=== PATIENT | male | born 1960 | race African-American/Black ===

== ENCOUNTER 2018-05-01 13:39 | Inpatient (IN) | payer MEDICARE, MEDICAID ==
[~2018-05-01] VITALS: Ht 170.2 cm; Wt 104.3 kg
[~2018-05-01 13:39] MED LIST: APRESOLINE50 MG PO; ASPIR-LOW81 MG PO; ASPIRIN BUFFER325 M1 PO; CARDIZEM CD300 MG PO; CLONIDINE HCL0.3 MG PO; CRESTOR10 MG PO; DIOVAN160 MG PO; DSS250 MG PO; FISH OIL 1,0001 EAC2 PO; FUROSEMIDE40 MG/5 ML PO; HYDROCODON-ACE1 EAC7 PO; ISOSORBIDE1 GM PO; LANTUS5 UNITS *; LANTUS5 UNITS SUBQ; LASIX20 MG PO; LASIX80 MG PO; LEXIVA700 MG PO; METOPROLOL TAR100 MG PO; NAPROXEN500 M2 PO; NITROSTAT0.4 MG SL; NORVASC5 MG PO; NORVIR100 MG PO; NOVOLOG100 UNIT/1 SQ; NOVOLOG100 UNITS1 SUBQ; PLAVIX75 MG PO; PREZISTA600 MG PO; RANITIDINE HCL150 MG PO; REGLAN5 MG PO; ROCALTROL0.5 MC1 PO; VIREAD300 MG PO; ZIDOVUDINE300 MG PO
[2018-05-01 13:46] VITALS: BP 156/100
[2018-05-01] MEDS ORDERED: Morphine Sulfate 4mg/ml Inj (IV USE ONLY) IVP ONE (14:00)
[2018-05-01] MEDS ORDERED: LACTULOSE20 GM/301 ORAL (14:00)
[2018-05-01] MEDS ORDERED: LIPITOR40 MG ORAL (14:00)
[2018-05-01] MEDS ORDERED: PLAVIX75 MG ORAL (14:02)
[2018-05-01] MEDS ORDERED: HEPARIN SO5000 UNIT2 SUBQ (14:02)
[2018-05-01] MEDS ORDERED: LAMIVUDINE10 MG/1 ML PO (14:02)
[2018-05-01] MEDS ORDERED: DUONEB 0.5-3(2.53 ML HHN ×2 (14:02→14:21)
[2018-05-01 14:15] LABS: BASOPHILS % (AUTO) 0.9 % (0.0-2.0); EOSINOPHILS % (AUTO) 6.7 % (0.0-3.0); HEMATOCRIT 38.3 % (42.0-52.0); LYMPHOCYTES % (AUTO) 22.7 % (20.0-45.0); MEAN CORPUSCULAR VOLUME 96 FL (80-99); MONOCYTES % (AUTO) 11.9 % (1.0-10.0); NEUTROPHILS % (AUTO) 57.7 % (45.0-75.0); PLATELET COUNT 138 K/UL (150-450); RED BLOOD COUNT 3.97 M/UL (4.70-6.10); WHITE BLOOD COUNT 7.3 K/UL (4.8-10.8)
[2018-05-01] MEDS ORDERED: ASPIRIN81 MG ORAL (14:24)
[2018-05-01] MEDS ORDERED: AMITRIPTYLINE100 MG ORAL (14:27)
--- NOTE | 2018-05-01 14:31 | Emergency Room Report ---
History of Present Illness General Chief Complaint: Chest Pain Source: Patient Present Illness HPI 57-year-old male presents ED complaining of chest pain. Patient from long term facility. States chest pain started approximately 90 minutes ago. At rest. Pain is left-sided, sharp, 10 out of 10, nonradiating. Patient was given nitroglycerin by EMS without resolution. states he has several stents in his heart. History of end-stage renal disease. Last dialysis yesterday. Denies smoking or drug use. No other aggravating relieving factors. Denies any other associated symptoms Allergies: Coded Allergies: No Known Allergies (Verified , 02/11/12) Patient History Past Medical History: HTN, CAD, asthma, renal disease, dialysis Reviewed Nursing Documentation: PMH: Agreed; PSxH: Agreed Nursing Documentation-PMH Hx Cardiac Problems: Yes Hx Hypertension: Yes Hx Pacemaker: No Hx Asthma: Yes Hx COPD: No Hx Diabetes: Yes - esrd on dialysis Hx Cancer: No Hx Gastrointestinal Problems: Yes Hx Dialysis: Yes Hx Neurological Problems: No Hx Cerebrovascular Accident: No Hx Seizures: No Review of Systems All Other Systems: negative except mentioned in HPI Physical Exam Vital Signs Date Time Temp Pulse Resp B/P (MAP) Pulse Ox O2 Delivery O2 Flow Rate FiO2 05/01/18 13:32 99.1 95 18 132/86 99 Room Air 99.1 Sp02 EP Interpretation: reviewed, normal General Appearance: no apparent distress, alert, GCS 15, non-toxic Head: normocephalic, atraumatic Eyes: bilateral eye normal inspection, bilateral eye PERRL ENT: hearing grossly normal, normal pharynx, no angioedema, normal voice Neck: full range of motion, supple/symm/no masses Respiratory: chest non-tender, lungs clear, normal breath sounds, speaking full sentences, other - dialysis catheter on left chest Cardiovascular #1: regular rate, rhythm, no edema Cardiovascular #2: 2+ carotid (R), 2+ carotid (L), 2+ radial (R), 2+ radial (L) , 2+ dorsalis pedis (R), 2+ dorsalis pedis (L) Gastrointestinal: normal bowel sounds, non tender, soft, non-distended, no guarding, no rebound Rectal: deferred Genitourinary: normal inspection, no CVA tenderness Musculoskeletal: back normal, gait/station normal, normal range of motion, non- tender Neurologic: alert, oriented x3, responsive, motor strength/tone normal, sensory intact, speech normal Psychiatric: judgement/insight normal, memory normal, mood/affect normal, no suicidal/homicidal ideation Reflexes: 3+ bicep (R), 3+ bicep (L), 3+ tricep (R), 3+ tricep (L), 3+ knee (R) , 3+ knee (L) Skin: normal color, no rash, warm/dry, well hydrated Lymphatic: no adenopathy Medical Decision Making Diagnostic Impression: Primary Impression: ACS (acute coronary syndrome) Additional Impression: ESRD (end stage renal disease) on dialysis ER Course Hospital Course 57-year-old male presents ED complaining of chest pain Differential diagnoses include: SC/unstable angina, contusion, muscle strain, PTX, rib fracture Clinical course Patient placed on stretcher. on monitor car operator. After initial history and physical I ordered labs, EKG, chest x-ray, morphine Patient had difficult IV access. I was able to place a peripheral EJ line labs reviewed- no leukocytosis, hb/hct stable, Cr elevated, trop negative, BNP elevated EKG - NSR, no acute ischemic changes interpreted by me Chest x-ray- cardiomegaly, dialysis catheter in chest Case discussed with Dr. Bland and he agreed to accept the patient to his service for further care and support I. I feel this is a highly complex case requiring extensive working including EKG/Rhythm strip, Xray/CT/US, Blood/urine lab work, repeat exams while in ED, and administration of strong opiates/narcotics for pain control, admission to hospital or close patient follow up. Diagnosis - ACS, ESRD admitted to telemetry in serious condition Labs Test 05/01/18 13:55 White Blood Count 7.3 K/UL (4.8-10.8) Red Blood Count 3.97 M/UL (4.70-6.10) Hemoglobin 12.0 G/DL (14.2-18.0) Hematocrit 38.3 % (42.0-52.0) Mean Corpuscular Volume 96 FL (80-99) Mean Corpuscular Hemoglobin 30.2 PG (27.0-31.0) Mean Corpuscular Hemoglobin Concent 31.3 G/DL (32.0-36.0) Red Cell Distribution Width 16.0 % (11.6-14.8) Platelet Count 138 K/UL (150-450) Mean Platelet Volume 7.3 FL (6.5-10.1) Neutrophils (%) (Auto) 57.7 % (45.0-75.0) Lymphocytes (%) (Auto) 22.7 % (20.0-45.0) Monocytes (%) (Auto) 11.9 % (1.0-10.0) Eosinophils (%) (Auto) 6.7 % (0.0-3.0) Basophils (%) (Auto) 0.9 % (0.0-2.0) Prothrombin Time 11.3 SEC (9.30-11.50) Prothromb Time International Ratio 1.1 (0.9-1.1) Activated Partial Thromboplast Time 32 SEC (23-33) Sodium Level 134 MMOL/L (136-145) Potassium Level 3.9 MMOL/L (3.5-5.1) Chloride Level 97 MMOL/L (98-107) Carbon Dioxide Level 28 MMOL/L (21-32) Anion Gap 9 mmol/L (5-15) Blood Urea Nitrogen 13 mg/dL (7-18) Creatinine 6.4 MG/DL (0.55-1.30) Estimat Glomerular Filtration Rate 11.0 mL/min (>60) Glucose Level 88 MG/DL (74-106) Calcium Level 9.2 MG/DL (8.5-10.1) Total Bilirubin 0.6 MG/DL (0.2-1.0) Aspartate Amino Transf (AST/SGOT) 45 U/L (15-37) Alanine Aminotransferase (ALT/SGPT) 38 U/L (12-78) Alkaline Phosphatase 113 U/L (46-116) Total Creatine Kinase 183 U/L (26-308) Creatine Kinase MB 1.0 NG/ML (0.0-3.6) Creatine Kinase MB Relative Index 0.5 Troponin I 0.017 ng/mL (0.000-0.056) Pro-B-Type Natriuretic Peptide 3127 pg/mL (0-125) Total Protein 9.9 G/DL (6.4-8.2) Albumin 3.4 G/DL (3.4-5.0) Globulin 6.5 g/dL Albumin/Globulin Ratio 0.5 (1.0-2.7) EKG Diagnostic Results Rate: normal Rhythm: NSR, other - 1st degree av block ST Segments: no acute changes ASA given to the pt in ED: No - given by ems Rhythm Strip Diag. Results EP Interpretation: yes Rhythm: NSR, no PVC's, no ectopy Chest X-Ray Diagnostic Results Chest X-Ray Diagnostic Results : Chest X-Ray Ordered: Yes # of Views/Limited/Complete: 1 View Indication: Chest Pain EP Interpretation: Yes Interpretation: no consolidation, no effusion, no pneumothorax, other - cardiomegaly. dialylsis catheter in left chest Impression: Other - cardiomegaly Electronically Signed by: Electronically signed by Sergio Vega MD Last Vital Signs Date Time Temp Pulse Resp B/P (MAP) Pulse Ox O2 Delivery O2 Flow Rate FiO2 05/01/18 14:20 95 18 Room Air 05/01/18 14:14 99.1 05/01/18 13:46 156/100 100 Status: improved Disposition: ADMITTED INPATIENT Condition: Serious Sergio Vega MD May 01, 2018 14:31
[2018-05-01] MEDS ORDERED: LISINOPRIL20 MG ORAL (14:32)
[2018-05-01 14:33] LABS: ANION GAP 9 mmol/L (5-15); BLOOD UREA NITROGEN 13 mg/dL (7-18); CALCIUM 9.2 MG/DL (8.5-10.1); CARBON DIOXIDE 28 MMOL/L (21-32); CHLORIDE 97 MMOL/L (98-107); CREATININE 6.4 MG/DL (0.55-1.30); POTASSIUM 3.9 MMOL/L (3.5-5.1); SODIUM 134 MMOL/L (136-145)
[2018-05-01] MEDS ORDERED: PREZISTA600 MG ORAL (14:41)
[2018-05-01] MEDS ORDERED: DIPHENHYDRAMINE25 M1 ORAL (14:41)
[2018-05-01] MEDS ORDERED: LIDOCAINE 4% TOPIC (14:41)
[2018-05-01 14:44] LABS: INR 1.1 (0.9-1.1)
[2018-05-01] MEDS ORDERED: DiphenhydrAMINE 50mg/ml Inj IVP ONE (14:45)
[2018-05-01 14:47] LABS: ALANINE AMINOTRANSFERASE 38 U/L (12-78); ALBUMIN 3.4 G/DL (3.4-5.0); ALBUMIN/GLOBULIN RATIO 0.5 (1.0-2.7); ALKALINE PHOSPHATASE 113 U/L (46-116); ASPARTATE AMINO TRANSFERASE 45 U/L (15-37); BILIRUBIN,TOTAL 0.6 MG/DL (0.2-1.0); CREATINE KINASE 183 U/L (26-308)
[2018-05-01] MEDS ORDERED: IMDUR ORAL (15:06)
[2018-05-01] MEDS ORDERED: MELATONIN 3 MG1 EAC1 PO (15:06)
[2018-05-01] MEDS ORDERED: CATAPRES0.1 MG ORAL (15:11)
[2018-05-01] MEDS ORDERED: ZOFRAN ODT8 MG ORAL (15:11)
[2018-05-01] MEDS ORDERED: NORCO 5-325 TA1 EACH ORAL (15:11)
[2018-05-01] MEDS ORDERED: GERI-TUSSI100 MG/5 M PO (15:12)
--- NOTE | 2018-05-01 15:13 | Diagnostic Imaging Report ---
Indication: Chest pain Technique: One view of the chest Comparison: 12/09/2012 Findings: Interim placement of a right jugular tunneled dialysis catheter, tip of which is deep within the right atrium and possibly protruding into the tricuspid valve. The heart is mildly enlarged. The lungs and pleural spaces are clear Impression: No acute process Mild cardiomegaly Deep position of tunneled dialysis catheter. Dr. Vega notified of this finding at the time of interpretation
[2018-05-01 16:00] VITALS: BP 129/81
--- NOTE | 2018-05-01 17:58 | Consultation ---
Consult Note Consult Note Asked to eval for dialysis management 57-year-old male presents ED complaining of chest pain. Patient from long-term facility. States chest pain started approximately 90 minutes ago. At rest. Pain is left-sided, sharp, 10 out of 10, nonradiating. Patient was given nitroglycerin by EMS without resolution. states he has several stents in his heart. History of end-stage renal disease. Last dialysis yesterday. Denies smoking or drug use. No other aggravating relieving factors. Denies any other associated symptoms No Known Allergies (Verified , 02/11/12) Past Medical History: HTN, CAD, asthma, renal disease, dialysis Hx Cardiac Problems: Yes Hx Hypertension: Yes Hx Asthma: Yes Hx Diabetes: Yes - esrd on dialysis Hx Gastrointestinal Problems: Yes Hx Dialysis: Yes patient interviewed- examined data reviewed Assessment/Plan Admitted with ACS On Dialysis for 12 years Has right chest permacath HTN DM HIV+ BP meds with parameters HD 05/02 keep BS in control 2D Echo per cardiology Toño Posada MD May 01, 2018 17:58
[2018-05-01] MEDS ORDERED: Albuterol/Ipratropium 3ml neb HHN PRN (18:00)
[2018-05-01] MEDS ORDERED: DiphenhydrAMINE 50mg/ml Inj IVP PRN (18:00)
[2018-05-01] MEDS ORDERED: Albuterol/Ipratropium 3ml neb HHN SCH (18:00)
--- NOTE | 2018-05-01 19:13 | Cardiology Progress Note ---
Assessment/Plan Assessment/Plan The patient is seen and examined, full consult note will be dictated shortly. Objective Last 24 Hour Vital Signs Date Time Temp Pulse Resp B/P (MAP) Pulse Ox O2 Delivery O2 Flow Rate FiO2 05/01/18 18:29 Room Air 05/01/18 16:52 99.1 80 18 129/81 96 Room Air 99.1 05/01/18 16:00 99.1 80 18 129/81 96 Room Air 99.1 05/01/18 15:08 99.1 05/01/18 14:20 95 18 Room Air 05/01/18 14:14 99.1 05/01/18 13:46 89.9 89 16 156/100 100 Room Air 89.9 05/01/18 13:32 99.1 95 18 132/86 99 Room Air 99.1 Laboratory Tests Test 05/01/18 13:35 05/01/18 13:55 C-Reactive Protein, Quantitative 3.2 mg/dL (0.00-0.90) H White Blood Count 7.3 K/UL (4.8-10.8) Red Blood Count 3.97 M/UL (4.70-6.10) L Hemoglobin 12.0 G/DL (14.2-18.0) L Hematocrit 38.3 % (42.0-52.0) L Mean Corpuscular Volume 96 FL (80-99) Mean Corpuscular Hemoglobin 30.2 PG (27.0-31.0) Mean Corpuscular Hemoglobin Concent 31.3 G/DL (32.0-36.0) L Red Cell Distribution Width 16.0 % (11.6-14.8) H Platelet Count 138 K/UL (150-450) L Mean Platelet Volume 7.3 FL (6.5-10.1) Neutrophils (%) (Auto) 57.7 % (45.0-75.0) Lymphocytes (%) (Auto) 22.7 % (20.0-45.0) Monocytes (%) (Auto) 11.9 % (1.0-10.0) H Eosinophils (%) (Auto) 6.7 % (0.0-3.0) H Basophils (%) (Auto) 0.9 % (0.0-2.0) Prothrombin Time 11.3 SEC (9.30-11.50) Prothromb Time International Ratio 1.1 (0.9-1.1) Activated Partial Thromboplast Time 32 SEC (23-33) Sodium Level 134 MMOL/L (136-145) L Potassium Level 3.9 MMOL/L (3.5-5.1) Chloride Level 97 MMOL/L (98-107) L Carbon Dioxide Level 28 MMOL/L (21-32) Anion Gap 9 mmol/L (5-15) Blood Urea Nitrogen 13 mg/dL (7-18) Creatinine 6.4 MG/DL (0.55-1.30) H Estimat Glomerular Filtration Rate 11.0 mL/min (>60) Glucose Level 88 MG/DL (74-106) Calcium Level 9.2 MG/DL (8.5-10.1) Total Bilirubin 0.6 MG/DL (0.2-1.0) Aspartate Amino Transf (AST/SGOT) 45 U/L (15-37) H Alanine Aminotransferase (ALT/SGPT) 38 U/L (12-78) Alkaline Phosphatase 113 U/L (46-116) Total Creatine Kinase 183 U/L (26-308) Creatine Kinase MB 1.0 NG/ML (0.0-3.6) Creatine Kinase MB Relative Index 0.5 Troponin I 0.017 ng/mL (0.000-0.056) Pro-B-Type Natriuretic Peptide 3127 pg/mL (0-125) H Total Protein 9.9 G/DL (6.4-8.2) H Albumin 3.4 G/DL (3.4-5.0) Globulin 6.5 g/dL Albumin/Globulin Ratio 0.5 (1.0-2.7) L Pavan Hanson MD May 01, 2018 19:13
[2018-05-01 20:00] VITALS: BP 99/56
[2018-05-01] MEDS: Atorvastatin 20mg tab ORAL SCH (20:09)
[2018-05-01] MEDS: Metoprolol Tartrate 12.5mg TAB ORAL SCH (20:09)
[2018-05-01] MEDS: HydrALAZINE 50mg tab ORAL SCH (21:14)
[2018-05-02] VITALS: BP 107/74
--- NOTE | 2018-05-02 01:00 | Consultation ---
DATE OF CONSULTATION: 05/01/2018 CARDIOLOGY CONSULTATION CONSULTING PHYSICIAN: Pavan Hanson M.D. REFERRING PHYSICIAN: Daisy Bland M.D. REASON FOR CONSULTATION: Management of chest pain. HISTORY OF PRESENT ILLNESS: The patient is a very unfortunate 57-year-old gentleman, who presents to the hospital complaining of chest pain, described as pressure, sharp, localized in the left precordial area, not relieved by nitroglycerin given by EMS en route to this facility. He is a resident of care home facility. His risk factors for coronary artery disease including history of hypertension, end-stage renal disease, diabetes mellitus. In fact, he has history of coronary artery disease with multiple percutaneous coronary interventions in the past. He is compliant with his dialysis. At the time of arrival to the hospital, blood pressure was 132/86 mmHg and pulse of 95. A 12-lead electrocardiogram was significant for sinus rhythm with prolonged QT interval, but no acute ST and T-wave abnormalities. The patient was admitted to the telemetry for further evaluation and management. Cardiology consultation was made at request of Dr. Bland. PAST MEDICAL HISTORY: 1. Hypertension. 2. Coronary artery disease, status post PCI. 3. History of asthma. 4. History of diabetes mellitus. 5. History of end-stage renal disease on hemodialysis. 6. History of gastrointestinal problems. 7. History of right PermCath placement in 2017. 8. History of human immunodeficiency virus disease. PAST SURGICAL HISTORY: Right subclavian vein PermCath placement. ALLERGIES: No known drug allergies. FAMILY HISTORY: No premature coronary artery disease in first-degree relatives. MEDICATIONS: List of medications, amitriptyline 75 mg p.o. at bedtime, aspirin 81 mg daily, atorvastatin 40 mg p.o. at bedtime, clonidine 0.3 mg twice a day, Plavix 75 mg daily, Prezista 400 mg twice a day, Cardizem 300 mg p.o. daily, diphenhydramine 25 mg q.4 hours p.r.n. pruritus, furosemide 40 mg p.o. twice daily, guaifenesin 10 mL p.o. q.4 hours p.r.n. cough, heparin 5000 units subcutaneous q.12 hours, hydralazine 50 mg times a day, [place] 5/325 mg one tablet q.4 h. p.r.n. pain, NovoLog insulin 10 units subcutaneous three times a day, Lantus insulin 20 units subcutaneously at bedtime, DuoNeb 3 mL HHN as needed, isosorbide mononitrate 20 mg p.o. daily, lactulose 30 mL p.o. daily, lamivudine 10 mg p.o. daily, lisinopril 10 mg p.o. daily, melatonin one tablet at bedtime, metoprolol 25 mg p.o. daily, naproxen 500 mg twice a day, Nitrostat 0.4 mg sublingual p.r.n. chest pain, omega-3 fatty acids 1000 mg soft gel three times a day, Zofran 4 mg q.6 hours p.r.n. nausea and vomiting, Zantac 150 mg p.o. at bedtime, Norvir 100 mg p.o. twice daily, rosuvastatin 5 mg p.o. at bedtime, valsartan 160 mg twice daily, and zidovudine 300 mg p.o. daily. REVIEW OF SYSTEMS: HEENT: Denies any headache, diplopia, or blurred vision. CONSTITUTIONAL: Denies any fever, chills, night sweats, or weight loss. CARDIOVASCULAR: Chest pain as mentioned above, localized, sharp/pressure-like, left precordial pain, not responding to nitroglycerin. Denies any dyspnea on exertion, PND, orthopnea, or leg swelling. PULMONARY: Denies any cough, hemoptysis, or wheezing. GASTROINTESTINAL: Denies any nausea, vomiting, diarrhea, constipation, abdominal pain, or GI bleed. GENITOURINARY: Denies any hematuria, dysuria, or incontinence. NEUROLOGIC: Denies any motor dysfunction, sensory deficit, or altered speech. PHYSICAL EXAMINATION: VITAL SIGNS: Blood pressure at the time of arrival to the hospital is 132/86, pulse of 95, respirations 18, and O2 saturation 99% on room air. GENERAL: The patient is a very pleasant 57-year-old gentleman, in no apparent respiratory distress. Alert and oriented x4. HEENT: Atraumatic and normocephalic. Anicteric. Pupils are equal, round, and reactive to light and accommodation. Extraocular muscles intact. NECK: JVP is less than 5 cm. No carotid bruits. Carotid upstrokes 2+ bilaterally. CVS: Normal S1, S2. Regular rhythm. No murmurs, gallops, or rubs. PMI is at fourth intercostal space in the midclavicular line. LUNGS: Clear to auscultation bilaterally. ABDOMEN: Soft, nontender, and nondistended. No hepatosplenomegaly. Positive bowel sounds. EXTREMITIES: No evidence of edema, clubbing, or cyanosis. LABORATORY AND DIAGNOSTIC DATA: Laboratory findings, WBC is 7.3 hemoglobin 12.0, hematocrit 38.3, and platelet count is . Sodium 134, potassium 3.9, chloride 97, bicarbonate 28, BUN 13, creatinine 6.4, glucose 88, and calcium is 9.2. Troponin I is 0.017. ProBNP was 3127. INR is 1.1. A 12-lead electrocardiogram, sinus rhythm at a rate of 94 with a first-degree AV block, prolongation of QT interval of 480 milliseconds, right axis deviation, and no ST and T-wave abnormalities. Chest x-ray showed mild cardiomegaly, no acute cardiopulmonary disease. ASSESSMENT AND PLAN: The patient is a very unfortunate 57-year-old gentleman, seen in Cardiology consultation at the request of Dr. Bland. 1. Noncardiac chest pain based on history and characteristic of pain, however, given the patient's history of CAD and status post PCI. We would like to rule out acute myocardial infarction. First troponin I level is within normal limits. I will continue with serial troponin I level. The patient will also be scheduled for nuclear stress test to rule out obstructive CAD in the a.m. A 2D echocardiogram will be done to assess left ventricular systolic and diastolic function. Of note, the 12-lead electrocardiogram does not show any ischemic changes. 2. Prolonged QT interval, this is most likely due to electrolyte abnormalities associated with hemodialysis/end-stage renal disease. We will check magnesium level in the a.m. Calcium level is within normal limits. 3. History of hypertension. 4. History of diabetes mellitus. This patient would benefit from combination of aspirin and statins. Lipid panel will be measured in the morning. I would like to thank, Dr. Bland, for allowing me to participate in the care of this patient. Pavan Hanson M.D. DR: LISET JOB#: [id number] CC:
[2018-05-02 04:00] VITALS: BP 115/69
[2018-05-02 05:31] LABS: BASOPHILS % (AUTO) 0.9 % (0.0-2.0); EOSINOPHILS % (AUTO) 8.1 % (0.0-3.0); HEMATOCRIT 38.8 % (42.0-52.0); LYMPHOCYTES % (AUTO) 31.5 % (20.0-45.0); MEAN CORPUSCULAR VOLUME 97 FL (80-99); MONOCYTES % (AUTO) 10.2 % (1.0-10.0); NEUTROPHILS % (AUTO) 49.2 % (45.0-75.0); PLATELET COUNT 128 K/UL (150-450); RED BLOOD COUNT 3.99 M/UL (4.70-6.10); RED CELL DISTRIBUTION WIDTH 16.1 % (11.6-14.8); WHITE BLOOD COUNT 6.2 K/UL (4.8-10.8)
[2018-05-02] MEDS: HydrALAZINE 50mg tab ORAL SCH ×3 (06:00→21:52)
[2018-05-02 07:36] LABS: ALANINE AMINOTRANSFERASE 38 U/L (12-78); ALBUMIN 3.6 G/DL (3.4-5.0); ALBUMIN/GLOBULIN RATIO 0.6 (1.0-2.7); ALKALINE PHOSPHATASE 128 U/L (46-116); ANION GAP 9 mmol/L (5-15); ASPARTATE AMINO TRANSFERASE 65 U/L (15-37); BILIRUBIN,TOTAL 0.6 MG/DL (0.2-1.0); BLOOD UREA NITROGEN 20 mg/dL (7-18); CARBON DIOXIDE 28 MMOL/L (21-32); CHLORIDE 97 MMOL/L (98-107); CHOLESTEROL 111 MG/DL (< 200); CREATINE KINASE 207 U/L (26-308); CREATININE 7.9 MG/DL (0.55-1.30); GAMMA GLUTAMYL TRANSPEPTIDASE 158 U/L (5-85); HDL CHOLESTEROL 34 MG/DL (40-60); PHOSPHORUS 4.8 MG/DL (2.5-4.9); POTASSIUM 4.6 MMOL/L (3.5-5.1); SODIUM 134 MMOL/L (136-145); TRIGLYCERIDES 122 MG/DL (30-150)
--- NOTE | 2018-05-02 07:51 | Nephrology Progress Note ---
Assessment/Plan Problem List: (1) ESRD (end stage renal disease) on dialysis (2) ACS (acute coronary syndrome) Assessment Admitted with ACS On Dialysis for 12 years Has right chest permacath HTN DM HIV+ Plan adjust bp meds HD in am Subjective ROS Limited/Unobtainable: No Constitutional: Reports: malaise Objective Objective Last 24 Hour Vital Signs Date Time Temp Pulse Resp B/P (MAP) Pulse Ox O2 Delivery O2 Flow Rate FiO2 05/02/18 06:00 115/69 05/02/18 04:00 79 05/02/18 04:00 97.6 77 18 115/69 (84) 98 97.6 05/02/18 00:00 97.4 80 18 107/74 (85) 99 97.4 05/02/18 00:00 79 05/01/18 21:14 99/56 05/01/18 21:00 Nasal Cannula 2.0 05/01/18 20:09 82 99/56 05/01/18 20:00 83 05/01/18 20:00 97.6 84 18 99/56 (70) 98 97.6 05/01/18 18:29 Room Air 05/01/18 16:52 99.1 80 18 129/81 96 Room Air 99.1 05/01/18 16:00 99.1 80 18 129/81 96 Room Air 99.1 05/01/18 15:08 99.1 05/01/18 14:20 95 18 Room Air 05/01/18 14:14 99.1 05/01/18 13:46 89.9 89 16 156/100 100 Room Air 89.9 05/01/18 13:32 99.1 95 18 132/86 99 Room Air 99.1 Intake and Output 05/01/18 05/02/18 19:00 07:00 Intake Total 0 ml 200 ml Balance 0 ml 200 ml Intake Oral 0 ml 200 ml # Bowel Movements 1 Laboratory Tests 05/01/18 13:35: C-Reactive Protein, Quantitative 3.2H 05/01/18 13:55: White Blood Count 7.3, Red Blood Count 3.97L, Hemoglobin 12.0L, Hematocrit 38.3L , Mean Corpuscular Volume 96, Mean Corpuscular Hemoglobin 30.2, Mean Corpuscular Hemoglobin Concent 31.3L, Red Cell Distribution Width 16.0H, Platelet Count 138L, Mean Platelet Volume 7.3, Neutrophils (%) (Auto) 57.7, Lymphocytes (%) (Auto) 22.7, Monocytes (%) (Auto) 11.9H, Eosinophils (%) (Auto) 6.7H, Basophils (%) (Auto) 0.9, Prothrombin Time 11.3, Prothromb Time International Ratio 1.1, Activated Partial Thromboplast Time 32, Sodium Level 134L, Potassium Level 3.9, Chloride Level 97L, Carbon Dioxide Level 28, Anion Gap 9, Blood Urea Nitrogen 13, Creatinine 6.4H, Estimat Glomerular Filtration Rate 11.0, Glucose Level 88, Calcium Level 9.2, Total Bilirubin 0.6, Aspartate Amino Transf (AST/SGOT) 45H, Alanine Aminotransferase (ALT/SGPT) 38, Alkaline Phosphatase 113, Total Creatine Kinase 183, Creatine Kinase MB 1.0, Creatine Kinase MB Relative Index 0.5, Troponin I 0.017, Pro-B-Type Natriuretic Peptide 3127H, Total Protein 9.9H, Albumin 3.4, Globulin 6.5, Albumin/Globulin Ratio 0.5L 05/02/18 04:06: White Blood Count 6.2, Red Blood Count 3.99L, Hemoglobin 12.0L, Hematocrit 38.8L , Mean Corpuscular Volume 97, Mean Corpuscular Hemoglobin 30.0, Mean Corpuscular Hemoglobin Concent 30.9L, Red Cell Distribution Width 16.1H, Platelet Count 128L, Mean Platelet Volume 7.2, Neutrophils (%) (Auto) 49.2, Lymphocytes (%) (Auto) 31.5, Monocytes (%) (Auto) 10.2H, Eosinophils (%) (Auto) 8.1H, Basophils (%) (Auto) 0.9, Sodium Level 134L, Potassium Level 4.6, Chloride Level 97L, Carbon Dioxide Level 28, Anion Gap 9, Blood Urea Nitrogen 20H, Creatinine 7.9H, Estimat Glomerular Filtration Rate 8.6, Glucose Level 61L , Calcium Level 9.0, Total Bilirubin 0.6, Aspartate Amino Transf (AST/SGOT) 65H , Alanine Aminotransferase (ALT/SGPT) 38, Alkaline Phosphatase 128H, Total Creatine Kinase 207, Troponin I 0.012, Pro-B-Type Natriuretic Peptide 3425H, Total Protein 9.9H, Albumin 3.6, Globulin 6.3, Albumin/Globulin Ratio 0.6L, Hemoglobin A1c 5.3, Uric Acid 4.2, Phosphorus Level 4.8, Magnesium Level 1.9, Gamma Glutamyl Transpeptidase 158H, Triglycerides Level 122, Cholesterol Level 111, LDL Cholesterol 59, HDL Cholesterol 34L, Cholesterol/HDL Ratio 3.3, Vitamin B12 Level 952, Thyroid Stimulating Hormone (TSH) 3.726 Height (Feet): 5 Height (Inches): 7.00 Weight (Pounds): 229 General Appearance: no apparent distress Objective PE not changed Toño Posada MD May 02, 2018 07:51
[2018-05-02 08:00] VITALS: BP 133/60
[2018-05-02] MEDS ORDERED: dilTIAZem HCl CD 180mg cap ORAL SCH (09:00)
[2018-05-02] MEDS: Metoprolol Tartrate 12.5mg TAB ORAL SCH ×2 (09:00→21:50)
[2018-05-02] MEDS ORDERED: Lisinopril 10mg tab ORAL SCH (09:00)
[2018-05-02] MEDS: Aspirin Baby 81mg ORAL SCH (09:17)
[2018-05-02] MEDS ORDERED: Lexiscan 0.4mg/5ml syringe IV SCH (09:45)
[2018-05-02 12:00] VITALS: BP 120/72
[2018-05-02] MEDS ORDERED: Norco 5mg/325mg tab ORAL PRN (12:30)
--- NOTE | 2018-05-02 12:33 | Consultation ---
History of Present Illness General Chief Complaint: Chest Pain Present Illness HPI 57-year-old male, who presents to the hospital complaining of chest pain, described as pressure, sharp, localized in the left precordial area, not relieved by nitroglycerin given by EMS en route to this facility. The pt has anxiety. Allergies: Coded Allergies: No Known Allergies (Verified , 02/11/12) Medication History Scheduled Amitriptyline HCl (Amitriptyline HCl), 75 MG ORAL BEDTIME, (Reported) Aspirin* (Aspirin*), 81 MG ORAL DAILY, (Reported) Aspirin/Calcium Carbonate/Mag (Aspirin Buffered 325 Mg Tab), 325 MG PO DAILY, ( Reported) Atorvastatin Calcium* (Lipitor*), 40 MG ORAL BEDTIME, (Reported) Clonidine Hcl (Clonidine Hcl), 0.3 MG PO TWICE A DAY, (Reported) Clopidogrel Bisulfate* (Plavix*), 75 MG ORAL DAILY, (Reported) Darunavir Ethanolate* (Prezista*), 400 MG PO TWICE A DAY, (Reported) Darunavir Ethanolate* (Prezista*), 800 MG ORAL DAILY, (Reported) Diltiazem HCl (Diltiazem HCl), 300 MG PO DAILY, (Reported) Furosemide (Furosemide), 40 MG PO TWICE A DAY, (Reported) Heparin Sod (Porcine) (Heparin Sodium*), 5,000 UNITS SUBQ EVERY 12 HOURS, ( Reported) Hydralazine HCl (Hydralazine HCl), 50 MG PO TID, (Reported) Insulin Aspart (Novolog Flexpen), 10 UNITS SUBQ TID, (Reported) Insulin Glargine (Lantus), 20 SUBQ QHS, (Reported) Ipratropium/Albuterol Sulfate (DuoNeb 0.5-3(2.5)mg/3ml), 3 ML HHN NEEDED, ( Reported) Isosorbide (Isosorbide), 120 MG PO DAILY, (Reported) Lactulose (Lactulose*), 30 ML ORAL DAILY, (Reported) Lamivudine (Lamivudine), 10 MG PO DAILY, (Reported) Lisinopril (Lisinopril*), 10 MG ORAL DAILY, (Reported) Melatonin/Pyridoxine HCl (B6) (Melatonin 3 mg Tablet), 1 EACH PO BEDTIME, ( Reported) Metoprolol Tartrate* (Metoprolol Tartrate*), 25 MG PO DAILY, (Reported) Naproxen* (Naproxen*), 500 MG PO TWICE A DAY, (Reported) [place]-3 Fatty Acids/Fish Oil (Fish Oil 1,000 Mg Softgel), 1 EACH PO TID, ( Reported) Ranitidine Hcl* (Zantac*), 150 MG PO QHS, (Reported) Ritonavir* (Norvir*), 100 MG PO BID, (Reported) Rosuvastatin Calcium* (Crestor*), 5 MG PO QHS, (Reported) Valsartan (Diovan), 160 MG PO BID, (Reported) Zidovudine (Zidovudine), 300 MG PO DAILY, (Reported) [Imdur], 0.6 MG ORAL DAILY, (Reported) [Lidocaine 4% cream], Unknown Dose TOPIC NEEDED, (Reported) Scheduled PRN Clonidine Hcl* (Catapres*), 0.1 MG ORAL EVERY 6 HOURS PRN for For High Blood Pressure, (Reported) Diphenhydramine Hcl* (Diphenhydramine Hcl*), 25 MG ORAL Q4HR PRN for Itching, ( Reported) Guaifenesin (Ivis-Tussin), 10 MG PO EVERY 4 HOURS PRN for For Cough, (Reported) Hydrocodone Bit/Acetaminophen 5-325* ([place] 5-325*), 1 TAB ORAL Q4H PRN for For Pain, (Reported) Ipratropium/Albuterol Sulfate (DuoNeb 0.5-3(2.5)mg/3ml), 3 ML HHN EVERY 4 HOURS PRN for Shortness of Breath, (Reported) Nitroglycerin (Nitrostat), 0.4 MG SL, (Reported) Ondansetron Odt* (Zofran Odt*), 4 MG ORAL Q6H PRN for Nausea & Vomiting, ( Reported) Patient History Healthcare decision maker N Resuscitation status Full Code Advanced Directive on File Review of Systems Psychiatric: Reports: prior hx, anxiety, depressed feelings Physical Exam General Appearance: no apparent distress, alert Neurologic: oriented x 3, responsive, depressed affect Last 24 Hour Vital Signs Date Time Temp Pulse Resp B/P (MAP) Pulse Ox O2 Delivery O2 Flow Rate FiO2 05/02/18 12:00 98.0 80 18 120/72 (88) 95 98.0 05/02/18 10:08 97 Nasal Cannula 2.0 28 05/02/18 10:08 Nasal Cannula 2.0 28 05/02/18 10:08 89 20 Nasal Cannula 05/02/18 09:00 Room Air 05/02/18 09:00 80 133/60 05/02/18 08:00 78 05/02/18 08:00 97.2 80 18 133/60 (84) 100 97.2 05/02/18 06:00 115/69 05/02/18 04:00 79 05/02/18 04:00 97.6 77 18 115/69 (84) 98 97.6 05/02/18 00:00 97.4 80 18 107/74 (85) 99 97.4 05/02/18 00:00 79 05/01/18 21:14 99/56 05/01/18 21:00 Nasal Cannula 2.0 05/01/18 20:09 82 99/56 05/01/18 20:00 83 05/01/18 20:00 97.6 84 18 99/56 (70) 98 97.6 05/01/18 18:29 Room Air 05/01/18 16:52 99.1 80 18 129/81 96 Room Air 99.1 05/01/18 16:00 99.1 80 18 129/81 96 Room Air 99.1 05/01/18 15:08 99.1 05/01/18 14:20 95 18 Room Air 05/01/18 14:14 99.1 05/01/18 13:46 89.9 89 16 156/100 100 Room Air 89.9 05/01/18 13:32 99.1 95 18 132/86 99 Room Air 99.1 Intake and Output 05/01/18 05/02/18 19:00 07:00 Intake Total 0 ml 200 ml Balance 0 ml 200 ml Intake Oral 0 ml 200 ml # Bowel Movements 1 Laboratory Tests Test 05/01/18 13:35 05/01/18 13:55 05/02/18 04:06 05/02/18 10:30 C-Reactive Protein, Quantitative 3.2 mg/dL (0.00-0.90) H White Blood Count 7.3 K/UL (4.8-10.8) 6.2 K/UL (4.8-10.8) Red Blood Count 3.97 M/UL (4.70-6.10) L 3.99 M/UL (4.70-6.10) L Hemoglobin 12.0 G/DL (14.2-18.0) L 12.0 G/DL (14.2-18.0) L Hematocrit 38.3 % (42.0-52.0) L 38.8 % (42.0-52.0) L Mean Corpuscular Volume 96 FL (80-99) 97 FL (80-99) Mean Corpuscular Hemoglobin 30.2 PG (27.0-31.0) 30.0 PG (27.0-31.0) Mean Corpuscular Hemoglobin Concent 31.3 G/DL (32.0-36.0) L 30.9 G/DL (32.0-36.0) L Red Cell Distribution Width 16.0 % (11.6-14.8) H 16.1 % (11.6-14.8) H Platelet Count 138 K/UL (150-450) L 128 K/UL (150-450) L Mean Platelet Volume 7.3 FL (6.5-10.1) 7.2 FL (6.5-10.1) Neutrophils (%) (Auto) 57.7 % (45.0-75.0) 49.2 % (45.0-75.0) Lymphocytes (%) (Auto) 22.7 % (20.0-45.0) 31.5 % (20.0-45.0) Monocytes (%) (Auto) 11.9 % (1.0-10.0) H 10.2 % (1.0-10.0) H Eosinophils (%) (Auto) 6.7 % (0.0-3.0) H 8.1 % (0.0-3.0) H Basophils (%) (Auto) 0.9 % (0.0-2.0) 0.9 % (0.0-2.0) Prothrombin Time 11.3 SEC (9.30-11.50) Prothromb Time International Ratio 1.1 (0.9-1.1) Activated Partial Thromboplast Time 32 SEC (23-33) Sodium Level 134 MMOL/L (136-145) L 134 MMOL/L (136-145) L Potassium Level 3.9 MMOL/L (3.5-5.1) 4.6 MMOL/L (3.5-5.1) Chloride Level 97 MMOL/L (98-107) L 97 MMOL/L (98-107) L Carbon Dioxide Level 28 MMOL/L (21-32) 28 MMOL/L (21-32) Anion Gap 9 mmol/L (5-15) 9 mmol/L (5-15) Blood Urea Nitrogen 13 mg/dL (7-18) 20 mg/dL (7-18) H Creatinine 6.4 MG/DL (0.55-1.30) H 7.9 MG/DL (0.55-1.30) H Estimat Glomerular Filtration Rate 11.0 mL/min (>60) 8.6 mL/min (>60) Glucose Level 88 MG/DL (74-106) 61 MG/DL (74-106) L Calcium Level 9.2 MG/DL (8.5-10.1) 9.0 MG/DL (8.5-10.1) Total Bilirubin 0.6 MG/DL (0.2-1.0) 0.6 MG/DL (0.2-1.0) Aspartate Amino Transf (AST/SGOT) 45 U/L (15-37) H 65 U/L (15-37) H Alanine Aminotransferase (ALT/SGPT) 38 U/L (12-78) 38 U/L (12-78) Alkaline Phosphatase 113 U/L (46-116) 128 U/L (46-116) H Total Creatine Kinase 183 U/L (26-308) 207 U/L (26-308) Creatine Kinase MB 1.0 NG/ML (0.0-3.6) Creatine Kinase MB Relative Index 0.5 Troponin I 0.017 ng/mL (0.000-0.056) 0.012 ng/mL (0.000-0.056) Pro-B-Type Natriuretic Peptide 3127 pg/mL (0-125) H 3425 pg/mL (0-125) H Total Protein 9.9 G/DL (6.4-8.2) H 9.9 G/DL (6.4-8.2) H Albumin 3.4 G/DL (3.4-5.0) 3.6 G/DL (3.4-5.0) Globulin 6.5 g/dL 6.3 g/dL Albumin/Globulin Ratio 0.5 (1.0-2.7) L 0.6 (1.0-2.7) L Hemoglobin A1c 5.3 % (4.3-6.0) Uric Acid 4.2 MG/DL (2.6-7.2) Phosphorus Level 4.8 MG/DL (2.5-4.9) Magnesium Level 1.9 MG/DL (1.8-2.4) Gamma Glutamyl Transpeptidase 158 U/L (5-85) H Triglycerides Level 122 MG/DL (30-150) Cholesterol Level 111 MG/DL (< 200) LDL Cholesterol 59 mg/dL (<100) HDL Cholesterol 34 MG/DL (40-60) L Cholesterol/HDL Ratio 3.3 (3.3-4.4) Vitamin B12 Level 952 PG/ML (193-986) Thyroid Stimulating Hormone (TSH) 3.726 uiU/mL (0.358-3.740) Folate 6.0 NG/ML (8.6-58.9) L Height (Feet): 5 Height (Inches): 7.00 Weight (Pounds): 229 Medications Current Medications Medications (Trade) Dose Ordered Sig/Twyla Route PRN Reason Start Time Stop Time Status Last Admin Dose Admin Acetaminophen (Tylenol) 650 mg Q4H PRN ORAL Mild Pain/Temp > 100.5 05/02/18 07:45 06/01/18 07:44 Acetaminophen/ Hydrocodone Bitart ([place] 5/325) 1 tab Q4H PRN ORAL Moderate Pain (Pain Scale 4-6) 05/02/18 12:30 05/09/18 12:29 UNV Albuterol/ Ipratropium (Albuterol/ Ipratropium) 3 ml Q4H PRN HHN Shortness of Breath 05/01/18 18:00 05/06/18 17:59 Aspirin (ASA) 81 mg DAILY ORAL 05/02/18 09:00 06/01/18 08:59 05/02/18 09:17 Atorvastatin Calcium (Lipitor) 40 mg BEDTIME ORAL 05/01/18 21:00 05/31/18 20:59 05/01/18 20:09 Clonidine HCl (Catapres Tab) 0.1 mg Q4H PRN ORAL For High BP over 165 syst 05/01/18 18:00 05/31/18 17:59 Clopidogrel Bisulfate (Plavix) 75 mg DAILY ORAL 05/02/18 09:00 06/01/18 08:59 05/02/18 09:16 Diphenhydramine HCl (Benadryl) 25 mg Q24HRS PRN IVP Itching- during dialysis only 05/01/18 18:00 05/31/18 17:59 05/01/18 20:08 Hydralazine HCl (Apresoline) 25 mg Q8HR ORAL 05/02/18 14:00 05/31/18 21:59 Lisinopril (Zestril) 2.5 mg BID ORAL 05/02/18 18:00 06/01/18 08:59 Metoprolol Tartrate (Lopressor) 12.5 mg Q12HR ORAL 05/01/18 21:00 05/31/18 20:59 Ondansetron HCl (Zofran ODT) 4 mg Q6H PRN ORAL Nausea & Vomiting 05/01/18 18:00 05/31/18 17:59 Assessment/Plan Status: stable Assessment/Plan MDD Anxiety d/o Amitriptyline 75 mg qhs provided gera/Juan Linn MD May 02, 2018 12:33
[2018-05-02] MEDS ORDERED: Haloperidol 5mg/ml Inj IM PRN (12:45)
[2018-05-02] MEDS ORDERED: LORazepam Inj 2mg/ml 1ml IM PRN (12:45)
--- NOTE | 2018-05-02 13:36 | Cardiology Report ---
APPROVED REPORT EKG Measurement Heart [id number] Sinus rhythm with 1st degree AV block Possible Left atrial enlargement Rightward axis Prolonged QT Abnormal ECG
--- NOTE | 2018-05-02 15:39 | Cardiology Report ---
APPROVED REPORT EXAM: Two-dimensional and M-mode echocardiogram with Doppler and color Doppler. INDICATION Congestive Heart Failure M-Mode DIMENSIONS IVSd2.1 (0.7-1.1cm)Left Atrium (MM)4.7 (1.6-4.0cm) LVDd4.3 (3.5-5.6cm)Aortic Root3.7 (2.0-3.7cm) PWd2.0 (0.7-1.1cm)Aortic Cusp Exc.2.2 (1.5-2.0cm) LVDs3.1 (2.5-4.0cm) PWs2.3 cm Normal left ventricular chamber size, systolic function and wall motion. Left ventricular ejection fraction estimated to be 55-60 %. Moderate left ventricular hypertrophy. Anterior Echo-free space, may be due to pericardial fat or effusion. Mild bi-atrial enlargement. Right ventricular chamber size is within normal limits. Focal aortic valve sclerosis with adequate cusp excursion. Thickened mitral valve leaflets with normal excursion. Mitral annulus and aortic root calcification. Pulmonic valve not well visualized. Normal tricuspid valve structure. IVC at normal size with physiologic collapse. A color flow and spectral Doppler study was performed and revealed: Mild aortic regurgitation. Trace mitral regurgitation. Mitral diastolic velocities suggest reduced left ventricular relaxation c/w mild LV diastolic dysfunction (Grade I ). Trace tricuspid regurgitation. Tricuspid systolic velocities suggests peak right ventricular systolic pressure of 15 mmHg. Moderate pulmonic regurgitation present. There seems to have some color aliasing in InterAtrial Septum by Color Dopler. Can not R/O for Atrial Septal Defect. Bubble study is recommended if clinically indicated.
--- NOTE | 2018-05-02 15:51 | Diagnostic Imaging Report ---
Indications: Chest pain Technique: Resting images obtained using IV administration 9 millicuries 99M technetium Myoview. No post stress images obtained, as the stress portion of the study was canceled by the membership director. Comparison: none Findings: Resting images demonstrate no evidence of resting perfusion defects. No calculation of ejection fraction was performed Impression: Negative for evidence of fixed perfusion defects to suggest infarct. Unable to assess for ischemia in the absence of post stress images
[2018-05-02 16:00] VITALS: BP 122/76
[2018-05-02] MEDS: EPIVIR 10 MG/ML ORAL SCH (17:00)
[2018-05-02] MEDS: Lisinopril 10mg tab ORAL SCH (17:08)
--- NOTE | 2018-05-02 18:23 | Cardiology Progress Note ---
Assessment/Plan Assessment/Plan 1. Noncardiac chest pain based on history and characteristic of pain, no wall motion abnormalities on the echo with LVEF at 55%. 12-lead electrocardiogram with no ischemic changes. 2. Prolonged QT interval, normal Mg and K levels. 3. History of hypertension. 4. History of diabetes mellitus, continue aspirin and statins. 5. Dyslipidemia Subjective Subjective Sinus rhythm at 85. Objective Last 24 Hour Vital Signs Date Time Temp Pulse Resp B/P (MAP) Pulse Ox O2 Delivery O2 Flow Rate FiO2 05/02/18 17:08 122/76 05/02/18 16:00 97.7 85 20 122/76 (91) 97 97.7 05/02/18 16:00 83 05/02/18 14:00 120/72 05/02/18 12:00 98.0 80 18 120/72 (88) 95 98.0 05/02/18 12:00 89 05/02/18 10:08 97 Nasal Cannula 2.0 28 05/02/18 10:08 Nasal Cannula 2.0 28 05/02/18 10:08 89 20 Nasal Cannula 05/02/18 09:00 Room Air 05/02/18 09:00 80 133/60 05/02/18 08:00 78 05/02/18 08:00 97.2 80 18 133/60 (84) 100 97.2 05/02/18 06:00 115/69 05/02/18 04:00 79 05/02/18 04:00 97.6 77 18 115/69 (84) 98 97.6 05/02/18 00:00 97.4 80 18 107/74 (85) 99 97.4 05/02/18 00:00 79 05/01/18 21:14 99/56 05/01/18 21:00 Nasal Cannula 2.0 05/01/18 20:09 82 99/56 05/01/18 20:00 83 05/01/18 20:00 97.6 84 18 99/56 (70) 98 97.6 05/01/18 18:29 Room Air Intake and Output 05/01/18 05/02/18 19:00 07:00 Intake Total 0 ml 200 ml Balance 0 ml 200 ml Intake Oral 0 ml 200 ml # Bowel Movements 1 2D Echo: LVEF 55%, Mod LVH, DEYSI, RVSP 15 mmHg, Mod NE, Grade I LVDD Laboratory Tests Test 05/02/18 04:06 05/02/18 10:30 White Blood Count 6.2 K/UL (4.8-10.8) Red Blood Count 3.99 M/UL (4.70-6.10) L Hemoglobin 12.0 G/DL (14.2-18.0) L Hematocrit 38.8 % (42.0-52.0) L Mean Corpuscular Volume 97 FL (80-99) Mean Corpuscular Hemoglobin 30.0 PG (27.0-31.0) Mean Corpuscular Hemoglobin Concent 30.9 G/DL (32.0-36.0) L Red Cell Distribution Width 16.1 % (11.6-14.8) H Platelet Count 128 K/UL (150-450) L Mean Platelet Volume 7.2 FL (6.5-10.1) Neutrophils (%) (Auto) 49.2 % (45.0-75.0) Lymphocytes (%) (Auto) 31.5 % (20.0-45.0) Monocytes (%) (Auto) 10.2 % (1.0-10.0) H Eosinophils (%) (Auto) 8.1 % (0.0-3.0) H Basophils (%) (Auto) 0.9 % (0.0-2.0) Sodium Level 134 MMOL/L (136-145) L Potassium Level 4.6 MMOL/L (3.5-5.1) Chloride Level 97 MMOL/L (98-107) L Carbon Dioxide Level 28 MMOL/L (21-32) Anion Gap 9 mmol/L (5-15) Blood Urea Nitrogen 20 mg/dL (7-18) H Creatinine 7.9 MG/DL (0.55-1.30) H Estimat Glomerular Filtration Rate 8.6 mL/min (>60) Glucose Level 61 MG/DL (74-106) L Hemoglobin A1c 5.3 % (4.3-6.0) Uric Acid 4.2 MG/DL (2.6-7.2) Calcium Level 9.0 MG/DL (8.5-10.1) Phosphorus Level 4.8 MG/DL (2.5-4.9) Magnesium Level 1.9 MG/DL (1.8-2.4) Total Bilirubin 0.6 MG/DL (0.2-1.0) Gamma Glutamyl Transpeptidase 158 U/L (5-85) H Aspartate Amino Transf (AST/SGOT) 65 U/L (15-37) H Alanine Aminotransferase (ALT/SGPT) 38 U/L (12-78) Alkaline Phosphatase 128 U/L (46-116) H Total Creatine Kinase 207 U/L (26-308) Troponin I 0.012 ng/mL (0.000-0.056) Pro-B-Type Natriuretic Peptide 3425 pg/mL (0-125) H Total Protein 9.9 G/DL (6.4-8.2) H Albumin 3.6 G/DL (3.4-5.0) Globulin 6.3 g/dL Albumin/Globulin Ratio 0.6 (1.0-2.7) L Triglycerides Level 122 MG/DL (30-150) Cholesterol Level 111 MG/DL (< 200) LDL Cholesterol 59 mg/dL (<100) HDL Cholesterol 34 MG/DL (40-60) L Cholesterol/HDL Ratio 3.3 (3.3-4.4) Vitamin B12 Level 952 PG/ML (193-986) Thyroid Stimulating Hormone (TSH) 3.726 uiU/mL (0.358-3.740) Folate 6.0 NG/ML (8.6-58.9) L Objective HEENT: Atraumatic and normocephalic. Anicteric. Pupils are equal, round, and reactive to light and accommodation. Extraocular muscles intact. NECK: JVP is less than 5 cm. No carotid bruits. Carotid upstrokes 2+ bilaterally. CVS: Normal S1, S2. Regular rhythm. No murmurs, gallops, or rubs. PMI is at fourth intercostal space in the midclavicular line. LUNGS: Clear to auscultation bilaterally. ABDOMEN: Soft, nontender, and nondistended. No hepatosplenomegaly. Positive bowel sounds. EXTREMITIES: No evidence of edema, clubbing, or cyanosis. Pavan Hanson MD May 02, 2018 18:23
[2018-05-02 20:00] VITALS: BP 141/79
[2018-05-02] MEDS: Atorvastatin 20mg tab ORAL SCH (21:51)
[2018-05-03] VITALS: BP 137/80
[2018-05-03] MEDS: HydrALAZINE 50mg tab ORAL SCH ×3 (06:00→21:40)
[2018-05-03 08:00] VITALS: BP_SYST 101; BP_SYST 140; BP_DIAS 61; BP_DIAS 77
[2018-05-03] MEDS: Lisinopril 10mg tab ORAL SCH ×2 (08:03→17:16)
[2018-05-03] MEDS: Metoprolol Tartrate 12.5mg TAB ORAL SCH (08:03)
[2018-05-03] MEDS: Aspirin Baby 81mg ORAL SCH (08:03)
[2018-05-03] MEDS ORDERED: Zidovudine 100mg cap ORAL SCH (09:00)
--- NOTE | 2018-05-03 09:20 | Nephrology Progress Note ---
Assessment/Plan Problem List: (1) ESRD (end stage renal disease) on dialysis (2) ACS (acute coronary syndrome) Assessment Admitted with ACS On Dialysis for 12 years Has right chest permacath HTN DM HIV+ Plan adjust bp meds HD about to get started Per consultants Subjective ROS Limited/Unobtainable: No Constitutional: Reports: malaise Objective Objective Last 24 Hour Vital Signs Date Time Temp Pulse Resp B/P (MAP) Pulse Ox O2 Delivery O2 Flow Rate FiO2 05/03/18 08:40 Room Air 05/03/18 08:00 98.1 89 20 140/77 (98) 99 98.1 05/03/18 06:00 137/80 05/03/18 04:00 85 05/03/18 00:00 98.0 80 18 137/80 (99) 97 98.0 05/03/18 00:00 85 05/02/18 21:52 141/79 05/02/18 21:50 89 141/79 05/02/18 21:00 Room Air 05/02/18 20:00 97.8 89 20 141/79 (99) 97 97.8 05/02/18 20:00 87 05/02/18 19:02 69 18 Nasal Cannula 05/02/18 19:02 Nasal Cannula 2.0 28 05/02/18 19:02 98 Nasal Cannula 2.0 28 05/02/18 17:08 122/76 05/02/18 16:00 97.7 85 20 122/76 (91) 97 97.7 05/02/18 16:00 83 05/02/18 14:00 120/72 05/02/18 12:00 98.0 80 18 120/72 (88) 95 98.0 05/02/18 12:00 89 05/02/18 10:08 97 Nasal Cannula 2.0 28 05/02/18 10:08 Nasal Cannula 2.0 28 05/02/18 10:08 89 20 Nasal Cannula Intake and Output 05/02/18 05/03/18 19:00 07:00 Intake Total 480 ml 300 ml Output Total 800 ml 225 ml Balance -320 ml 75 ml Intake Oral 480 ml 300 ml Output Urine Total 800 ml 225 ml # Voids 7 1 # Bowel Movements 1 Laboratory Tests 05/02/18 10:30: Folate 6.0L Height (Feet): 5 Height (Inches): 7.00 Weight (Pounds): 229 General Appearance: no apparent distress Cardiovascular: normal rate Respiratory/Chest: decreased breath sounds Abdomen: soft Objective PE not changed Toño Posada MD May 03, 2018 09:20
[2018-05-03] MEDS: DiphenhydrAMINE 50mg/ml Inj IVP PRN (09:52)
--- NOTE | 2018-05-03 11:06 | Infectious Diseases Prog Note ---
Assessment/Plan Assessment/Plan antibiotics : ARV A 1. HIV 2. renal failure on dialysis 3. diabetes mellitus 4. hypertension P 1. continue ARV Subjective Constitutional: Denies: fever, chills Respiratory: Reports: shortness of breath - decreasing, productive cough - decreasing Gastrointestinal/Abdominal: Reports: nausea; Denies: vomiting, diarrhea Musculoskeletal: Reports: pain Allergies: Coded Allergies: No Known Allergies (Verified , 02/11/12) Objective Vital Signs Last 24 Hour Vital Signs Date Time Temp Pulse Resp B/P (MAP) Pulse Ox O2 Delivery O2 Flow Rate FiO2 05/03/18 09:35 97 18 Nasal Cannula 05/03/18 09:35 Room Air 21 05/03/18 09:35 98 Nasal Cannula 21 05/03/18 08:40 Room Air 05/03/18 08:00 88 05/03/18 08:00 Room Air 05/03/18 08:00 98.1 89 20 140/77 (98) 99 98.1 05/03/18 06:00 137/80 05/03/18 04:00 85 05/03/18 00:00 98.0 80 18 137/80 (99) 97 98.0 05/03/18 00:00 85 05/02/18 21:52 141/79 05/02/18 21:50 89 141/79 05/02/18 21:00 Room Air 05/02/18 20:00 97.8 89 20 141/79 (99) 97 97.8 05/02/18 20:00 87 05/02/18 19:02 69 18 Nasal Cannula 05/02/18 19:02 Nasal Cannula 2.0 28 05/02/18 19:02 98 Nasal Cannula 2.0 28 05/02/18 17:08 122/76 05/02/18 16:00 97.7 85 20 122/76 (91) 97 97.7 05/02/18 16:00 83 05/02/18 14:00 120/72 05/02/18 12:00 98.0 80 18 120/72 (88) 95 98.0 05/02/18 12:00 89 Height (Feet): 5 Height (Inches): 7.00 Weight (Pounds): 229 Respiratory/Chest: lungs clear Cardiovascular: normal rate, regular rhythm, no gallop/murmur Abdomen: soft, non tender Extremities: no edema, other - right subclavian catheter Current Medications Medications (Trade) Dose Ordered Sig/Twyla Route PRN Reason Start Time Stop Time Status Last Admin Dose Admin Acetaminophen (Tylenol) 650 mg Q4H PRN ORAL Mild Pain/Temp > 100.5 05/02/18 07:45 06/01/18 07:44 Acetaminophen/ Hydrocodone Bitart ([place] 5/325) 1 tab Q4H PRN ORAL Moderate Pain (Pain Scale 4-6) 05/02/18 12:30 05/09/18 12:29 Albuterol/ Ipratropium (Albuterol/ Ipratropium) 3 ml Q4H PRN HHN Shortness of Breath 05/01/18 18:00 05/06/18 17:59 Aspirin (ASA) 81 mg DAILY ORAL 05/02/18 09:00 06/01/18 08:59 05/03/18 08:03 Atorvastatin Calcium (Lipitor) 40 mg BEDTIME ORAL 05/01/18 21:00 05/31/18 20:59 05/02/18 21:51 Clonidine HCl (Catapres Tab) 0.1 mg Q4H PRN ORAL For High BP over 165 syst 05/01/18 18:00 05/31/18 17:59 Clopidogrel Bisulfate (Plavix) 75 mg DAILY ORAL 05/02/18 09:00 06/01/18 08:59 05/03/18 08:03 Darunavir (Prezista) 800 mg DAILY ORAL 05/02/18 12:45 06/01/18 12:44 UNV Diphenhydramine HCl (Benadryl) 25 mg Q24HRS PRN IVP Itching 05/03/18 09:30 06/02/18 09:29 05/03/18 09:52 Diphenhydramine HCl (Benadryl) 25 mg Q4HR PRN ORAL Itching 05/02/18 12:45 06/01/18 12:44 05/03/18 08:03 Hydralazine HCl (Apresoline) 25 mg Q8HR ORAL 05/02/18 14:00 05/31/18 21:59 05/03/18 06:00 Lamivudine (Epivir) 100 mg DAILY ORAL 05/02/18 12:45 06/01/18 12:44 UNV Lisinopril (Zestril) 2.5 mg BID ORAL 05/02/18 18:00 06/01/18 08:59 05/02/18 17:08 Lorazepam (Ativan 2mg/ml 1ml) 2 mg EVERY 6 HOURS PRN IM anxiety 05/02/18 12:45 05/09/18 12:44 Metoprolol Tartrate (Lopressor) 12.5 mg Q12HR ORAL 05/01/18 21:00 05/31/18 20:59 05/02/18 21:50 Ondansetron HCl (Zofran ODT) 4 mg Q6H PRN ORAL Nausea & Vomiting 05/01/18 18:00 05/31/18 17:59 05/03/18 06:48 Zidovudine (Retrovir) 300 mg DAILY ORAL 05/02/18 12:45 06/01/18 12:44 UNRAFAT KERR May 03, 2018 11:06
[2018-05-03 12:00] VITALS: BP 101/56
--- NOTE | 2018-05-03 13:58 | General Progress Note ---
Assessment/Plan Problem List: (1) ACS (acute coronary syndrome) ICD Codes: I24.9 - Acute ischemic heart disease, unspecified SNOMED: 860762561 (2) ESRD (end stage renal disease) on dialysis ICD Codes: N18.6 - End stage renal disease; Z99.2 - Dependence on renal dialysis SNOMED: 240361974 Status: progressing Assessment/Plan chest pain r/o acs esrd on hd chronic pain cardiac w/u per dr ramos id on the case as well Subjective Allergies: Coded Allergies: No Known Allergies (Verified , 02/11/12) Subjective chronic pain Objective Last 24 Hour Vital Signs Date Time Temp Pulse Resp B/P (MAP) Pulse Ox O2 Delivery O2 Flow Rate FiO2 05/03/18 13:39 125/96 05/03/18 12:00 97.9 108 20 101/56 (71) 97 97.9 05/03/18 09:35 97 18 Nasal Cannula 05/03/18 09:35 Room Air 21 05/03/18 09:35 98 Nasal Cannula 21 05/03/18 08:40 Room Air 05/03/18 08:00 88 05/03/18 08:00 Room Air 05/03/18 08:00 98.1 89 20 140/77 (98) 99 98.1 05/03/18 06:00 137/80 05/03/18 04:00 85 05/03/18 00:00 98.0 80 18 137/80 (99) 97 98.0 05/03/18 00:00 85 05/02/18 21:52 141/79 05/02/18 21:50 89 141/79 05/02/18 21:00 Room Air 05/02/18 20:00 97.8 89 20 141/79 (99) 97 97.8 05/02/18 20:00 87 05/02/18 19:02 69 18 Nasal Cannula 05/02/18 19:02 Nasal Cannula 2.0 28 05/02/18 19:02 98 Nasal Cannula 2.0 28 05/02/18 17:08 122/76 05/02/18 16:00 97.7 85 20 122/76 (91) 97 97.7 05/02/18 16:00 83 05/02/18 14:00 120/72 Intake and Output 05/02/18 05/03/18 19:00 07:00 Intake Total 480 ml 300 ml Output Total 800 ml 225 ml Balance -320 ml 75 ml Intake Oral 480 ml 300 ml Output Urine Total 800 ml 225 ml # Voids 7 1 # Bowel Movements 1 Height (Feet): 5 Height (Inches): 7.00 Weight (Pounds): 227 Cardiovascular: normal rate Respiratory/Chest: lungs clear Abdomen: soft Daisy Bland MD May 03, 2018 13:58
[2018-05-03 16:00] VITALS: BP 125/69
[2018-05-03] MEDS ORDERED: Nitroglycerin Subl 0.4mg tab SL PRN (16:45)
--- NOTE | 2018-05-03 16:47 | Cardiology Progress Note ---
Assessment/Plan Assessment/Plan 1. Noncardiac chest pain based on history and characteristic of pain, no wall motion abnormalities on the echo with LVEF at 55%. 12-lead electrocardiogram with no ischemic changes. Stress component of the nuclear stress test is pending for Saturday as Lexiscan was not administered via EJ sheet on Saturday. The resting component showed no perfusion abnormalities which rules out infarct or scar formation. Will increase metoprolol to 50mg bid for better double product control. 2. Prolonged QT interval, normal Mg and K levels. 3. History of hypertension, continue lisinopril, metoprolol ans hydralazine. 4. History of diabetes mellitus, continue aspirin and statins. 5. Dyslipidemia Subjective Subjective Had another episode of chest pain today described as heaviness with radiation to the left arm. Sinus tachycardia at 110. Objective Last 24 Hour Vital Signs Date Time Temp Pulse Resp B/P (MAP) Pulse Ox O2 Delivery O2 Flow Rate FiO2 05/03/18 16:04 Room Air 05/03/18 13:39 125/96 05/03/18 12:00 97.9 108 20 101/56 (71) 97 97.9 05/03/18 12:00 107 05/03/18 09:35 97 18 Nasal Cannula 05/03/18 09:35 Room Air 21 05/03/18 09:35 98 Nasal Cannula 21 05/03/18 08:40 Room Air 05/03/18 08:00 88 05/03/18 08:00 Room Air 05/03/18 08:00 98.1 89 20 140/77 (98) 99 98.1 05/03/18 06:00 137/80 05/03/18 04:00 85 05/03/18 00:00 98.0 80 18 137/80 (99) 97 98.0 05/03/18 00:00 85 05/02/18 21:52 141/79 05/02/18 21:50 89 141/79 05/02/18 21:00 Room Air 05/02/18 20:00 97.8 89 20 141/79 (99) 97 97.8 05/02/18 20:00 87 05/02/18 19:02 69 18 Nasal Cannula 05/02/18 19:02 Nasal Cannula 2.0 28 05/02/18 19:02 98 Nasal Cannula 2.0 28 8/10/18 17:08 122/76 Intake and Output 05/02/18 05/03/18 19:00 07:00 Intake Total 480 ml 300 ml Output Total 800 ml 225 ml Balance -320 ml 75 ml Intake Oral 480 ml 300 ml Output Urine Total 800 ml 225 ml # Voids 7 1 # Bowel Movements 1 2D Echo: LVEF 55%, Mod LVH, DEYSI, RVSP 15 mmHg, Mod MN, Grade I LVDD Objective HEENT: Atraumatic and normocephalic. Anicteric. Pupils are equal, round, and reactive to light and accommodation. Extraocular muscles intact. NECK: JVP is less than 5 cm. No carotid bruits. Carotid upstrokes 2+ bilaterally. CVS: Normal S1, S2. Regular rhythm. No murmurs, gallops, or rubs. PMI is at fourth intercostal space in the midclavicular line. LUNGS: Clear to auscultation bilaterally. ABDOMEN: Soft, nontender, and nondistended. No hepatosplenomegaly. Positive bowel sounds. EXTREMITIES: No evidence of edema, clubbing, or cyanosis. Pavan Hanson MD May 03, 2018 16:47
[2018-05-03 20:00] VITALS: BP 104/65
[2018-05-03] MEDS: Metoprolol Tartrate 50mg tab ORAL SCH (21:40)
[2018-05-03] MEDS: Atorvastatin 20mg tab ORAL SCH (21:40)
[2018-05-04] VITALS: BP 102/69
[2018-05-04 04:00] VITALS: BP 110/61
[2018-05-04] MEDS: HydrALAZINE 50mg tab ORAL SCH ×2 (06:28→13:26)
[2018-05-04 08:00] VITALS: BP 101/63
[2018-05-04] MEDS: Aspirin Baby 81mg ORAL SCH (08:31)
[2018-05-04] MEDS: Metoprolol Tartrate 50mg tab ORAL SCH ×2 (08:31→20:33)
[2018-05-04] MEDS: Lisinopril 10mg tab ORAL SCH (09:00)
[2018-05-04] MEDS: DiphenhydrAMINE 50mg/ml Inj IVP PRN (09:13)
[2018-05-04 12:00] VITALS: BP 100/62
--- NOTE | 2018-05-04 12:20 | Infectious Diseases Prog Note ---
Assessment/Plan Assessment/Plan A: 1. HIV 2. renal failure on dialysis 3. diabetes mellitus 4. hypertension P 1. ARV on hold because there are not available in hospital 2. case was D/W pharmacy Subjective ROS Limited/Unobtainable: No Constitutional: Reports: anorexia HEENT: Reports: no symptoms Respiratory: Reports: no symptoms Cardiovascular: Reports: chest pain Gastrointestinal/Abdominal: Reports: nausea, vomiting Genitourinary: Reports: no symptoms Neurologic: Reports: no symptoms Allergies: Coded Allergies: No Known Allergies (Verified , 02/11/12) Objective Vital Signs Last 24 Hour Vital Signs Date Time Temp Pulse Resp B/P (MAP) Pulse Ox O2 Delivery O2 Flow Rate FiO2 05/04/18 12:00 97.0 83 20 100/62 (75) 99 97.0 05/04/18 09:00 Room Air 05/04/18 09:00 101/63 05/04/18 08:31 94 101/63 05/04/18 08:00 98.1 94 20 101/63 (76) 99 98.1 05/04/18 06:28 110/61 05/04/18 04:00 89 05/04/18 04:00 97.6 90 19 110/61 (77) 100 97.6 05/04/18 00:00 88 05/04/18 00:00 98.4 91 20 102/69 (80) 100 98.4 05/03/18 21:40 108 104/65 05/03/18 21:40 104/65 05/03/18 21:00 Room Air 05/03/18 20:20 98 18 Nasal Cannula 05/03/18 20:20 Nasal Cannula 2.0 28 05/03/18 20:20 97 Nasal Cannula 2.0 28 05/03/18 20:00 102 05/03/18 20:00 99.5 108 18 104/65 (78) 99 99.5 05/03/18 17:16 125/69 05/03/18 16:04 Room Air 05/03/18 16:00 115 05/03/18 16:00 98.6 117 20 125/69 (87) 97 98.6 05/03/18 13:39 125/96 Height (Feet): 5 Height (Inches): 7.00 Weight (Pounds): 225 General Appearance: no acute distress HEENT: mucous membranes moist Respiratory/Chest: lungs clear Cardiovascular: normal rate, other - Permacath Abdomen: soft, non tender Extremities: no edema Neurologic/Psychiatric: alert, oriented x 3, responsive Microbiology Date/Time Source Procedure Growth Status 05/01/18 13:55 Nasal Nares MRSA Culture - Final NO METHICILLIN RESISTANT STAPH AUREUS... Complete 05/01/18 13:55 Rectum - Final NO CARBAPENEM-RESISTANT ENTEROBACTERI... Complete Current Medications Medications (Trade) Dose Ordered Sig/Twyla Route PRN Reason Start Time Stop Time Status Last Admin Dose Admin Acetaminophen (Tylenol) 650 mg Q4H PRN ORAL Mild Pain/Temp > 100.5 05/02/18 07:45 06/01/18 07:44 Acetaminophen/ Hydrocodone Bitart ([place]ishop 5/325) 1 tab Q4H PRN ORAL Moderate Pain (Pain Scale 4-6) 05/02/18 12:30 05/09/18 12:29 05/03/18 15:36 Albuterol/ Ipratropium (Albuterol/ Ipratropium) 3 ml Q4H PRN HHN Shortness of Breath 05/01/18 18:00 05/06/18 17:59 Aspirin (ASA) 81 mg DAILY ORAL 05/02/18 09:00 06/01/18 08:59 05/04/18 08:31 Atorvastatin Calcium (Lipitor) 40 mg BEDTIME ORAL 05/01/18 21:00 05/31/18 20:59 05/03/18 21:40 Chlorhexidine Gluconate (Anne-Hex 2%) 1 applic DAILY@1999 TOPIC 05/04/18 20:00 06/03/18 19:59 UNV Clonidine HCl (Catapres Tab) 0.1 mg Q4H PRN ORAL For High BP over 165 syst 05/01/18 18:00 05/31/18 17:59 Clopidogrel Bisulfate (Plavix) 75 mg DAILY ORAL 05/02/18 09:00 06/01/18 08:59 05/04/18 08:31 Darunavir (Prezista) 800 mg DAILY ORAL 05/02/18 12:45 06/01/18 12:44 UNV Diphenhydramine HCl (Benadryl) 25 mg Q24HRS PRN IVP Itching 05/03/18 09:30 06/02/18 09:29 05/04/18 09:13 Diphenhydramine HCl (Benadryl) 25 mg Q4HR PRN ORAL Itching 05/02/18 12:45 06/01/18 12:44 05/03/18 21:45 Hydralazine HCl (Apresoline) 25 mg Q8HR ORAL 05/02/18 14:00 05/31/18 21:59 05/04/18 06:28 Lamivudine (Epivir) 100 mg DAILY ORAL 05/02/18 12:45 06/01/18 12:44 UNV Lisinopril (Zestril) 2.5 mg BID ORAL 05/02/18 18:00 06/01/18 08:59 05/03/18 17:16 Lorazepam (Ativan 2mg/ml 1ml) 2 mg EVERY 6 HOURS PRN IM anxiety 05/02/18 12:45 05/09/18 12:44 Metoprolol Tartrate (Lopressor) 50 mg Q12HR ORAL 05/03/18 21:00 06/02/18 20:59 05/04/18 08:31 Nitroglycerin (Ntg) 0.4 mg Q5M PRN SL Prn Chest Pain 05/03/18 16:45 06/02/18 16:44 Ondansetron HCl (Zofran ODT) 4 mg Q6H PRN ORAL Nausea & Vomiting 05/01/18 18:00 05/31/18 17:59 05/04/18 08:31 Zidovudine (Retrovir) 300 mg DAILY ORAL 05/02/18 12:45 06/01/18 12:44 Francisco Cross MD May 04, 2018 12:20
--- NOTE | 2018-05-04 14:01 | Nephrology Progress Note ---
Assessment/Plan Problem List: (1) ESRD (end stage renal disease) on dialysis (2) ACS (acute coronary syndrome) Assessment cc nausea Admitted with ACS On Dialysis for 12 years Has right chest permacath HTN DM HIV+ Plan adjust bp meds- start Reglan HD 05/03 next 05/04 Per consultants Subjective ROS Limited/Unobtainable: No Constitutional: Reports: malaise, other Subjective has nausea Objective Objective Last 24 Hour Vital Signs Date Time Temp Pulse Resp B/P (MAP) Pulse Ox O2 Delivery O2 Flow Rate FiO2 05/04/18 13:26 115/61 05/04/18 12:00 94 05/04/18 12:00 97.0 83 20 100/62 (75) 99 97.0 05/04/18 09:00 Room Air 05/04/18 09:00 101/63 05/04/18 08:31 94 101/63 05/04/18 08:00 98.1 94 20 101/63 (76) 99 98.1 05/04/18 08:00 90 05/04/18 06:28 110/61 05/04/18 04:00 89 05/04/18 04:00 97.6 90 19 110/61 (77) 100 97.6 05/04/18 00:00 88 05/04/18 00:00 98.4 91 20 102/69 (80) 100 98.4 05/03/18 21:40 108 104/65 05/03/18 21:40 104/65 05/03/18 21:00 Room Air 05/03/18 20:20 98 18 Nasal Cannula 05/03/18 20:20 Nasal Cannula 2.0 28 05/03/18 20:20 97 Nasal Cannula 2.0 28 05/03/18 20:00 102 05/03/18 20:00 99.5 108 18 104/65 (78) 99 99.5 05/03/18 17:16 125/69 05/03/18 16:04 Room Air 05/03/18 16:00 115 05/03/18 16:00 98.6 117 20 125/69 (87) 97 98.6 Intake and Output 05/03/18 05/04/18 19:00 07:00 Intake Total 360 ml 240 ml Output Total 2300 ml 2525 ml Balance -1940 ml -2285 ml Intake Oral 360 ml 240 ml Output Urine Total 225 ml Hemodialysis UF 2300 ml 2300 ml # Voids 3 # Bowel Movements 1 Height (Feet): 5 Height (Inches): 7.00 Weight (Pounds): 225 General Appearance: no apparent distress Cardiovascular: normal rate Respiratory/Chest: lungs clear Abdomen: soft, distended Objective PE not changed Toño Posada MD May 04, 2018 14:01
[2018-05-04 16:00] VITALS: BP 121/74
[2018-05-04] MEDS: Docusate 100mg cap ORAL SCH (17:34)
[2018-05-04 20:00] VITALS: BP 110/58
[2018-05-04] MEDS: Atorvastatin 20mg tab ORAL SCH (20:33)
[2018-05-04] MEDS: Dyna-Hex 2% Top Sol 2oz TOPIC SCH (20:33)
--- NOTE | 2018-05-04 20:47 | General Progress Note ---
Assessment/Plan Problem List: (1) ACS (acute coronary syndrome) ICD Codes: I24.9 - Acute ischemic heart disease, unspecified SNOMED: 784363453 (2) ESRD (end stage renal disease) on dialysis ICD Codes: N18.6 - End stage renal disease; Z99.2 - Dependence on renal dialysis SNOMED: 883226267 Status: progressing Assessment/Plan no chest pain vomitted mutiple times consulted gi and ordered imaging r/o acs esrd on hd Subjective Allergies: Coded Allergies: No Known Allergies (Verified , 02/11/12) Subjective vomit mutiple chronic pain Objective Last 24 Hour Vital Signs Date Time Temp Pulse Resp B/P (MAP) Pulse Ox O2 Delivery O2 Flow Rate FiO2 05/04/18 20:33 100 110/58 05/04/18 16:00 97 05/04/18 16:00 98.1 98 20 121/74 (90) 96 98.1 05/04/18 13:26 115/61 05/04/18 12:00 94 05/04/18 12:00 97.0 83 20 100/62 (75) 99 97.0 05/04/18 09:00 Room Air 05/04/18 09:00 101/63 05/04/18 08:31 94 101/63 05/04/18 08:00 98.1 94 20 101/63 (76) 99 98.1 05/04/18 08:00 90 05/04/18 06:28 110/61 05/04/18 04:00 89 05/04/18 04:00 97.6 90 19 110/61 (77) 100 97.6 05/04/18 00:00 88 05/04/18 00:00 98.4 91 20 102/69 (80) 100 98.4 05/03/18 21:40 108 104/65 05/03/18 21:40 104/65 05/03/18 21:00 Room Air Intake and Output 05/03/18 05/04/18 19:00 07:00 Intake Total 360 ml 240 ml Output Total 2300 ml 2525 ml Balance -1940 ml -2285 ml Intake Oral 360 ml 240 ml Output Urine Total 225 ml Hemodialysis UF 2300 ml 2300 ml # Voids 3 # Bowel Movements 1 Height (Feet): 5 Height (Inches): 7.00 Weight (Pounds): 225 Respiratory/Chest: lungs clear Abdomen: soft Daisy Bland MD May 04, 2018 20:47
--- NOTE | 2018-05-04 22:59 | Cardiology Progress Note ---
Assessment/Plan Assessment/Plan 1. Noncardiac chest pain based on history and characteristic of pain, no wall motion abnormalities on the echo with LVEF at 55%. 12-lead electrocardiogram with no ischemic changes. Awaiting stress phase of the nuclear MPI in am. 2. Prolonged QT interval, normal Mg and K levels. 3. History of hypertension, continue lisinopril, metoprolol ans hydralazine. 4. History of diabetes mellitus, continue aspirin and statins. 5. Dyslipidemia Subjective Subjective Sinus tachycardia at 100. Objective Last 24 Hour Vital Signs Date Time Temp Pulse Resp B/P (MAP) Pulse Ox O2 Delivery O2 Flow Rate FiO2 05/04/18 21:00 Room Air 05/04/18 20:33 100 110/58 05/04/18 20:00 97.7 100 18 110/58 (75) 95 97.7 05/04/18 20:00 100 18 Nasal Cannula 2.0 28 05/04/18 20:00 Nasal Cannula 2.0 28 05/04/18 20:00 95 Nasal Cannula 2.0 28 05/04/18 20:00 100 05/04/18 16:00 97 05/04/18 16:00 98.1 98 20 121/74 (90) 96 98.1 05/04/18 13:26 115/61 05/04/18 12:00 94 05/04/18 12:00 97.0 83 20 100/62 (75) 99 97.0 05/04/18 09:00 Room Air 05/04/18 09:00 101/63 05/04/18 08:31 94 101/63 05/04/18 08:00 98.1 94 20 101/63 (76) 99 98.1 05/04/18 08:00 90 05/04/18 06:28 110/61 05/04/18 04:00 89 05/04/18 04:00 97.6 90 19 110/61 (77) 100 97.6 05/04/18 00:00 88 05/04/18 00:00 98.4 91 20 102/69 (80) 100 98.4 Intake and Output 05/03/18 05/04/18 19:00 07:00 Intake Total 360 ml 240 ml Output Total 2300 ml 2525 ml Balance -1940 ml -2285 ml Intake Oral 360 ml 240 ml Output Urine Total 225 ml Hemodialysis UF 2300 ml 2300 ml # Voids 3 # Bowel Movements 1 2D Echo: LVEF 55%, Mod LVH, DEYSI, RVSP 15 mmHg, Mod NE, Grade I LVDD Objective HEENT: Atraumatic and normocephalic. Anicteric. Pupils are equal, round, and reactive to light and accommodation. Extraocular muscles intact. NECK: JVP is less than 5 cm. No carotid bruits. Carotid upstrokes 2+ bilaterally. CVS: Normal S1, S2. Regular rhythm. Tachycardic. No murmurs, gallops, or rubs. PMI is at fourth intercostal space in the midclavicular line. LUNGS: Clear to auscultation bilaterally. ABDOMEN: Soft, nontender, and nondistended. No hepatosplenomegaly. Positive bowel sounds. EXTREMITIES: No evidence of edema, clubbing, or cyanosis. Pavan Hanson MD May 04, 2018 22:59
[2018-05-05] VITALS (8 sets, daily range): BP systolic 91–111; BP diastolic 46–60
[2018-05-05] MEDS: Docusate 100mg cap ORAL SCH ×3 (08:31→17:48)
[2018-05-05] MEDS: Aspirin Baby 81mg ORAL SCH (08:31)
[2018-05-05] MEDS: Metoprolol Tartrate 50mg tab ORAL SCH ×2 (08:36→20:04)
--- NOTE | 2018-05-05 08:50 | Physician Query ---
--------- THIS DOCUMENT IS A PERMANENT PART OF THE MEDICAL RECORD --------- PLEASE COMPLETE THE DOCUMENT BEFORE SIGNING Dear Dr. Hanson Date 05/05/2018 [employer] Grinder Operator/CDS' Name Dalia Turner Con[employer] Gr[employer] Operator/CDS Phone#: [phone] Exercise your independent professional judgment when responding to query. Questions asked do not imply particular answer is desired or expected. We greatly appreciate your clarification on this issue. Clinical Documentation States: Consultation and progress notes Assessment include "Non cardiac chest pain". Patient has ESRD and HIV. Clinical Findings Show: Echo: Mild LV diastolic dysfunction. Myocardial perfusion NM: Negative for infarct. Serial troponin: negative. Can you please document the suspected etiology of non cardiac Chest Pain: c.Etiology - non-cardiac [] Anxiety []Pleurisy [] Cancer []Pneumonia, type [] Costochondritis []Pneumothorax [] GERD/Esophagitis []Pulmonary embolism [] Unable to determine []Other: Condition Present on Admission: [] Yes [] No []Clinically Undeterminable Please also document in your Progress Notes and/or Discharge Summary and indicate if the condition was present on admission. TODDD
[2018-05-05] MEDS ORDERED: Lisinopril 10mg tab ORAL SCH (09:00)
--- NOTE | 2018-05-05 10:15 | Diagnostic Imaging Report ---
Indication: Abdominal pain, vomiting Technique: Supine view of the abdomen Comparison: Urban [employer] Professor image from abdomen pelvis CT dated 07/24/2012 Findings: Nonspecific slightly prominent but not frankly dilated small bowel loops are seen in the right lower quadrant. Bowel gas pattern is otherwise unremarkable. No gaseous distention of large or small bowel. There are cholecystectomy clips. No unusual masses or calcifications. There are degenerative changes of both hips Impression: No definite acute process
--- NOTE | 2018-05-05 10:29 | GI Initial Consult Note ---
History of Present Illness General Date patient seen: May 05, 2018 Time patient seen: 11:15 Reason for Hospitalization: Chest Pain Referring physician: WANDA DYE Reason for Consultation: VOMITING Present Illness HPI 57-year-old male presents ED complaining of chest pain. Patient from [facility]. States chest pain started approximately 90 minutes ago. At rest. Pain is left-sided, sharp, 10 out of 10, nonradiating. Patient was given nitroglycerin by EMS without resolution. states he has several stents in his heart. History of end-stage renal disease. Last dialysis yesterday. Denies smoking or drug use. No other aggravating relieving factors. Denies any other associated symptoms. GI consulted for vomiting. Pt seen, awake A&Ox4 NAD with no active s/sx of N/V/ D. Per patient, had episode of emesis last night without any heme nor coffee grounds. Hgb @ 12 today. Patient unsure of his last endoscopy / colonoscopy, which was [facility] 5 years ago. Currently taking reglan for his vomiting. Home Meds Reported Medications Guaifenesin (PONCHO-TUSSIN) 100 Mg/5 Ml Liquid, 10 MG PO EVERY 4 HOURS PRN for For Cough, ML 05/01/18 Clonidine Hcl* (CATAPRES*) 0.1 Mg Tablet, 0.1 MG ORAL EVERY 6 HOURS PRN for For High Blood Pressure, TAB 05/01/18 Ondansetron Odt* (ZOFRAN ODT*) 8 Mg Tab.rapdis, 4 MG ORAL Q6H PRN for Nausea & Vomiting, #30 TAB 05/01/18 Hydrocodone Bit/Acetaminophen 5-325* (NORCO 5-325*) 1 Each Tablet, 1 TAB ORAL Q4H PRN for For Pain, TAB 0 Refills 05/01/18 [Imdur] No Conflict Check, 0.6 MG ORAL DAILY 05/01/18 Melatonin/Pyridoxine HCl (B6) (Melatonin 3 mg Tablet) 1 Each Tablet, 1 EACH PO BEDTIME, TAB 05/01/18 [Lidocaine 4% cream] No Conflict Check, TOPIC NEEDED 05/01/18 Diphenhydramine Hcl* (DIPHENHYDRAMINE HCL*) 25 Mg Capsule, 25 MG ORAL Q4HR PRN for Itching, #30 CAP 0 Refills 05/01/18 Darunavir Ethanolate* (PREZISTA*) 600 Mg Tablet, 800 MG ORAL DAILY, TAB 05/01/18 Lisinopril (LISINOPRIL*) 20 Mg Tablet, 10 MG ORAL DAILY, TAB 05/01/18 Amitriptyline HCl (Amitriptyline HCl) 100 Mg Tablet, 75 MG ORAL BEDTIME, TAB 05/01/18 Aspirin* (ASPIRIN*) 81 Mg Tab.chew, 81 MG ORAL DAILY, TAB 05/01/18 Ipratropium/Albuterol Sulfate (DuoNeb 0.5-3(2.5)mg/3ml) 3 Ml Ampul.neb, 3 ML HHN EVERY 4 HOURS PRN for Shortness of Breath, EA 05/01/18 Ipratropium/Albuterol Sulfate (DuoNeb 0.5-3(2.5)mg/3ml) 3 Ml Ampul.neb, 3 ML HHN NEEDED, EA 05/01/18 Lamivudine (Lamivudine) 10 Mg/1 Ml Solution, 10 MG PO DAILY 05/01/18 Clopidogrel Bisulfate* (PLAVIX*) 75 Mg Tablet, 75 MG ORAL DAILY, TAB 05/01/18 Heparin Sod (Porcine) (HEPARIN SODIUM*) 5 000/1 Ml Vial, 5000 UNITS SUBQ EVERY 12 HOURS, VIAL 05/01/18 Lactulose (LACTULOSE*) 20 Gm/30 Ml Solution, 30 ML ORAL DAILY, ML 0 Refills 05/01/18 Atorvastatin Calcium* (LIPITOR*) 40 Mg Tablet, 40 MG ORAL BEDTIME, #30 TAB 0 Refills 05/01/18 Insulin Aspart (Novolog Flexpen) 100 Units/Ml Pen, 10 UNITS SUBQ TID 12/10/12 Insulin Glargine (Lantus) 5 Units Vial, 20 SUBQ QHS 12/10/12 Darunavir Ethanolate* (PREZISTA*) 600 Mg Tablet, 400 MG PO TWICE A DAY, #10 TAB Take 1 tablet by mouth every 12 hours. 12/10/12 Aspirin/Calcium Carbonate/Mag (ASPIRIN BUFFERED 325 MG TAB) 325 Mg Tablet, 325 MG PO DAILY 12/10/12 Naproxen* (NAPROXEN*) 500 Mg Tablet, 500 MG PO TWICE A DAY 12/10/12 Clonidine Hcl (CLONIDINE HCL) 0.3 Mg Tablet, 0.3 MG PO TWICE A DAY 12/10/12 Furosemide (FUROSEMIDE) 40 Mg/5 Ml Solution, 40 MG PO TWICE A DAY 12/10/12 Zidovudine (ZIDOVUDINE) 300 Mg Tablet, 300 MG PO DAILY 12/09/12 Diltiazem HCl (Diltiazem HCl) 300 Mg Capcr, 300 MG PO DAILY Do not open, chew or crush capsule; swallow whole 12/09/12 Ranitidine Hcl* (ZANTAC*) 150 Mg Tablet, 150 MG PO QHS 07/24/12 Isosorbide (ISOSORBIDE) 1 Gm Powder, 120 MG PO DAILY 07/24/12 Ritonavir* (NORVIR*) 100 Mg Capsule, 100 MG PO BID, #10 CAP Take 1 capsule by mouth 2 times a day. 07/24/12 Metoprolol Tartrate* (METOPROLOL TARTRATE*) 100 Mg Tablet, 25 MG PO DAILY 07/24/12 Hydralazine HCl (Hydralazine HCl) 50 Mg Tab, 50 MG PO TID, #20 TAB Take 1 tablet by mouth every six hours. 07/24/12 Rosuvastatin Calcium* (CRESTOR*) 10 Mg Tablet, 5 MG PO QHS 07/24/12 [place]-3 Fatty Acids/Fish Oil (FISH OIL 1,000 MG SOFTGEL) 1 Each Capsule, 1 EACH PO TID 07/24/12 Valsartan (Diovan) 160 Mg Tab, 160 MG PO BID, TAB Take one tablet by mouth daily 07/24/12 Nitroglycerin (NITROSTAT) 0.4 Mg Tab.subl, 0.4 MG SL PRN 07/24/12 Med list reviewed/reconciled: Yes Allergies: Coded Allergies: No Known Allergies (Verified , 02/11/12) Patient History History Provided By: Patient, Medical Record PMH Narrative Past Medical History: HTN, CAD, asthma, renal disease, dialysis Reviewed Nursing Documentation: PMH: Agreed; PSxH: Agreed Nursing Documentation-PMH Hx Cardiac Problems: Yes Hx Hypertension: Yes Hx Pacemaker: No Hx Asthma: Yes Hx COPD: No Hx Diabetes: Yes - esrd on dialysis Hx Cancer: No Hx Gastrointestinal Problems: Yes Hx Dialysis: Yes Hx Neurological Problems: No Hx Cerebrovascular Accident: No Hx Seizures: No Social History: Denies: smoking, alcohol use, drug use, other Review of Systems All Other Systems: negative except mentioned in HPI Physical Exam Vital Signs Date Time Temp Pulse Resp B/P (MAP) Pulse Ox O2 Delivery O2 Flow Rate FiO2 05/01/18 13:32 99.1 95 18 132/86 99 Room Air 99.1 05/01/18 21:00 2.0 05/02/18 10:08 28 Sp02 EP Interpretation: reviewed, normal General Appearance: well appearing, no apparent distress, alert Head: normocephalic EENT: PERRL/EOMI, normal ENT inspection Neck: supple Respiratory: normal breath sounds, no respiratory distress Cardiovascular: normal rate Gastrointestinal: normal inspection, non tender, soft, normal bowel sounds, non -distended Rectal: deferred Genitourinary: deferred Musculoskeletal: normal inspection, back normal Neurologic: normal inspection, alert, oriented x3, responsive Psychiatric: normal inspection, judgement/insight normal, memory normal Skin: normal inspection, normal color, no rash, warm/dry, palpation normal, well hydrated Lymphatic: normal inspection, no adenopathy Current Medications Current Medications Medications (Trade) Dose Ordered Sig/Twyla Route PRN Reason Start Time Stop Time Status Last Admin Dose Admin Acetaminophen (Tylenol) 650 mg Q4H PRN ORAL Mild Pain/Temp > 100.5 05/02/18 07:45 06/01/18 07:44 Albuterol/ Ipratropium (Albuterol/ Ipratropium) 3 ml Q4H PRN HHN Shortness of Breath 05/01/18 18:00 05/06/18 17:59 Aspirin (ASA) 81 mg DAILY ORAL 05/02/18 09:00 06/01/18 08:59 05/05/18 08:31 Atorvastatin Calcium (Lipitor) 40 mg BEDTIME ORAL 05/01/18 21:00 05/31/18 20:59 05/04/18 20:33 Chlorhexidine Gluconate (Anne-Hex 2%) 1 applic DAILY@1999 TOPIC 05/04/18 20:00 06/03/18 19:59 05/04/18 20:33 Clonidine HCl (Catapres Tab) 0.1 mg Q4H PRN ORAL For High BP over 165 syst 05/01/18 18:00 05/31/18 17:59 Clopidogrel Bisulfate (Plavix) 75 mg DAILY ORAL 05/02/18 09:00 06/01/18 08:59 05/05/18 08:31 Darunavir (Prezista) 800 mg DAILY ORAL 05/02/18 12:45 06/01/18 12:44 UNV Diphenhydramine HCl (Benadryl) 25 mg Q24HRS PRN IVP Itching 05/03/18 09:30 06/02/18 09:29 05/04/18 09:13 Diphenhydramine HCl (Benadryl) 25 mg Q4HR PRN ORAL Itching 05/02/18 12:45 06/01/18 12:44 05/05/18 06:03 Docusate Sodium (Colace) 100 mg THREE TIMES A DAY ORAL 05/04/18 18:00 06/03/18 17:59 05/05/18 08:31 Lamivudine (Epivir) 100 mg DAILY ORAL 05/02/18 12:45 06/01/18 12:44 UNV Lisinopril (Zestril) 2.5 mg DAILY ORAL 05/05/18 09:00 06/01/18 08:59 Lorazepam (Ativan 2mg/ml 1ml) 2 mg EVERY 6 HOURS PRN IM anxiety 05/02/18 12:45 05/09/18 12:44 05/04/18 17:45 Metoclopramide HCl (Reglan) 5 mg THREE TIMES A DAY ORAL 05/04/18 18:00 06/03/18 17:59 05/05/18 08:31 Metoprolol Tartrate (Lopressor) 50 mg Q12HR ORAL 05/03/18 21:00 06/02/18 20:59 05/04/18 20:33 Nitroglycerin (Ntg) 0.4 mg Q5M PRN SL Prn Chest Pain 05/03/18 16:45 06/02/18 16:44 Ondansetron HCl (Zofran) 4 mg Q6H PRN IVP Nausea & Vomiting 05/04/18 16:00 06/03/18 15:59 05/04/18 16:03 Zidovudine (Retrovir) 300 mg DAILY ORAL 05/02/18 12:45 06/01/18 12:44 UNV GI: Plan Problems: (1) Vomiting (2) Anemia Plan KUB negative no active vomiting at this time last endoscopy / colonoscopy 5+ years anemia work up reviewed >> folate deficiency cont reglan prn for vomiting zofran for nausea will consider endoscopy if patient has persistent vomiting, otherwise outpatient folate prn transfusions ppi fu labs Discussed with Dr. Pool. Thank you for this patient referral, we will follow. The patient was seen and examined at bedside and all new and available data was reviewed in the patients chart. I agree with the above findings, impression and plan. (Patient seen earlier today. Signature stamp does not reflect patient encounter time.). - MD Yadira [facility]inesB[facility] [employer] WORK[facility] May 05, 2018 10:29
--- NOTE | 2018-05-05 11:23 | Infectious Diseases Prog Note ---
Assessment/Plan Assessment/Plan A: 1. HIV 2. renal failure on dialysis 3. diabetes mellitus 4. hypertension P 1. ARV on hold because there are not available in hospital 2. agree with discharge Subjective ROS Limited/Unobtainable: Yes Allergies: Coded Allergies: No Known Allergies (Verified , 02/11/12) Objective Vital Signs Last 24 Hour Vital Signs Date Time Temp Pulse Resp B/P (MAP) Pulse Ox O2 Delivery O2 Flow Rate FiO2 05/05/18 09:00 Nasal Cannula 2.0 05/05/18 08:35 Nasal Cannula 2.0 28 05/05/18 08:35 84 18 Nasal Cannula 2.0 28 05/05/18 08:35 98 Nasal Cannula 2.0 28 05/05/18 08:00 97.6 85 20 92/57 (69) 100 97.6 05/05/18 08:00 83 05/05/18 04:00 78 05/05/18 04:00 97.3 68 20 111/60 (77) 97 97.3 05/05/18 00:00 77 05/05/18 00:00 98.0 71 20 99/59 (72) 98 98.0 05/04/18 21:00 Room Air 05/04/18 20:33 100 110/58 05/04/18 20:00 97.7 100 18 110/58 (75) 95 97.7 05/04/18 20:00 100 18 Nasal Cannula 2.0 28 05/04/18 20:00 Nasal Cannula 2.0 28 05/04/18 20:00 95 Nasal Cannula 2.0 28 05/04/18 20:00 100 05/04/18 16:00 97 05/04/18 16:00 98.1 98 20 121/74 (90) 96 98.1 05/04/18 13:26 115/61 05/04/18 12:00 94 05/04/18 12:00 97.0 83 20 100/62 (75) 99 97.0 Height (Feet): 5 Height (Inches): 7.00 Weight (Pounds): 224 General Appearance: no acute distress HEENT: mucous membranes moist Respiratory/Chest: lungs clear Cardiovascular: normal rate Abdomen: soft, non tender Extremities: no edema Neurologic/Psychiatric: other - sleeping Current Medications Medications (Trade) Dose Ordered Sig/Twyla Route PRN Reason Start Time Stop Time Status Last Admin Dose Admin Acetaminophen (Tylenol) 650 mg Q4H PRN ORAL Mild Pain/Temp > 100.5 05/02/18 07:45 06/01/18 07:44 Albuterol/ Ipratropium (Albuterol/ Ipratropium) 3 ml Q4H PRN HHN Shortness of Breath 05/01/18 18:00 05/06/18 17:59 Aspirin (ASA) 81 mg DAILY ORAL 05/02/18 09:00 06/01/18 08:59 05/05/18 08:31 Atorvastatin Calcium (Lipitor) 40 mg BEDTIME ORAL 05/01/18 21:00 05/31/18 20:59 05/04/18 20:33 Chlorhexidine Gluconate (Anne-Hex 2%) 1 applic DAILY@1999 TOPIC 05/04/18 20:00 06/03/18 19:59 05/04/18 20:33 Clonidine HCl (Catapres Tab) 0.1 mg Q4H PRN ORAL For High BP over 165 syst 05/01/18 18:00 05/31/18 17:59 Clopidogrel Bisulfate (Plavix) 75 mg DAILY ORAL 05/02/18 09:00 06/01/18 08:59 05/05/18 08:31 Darunavir (Prezista) 800 mg DAILY ORAL 05/02/18 12:45 06/01/18 12:44 UNV Diphenhydramine HCl (Benadryl) 25 mg Q24HRS PRN IVP Itching 05/03/18 09:30 06/02/18 09:29 05/04/18 09:13 Diphenhydramine HCl (Benadryl) 25 mg Q4HR PRN ORAL Itching 05/02/18 12:45 06/01/18 12:44 05/05/18 10:35 Docusate Sodium (Colace) 100 mg THREE TIMES A DAY ORAL 05/04/18 18:00 06/03/18 17:59 05/05/18 08:31 Lamivudine (Epivir) 100 mg DAILY ORAL 05/02/18 12:45 06/01/18 12:44 UNV Lisinopril (Zestril) 2.5 mg DAILY ORAL 05/05/18 09:00 06/01/18 08:59 Lorazepam (Ativan 2mg/ml 1ml) 2 mg EVERY 6 HOURS PRN IM anxiety 05/02/18 12:45 05/09/18 12:44 05/04/18 17:45 Metoclopramide HCl (Reglan) 5 mg THREE TIMES A DAY ORAL 05/04/18 18:00 06/03/18 17:59 05/05/18 08:31 Metoprolol Tartrate (Lopressor) 50 mg Q12HR ORAL 05/03/18 21:00 06/02/18 20:59 05/04/18 20:33 Nitroglycerin (Ntg) 0.4 mg Q5M PRN SL Prn Chest Pain 05/03/18 16:45 06/02/18 16:44 Ondansetron HCl (Zofran) 4 mg Q6H PRN IVP Nausea & Vomiting 05/04/18 16:00 06/03/18 15:59 05/05/18 10:35 Ondansetron HCl (Zofran) 4 mg Q6H PRN IVP Nausea & Vomiting 05/05/18 11:30 06/04/18 11:29 UNV Zidovudine (Retrovir) 300 mg DAILY ORAL 05/02/18 12:45 06/01/18 12:44 UNV Francisco Salazar MD May 05, 2018 11:23
--- NOTE | 2018-05-05 12:08 | General Progress Note ---
Assessment/Plan Status: stable Assessment/Plan MDD Anxiety d/o Remeron 15 mg qhs provided ro/st Subjective Date patient seen: May 05, 2018 Neurologic/Psychiatric: Reports: anxiety, depressed, emotional problems Allergies: Coded Allergies: No Known Allergies (Verified , 02/11/12) Objective Last 24 Hour Vital Signs Date Time Temp Pulse Resp B/P (MAP) Pulse Ox O2 Delivery O2 Flow Rate FiO2 05/05/18 09:00 Nasal Cannula 2.0 05/05/18 08:35 Nasal Cannula 2.0 28 05/05/18 08:35 84 18 Nasal Cannula 2.0 28 05/05/18 08:35 98 Nasal Cannula 2.0 28 05/05/18 08:00 97.6 85 20 92/57 (69) 100 97.6 05/05/18 08:00 83 05/05/18 04:00 78 05/05/18 04:00 97.3 68 20 111/60 (77) 97 97.3 05/05/18 00:00 77 05/05/18 00:00 98.0 71 20 99/59 (72) 98 98.0 05/04/18 21:00 Room Air 05/04/18 20:33 100 110/58 05/04/18 20:00 97.7 100 18 110/58 (75) 95 97.7 05/04/18 20:00 100 18 Nasal Cannula 2.0 28 05/04/18 20:00 Nasal Cannula 2.0 28 05/04/18 20:00 95 Nasal Cannula 2.0 28 05/04/18 20:00 100 05/04/18 16:00 97 05/04/18 16:00 98.1 98 20 121/74 (90) 96 98.1 05/04/18 13:26 115/61 Intake and Output 05/04/18 05/05/18 19:00 07:00 Intake Total 75 ml Output Total 900 ml 200 ml Balance -825 ml -200 ml Intake Oral 75 ml Output Urine Total 900 ml 200 ml # Voids 3 2 # Bowel Movements 1 Height (Feet): 5 Height (Inches): 7.00 Weight (Pounds): 224 General Appearance: WD/WN, no apparent distress, alert Neurologic: oriented x 3, responsive, depressed affect Juan Varghese MD May 05, 2018 12:08
--- NOTE | 2018-05-05 13:01 | Nephrology Progress Note ---
Assessment/Plan Problem List: (1) ESRD (end stage renal disease) on dialysis (2) ACS (acute coronary syndrome) Assessment nausea resolved Admitted with ACS On Dialysis for 12 years Has right chest permacath HTN DM HIV+ Plan adjust bp meds- start Reglan HD 05/03 next 05/05 Per consultants Subjective ROS Limited/Unobtainable: No Constitutional: Reports: malaise Subjective has nausea Objective Objective Last 24 Hour Vital Signs Date Time Temp Pulse Resp B/P (MAP) Pulse Ox O2 Delivery O2 Flow Rate FiO2 05/05/18 09:00 Nasal Cannula 2.0 05/05/18 08:35 Nasal Cannula 2.0 28 05/05/18 08:35 84 18 Nasal Cannula 2.0 28 05/05/18 08:35 98 Nasal Cannula 2.0 28 05/05/18 08:00 97.6 85 20 92/57 (69) 100 97.6 05/05/18 08:00 83 05/05/18 04:00 78 05/05/18 04:00 97.3 68 20 111/60 (77) 97 97.3 05/05/18 00:00 77 05/05/18 00:00 98.0 71 20 99/59 (72) 98 98.0 05/04/18 21:00 Room Air 05/04/18 20:33 100 110/58 05/04/18 20:00 97.7 100 18 110/58 (75) 95 97.7 05/04/18 20:00 100 18 Nasal Cannula 2.0 28 05/04/18 20:00 Nasal Cannula 2.0 28 05/04/18 20:00 95 Nasal Cannula 2.0 28 05/04/18 20:00 100 05/04/18 16:00 97 05/04/18 16:00 98.1 98 20 121/74 (90) 96 98.1 05/04/18 13:26 115/61 Intake and Output 05/04/18 05/05/18 19:00 07:00 Intake Total 75 ml Output Total 900 ml 200 ml Balance -825 ml -200 ml Intake Oral 75 ml Output Urine Total 900 ml 200 ml # Voids 3 2 # Bowel Movements 1 Height (Feet): 5 Height (Inches): 7.00 Weight (Pounds): 224 General Appearance: no apparent distress Cardiovascular: normal rate Respiratory/Chest: decreased breath sounds Abdomen: soft Objective PE not changed Toño Posada MD May 05, 2018 13:01
[2018-05-05] MEDS: DiphenhydrAMINE 50mg/ml Inj IVP PRN (16:07)
[2018-05-05 16:32] LABS: BASOPHILS % (AUTO) 1.2 % (0.0-2.0); EOSINOPHILS % (AUTO) 8.3 % (0.0-3.0); HEMATOCRIT 38.5 % (42.0-52.0); HEMOGLOBIN 12.6 G/DL (14.2-18.0); LYMPHOCYTES % (AUTO) 27.8 % (20.0-45.0); MEAN CORPUSCULAR VOLUME 98 FL (80-99); MONOCYTES % (AUTO) 12.1 % (1.0-10.0); NEUTROPHILS % (AUTO) 50.6 % (45.0-75.0); PLATELET COUNT 131 K/UL (150-450); RED BLOOD COUNT 3.93 M/UL (4.70-6.10); RED CELL DISTRIBUTION WIDTH 16.2 % (11.6-14.8); WHITE BLOOD COUNT 9.8 K/UL (4.8-10.8)
[2018-05-05 16:59] LABS: ALANINE AMINOTRANSFERASE 41 U/L (12-78); ALBUMIN 3.7 G/DL (3.4-5.0); ALBUMIN/GLOBULIN RATIO 0.6 (1.0-2.7); ALKALINE PHOSPHATASE 149 U/L (46-116); ANION GAP 10 mmol/L (5-15); ASPARTATE AMINO TRANSFERASE 39 U/L (15-37); BILIRUBIN,TOTAL 0.6 MG/DL (0.2-1.0); BLOOD UREA NITROGEN 48 mg/dL (7-18); CALCIUM 9.1 MG/DL (8.5-10.1); CARBON DIOXIDE 31 MMOL/L (21-32); CHLORIDE 92 MMOL/L (98-107); CREATININE 12.3 MG/DL (0.55-1.30); PHOSPHORUS 5.3 MG/DL (2.5-4.9); POTASSIUM 3.2 MMOL/L (3.5-5.1); SODIUM 132 MMOL/L (136-145)
[2018-05-05] MEDS: Zidovudine 100mg cap ORAL SCH (17:48)
[2018-05-05] MEDS: EPIVIR 10 MG/ML ORAL SCH (17:50)
[2018-05-05] MEDS: Dyna-Hex 2% Top Sol 2oz TOPIC SCH (20:02)
[2018-05-05] MEDS: Atorvastatin 20mg tab ORAL SCH (20:03)
--- NOTE | 2018-05-05 20:27 | General Progress Note ---
Assessment/Plan Problem List: (1) ACS (acute coronary syndrome) ICD Codes: I24.9 - Acute ischemic heart disease, unspecified SNOMED: 082504592 (2) ESRD (end stage renal disease) on dialysis ICD Codes: N18.6 - End stage renal disease; Z99.2 - Dependence on renal dialysis SNOMED: 413409138 Status: progressing Assessment/Plan vomit and abd pain gastritis stress test per cardiology r/o acs esrd on hd Subjective Gastrointestinal/Abdominal: Reports: abdominal pain, vomiting Allergies: Coded Allergies: No Known Allergies (Verified , 02/11/12) Subjective vomit mutiple chronic pain Objective Last 24 Hour Vital Signs Date Time Temp Pulse Resp B/P (MAP) Pulse Ox O2 Delivery O2 Flow Rate FiO2 05/05/18 20:04 100 91/56 05/05/18 19:42 Room Air 05/05/18 19:39 97.9 100 20 91/56 (68) 97.9 05/05/18 16:00 92 05/05/18 16:00 97.7 83 20 94/46 (62) 95 97.7 05/05/18 15:00 207.9 94 20 103/55 (71) 95 207.9 05/05/18 15:00 97.7 94 20 103/55 (71) 97.7 05/05/18 15:00 Room Air 05/05/18 12:00 97.7 91 21 98/52 (67) 95 97.7 05/05/18 12:00 89 05/05/18 09:00 Nasal Cannula 2.0 05/05/18 08:35 Nasal Cannula 2.0 28 05/05/18 08:35 84 18 Nasal Cannula 2.0 28 05/05/18 08:35 98 Nasal Cannula 2.0 28 05/05/18 08:00 97.6 85 20 92/57 (69) 100 97.6 05/05/18 08:00 83 05/05/18 04:00 78 05/05/18 04:00 97.3 68 20 111/60 (77) 97 97.3 05/05/18 00:00 77 05/05/18 00:00 98.0 71 20 99/59 (72) 98 98.0 05/04/18 21:00 Room Air 05/04/18 20:33 100 110/58 Intake and Output 05/04/18 05/05/18 19:00 07:00 Intake Total 75 ml Output Total 900 ml 200 ml Balance -825 ml -200 ml Intake Oral 75 ml Output Urine Total 900 ml 200 ml # Voids 3 2 # Bowel Movements 1 Laboratory Tests 05/05/18 15:15: White Blood Count 9.8, Red Blood Count 3.93L, Hemoglobin 12.6L, Hematocrit 38.5L , Mean Corpuscular Volume 98, Mean Corpuscular Hemoglobin 32.1H, Mean Corpuscular Hemoglobin Concent 32.8, Red Cell Distribution Width 16.2H, Platelet Count 131L, Mean Platelet Volume 8.5, Neutrophils (%) (Auto) 50.6, Lymphocytes (%) (Auto) 27.8, Monocytes (%) (Auto) 12.1H, Eosinophils (%) (Auto) 8.3H, Basophils (%) (Auto) 1.2, Sodium Level 132L, Potassium Level 3.2L, Chloride Level 92L, Carbon Dioxide Level 31, Anion Gap 10, Blood Urea Nitrogen 48H, Creatinine 12.3H, Estimat Glomerular Filtration Rate 5.2, Glucose Level 172H, Uric Acid 6.9, Calcium Level 9.1, Phosphorus Level 5.3H, Magnesium Level 1.8, Total Bilirubin 0.6, Aspartate Amino Transf (AST/SGOT) 39H, Alanine Aminotransferase (ALT/SGPT) 41, Alkaline Phosphatase 149H, C-Reactive Protein, Quantitative 4.5H, Pro-B-Type Natriuretic Peptide 2792H, Total Protein 9.9H, Albumin 3.7, Globulin 6.2, Albumin/Globulin Ratio 0.6L Height (Feet): 5 Height (Inches): 7.00 Weight (Pounds): 224 Cardiovascular: normal rate Respiratory/Chest: lungs clear Abdomen: tender Daisy Bland MD May 05, 2018 20:27
--- NOTE | 2018-05-05 23:44 | Cardiology Progress Note ---
Assessment/Plan Assessment/Plan 1. Noncardiac chest pain based on history and characteristic of pain, no wall motion abnormalities on the echo with LVEF at 55%. 12-lead electrocardiogram with no ischemic changes. Awaiting stress phase of the nuclear MPI in am. 2. Prolonged QT interval, normal Mg and K levels. 3. History of hypertension, continue lisinopril, metoprolol ans hydralazine. 4. History of diabetes mellitus, continue aspirin and statins. 5. Dyslipidemia Subjective Subjective Sinus tachycardia at 100. Objective Last 24 Hour Vital Signs Date Time Temp Pulse Resp B/P (MAP) Pulse Ox O2 Delivery O2 Flow Rate FiO2 05/05/18 21:00 Nasal Cannula 2.0 05/05/18 20:04 100 91/56 05/05/18 20:00 104 05/05/18 20:00 97.9 100 19 91/56 (68) 95 97.9 05/05/18 19:42 Room Air 05/05/18 19:39 97.9 100 20 91/56 (68) 97.9 05/05/18 19:00 100 Nasal Cannula 2.0 28 05/05/18 19:00 Nasal Cannula 2.0 28 05/05/18 19:00 80 20 Nasal Cannula 2.0 28 05/05/18 16:00 92 05/05/18 16:00 97.7 83 20 94/46 (62) 95 97.7 05/05/18 15:00 207.9 94 20 103/55 (71) 95 207.9 05/05/18 15:00 97.7 94 20 103/55 (71) 97.7 05/05/18 15:00 Room Air 05/05/18 12:00 97.7 91 21 98/52 (67) 95 97.7 05/05/18 12:00 89 05/05/18 09:00 Nasal Cannula 2.0 05/05/18 08:35 Nasal Cannula 2.0 28 05/05/18 08:35 84 18 Nasal Cannula 2.0 28 05/05/18 08:35 98 Nasal Cannula 2.0 28 05/05/18 08:00 97.6 85 20 92/57 (69) 100 97.6 05/05/18 08:00 83 05/05/18 04:00 78 05/05/18 04:00 97.3 68 20 111/60 (77) 97 97.3 8/13/18 00:00 77 05/05/18 00:00 98.0 71 20 99/59 (72) 98 98.0 Intake and Output 05/04/18 05/05/18 19:00 07:00 Intake Total 75 ml Output Total 900 ml 200 ml Balance -825 ml -200 ml Intake Oral 75 ml Output Urine Total 900 ml 200 ml # Voids 3 2 # Bowel Movements 1 2D Echo: LVEF 55%, Mod LVH, DEYSI, RVSP 15 mmHg, Mod WI, Grade I LVDD Laboratory Tests Test 05/05/18 15:15 White Blood Count 9.8 K/UL (4.8-10.8) Red Blood Count 3.93 M/UL (4.70-6.10) L Hemoglobin 12.6 G/DL (14.2-18.0) L Hematocrit 38.5 % (42.0-52.0) L Mean Corpuscular Volume 98 FL (80-99) Mean Corpuscular Hemoglobin 32.1 PG (27.0-31.0) H Mean Corpuscular Hemoglobin Concent 32.8 G/DL (32.0-36.0) Red Cell Distribution Width 16.2 % (11.6-14.8) H Platelet Count 131 K/UL (150-450) L Mean Platelet Volume 8.5 FL (6.5-10.1) Neutrophils (%) (Auto) 50.6 % (45.0-75.0) Lymphocytes (%) (Auto) 27.8 % (20.0-45.0) Monocytes (%) (Auto) 12.1 % (1.0-10.0) H Eosinophils (%) (Auto) 8.3 % (0.0-3.0) H Basophils (%) (Auto) 1.2 % (0.0-2.0) Sodium Level 132 MMOL/L (136-145) L Potassium Level 3.2 MMOL/L (3.5-5.1) L Chloride Level 92 MMOL/L (98-107) L Carbon Dioxide Level 31 MMOL/L (21-32) Anion Gap 10 mmol/L (5-15) Blood Urea Nitrogen 48 mg/dL (7-18) H Creatinine 12.3 MG/DL (0.55-1.30) H Estimat Glomerular Filtration Rate 5.2 mL/min (>60) Glucose Level 172 MG/DL (74-106) H Uric Acid 6.9 MG/DL (2.6-7.2) Calcium Level 9.1 MG/DL (8.5-10.1) Phosphorus Level 5.3 MG/DL (2.5-4.9) H Magnesium Level 1.8 MG/DL (1.8-2.4) Total Bilirubin 0.6 MG/DL (0.2-1.0) Aspartate Amino Transf (AST/SGOT) 39 U/L (15-37) H Alanine Aminotransferase (ALT/SGPT) 41 U/L (12-78) Alkaline Phosphatase 149 U/L (46-116) H C-Reactive Protein, Quantitative 4.5 mg/dL (0.00-0.90) H Pro-B-Type Natriuretic Peptide 2792 pg/mL (0-125) H Total Protein 9.9 G/DL (6.4-8.2) H Albumin 3.7 G/DL (3.4-5.0) Globulin 6.2 g/dL Albumin/Globulin Ratio 0.6 (1.0-2.7) L Objective HEENT: Atraumatic and normocephalic. Anicteric. Pupils are equal, round, and reactive to light and accommodation. Extraocular muscles intact. NECK: JVP is less than 5 cm. No carotid bruits. Carotid upstrokes 2+ bilaterally. CVS: Normal S1, S2. Regular rhythm. Tachycardic. No murmurs, gallops, or rubs. PMI is at fourth intercostal space in the midclavicular line. LUNGS: Clear to auscultation bilaterally. ABDOMEN: Soft, nontender, and nondistended. No hepatosplenomegaly. Positive bowel sounds. EXTREMITIES: No evidence of edema, clubbing, or cyanosis. Pavan Hanson MD May 05, 2018 23:44
[2018-05-06] VITALS: BP 100/61
[2018-05-06 04:00] VITALS: BP 101/59
[2018-05-06 08:00] VITALS: BP 82/50
--- NOTE | 2018-05-06 08:26 | Diagnostic Imaging Report ---
Indications: Chest pain Technique: Resting only images were performed 3 days prior, reported separately. For this exam, patient underwent lexiscan stress testing. See cardiology report for details. During adenosine infusion, IV administration 30 mCi 99 M technetium Myoview. SPECT and planar images obtained. SPECT images gated to 8 phases of the cardiac cycle were also obtained, and reformatted into cine images for evaluation of ejection fraction. Comparison: Resting images performed on 05/02/2018 Findings: Presence or absence of symptoms during infusion is not recorded on the cardiology report. Per cardiology report, resting EKG demonstrates normal sinus rhythm, but presence or absence of ST changes is not recorded. Imaging demonstrates no fixed nor reversible post stress perfusion defects. Normal cardiac chamber size. Calculated post stress ejection fraction 56% no focal wall motion abnormalities Impression: Nonischemic clinical response to pharmacologic stress, per cardiology report Nonischemic electrocardiographic response to pharmacologic stress, per cardiology report No imaging findings to suggest ischemia, at level of stress achieved. Calculated post stress ejection fraction 56%
[2018-05-06] MEDS: Docusate 100mg cap ORAL SCH ×3 (08:46→16:46)
[2018-05-06] MEDS: Aspirin Baby 81mg ORAL SCH (08:46)
[2018-05-06] MEDS: EPIVIR 10 MG/ML ORAL SCH ×2 (08:47→09:00)
[2018-05-06] MEDS: Zidovudine 100mg cap ORAL SCH (08:47)
[2018-05-06] MEDS: Metoprolol Tartrate 50mg tab ORAL SCH (09:00)
[2018-05-06] MEDS ORDERED: Sodium Chloride 500ML 500 ML IV ONE ×2 (10:00→11:00)
--- NOTE | 2018-05-06 10:50 | Nephrology Progress Note ---
Assessment/Plan Problem List: (1) ESRD (end stage renal disease) on dialysis (2) ACS (acute coronary syndrome) (3) Costochondritis (4) Hypotension Assessment BP LOW- nausea resolved Admitted with ACS On Dialysis for 12 years Has right chest permacath HTN DM HIV+ Plan DC bp meds- Bol[place] NS and Albumin start Reglan HD 05/03 next 05/05 check labs in am Per consultants Subjective ROS Limited/Unobtainable: No Constitutional: Reports: malaise Subjective has nausea Objective Objective Last 24 Hour Vital Signs Date Time Temp Pulse Resp B/P (MAP) Pulse Ox O2 Delivery O2 Flow Rate FiO2 05/06/18 09:00 Nasal Cannula 2.0 05/06/18 09:00 88 82/50 05/06/18 08:00 98.2 88 16 82/50 (61) 98 98.2 05/06/18 04:00 98.2 94 20 101/59 (73) 96 98.2 05/06/18 04:00 88 05/06/18 00:00 97.5 92 22 100/61 (74) 96 97.5 05/06/18 00:00 88 05/05/18 21:00 Nasal Cannula 2.0 05/05/18 20:04 100 91/56 05/05/18 20:00 104 05/05/18 20:00 97.9 100 19 91/56 (68) 95 97.9 05/05/18 19:42 Room Air 05/05/18 19:39 97.9 100 20 91/56 (68) 97.9 05/05/18 19:00 100 Nasal Cannula 2.0 28 05/05/18 19:00 Nasal Cannula 2.0 28 05/05/18 19:00 80 20 Nasal Cannula 2.0 28 05/05/18 16:00 92 05/05/18 16:00 97.7 83 20 94/46 (62) 95 97.7 05/05/18 15:00 207.9 94 20 103/55 (71) 95 207.9 05/05/18 15:00 97.7 94 20 103/55 (71) 97.7 05/05/18 15:00 Room Air 05/05/18 12:00 97.7 91 21 98/52 (67) 95 97.7 05/05/18 12:00 89 Intake and Output 05/05/18 05/06/18 19:00 07:00 Intake Total 300 ml Output Total 1076 ml Balance 300 ml -1076 ml Intake Oral 300 ml Hemodialysis UF 1076 ml # Voids 1 # Bowel Movements 1 Laboratory Tests 05/05/18 15:15: White Blood Count 9.8, Red Blood Count 3.93L, Hemoglobin 12.6L, Hematocrit 38.5L , Mean Corpuscular Volume 98, Mean Corpuscular Hemoglobin 32.1H, Mean Corpuscular Hemoglobin Concent 32.8, Red Cell Distribution Width 16.2H, Platelet Count 131L, Mean Platelet Volume 8.5, Neutrophils (%) (Auto) 50.6, Lymphocytes (%) (Auto) 27.8, Monocytes (%) (Auto) 12.1H, Eosinophils (%) (Auto) 8.3H, Basophils (%) (Auto) 1.2, Sodium Level 132L, Potassium Level 3.2L, Chloride Level 92L, Carbon Dioxide Level 31, Anion Gap 10, Blood Urea Nitrogen 48H, Creatinine 12.3H, Estimat Glomerular Filtration Rate 5.2, Glucose Level 172H, Uric Acid 6.9, Calcium Level 9.1, Phosphorus Level 5.3H, Magnesium Level 1.8, Total Bilirubin 0.6, Aspartate Amino Transf (AST/SGOT) 39H, Alanine Aminotransferase (ALT/SGPT) 41, Alkaline Phosphatase 149H, C-Reactive Protein, Quantitative 4.5H, Pro-B-Type Natriuretic Peptide 2792H, Total Protein 9.9H, Albumin 3.7, Globulin 6.2, Albumin/Globulin Ratio 0.6L Height (Feet): 5 Height (Inches): 7.00 Weight (Pounds): 226 General Appearance: no apparent distress, lethargic Cardiovascular: normal rate Respiratory/Chest: decreased breath sounds Abdomen: soft Objective PE not changed Toño Posada MD May 06, 2018 10:50
--- NOTE | 2018-05-06 11:25 | General Progress Note ---
Assessment/Plan Status: stable, progressing Assessment/Plan MDD Anxiety d/o Remeron 15 mg qhs provided ro/st Subjective Date patient seen: May 06, 2018 Neurologic/Psychiatric: Reports: anxiety, depressed, emotional problems Allergies: Coded Allergies: No Known Allergies (Verified , 02/11/12) Objective Last 24 Hour Vital Signs Date Time Temp Pulse Resp B/P (MAP) Pulse Ox O2 Delivery O2 Flow Rate FiO2 05/06/18 09:00 Nasal Cannula 2.0 05/06/18 09:00 88 82/50 05/06/18 08:00 98.2 88 16 82/50 (61) 98 98.2 05/06/18 07:40 Nasal Cannula 2.0 28 05/06/18 07:40 82 17 Nasal Cannula 2.0 28 05/06/18 07:40 98 Nasal Cannula 2.0 28 05/06/18 04:00 98.2 94 20 101/59 (73) 96 98.2 05/06/18 04:00 88 05/06/18 00:00 97.5 92 22 100/61 (74) 96 97.5 05/06/18 00:00 88 05/05/18 21:00 Nasal Cannula 2.0 05/05/18 20:04 100 91/56 05/05/18 20:00 104 05/05/18 20:00 97.9 100 19 91/56 (68) 95 97.9 05/05/18 19:42 Room Air 05/05/18 19:39 97.9 100 20 91/56 (68) 97.9 05/05/18 19:00 100 Nasal Cannula 2.0 28 05/05/18 19:00 Nasal Cannula 2.0 28 05/05/18 19:00 80 20 Nasal Cannula 2.0 28 05/05/18 16:00 92 05/05/18 16:00 97.7 83 20 94/46 (62) 95 97.7 05/05/18 15:00 207.9 94 20 103/55 (71) 95 207.9 05/05/18 15:00 97.7 94 20 103/55 (71) 97.7 05/05/18 15:00 Room Air 05/05/18 12:00 97.7 91 21 98/52 (67) 95 97.7 05/05/18 12:00 89 Intake and Output 05/05/18 05/06/18 19:00 07:00 Intake Total 300 ml Output Total 1076 ml Balance 300 ml -1076 ml Intake Oral 300 ml Hemodialysis UF 1076 ml # Voids 1 # Bowel Movements 1 Laboratory Tests 05/05/18 15:15: White Blood Count 9.8, Red Blood Count 3.93L, Hemoglobin 12.6L, Hematocrit 38.5L , Mean Corpuscular Volume 98, Mean Corpuscular Hemoglobin 32.1H, Mean Corpuscular Hemoglobin Concent 32.8, Red Cell Distribution Width 16.2H, Platelet Count 131L, Mean Platelet Volume 8.5, Neutrophils (%) (Auto) 50.6, Lymphocytes (%) (Auto) 27.8, Monocytes (%) (Auto) 12.1H, Eosinophils (%) (Auto) 8.3H, Basophils (%) (Auto) 1.2, Sodium Level 132L, Potassium Level 3.2L, Chloride Level 92L, Carbon Dioxide Level 31, Anion Gap 10, Blood Urea Nitrogen 48H, Creatinine 12.3H, Estimat Glomerular Filtration Rate 5.2, Glucose Level 172H, Uric Acid 6.9, Calcium Level 9.1, Phosphorus Level 5.3H, Magnesium Level 1.8, Total Bilirubin 0.6, Aspartate Amino Transf (AST/SGOT) 39H, Alanine Aminotransferase (ALT/SGPT) 41, Alkaline Phosphatase 149H, C-Reactive Protein, Quantitative 4.5H, Pro-B-Type Natriuretic Peptide 2792H, Total Protein 9.9H, Albumin 3.7, Globulin 6.2, Albumin/Globulin Ratio 0.6L Height (Feet): 5 Height (Inches): 7.00 Weight (Pounds): 226 General Appearance: no apparent distress, alert Neurologic: oriented x 3, responsive, depressed affect Juan Varghese MD May 06, 2018 11:25
[2018-05-06 12:00] VITALS: BP 78/50
--- NOTE | 2018-05-06 12:50 | Infectious Diseases Prog Note ---
Assessment/Plan Assessment/Plan A: 1. HIV 2. renal failure on dialysis 3. diabetes mellitus 4. hypertension 5. Chest pain P 1.Continue ARV with Lamivudine, Zidovudine & Prezista 2. agree with discharge Subjective ROS Limited/Unobtainable: Yes Allergies: Coded Allergies: No Known Allergies (Verified , 02/11/12) Objective Vital Signs Last 24 Hour Vital Signs Date Time Temp Pulse Resp B/P (MAP) Pulse Ox O2 Delivery O2 Flow Rate FiO2 05/06/18 09:00 Nasal Cannula 2.0 05/06/18 09:00 88 82/50 05/06/18 08:00 98.2 88 16 82/50 (61) 98 98.2 05/06/18 07:40 Nasal Cannula 2.0 28 05/06/18 07:40 82 17 Nasal Cannula 2.0 28 05/06/18 07:40 98 Nasal Cannula 2.0 28 05/06/18 04:00 98.2 94 20 101/59 (73) 96 98.2 05/06/18 04:00 88 05/06/18 00:00 97.5 92 22 100/61 (74) 96 97.5 05/06/18 00:00 88 05/05/18 21:00 Nasal Cannula 2.0 05/05/18 20:04 100 91/56 05/05/18 20:00 104 05/05/18 20:00 97.9 100 19 91/56 (68) 95 97.9 05/05/18 19:42 Room Air 05/05/18 19:39 97.9 100 20 91/56 (68) 97.9 05/05/18 19:00 100 Nasal Cannula 2.0 28 05/05/18 19:00 Nasal Cannula 2.0 28 05/05/18 19:00 80 20 Nasal Cannula 2.0 28 05/05/18 16:00 92 05/05/18 16:00 97.7 83 20 94/46 (62) 95 97.7 05/05/18 15:00 207.9 94 20 103/55 (71) 95 207.9 05/05/18 15:00 97.7 94 20 103/55 (71) 97.7 05/05/18 15:00 Room Air Height (Feet): 5 Height (Inches): 7.00 Weight (Pounds): 226 General Appearance: no acute distress HEENT: mucous membranes moist Respiratory/Chest: lungs clear Cardiovascular: normal rate, other - Permacath Abdomen: soft, non tender Extremities: no edema Neurologic/Psychiatric: other - sleeping Laboratory Tests Test 05/05/18 15:15 White Blood Count 9.8 K/UL (4.8-10.8) Red Blood Count 3.93 M/UL (4.70-6.10) L Hemoglobin 12.6 G/DL (14.2-18.0) L Hematocrit 38.5 % (42.0-52.0) L Mean Corpuscular Volume 98 FL (80-99) Mean Corpuscular Hemoglobin 32.1 PG (27.0-31.0) H Mean Corpuscular Hemoglobin Concent 32.8 G/DL (32.0-36.0) Red Cell Distribution Width 16.2 % (11.6-14.8) H Platelet Count 131 K/UL (150-450) L Mean Platelet Volume 8.5 FL (6.5-10.1) Neutrophils (%) (Auto) 50.6 % (45.0-75.0) Lymphocytes (%) (Auto) 27.8 % (20.0-45.0) Monocytes (%) (Auto) 12.1 % (1.0-10.0) H Eosinophils (%) (Auto) 8.3 % (0.0-3.0) H Basophils (%) (Auto) 1.2 % (0.0-2.0) Sodium Level 132 MMOL/L (136-145) L Potassium Level 3.2 MMOL/L (3.5-5.1) L Chloride Level 92 MMOL/L (98-107) L Carbon Dioxide Level 31 MMOL/L (21-32) Anion Gap 10 mmol/L (5-15) Blood Urea Nitrogen 48 mg/dL (7-18) H Creatinine 12.3 MG/DL (0.55-1.30) H Estimat Glomerular Filtration Rate 5.2 mL/min (>60) Glucose Level 172 MG/DL (74-106) H Uric Acid 6.9 MG/DL (2.6-7.2) Calcium Level 9.1 MG/DL (8.5-10.1) Phosphorus Level 5.3 MG/DL (2.5-4.9) H Magnesium Level 1.8 MG/DL (1.8-2.4) Total Bilirubin 0.6 MG/DL (0.2-1.0) Aspartate Amino Transf (AST/SGOT) 39 U/L (15-37) H Alanine Aminotransferase (ALT/SGPT) 41 U/L (12-78) Alkaline Phosphatase 149 U/L (46-116) H C-Reactive Protein, Quantitative 4.5 mg/dL (0.00-0.90) H Pro-B-Type Natriuretic Peptide 2792 pg/mL (0-125) H Total Protein 9.9 G/DL (6.4-8.2) H Albumin 3.7 G/DL (3.4-5.0) Globulin 6.2 g/dL Albumin/Globulin Ratio 0.6 (1.0-2.7) L Current Medications Medications (Trade) Dose Ordered Sig/Twyla Route PRN Reason Start Time Stop Time Status Last Admin Dose Admin Acetaminophen (Tylenol) 650 mg Q4H PRN ORAL Mild Pain/Temp > 100.5 05/02/18 07:45 06/01/18 07:44 Albuterol/ Ipratropium (Albuterol/ Ipratropium) 3 ml Q4H PRN HHN Shortness of Breath 05/01/18 18:00 05/06/18 17:59 Aspirin (ASA) 81 mg DAILY ORAL 05/02/18 09:00 06/01/18 08:59 05/06/18 08:46 Atorvastatin Calcium (Lipitor) 40 mg BEDTIME ORAL 05/01/18 21:00 05/31/18 20:59 05/05/18 20:03 Chlorhexidine Gluconate (Anne-Hex 2%) 1 applic DAILY@1999 TOPIC 05/04/18 20:00 06/03/18 19:59 05/05/18 20:02 Clonidine HCl (Catapres Tab) 0.1 mg Q4H PRN ORAL For High BP over 165 syst 05/01/18 18:00 05/31/18 17:59 Clopidogrel Bisulfate (Plavix) 75 mg DAILY ORAL 05/02/18 09:00 06/01/18 08:59 05/06/18 08:45 Darunavir (Prezista) 800 mg DAILY ORAL 05/02/18 17:00 06/01/18 16:59 05/06/18 08:48 Diphenhydramine HCl (Benadryl) 25 mg Q24HRS PRN IVP Itching 05/03/18 09:30 06/02/18 09:29 05/05/18 16:07 Diphenhydramine HCl (Benadryl) 25 mg Q4HR PRN ORAL Itching 05/02/18 12:45 06/01/18 12:44 05/05/18 10:35 Docusate Sodium (Colace) 100 mg THREE TIMES A DAY ORAL 05/04/18 18:00 06/03/18 17:59 05/06/18 12:09 Lamivudine (Epivir) 100 mg DAILY ORAL 05/02/18 17:00 06/01/18 16:59 Lorazepam (Ativan 2mg/ml 1ml) 2 mg EVERY 6 HOURS PRN IM anxiety 05/02/18 12:45 05/09/18 12:44 05/04/18 17:45 Metoclopramide HCl (Reglan) 5 mg THREE TIMES A DAY ORAL 05/04/18 18:00 06/03/18 17:59 05/06/18 12:09 Mirtazapine (Remeron) 15 mg BEDTIME ORAL 05/05/18 21:00 06/04/18 20:59 05/05/18 20:03 Nitroglycerin (Ntg) 0.4 mg Q5M PRN SL Prn Chest Pain 05/03/18 16:45 06/02/18 16:44 Ondansetron HCl (Zofran) 4 mg Q6H PRN IVP Nausea & Vomiting 05/04/18 16:00 06/03/18 15:59 05/05/18 18:34 Zidovudine (Retrovir) 300 mg DAILY ORAL 05/02/18 17:00 06/01/18 16:59 05/06/18 08:47 Francisco Salazar MD May 06, 2018 12:50
--- NOTE | 2018-05-06 13:14 | GI Progress Note ---
Assessment/Plan Problems: (1) Anemia ICD Codes: D64.9 - Anemia, unspecified SNOMED: 207042650 (2) Vomiting ICD Codes: R11.10 - Vomiting, unspecified SNOMED: 299129020 (3) ESRD (end stage renal disease) on dialysis ICD Codes: N18.6 - End stage renal disease; Z99.2 - Dependence on renal dialysis SNOMED: 902942241 (4) Hypotension ICD Codes: I95.9 - Hypotension, unspecified SNOMED: 86424737 (5) Electrolyte imbalance ICD Codes: E87.8 - Other disorders of electrolyte and fluid balance, not elsewhere classified SNOMED: 035842733 Status: unchanged Status Narrative Discussed with Dr. Pool. Assessment/Plan KUB negative vomiting 2/2 to hypotension vs electrolyte imbalance last endoscopy / colonoscopy 5+ years anemia work up reviewed >> folate deficiency cont reglan prn for vomiting zofran for nausea BP management electrolyte correction will consider endoscopy if patient has persistent vomiting, otherwise outpatient folate prn transfusions ppi fu labs The patient was seen and examined at bedside and all new and available data was reviewed in the patients chart. I agree with the above findings, impression and plan. (Patient seen earlier today. Signature stamp does not reflect patient encounter time.). - Clinton Pool MD Subjective Subjective had episode of emesis this morning Objective Last 24 Hour Vital Signs Date Time Temp Pulse Resp B/P (MAP) Pulse Ox O2 Delivery O2 Flow Rate FiO2 05/06/18 09:00 Nasal Cannula 2.0 05/06/18 09:00 88 82/50 05/06/18 08:00 98.2 88 16 82/50 (61) 98 98.2 05/06/18 07:40 Nasal Cannula 2.0 28 05/06/18 07:40 82 17 Nasal Cannula 2.0 28 05/06/18 07:40 98 Nasal Cannula 2.0 28 05/06/18 04:00 98.2 94 20 101/59 (73) 96 98.2 05/06/18 04:00 88 05/06/18 00:00 97.5 92 22 100/61 (74) 96 97.5 05/06/18 00:00 88 05/05/18 21:00 Nasal Cannula 2.0 05/05/18 20:04 100 91/56 05/05/18 20:00 104 8/13/18 20:00 97.9 100 19 91/56 (68) 95 97.9 05/05/18 19:42 Room Air 05/05/18 19:39 97.9 100 20 91/56 (68) 97.9 05/05/18 19:00 100 Nasal Cannula 2.0 28 05/05/18 19:00 Nasal Cannula 2.0 28 05/05/18 19:00 80 20 Nasal Cannula 2.0 28 05/05/18 16:00 92 05/05/18 16:00 97.7 83 20 94/46 (62) 95 97.7 05/05/18 15:00 207.9 94 20 103/55 (71) 95 207.9 05/05/18 15:00 97.7 94 20 103/55 (71) 97.7 05/05/18 15:00 Room Air Intake and Output 05/05/18 05/06/18 19:00 07:00 Intake Total 300 ml Output Total 1076 ml Balance 300 ml -1076 ml Intake Oral 300 ml Hemodialysis UF 1076 ml # Voids 1 # Bowel Movements 1 Laboratory Tests Test 05/05/18 15:15 White Blood Count 9.8 K/UL (4.8-10.8) Red Blood Count 3.93 M/UL (4.70-6.10) L Hemoglobin 12.6 G/DL (14.2-18.0) L Hematocrit 38.5 % (42.0-52.0) L Mean Corpuscular Volume 98 FL (80-99) Mean Corpuscular Hemoglobin 32.1 PG (27.0-31.0) H Mean Corpuscular Hemoglobin Concent 32.8 G/DL (32.0-36.0) Red Cell Distribution Width 16.2 % (11.6-14.8) H Platelet Count 131 K/UL (150-450) L Mean Platelet Volume 8.5 FL (6.5-10.1) Neutrophils (%) (Auto) 50.6 % (45.0-75.0) Lymphocytes (%) (Auto) 27.8 % (20.0-45.0) Monocytes (%) (Auto) 12.1 % (1.0-10.0) H Eosinophils (%) (Auto) 8.3 % (0.0-3.0) H Basophils (%) (Auto) 1.2 % (0.0-2.0) Sodium Level 132 MMOL/L (136-145) L Potassium Level 3.2 MMOL/L (3.5-5.1) L Chloride Level 92 MMOL/L (98-107) L Carbon Dioxide Level 31 MMOL/L (21-32) Anion Gap 10 mmol/L (5-15) Blood Urea Nitrogen 48 mg/dL (7-18) H Creatinine 12.3 MG/DL (0.55-1.30) H Estimat Glomerular Filtration Rate 5.2 mL/min (>60) Glucose Level 172 MG/DL (74-106) H Uric Acid 6.9 MG/DL (2.6-7.2) Calcium Level 9.1 MG/DL (8.5-10.1) Phosphorus Level 5.3 MG/DL (2.5-4.9) H Magnesium Level 1.8 MG/DL (1.8-2.4) Total Bilirubin 0.6 MG/DL (0.2-1.0) Aspartate Amino Transf (AST/SGOT) 39 U/L (15-37) H Alanine Aminotransferase (ALT/SGPT) 41 U/L (12-78) Alkaline Phosphatase 149 U/L (46-116) H C-Reactive Protein, Quantitative 4.5 mg/dL (0.00-0.90) H Pro-B-Type Natriuretic Peptide 2792 pg/mL (0-125) H Total Protein 9.9 G/DL (6.4-8.2) H Albumin 3.7 G/DL (3.4-5.0) Globulin 6.2 g/dL Albumin/Globulin Ratio 0.6 (1.0-2.7) L Height (Feet): 5 Height (Inches): 7.00 Weight (Pounds): 226 General Appearance: WD/WN, no apparent distress, alert Cardiovascular: normal rate Respiratory/Chest: normal breath sounds, no respiratory distress Abdominal Exam: normal bowel sounds, non tender, soft Extremities: normal range of motion, non-tender Kandis May NP May 06, 2018 13:14
[2018-05-06 16:12] VITALS: BP 84/50
[2018-05-06 20:01] VITALS: BP 92/39
[2018-05-06] MEDS: Sodium Chloride 500ML 550 ML IV SCH ×2 (20:04→21:29)
[2018-05-06] MEDS: Atorvastatin 20mg tab ORAL SCH (21:29)
[2018-05-06] MEDS: Dyna-Hex 2% Top Sol 2oz TOPIC SCH (21:29)
--- NOTE | 2018-05-06 21:36 | General Progress Note ---
Assessment/Plan Problem List: (1) ACS (acute coronary syndrome) ICD Codes: I24.9 - Acute ischemic heart disease, unspecified SNOMED: 455687293 (2) ESRD (end stage renal disease) on dialysis ICD Codes: N18.6 - End stage renal disease; Z99.2 - Dependence on renal dialysis SNOMED: 807039594 Status: progressing Assessment/Plan cleared by gi for dc dc to snf see dc summary needed cardiology clearance gastritis stress test per cardiology r/o acs esrd on hd Subjective Gastrointestinal/Abdominal: Reports: abdominal pain, vomiting Allergies: Coded Allergies: No Known Allergies (Verified , 02/11/12) Subjective vomit mutiple chronic pain Objective Last 24 Hour Vital Signs Date Time Temp Pulse Resp B/P (MAP) Pulse Ox O2 Delivery O2 Flow Rate FiO2 05/06/18 20:01 98.1 83 20 92/39 (56) 97 98.1 83 05/06/18 16:12 97.0 87 16 84/50 (61) 94 97.0 05/06/18 16:00 85 05/06/18 12:00 87 05/06/18 12:00 98.3 89 16 78/50 (59) 98 98.3 05/06/18 09:00 Nasal Cannula 2.0 05/06/18 09:00 88 82/50 05/06/18 08:00 88 05/06/18 08:00 98.2 88 16 82/50 (61) 98 98.2 05/06/18 07:40 Nasal Cannula 2.0 28 05/06/18 07:40 82 17 Nasal Cannula 2.0 28 05/06/18 07:40 98 Nasal Cannula 2.0 28 05/06/18 04:00 98.2 94 20 101/59 (73) 96 98.2 05/06/18 04:00 88 05/06/18 00:00 97.5 92 22 100/61 (74) 96 97.5 05/06/18 00:00 88 Intake and Output 05/05/18 05/06/18 19:00 07:00 Intake Total 300 ml Output Total 1076 ml Balance 300 ml -1076 ml Intake Oral 300 ml Hemodialysis UF 1076 ml # Voids 1 # Bowel Movements 1 Height (Feet): 5 Height (Inches): 7.00 Weight (Pounds): 226 Daisy Bland MD May 06, 2018 21:36
--- NOTE | 2018-05-06 23:56 | Cardiology Progress Note ---
Assessment/Plan Assessment/Plan 1. Hypotension, likely fluid removal during HD (2300 cc filtration), will give another 500cc of IV NS bolus. 2. Noncardiac chest pain , non-ischemic stress test. 2. Prolonged QT interval, normal Mg and K levels. 3. History of hypertension, hold all BP meds. 4. History of diabetes mellitus, continue aspirin and statins. 5. Dyslipidemia Subjective Subjective Sinus rhythm at 87. Became hypotensive, received 1 liter of IV bolus, still hypotensive and symptomatic. Objective Last 24 Hour Vital Signs Date Time Temp Pulse Resp B/P (MAP) Pulse Ox O2 Delivery O2 Flow Rate FiO2 05/06/18 21:00 Nasal Cannula 2.0 05/06/18 20:01 98.1 83 20 92/39 (56) 97 98.1 83 05/06/18 20:00 85 05/06/18 19:30 Nasal Cannula 2.0 28 05/06/18 19:30 84 18 Nasal Cannula 2.0 28 05/06/18 19:30 98 Nasal Cannula 2.0 28 05/06/18 16:12 97.0 87 16 84/50 (61) 94 97.0 05/06/18 16:00 85 05/06/18 12:00 87 05/06/18 12:00 98.3 89 16 78/50 (59) 98 98.3 05/06/18 09:00 Nasal Cannula 2.0 05/06/18 09:00 88 82/50 05/06/18 08:00 88 05/06/18 08:00 98.2 88 16 82/50 (61) 98 98.2 05/06/18 07:40 Nasal Cannula 2.0 28 05/06/18 07:40 82 17 Nasal Cannula 2.0 28 05/06/18 07:40 98 Nasal Cannula 2.0 28 05/06/18 04:00 98.2 94 20 101/59 (73) 96 98.2 05/06/18 04:00 88 05/06/18 00:00 97.5 92 22 100/61 (74) 96 97.5 05/06/18 00:00 88 Intake and Output 05/05/18 05/06/18 19:00 07:00 Intake Total 300 ml Output Total 1076 ml Balance 300 ml -1076 ml Intake Oral 300 ml Hemodialysis UF 1076 ml # Voids 1 # Bowel Movements 1 2D Echo: LVEF 55%, Mod LVH, DEYSI, RVSP 15 mmHg, Mod HI, Grade I LVDD Objective HEENT: Atraumatic and normocephalic. Anicteric. Pupils are equal, round, and reactive to light and accommodation. Extraocular muscles intact. On Trendelenburg position. NECK: JVP is less than 5 cm. No carotid bruits. Carotid upstrokes 2+ bilaterally. CVS: Normal S1, S2. Regular rhythm. No murmurs, gallops, or rubs. PMI is at fourth intercostal space in the midclavicular line. LUNGS: Clear to auscultation bilaterally. ABDOMEN: Soft, nontender, and nondistended. No hepatosplenomegaly. Positive bowel sounds. EXTREMITIES: No evidence of edema, clubbing, or cyanosis. Pavan Hanson MD May 06, 2018 23:56
[2018-05-07] VITALS: BP 110/48
[2018-05-07 00:23] VITALS: BP 110/48
[2018-05-07 04:00] VITALS: BP 100/64
[2018-05-07 04:39] LABS: BASOPHILS % (AUTO) 0.7 % (0.0-2.0); EOSINOPHILS % (AUTO) 10.8 % (0.0-3.0); HEMATOCRIT 35.4 % (42.0-52.0); HEMOGLOBIN 11.1 G/DL (14.2-18.0); LYMPHOCYTES % (AUTO) 29.5 % (20.0-45.0); MEAN CORPUSCULAR VOLUME 98 FL (80-99); MONOCYTES % (AUTO) 9.8 % (1.0-10.0); NEUTROPHILS % (AUTO) 49.2 % (45.0-75.0); PLATELET COUNT 108 K/UL (150-450); RED BLOOD COUNT 3.63 M/UL (4.70-6.10); RED CELL DISTRIBUTION WIDTH 16.2 % (11.6-14.8); WHITE BLOOD COUNT 8.2 K/UL (4.8-10.8)
[2018-05-07 05:06] LABS: ALANINE AMINOTRANSFERASE 27 U/L (12-78); ALBUMIN 3.6 G/DL (3.4-5.0); ALBUMIN/GLOBULIN RATIO 0.6 (1.0-2.7); ALKALINE PHOSPHATASE 123 U/L (46-116); ANION GAP 13 mmol/L (5-15); BILIRUBIN,TOTAL 0.9 MG/DL (0.2-1.0); BLOOD UREA NITROGEN 59 mg/dL (7-18); CALCIUM 8.8 MG/DL (8.5-10.1); CARBON DIOXIDE 28 MMOL/L (21-32); CHLORIDE 95 MMOL/L (98-107); CREATININE 13.4 MG/DL (0.55-1.30); GAMMA GLUTAMYL TRANSPEPTIDASE 118 U/L (5-85); PHOSPHORUS 6.6 MG/DL (2.5-4.9); POTASSIUM 3.9 MMOL/L (3.5-5.1); SODIUM 135 MMOL/L (136-145)
[2018-05-07 06:06] LABS: ASPARTATE AMINO TRANSFERASE 26 U/L (15-37)
[2018-05-07 07:45] VITALS: BP 104/63
[2018-05-07] MEDS: Docusate 100mg cap ORAL SCH ×2 (08:25→13:00)
[2018-05-07] MEDS: Aspirin Baby 81mg ORAL SCH (08:26)
[2018-05-07] MEDS: Zidovudine 100mg cap ORAL SCH (08:26)
[2018-05-07] MEDS: EPIVIR 10 MG/ML ORAL SCH (08:27)
--- NOTE | 2018-05-07 10:23 | Nephrology Progress Note ---
Assessment/Plan Problem List: (1) ESRD (end stage renal disease) on dialysis (2) ACS (acute coronary syndrome) (3) Costochondritis (4) Hypotension Assessment BP stable nausea resolved Admitted with ACS On Dialysis for 12 years Has right chest permacath HTN DM HIV+ Plan DC on current meds- HD candace DARRON as OP- CM informed Bolouses NS and Albumin given yesterday start Reglan HD 05/03 next 05/05 Per consultants Subjective ROS Limited/Unobtainable: No Constitutional: Reports: malaise Subjective has nausea Objective Objective Last 24 Hour Vital Signs Date Time Temp Pulse Resp B/P (MAP) Pulse Ox O2 Delivery O2 Flow Rate FiO2 05/07/18 09:00 Nasal Cannula 2.0 05/07/18 07:45 97.7 77 18 104/63 (77) 100 97.7 05/07/18 04:00 96.8 83 17 100/64 (76) 92 96.8 05/07/18 04:00 78 05/07/18 00:23 97.7 82 20 110/48 (68) 94 97.7 05/07/18 00:00 97.7 82 20 110/48 (68) 94 97.7 82 05/07/18 00:00 80 05/06/18 21:00 Nasal Cannula 2.0 05/06/18 20:01 98.1 83 20 92/39 (56) 97 98.1 83 05/06/18 20:00 85 05/06/18 19:30 Nasal Cannula 2.0 28 05/06/18 19:30 84 18 Nasal Cannula 2.0 28 05/06/18 19:30 98 Nasal Cannula 2.0 28 05/06/18 16:12 97.0 87 16 84/50 (61) 94 97.0 05/06/18 16:00 85 05/06/18 12:00 87 05/06/18 12:00 98.3 89 16 78/50 (59) 98 98.3 Intake and Output 05/06/18 05/07/18 19:00 07:00 Intake Total 120 ml Balance 120 ml Intake Oral 120 ml # Voids 1 2 # Bowel Movements 1 Current Medications Medications (Trade) Dose Ordered Sig/Twyla Route PRN Reason Start Time Stop Time Status Last Admin Dose Admin Acetaminophen (Tylenol) 650 mg Q4H PRN ORAL Mild Pain/Temp > 100.5 05/02/18 07:45 06/01/18 07:44 Aspirin (ASA) 81 mg DAILY ORAL 05/02/18 09:00 06/01/18 08:59 05/07/18 08:26 Atorvastatin Calcium (Lipitor) 40 mg BEDTIME ORAL 05/01/18 21:00 05/31/18 20:59 05/06/18 21:29 Chlorhexidine Gluconate (Anne-Hex 2%) 1 applic DAILY@2000 TOPIC 05/04/18 20:00 06/03/18 19:59 05/06/18 21:29 Clonidine HCl (Catapres Tab) 0.1 mg Q4H PRN ORAL For High BP over 165 syst 05/01/18 18:00 05/31/18 17:59 Clopidogrel Bisulfate (Plavix) 75 mg DAILY ORAL 05/02/18 09:00 06/01/18 08:59 05/07/18 08:26 Darunavir (Prezista) 800 mg DAILY ORAL 05/02/18 17:00 06/01/18 16:59 05/07/18 08:26 Diphenhydramine HCl (Benadryl) 25 mg Q24HRS PRN IVP Itching 05/03/18 09:30 06/02/18 09:29 05/05/18 16:07 Diphenhydramine HCl (Benadryl) 25 mg Q4HR PRN ORAL Itching 05/02/18 12:45 06/01/18 12:44 05/05/18 10:35 Docusate Sodium (Colace) 100 mg THREE TIMES A DAY ORAL 05/04/18 18:00 06/03/18 17:59 05/07/18 08:25 Lamivudine (Epivir) 100 mg DAILY ORAL 05/02/18 17:00 06/01/18 16:59 Lorazepam (Ativan 2mg/ml 1ml) 2 mg EVERY 6 HOURS PRN IM anxiety 05/02/18 12:45 05/09/18 12:44 05/04/18 17:45 Metoclopramide HCl (Reglan) 5 mg THREE TIMES A DAY ORAL 05/04/18 18:00 06/03/18 17:59 05/07/18 08:27 Mirtazapine (Remeron) 15 mg BEDTIME ORAL 05/05/18 21:00 06/04/18 20:59 05/06/18 21:29 Nitroglycerin (Ntg) 0.4 mg Q5M PRN SL Prn Chest Pain 05/03/18 16:45 06/02/18 16:44 Ondansetron HCl (Zofran) 4 mg Q6H PRN IVP Nausea & Vomiting 05/04/18 16:00 06/03/18 15:59 05/05/18 18:34 Zidovudine (Retrovir) 300 mg DAILY ORAL 05/02/18 17:00 06/01/18 16:59 05/07/18 08:26 Laboratory Tests 05/07/18 04:28: White Blood Count 8.2, Red Blood Count 3.63L, Hemoglobin 11.1L, Hematocrit 35.4L , Mean Corpuscular Volume 98, Mean Corpuscular Hemoglobin 30.7, Mean Corpuscular Hemoglobin Concent 31.4L, Red Cell Distribution Width 16.2H, Platelet Count 108L, Mean Platelet Volume 8.8, Neutrophils (%) (Auto) 49.2, Lymphocytes (%) (Auto) 29.5, Monocytes (%) (Auto) 9.8, Eosinophils (%) (Auto) 10.8H, Basophils (%) (Auto) 0.7, Sodium Level 135L, Potassium Level 3.9, Chloride Level 95L, Carbon Dioxide Level 28, Anion Gap 13, Blood Urea Nitrogen 59H, Creatinine 13.4H, Estimat Glomerular Filtration Rate 4.7, Glucose Level 85 , Calcium Level 8.8, Phosphorus Level 6.6H, Magnesium Level 1.9, Total Bilirubin 0.9, Gamma Glutamyl Transpeptidase 118H, Aspartate Amino Transf (AST/ SGOT) 26, Alanine Aminotransferase (ALT/SGPT) 27, Alkaline Phosphatase 123H, C- Reactive Protein, Quantitative 6.0H, Pro-B-Type Natriuretic Peptide 2075H, Total Protein 9.5H, Albumin 3.6, Globulin 5.9, Albumin/Globulin Ratio 0.6L, Cortisol AM Sample [Pending] Height (Feet): 5 Height (Inches): 7.00 Weight (Pounds): 230 General Appearance: no apparent distress Cardiovascular: normal rate Respiratory/Chest: lungs clear, decreased breath sounds Abdomen: soft Objective PE not changed Toño Posada MD May 07, 2018 10:23
--- NOTE | 2018-05-07 11:14 | GI Progress Note ---
Assessment/Plan Problems: (1) Anemia ICD Codes: D64.9 - Anemia, unspecified SNOMED: 782003721 (2) Vomiting ICD Codes: R11.10 - Vomiting, unspecified SNOMED: 362867827 (3) ESRD (end stage renal disease) on dialysis ICD Codes: N18.6 - End stage renal disease; Z99.2 - Dependence on renal dialysis SNOMED: 499413494 (4) Hypotension ICD Codes: I95.9 - Hypotension, unspecified SNOMED: 88709199 (5) Electrolyte imbalance ICD Codes: E87.8 - Other disorders of electrolyte and fluid balance, not elsewhere classified SNOMED: 178057029 Status: stable Status Narrative Discussed with Dr. Pool. Assessment/Plan KUB negative vomiting 2/2 to hypotension vs electrolyte imbalance >> now resolved last endoscopy / colonoscopy 5+ years anemia work up reviewed >> folate deficiency okay for DC per GI standpoint reglan prn for vomiting zofran for nausea BP management electrolyte correction will consider endoscopy if patient has persistent vomiting, otherwise outpatient folate prn transfusions ppi fu labs The patient was seen and examined at bedside and all new and available data was reviewed in the patients chart. I agree with the above findings, impression and plan. (Patient seen earlier today. Signature stamp does not reflect patient encounter time.). - Clinton Pool MD Subjective Gastrointestinal/Abdominal: Reports: no symptoms Objective Last 24 Hour Vital Signs Date Time Temp Pulse Resp B/P (MAP) Pulse Ox O2 Delivery O2 Flow Rate FiO2 05/07/18 09:00 Nasal Cannula 2.0 05/07/18 07:45 97.7 77 18 104/63 (77) 100 97.7 05/07/18 04:00 96.8 83 17 100/64 (76) 92 96.8 05/07/18 04:00 78 05/07/18 00:23 97.7 82 20 110/48 (68) 94 97.7 05/07/18 00:00 97.7 82 20 110/48 (68) 94 97.7 82 05/07/18 00:00 80 05/06/18 21:00 Nasal Cannula 2.0 05/06/18 20:01 98.1 83 20 92/39 (56) 97 98.1 83 05/06/18 20:00 85 05/06/18 19:30 Nasal Cannula 2.0 28 05/06/18 19:30 84 18 Nasal Cannula 2.0 28 05/06/18 19:30 98 Nasal Cannula 2.0 28 05/06/18 16:12 97.0 87 16 84/50 (61) 94 97.0 05/06/18 16:00 85 05/06/18 12:00 87 05/06/18 12:00 98.3 89 16 78/50 (59) 98 98.3 Intake and Output 05/06/18 05/07/18 19:00 07:00 Intake Total 120 ml Balance 120 ml Intake Oral 120 ml # Voids 1 2 # Bowel Movements 1 Laboratory Tests Test 05/07/18 04:28 White Blood Count 8.2 K/UL (4.8-10.8) Red Blood Count 3.63 M/UL (4.70-6.10) L Hemoglobin 11.1 G/DL (14.2-18.0) L Hematocrit 35.4 % (42.0-52.0) L Mean Corpuscular Volume 98 FL (80-99) Mean Corpuscular Hemoglobin 30.7 PG (27.0-31.0) Mean Corpuscular Hemoglobin Concent 31.4 G/DL (32.0-36.0) L Red Cell Distribution Width 16.2 % (11.6-14.8) H Platelet Count 108 K/UL (150-450) L Mean Platelet Volume 8.8 FL (6.5-10.1) Neutrophils (%) (Auto) 49.2 % (45.0-75.0) Lymphocytes (%) (Auto) 29.5 % (20.0-45.0) Monocytes (%) (Auto) 9.8 % (1.0-10.0) Eosinophils (%) (Auto) 10.8 % (0.0-3.0) H Basophils (%) (Auto) 0.7 % (0.0-2.0) Sodium Level 135 MMOL/L (136-145) L Potassium Level 3.9 MMOL/L (3.5-5.1) Chloride Level 95 MMOL/L (98-107) L Carbon Dioxide Level 28 MMOL/L (21-32) Anion Gap 13 mmol/L (5-15) Blood Urea Nitrogen 59 mg/dL (7-18) H Creatinine 13.4 MG/DL (0.55-1.30) H Estimat Glomerular Filtration Rate 4.7 mL/min (>60) Glucose Level 85 MG/DL (74-106) Calcium Level 8.8 MG/DL (8.5-10.1) Phosphorus Level 6.6 MG/DL (2.5-4.9) H Magnesium Level 1.9 MG/DL (1.8-2.4) Total Bilirubin 0.9 MG/DL (0.2-1.0) Gamma Glutamyl Transpeptidase 118 U/L (5-85) H Aspartate Amino Transf (AST/SGOT) 26 U/L (15-37) Alanine Aminotransferase (ALT/SGPT) 27 U/L (12-78) Alkaline Phosphatase 123 U/L (46-116) H C-Reactive Protein, Quantitative 6.0 mg/dL (0.00-0.90) H Pro-B-Type Natriuretic Peptide 2075 pg/mL (0-125) H Total Protein 9.5 G/DL (6.4-8.2) H Albumin 3.6 G/DL (3.4-5.0) Globulin 5.9 g/dL Albumin/Globulin Ratio 0.6 (1.0-2.7) L Cortisol AM Sample Pending Height (Feet): 5 Height (Inches): 7.00 Weight (Pounds): 230 General Appearance: WD/WN, no apparent distress, alert Cardiovascular: normal rate Respiratory/Chest: normal breath sounds, no respiratory distress Abdominal Exam: normal bowel sounds, non tender, soft Extremities: normal range of motion, non-tender Kandis May NP May 07, 2018 11:14
[2018-05-07 12:00] VITALS: BP 115/69
[2018-05-07] MEDS ORDERED: NS 500ML ONE (13:57)
--- NOTE | 2018-05-08 09:01 | Consultation ---
DATE OF CONSULTATION: 05/02/2018 INFECTIOUS DISEASE CONSULTATION CONSULTING PHYSICIAN: Francisco Salazar M.D. PRIMARY ATTENDING PHYSICIAN: Daisy Bland M.D. REASON FOR CONSULT: HIV management. HISTORY OF PRESENT ILLNESS: This is a 57-year-old male, who is a [facility] resident admitted yesterday because of chest pain. Chest pain was in the left side of the chest, started 90 minutes before admission, sharp, left-sided, 10/10. The patient also have HIV. PAST MEDICAL HISTORY: Significant for end-stage renal disease, on hemodialysis for 12 years, hypertension, coronary artery disease, has multiple stenting, asthma and COPD. PAST SURGICAL HISTORY: Cholecystectomy, hemorrhoid surgery, AV shunt placement in the left arm and PermCath placement. ALLERGIES: No known drug allergies. MEDICATIONS: Getting lisinopril, hydralazine, aspirin, Plavix, Tylenol, atorvastatin, metoprolol, albuterol, ipratropium inhaler and diphenhydramine. SOCIAL HISTORY: residential resident. . Smokes 2 cigarettes a day and had history of alcohol abuse in the past. REVIEW OF SYSTEMS: No fever. No chills. No sore throat. No runny nose, has occasional cough. Chest pain is better at present time. No nausea. No vomiting. No diarrhea. He says that he make urine. Skin, complaining of itching, especially in legs. PHYSICAL EXAMINATION: GENERAL APPEARANCE: Seems to be obese. VITAL SIGNS: Temperature 98 degrees, pulse 80, and blood pressure 120/72. HEAD AND NECK: Spray conjunctivae. No oral lesion. HEART: S1 and S2 regular. The patient has a PermCath in the right side of the chest. ABDOMEN: Soft and nontender. EXTREMITIES: No edema. He has left arm AV shunt that is nonfunctional. SKIN: Dry skin, especially in the legs with scratches because of itching. LABORATORY AND DIAGNOSTIC DATA: Sodium 134, potassium 4.6, chloride 97, bicarbonate 28, BUN 20, creatinine 7.9, glucose is 61. hemoglobin 12, hematocrit 38.8, and platelets 128. Chest x-ray was negative. IMPRESSION: 1. HIV, unknown stage. 2. Chest pain. According to kiln cleaner is atypical, but because of the history of coronary artery disease, the patient will have echocardiogram and a nuclear stress. 3. Hypertension. 4. Diabetes mellitus. 5. Active smoker. RECOMMENDATION: will start HIV treatment with lamivudine, zidovudine and Prezista. At the end of my exam, I thank Dr. Bland for involving me in the care of this patient. Francisco Salazar M.D. DR: JUAN DIEGO JOB#: [id number] CC: CINDI
--- NOTE | 2018-05-08 09:02 | History and Physical Report ---
DATE OF ADMISSION: 05/01/2018 NOTE: POOR AUDIO HISTORY OF PRESENT ILLNESS: chest pain, rule out acute coronary syndrome. The patient has end-stage renal disease, on hemodialysis. The patient basically comes from a facility. The patient had chest pain approximately one day ago. The patient had a left-sided chest pain, nonradiating. He was given nitroglycerin. The patient also had several stents in his heart. He has a history of end-stage renal disease, on hemodialysis. Denies palpitation. Denies shortness of breath. Denies cough. The patient also has chronic pain syndrome, also has HIV apparently. PAST MEDICAL HISTORY: End-stage renal disease, on hemodialysis; hypertension; CAD; history of asthma; , NIDDM, HIV, GERD, and hyperlipidemia. PAST SURGICAL HISTORY: dialysis and coronary stent. MEDICATIONS: The patient takes Lipitor, clonidine, Plavix, isosorbide, Lantus, hydralazine, zidovudine, valsartan, Crestor, Norvir, and Zantac. ALLERGIES: No known allergies. SOCIAL HISTORY: The patient does have a history of smoking. FAMILY HISTORY: Does have a history of heart disease. REVIEW OF SYSTEMS: HEENT: Denies headaches. RESPIRATORY: Denies shortness of breath. Denies cough. CARDIOVASCULAR: Does have chest pain for one day, nonradiating, not associated with shortness of breath and not associated with orthopnea. EXTREMITIES: Does have chronic pain syndrome. CENTRAL NERVOUS SYSTEM: Denies changes in vision or speech pattern. PHYSICAL EXAMINATION: VITAL SIGNS: Temperature 98, pulse 80, and blood pressure 120/70. HEENT: PERRLA. NECK: Supple. No lymphadenopathy. CHEST: Clear to auscultation. GASTROINTESTINAL: Soft and nontender. Positive bowel sounds. No organomegaly. Dialysis access in place. EXTREMITIES: No edema. Reflexes on both sides. LABORATORY DATA: WBC of 7.2, hemoglobin 12, and platelets 138. Sodium 134, potassium 3.9, BUN of , creatinine 6.4. Troponin is 0.017. EKG, no significant changes. ASSESSMENT AND PLAN: 1. Chest pain. The patient is a moderate to high risk. Has a coronary stent. Rule out acute coronary syndrome. I have consulted Dr. Hanson for . Basically, Dr. Hanson is going to see the patient. Whether he needs a chest x-ray or not will be up to Dr. Hanson. The patient has coronary stents, so he is at high risk for heart attacks. We will monitor the patient very closely. 2. . Dr. Posada has been consulted, and Dr. Francisco Salazar has been consulted for management of HIV medications as needed per request of Dr. Hanson. 3. Chronic pain syndrome. Continue . Daisy Bland M.D. DR: Giulai JOB#: [id number] CC:
--- NOTE | 2018-05-08 11:36 | Discharge Summary ---
Discharge Summary Discharge Summary _ DATE OF ADMISSION: 05/01/2018 DATE OF DISCHARGE: 05/07/2018 CONSULTANTS: Dr. Pavan Varghese [facility] COURSE: Patient is a 57-year-old male, who presented to ED from [facility] facility for complaints of chest pain that started 90 minutes prior to arrival. Chest pain occurred at rest. Pain was located on the left side and was sharp , 10 out of 10 and nonradiating. He was given nitroglycerin by EMS without resolution of symptoms. He has history of coronary artery disease with prior stent, history of renal disease on hemodialysis, hypertension and asthma. On evaluation at ED, vital signs were stable. Patient had a difficult IV access and a peripheral EJ line was inserted. Blood work showed no leukocytosis. Hemoglobin and hematocrit was stable. Initial troponin was negative, BNP was 3127. EKG was in normal sinus rhythm with first-degree AV block and no acute changes. Chest x-ray showed cardiomegaly and presence of dialysis catheter on the left chest. Due to his risk factors, patient was admitted for further evaluation. He underwent cardiac evaluation. Cardiac enzymes were monitored. EKG showed first-degree AV block with prolongation of QT interval which may be most likely due to electrolyte abnormalities. There was no acute ischemic changes on EKG. He was given combination of aspirin and Plavix. He was given Lipitor. He was placed on nitroglycerin prn. Echocardiogram showed EF 55-60%. Troponins were negative. He underwent myocardial perfusion test. Stress test was negative. There was no findings to suggest ischemia. He has history of HIV and was continued on retrovirals. He was continued on hemodialysis. He had episodes of vomiting. He was given Zofran. KUB was negative. Anemia workup showed folate deficiency. Patient has episodes of anxiety. He was given amitriptyline 75 mg daily at bedtime. Medication was eventually changed to Remeron 15 mg daily at bedtime. He had episodes of hypotension. Discharge was held. Blood pressure eventually stabilized. Patient was discharged to SNF with stable vital signs. FINAL DIAGNOSES: Noncardiac chest pain possible costochondritis Coronary artery disease End-stage renal disease on hemodialysis HIV Hypertension Diabetes mellitus Active smoker Anemia with folate deficiency Hypotension Dyslipidemia Prolonged QT interval Anxiety disorder Major depressive disorder DISPOSITION: Patient was discharged to [facility]. DISCHARGE MEDICATIONS: Refer to Discharge Medication List. I have been assigned to dictate discharge summary on this account, and I was not involved in the patient's management. Preeti Arevalo NP May 08, 2018 11:36
--- NOTE | 2018-05-08 23:59 | Cardiology Progress Note ---
Pavan Hanson MD May 08, 2018 23:59
== END 2018-05-07 13:58 | DRG 205 ==
LOC: EDBD 13:39 → EMR 14:20 → 2E 14:42 → ENRESERV 15:25 → EDBEDREQ 15:39 → 2E 05-02 16:12
DX: M94.0 Chondrocostal junction syndrome [Tietze] (principal); N18.6 End stage renal disease; B20 Human immunodeficiency virus [HIV] disease; I12.0 Hypertensive chronic kidney disease with stage 5 chronic kidney disease or end stage renal disease; Z99.2 Dependence on renal dialysis; Z79.02 Long term (current) use of antithrombotics/antiplatelets; Z79.4 Long term (current) use of insulin; I25.10 Atherosclerotic heart disease of native coronary artery without angina pectoris; E11.22 Type 2 diabetes mellitus with diabetic chronic kidney disease; N18.9 Chronic kidney disease, unspecified; F17.200 Nicotine dependence, unspecified, uncomplicated; D52.9 Folate deficiency anemia, unspecified; I95.9 Hypotension, unspecified; E78.5 Hyperlipidemia, unspecified; I45.81 Long QT syndrome; F41.9 Anxiety disorder, unspecified; F32.9 Major depressive disorder, single episode, unspecified; I44.0 Atrioventricular block, first degree; E87.8 Other disorders of electrolyte and fluid balance, not elsewhere classified
CPT/HCPCS: 36415; 71045; 74018; 78451; 78452; 80053; 80061; 82533; 82550; 82553; 82607; 82746; 82977; 83036; 83735; 83880; 84100; 84443; 84484; 84550; 85025; 85610; 85730; 86140; 87081; 93005; 93017; 93306; 94664; 94760; J2405; J2785

== ENCOUNTER 2019-06-19 01:47 | Inpatient (IN) | payer MEDICARE, MEDICAID ==
[2019-06-19] VITALS (8 sets, daily range): BP systolic 94–160; BP diastolic 39–83
[~2019-06-19] VITALS: Ht 170.2 cm; Wt 103.4 kg
[~2019-06-19 01:47] MED LIST changes: +AMITRIPTYLINE100 MG ORAL; +ASPIRIN81 MG ORAL; +CATAPRES0.1 MG ORAL; +DIPHENHYDRAMINE25 M1 ORAL; +DUONEB 0.5-3(2.53 ML HHN; +GERI-TUSSI100 MG/5 M PO; +HEPARIN SO5000 UNIT2 SUBQ; +IMDUR ORAL; +LACTULOSE20 GM/301 ORAL; +LAMIVUDINE10 MG/1 ML PO; +LIDOCAINE 4% TOPIC; +LIPITOR40 MG ORAL; +LISINOPRIL20 MG ORAL; +MELATONIN 3 MG1 EAC1 PO; +NORCO 5-325 TA1 EACH ORAL; +PLAVIX75 MG ORAL; +PREZISTA600 MG ORAL; +ZOFRAN ODT8 MG ORAL
--- NOTE | 2019-06-19 01:56 | Emergency Room Report ---
History of Present Illness General Source: Patient Present Illness HPI Patient presents from nursing facility with complaints of midsternal chest pain radiation to the neck and upper back area Patient did not have much relief with nitro and aspirin in route Denies any vomiting or diarrhea denies any focal weakness pain is heaviness 5 out of 10 Denies any change with position or exertion Started several hours ago Allergies: Coded Allergies: No Known Allergies (Verified , 02/11/12) Patient History Past Medical History: see triage record Reviewed Nursing Documentation: PMH: Agreed; PSxH: Agreed Nursing Documentation-PMH Hx Cardiac Problems: Yes - CAD, HIV, hypercholestremia Hx Hypertension: Yes Hx Pacemaker: No Hx Asthma: Yes Hx COPD: No Hx Diabetes: Yes - esrd on dialysis Hx Cancer: No Hx Gastrointestinal Problems: Yes Hx Dialysis: Yes Hx Neurological Problems: No Hx Cerebrovascular Accident: No Hx Seizures: No Review of Systems All Other Systems: negative except mentioned in HPI Physical Exam 98% on room air which is normal interpretation Sp02 EP Interpretation: reviewed, normal General Appearance: well appearing, no apparent distress Head: normocephalic, atraumatic Eyes: bilateral eye PERRL, bilateral eye EOMI ENT: hearing grossly normal, normal pharynx, TMs + canals normal, uvula midline Neck: full range of motion, supple, no meningismus, no bony tend Respiratory: lungs clear, normal breath sounds, no rhonchi, no respiratory distress, no retraction, no accessory muscle use Cardiovascular #1: normal peripheral pulses, regular rate, rhythm, no edema, no gallop, no JVD, no murmur Gastrointestinal: normal bowel sounds, non tender, soft, no mass, no organomegaly, non-distended, no guarding, no hernia, no pulsatile mass, no rebound Genitourinary: no CVA tenderness Musculoskeletal: normal inspection Neurologic: oriented x3, responsive, plastic jig and fixture builder III-XII nml as tested, motor strength/ tone normal, sensory intact Psychiatric: mood/affect normal Skin: no rash Lymphatic: normal inspection, no adenopathy Medical Decision Making Diagnostic Impression: Primary Impression: ACS (acute coronary syndrome) Additional Impression: Renal failure ER Course Patient is a fairly complex patient with multiple differential to consideration including but not limited to cardiac cardiopulmonary and vascular emergencies Patient's EKG is abnormal however no obvious ST elevations are noted patient's blood work is also consistent with renal failure with mildly elevated troponin Potassium was also mildly elevated and this is treated in the ER Patient requiring further inpatient care Labs Test 06/19/19 02:33 White Blood Count 6.2 K/UL (4.8-10.8) Red Blood Count 3.15 M/UL (4.70-6.10) Hemoglobin 10.4 G/DL (14.2-18.0) Hematocrit 33.3 % (42.0-52.0) Mean Corpuscular Volume 106 FL (80-99) Mean Corpuscular Hemoglobin 33.1 PG (27.0-31.0) Mean Corpuscular Hemoglobin Concent 31.3 G/DL (32.0-36.0) Red Cell Distribution Width 17.3 % (11.6-14.8) Platelet Count 115 K/UL (150-450) Mean Platelet Volume 6.4 FL (6.5-10.1) Neutrophils (%) (Auto) 39.3 % (45.0-75.0) Lymphocytes (%) (Auto) 44.0 % (20.0-45.0) Monocytes (%) (Auto) 8.6 % (1.0-10.0) Eosinophils (%) (Auto) 7.3 % (0.0-3.0) Basophils (%) (Auto) 0.7 % (0.0-2.0) Sodium Level 138 MMOL/L (136-145) Potassium Level 5.2 MMOL/L (3.5-5.1) Chloride Level 102 MMOL/L (98-107) Carbon Dioxide Level 28 MMOL/L (21-32) Anion Gap 8 mmol/L (5-15) Blood Urea Nitrogen 25 mg/dL (7-18) Creatinine 7.8 MG/DL (0.55-1.30) Estimat Glomerular Filtration Rate 8.7 mL/min (>60) Glucose Level 87 MG/DL (74-106) Calcium Level 10.1 MG/DL (8.5-10.1) Total Bilirubin 0.3 MG/DL (0.2-1.0) Aspartate Amino Transf (AST/SGOT) 22 U/L (15-37) Alanine Aminotransferase (ALT/SGPT) 18 U/L (12-78) Alkaline Phosphatase 83 U/L (46-116) Total Creatine Kinase 129 U/L (26-308) Creatine Kinase MB 1.1 NG/ML (0.0-3.6) Creatine Kinase MB Relative Index 0.8 Troponin I 0.057 ng/mL (0.000-0.056) Total Protein 8.9 G/DL (6.4-8.2) Albumin 3.6 G/DL (3.4-5.0) Globulin 5.3 g/dL Albumin/Globulin Ratio 0.7 (1.0-2.7) EKG Diagnostic Results Rate: normal Rhythm: NSR ST Segments: other - Nonspecific ST changes, incomplete interventricular block Rhythm Strip Diag. Results EP Interpretation: yes Rate: 80 Rhythm: NSR, no PVC's, no ectopy Chest X-Ray Diagnostic Results Chest X-Ray Diagnostic Results : Chest X-Ray Ordered: Yes # of Views/Limited/Complete: 1 View Indication: Chest Pain EP Interpretation: Yes Interpretation: no consolidation, no effusion, other - Some congestion, cardiomegaly, poor inspiration, left hemidiaphragm difficult to evaluate Impression: No acute disease Electronically Signed by: Daisy Del Valle DO Status: improved Disposition: ADMITTED INPATIENT Condition: Serious Daisy Del Valle DO Jun 19, 2019 01:56
[2019-06-19] MEDS ORDERED: GABAPENTIN100 MG ORAL (01:58)
[2019-06-19] MEDS ORDERED: Morphine Sulfate 4mg/ml Inj (IV USE ONLY) IVP ONE (02:00)
--- NOTE | 2019-06-19 02:10 | NUR ---
ED Nurse Note: Patient was BIBA from [facility] due to CP. Stated that had MA in 2015 and had same filings. patient presented calm with non-labored breathing, AAO x4, VSS at this time, skin is warm to touch. atient has [facility], his dialysis every M, W, F. Pt has shunt on his left upper arm.
[2019-06-19 02:42] LABS: BASOPHILS % (AUTO) 0.7 % (0.0-2.0); EOSINOPHILS % (AUTO) 7.3 % (0.0-3.0); HEMATOCRIT 33.3 % (42.0-52.0); HEMOGLOBIN 10.4 G/DL (14.2-18.0); MEAN CORPUSCULAR VOLUME 106 FL (80-99); MONOCYTES % (AUTO) 8.6 % (1.0-10.0); NEUTROPHILS % (AUTO) 39.3 % (45.0-75.0); PLATELET COUNT 115 K/UL (150-450); RED BLOOD COUNT 3.15 M/UL (4.70-6.10); RED CELL DISTRIBUTION WIDTH 17.3 % (11.6-14.8); WHITE BLOOD COUNT 6.2 K/UL (4.8-10.8)
[2019-06-19 02:54] LABS: ANION GAP 8 mmol/L (5-15); BLOOD UREA NITROGEN 25 mg/dL (7-18); CALCIUM 10.1 MG/DL (8.5-10.1); CARBON DIOXIDE 28 MMOL/L (21-32); CHLORIDE 102 MMOL/L (98-107); CREATININE 7.8 MG/DL (0.55-1.30); POTASSIUM 5.2 MMOL/L (3.5-5.1); SODIUM 138 MMOL/L (136-145)
[2019-06-19 03:07] LABS: ALANINE AMINOTRANSFERASE 18 U/L (12-78); ALBUMIN 3.6 G/DL (3.4-5.0); ALBUMIN/GLOBULIN RATIO 0.7 (1.0-2.7); ALKALINE PHOSPHATASE 83 U/L (46-116); ASPARTATE AMINO TRANSFERASE 22 U/L (15-37); BILIRUBIN,TOTAL 0.3 MG/DL (0.2-1.0); CKMB 1.1 NG/ML (0.0-3.6); CREATINE KINASE 129 U/L (26-308)
[2019-06-19] MEDS ORDERED: Sodium Polystyrene Sulfonate 15gm Powder ORAL ONE (03:15)
--- NOTE | 2019-06-19 03:50 | NUR ---
ED Nurse Note: Patient was admited to tele due to chest pain. Patient was transfered to the unit via gurney by ACLS protocol, with all belongings. Patient AAO x4, VSS at this time, skin is dry warm to touch.
--- NOTE | 2019-06-19 04:20 | NUR ---
NURSE NOTES: Received report from ERNIE Calderon from ED. Pt. arrived via gurney from ED. Pt. in bed awake showing no signs of acute distress. AOx4. Respiration even and non labored on room air. No sob noted. IV noted on right AC 18g patent and intact. cleaning matron on showing NSR. VS stable. Oriented to room and location. Bed in lowest position, wheels locked and alarm on. Call button within reach. Called and left a message to Dr. Bland for admission orders. Awaiting call back.
--- NOTE | 2019-06-19 07:10 | NUR ---
NURSE NOTES: Nurse report given by ERNIE Blackwood. Patient's awake in bed, AO x 4, denies pain, no s/s of distress or SOB. IV is patent and asymptomatic. Bed low and locked, call light within reach. Still awaiting for admission orders from Dr. Bland. According to ERNIE Blackwood, he already left message to Dr Bland regarding about patient's admission. Will continue to monitor.
[2019-06-19] MEDS ORDERED: Albuterol/Ipratropium 3ml neb HHN SCH (07:30)
[2019-06-19] MEDS ORDERED: guaiFENesin 100mg/5ml Liq ud ORAL PRN (07:30)
[2019-06-19] MEDS ORDERED: Albuterol/Ipratropium 3ml neb HHN PRN (07:30)
[2019-06-19] MEDS ORDERED: HYDROcodone/Acetamin 5/325 tab ORAL PRN (07:30)
[2019-06-19] MEDS ORDERED: Nitroglycerin Subl 0.4mg tab SL PRN (07:30)
--- NOTE | 2019-06-19 07:30 | NUR ---
HAND-OFF: Report given to ERNIE Pérez.
--- NOTE | 2019-06-19 07:30 | NUR ---
NURSE NOTES: Dr. Bland called and spoke to nurse. Doctor gave new admission orders. Orders acknowledged and carried out.
[2019-06-19 08:32] LABS: HEMATOCRIT 32.2 % (42.0-52.0); HEMOGLOBIN 10.2 G/DL (14.2-18.0); MEAN CORPUSCULAR VOLUME 104 FL (80-99); PLATELET COUNT 98 K/UL (150-450); RED BLOOD COUNT 3.08 M/UL (4.70-6.10); RED CELL DISTRIBUTION WIDTH 15.8 % (11.6-14.8); WHITE BLOOD COUNT 4.8 K/UL (4.8-10.8)
[2019-06-19] MEDS: Aspirin Baby 81mg ORAL SCH (08:42)
[2019-06-19] MEDS: Lactulose 20gm/30ml UDC ORAL SCH (08:42)
[2019-06-19 08:50] LABS: ALANINE AMINOTRANSFERASE 23 U/L (12-78); ALBUMIN 3.2 G/DL (3.4-5.0); ALBUMIN/GLOBULIN RATIO 0.7 (1.0-2.7); ALKALINE PHOSPHATASE 70 U/L (46-116); ANION GAP 8 mmol/L (5-15); ASPARTATE AMINO TRANSFERASE 21 U/L (15-37); BILIRUBIN,TOTAL 0.3 MG/DL (0.2-1.0); BLOOD UREA NITROGEN 26 mg/dL (7-18); CALCIUM 9.5 MG/DL (8.5-10.1); CARBON DIOXIDE 25 MMOL/L (21-32); CHLORIDE 104 MMOL/L (98-107); CREATININE 7.8 MG/DL (0.55-1.30); SODIUM 137 MMOL/L (136-145)
[2019-06-19] MEDS ORDERED: Ritonavir 100mg tab ORAL SCH (09:00)
[2019-06-19] MEDS ORDERED: Heparin 5000 units/ml inj SUBQ SCH (09:00)
[2019-06-19] MEDS: NovoLOG Insulin Flexpen SUBQ SCH ×3 (09:00→18:00)
[2019-06-19] MEDS ORDERED: Naproxen 500mg tab ORAL SCH (09:00)
[2019-06-19] MEDS ORDERED: Metoprolol 25mg tab ORAL SCH (09:00)
[2019-06-19] MEDS ORDERED: HydrALAZINE 50mg tab ORAL SCH (09:00)
[2019-06-19] MEDS ORDERED: Darunavir 600mg tab ORAL SCH ×2 (09:00)
[2019-06-19] MEDS ORDERED: Lisinopril 10mg tab ORAL SCH (09:00)
[2019-06-19] MEDS ORDERED: EPIVIR 10 MG/ML ORAL SCH (09:00)
[2019-06-19] MEDS ORDERED: dilTIAZem HCl 25mg/5ml Inj IVP SCH (09:00)
--- NOTE | 2019-06-19 09:30 | NUR ---
NURSE NOTES:Contacted Dr. Bland regarding patient's medication reconcile: Cardizem 300mg IVP that pharmacist needed doctor to clarify and change the medication to PO route. Dr. Bland deferred to Dr. Posada. Spoke to Dr. Posada in person and he said he will look at the orders himself and he will change it himself.
--- NOTE | 2019-06-19 10:53 | NUR ---
NURSE NOTES: Spoke to the patient regarding his HIV medication and if he can send his family to pick them up. He said his brother is out of town until Saturday. Patient agreed to let his friend pick the medications but the friend said she will try, she's not sure if she's able to pick them up. Called Alberto Womack to verify the HIV medications and ERNIE Aguialr spoke on the phone with listed HIV medications. Made patient aware that his family member must bring his medications from the alf to [facility] as soon as possible.
--- NOTE | 2019-06-19 11:23 | Diagnostic Imaging Report ---
Indication: Dyspnea Comparison: 05/01/2018 A single view chest radiograph was obtained. Findings: The heart is enlarged. Projection is lordotic. Lungs are clear. There is no pneumothorax. IMPRESSION: No acute disease
--- NOTE | 2019-06-19 11:46 | Consultation ---
Consult Note Consult Note asked by Dr whitehead to karolyn rosales dialysis management patient admitted via ER for CP , ACS On HD Sat ER: Patient presents from nursing facility with complaints of midsternal chest pain radiation to the neck and upper back area Patient did not have much relief with nitro and aspirin in route Denies any vomiting or diarrhea denies any focal weakness pain is heaviness 5 out of 10 Denies any change with position or exertion Started several hours ago No Known Allergies (Verified , 02/11/12) Hx Cardiac Problems: Yes - CAD, HIV, hypercholestremia Hx Hypertension: Yes Hx Asthma: Yes Hx Diabetes: Yes - esrd on dialysis Hx Gastrointestinal Problems: Yes Hx Dialysis: Yes interviewed examined data reviewed has righ chest cath Assessment/Plan Admitted with ACS On Dialysis for 13 years Has right chest permacath HTN DM HIV+ BP meds with parameters HD today keep BS in control 2D Echo per cardiology Toño Posada MD Jun 19, 2019 11:46
--- NOTE | 2019-06-19 11:50 | NUR ---
CASE MANAGEMENT: REVIEW 58 YR OLD MALE BIBA FROM [facility] CC: CHEST PAIN SI: ACUTE CORONARY SYNDROME, RENAL FAILURE 98.3 76 16 160/83 98% RA K+ 5.2; RBC 3.08; PLT 98; Hgb 10.4; BUN+ 26/ CR 7.8; IS: IV MORPHINE X1 IV ONDANSETRON IV ZOFRAN X1 IVF NS BOLUS KAYEXALATE PO X1 : TO TELE UNIT DCP: RETURN TO [facility]
[2019-06-19] MEDS: HydrALAZINE 50mg tab ORAL SCH ×2 (13:27→22:00)
[2019-06-19] MEDS: DiphenhydrAMINE 50mg/ml Inj IVP PRN (13:33)
--- NOTE | 2019-06-19 15:50 | NUR ---
NURSE NOTES: Dialysis nurse removed 2.5L. Patient tolerated well, in stable condition, VS is stable, no s/s of distress or SOB. Will continue to monitor.
--- NOTE | 2019-06-19 17:00 | NUR ---
NURSE NOTES: Left message to Dr. Posada's office regarding patient's medication reconcilation again. Awaiting for response.
--- NOTE | 2019-06-19 17:15 | History and Physical Report ---
DATE OF ADMISSION: 06/19/2019 HISTORY OF PRESENT ILLNESS: The patient comes from a halfway. He is admitted for acute coronary syndrome. The patient is complaining of chest pain. The patient has end-stage renal disease, on hemodialysis. The patient also has history of HIV. The patient stated that the chest pain is going on for one day and radiated to the left arm and associated with paresthesia and shortness of breath. The patient has end-stage renal disease on hemodialysis. Denies orthopnea. Denies nausea, vomiting, or diarrhea. Denies any cough symptoms. Denies headache. Denies change in vision or speech pattern. PAST MEDICAL HISTORY: Significant for hyperlipidemia, hypertension, coronary artery disease, neuropathy, NIDDM, constipation, degenerative joint disease, GERD, HIV, CAD, end-stage renal disease, on hemodialysis. PAST SURGICAL HISTORY: Cholecystectomy, dialysis shunt, multiple stents in the heart, dialysis access. SOCIAL HISTORY: History of smoking. History of alcohol abuse. No history of drug abuse. Comes from a halfway. FAMILY HISTORY: Does have history of diabetes, hypertension, and history of heart disease. MEDICATIONS: Prezista, clonidine, aspirin, insulin, lisinopril, metoprolol, ranitidine, Diovan, Norvir, and Imdur. REVIEW OF SYSTEMS: HEENT: Denies headaches. RESPIRATORY: Does have shortness of breath. Denies cough. CARDIOVASCULAR: Reports chest pain x1 day that radiates to the left arm associated with paresthesia. No orthopnea. No palpitation. GASTROINTESTINAL: Denies nausea, vomiting, or diarrhea. Denies constipation. EXTREMITIES: Denies any pain in the lower extremities. CENTRAL NERVOUS SYSTEM: Denies change in vision or speech pattern. PHYSICAL EXAMINATION: VITAL SIGNS: Temperature 96.9, pulse 78, blood pressure 143/75. HEENT: PERRLA. NECK: Supple. No lymphadenopathy. CHEST: Clear to auscultation. CARDIOVASCULAR: Regular rate and rhythm. ABDOMEN: Soft, nontender. No organomegaly. EXTREMITIES: 1+ edema in the lower extremities. The patient has a dialysis access on the left arm. NEUROLOGIC: Has generalized weakness. Reflexes equal on both sides. LABORATORY DATA: WBC of 6.3, hemoglobin of 10.4, platelets of 115. Sodium 138, potassium 4.2, BUN of 25, creatinine of 7.8, glucose of 87. Troponin of 0.057. EKG, no ST elevation. ASSESSMENT AND PLAN: Chest pain, rule out acute coronary syndrome. The patient has a high risk of acute coronary syndrome with his history of heart disease and dialysis and hypertension as well as NIDDM. Troponin borderline elevated. End-stage renal disease, on hemodialysis. The patient also has HIV and chest pain. I have asked Dr. Hanson, Dr. Posada, and Dr. Francisco Salazar to see the patient for the chest pain as well as for end-stage renal disease and hemodialysis orders as well as for HIV management. Daisy Bland M.D. DR: JOHNATHON JOB#: [id number] CC:
--- NOTE | 2019-06-19 19:27 | NUR ---
HAND-OFF: Report given to ERNIE Bonner. Plan of care endorsed. Patient's stable. .
--- NOTE | 2019-06-19 19:30 | NUR ---
NURSE NOTES: Received patient from Elisa KLEIN. Patient in bed asleep but arousable. On room air, no signs of respiratory distress. AV shunt on NATI, bruit and thrill present. Right AC 18 gauge saline locked. No signs of infiltration. Bed in low position, locked, bed alarm on, call light within reach.
[2019-06-19] MEDS: Metoprolol Tartrate 12.5mg TAB ORAL SCH (20:49)
--- NOTE | 2019-06-19 21:15 | Consultation ---
DATE OF CONSULTATION: 06/19/2019 INFECTIOUS DISEASES CONSULTATION CONSULTING PHYSICIAN: Francisco Salazar M.D. PRIMARY ATTENDING PHYSICIAN: Daisy Bland M.D. REASON FOR CONSULTATION: HIV management. HISTORY OF PRESENT ILLNESS: This is a 58-year-old male who is [facility] admitted today complaining of chest pain with radiation to the back and neck. The patient has history of diabetes mellitus, also HIV, getting anti-retroviral treatment in a nursing facility, currently is sleeping and is on hemodialysis. According to the ER doctor, he has no nausea, vomiting, any weakness. Pain was 5/10. PAST MEDICAL HISTORY: End-stage renal disease, on hemodialysis for 13 years, diabetes mellitus, asthma, anemia, HIV. ALLERGIES: No known drug allergies. PAST SURGICAL HISTORY: PermCath. MEDICATIONS: Darunavir, lamivudine, zidovudine, lisinopril, amitriptyline, metoprolol, Protonix, ritonavir, hydralazine, diphenhydramine, clonidine, aspirin, Plavix, diltiazem, gabapentin, insulin, lactulose, Zofran, [place], albuterol ipratropium. SOCIAL HISTORY: assisted resident, . No other history obtainable. REVIEW OF SYSTEMS: Not obtainable. PHYSICAL EXAMINATION: VITAL SIGNS: Temperature 98.1, pulse 75, blood pressure 125/73. GENERAL APPEARANCE: The patient is well developed, no acute distress. HEAD AND NECK: [place] conjunctivae. HEART: Normal rate. LUNGS: Clear ABDOMEN: Soft, obese, nontender EXTREMITIES: No edema. LABORATORY AND DIAGNOSTIC DATA: WBC 4.8, hemoglobin 10.2, hematocrit 32.2, platelet 98. The patient has lymphocytosis of 50%. Sodium 137, potassium 5, chloride 104, bicarb 25, BUN is 26, creatinine 7.8, glucose 71. Chest x-ray was negative. IMPRESSION: 1. HIV unkown stahe we try to obtain more information regarding the last CD4 count. 2. Chest pain, admitted for rule out of acute coronary syndrome, had a troponin of 0.057. 3. Diabetes mellitus. 4. Anemia. 5. Lymphocytosis. RECOMMENDATIONS: We will continue with anti-retroviral treatment with current medications of lamivudine, zidovudine, Prezista, and ritonavir. We will obtain more information when the patient is more alert and awake. At the end of my exam, I thank Dr. Bland, for involving me in the care of this patient. Francisco Salazar M.D. DR: Chago JOB#: [id number] CC: CINDI
--- NOTE | 2019-06-19 21:31 | Cardiology Progress Note ---
Assessment/Plan Assessment/Plan The patient is seen and examined, full consult note will be dictated. Objective Last 24 Hour Vital Signs Date Time Temp Pulse Resp B/P (MAP) Pulse Ox O2 Delivery O2 Flow Rate FiO2 06/19/19 20:49 68 109/51 06/19/19 20:00 97.6 67 20 110/39 (62) 96 06/19/19 16:00 98.6 64 20 94/53 (67) 98 06/19/19 16:00 66 06/19/19 13:27 125/72 06/19/19 12:00 98.1 75 21 125/72 (89) 99 06/19/19 12:00 67 06/19/19 09:00 Room Air 06/19/19 08:43 71 118/69 06/19/19 08:43 118/69 06/19/19 08:42 118/69 06/19/19 08:00 97.6 71 20 118/69 (85) 99 06/19/19 08:00 72 06/19/19 04:30 Room Air 06/19/19 04:00 77 06/19/19 04:00 96.9 78 20 143/75 (97) 97 06/19/19 03:50 98.6 78 24 156/78 96 Room Air 06/19/19 03:50 98.2 22 156/78 96 Room Air 06/19/19 03:11 98.2 06/19/19 02:10 76 16 Room Air 06/19/19 02:10 98.2 16 160/83 98 Room Air 06/19/19 01:48 98.2 76 16 160/83 (108) 98 Room Air Intake and Output 06/18/19 06/19/19 19:00 07:00 # Voids 2 Laboratory Tests Test 06/19/19 02:33 06/19/19 08:10 White Blood Count 6.2 K/UL (4.8-10.8) 4.8 K/UL (4.8-10.8) Red Blood Count 3.15 M/UL (4.70-6.10) L 3.08 M/UL (4.70-6.10) L Hemoglobin 10.4 G/DL (14.2-18.0) L 10.2 G/DL (14.2-18.0) L Hematocrit 33.3 % (42.0-52.0) L 32.2 % (42.0-52.0) L Mean Corpuscular Volume 106 FL (80-99) H 104 FL (80-99) H Mean Corpuscular Hemoglobin 33.1 PG (27.0-31.0) H 33.1 PG (27.0-31.0) H Mean Corpuscular Hemoglobin Concent 31.3 G/DL (32.0-36.0) L 31.7 G/DL (32.0-36.0) L Red Cell Distribution Width 17.3 % (11.6-14.8) H 15.8 % (11.6-14.8) H Platelet Count 115 K/UL (150-450) L 98 K/UL (150-450) L Mean Platelet Volume 6.4 FL (6.5-10.1) L 7.9 FL (6.5-10.1) Neutrophils (%) (Auto) 39.3 % (45.0-75.0) L % (45.0-75.0) Lymphocytes (%) (Auto) 44.0 % (20.0-45.0) % (20.0-45.0) Monocytes (%) (Auto) 8.6 % (1.0-10.0) % (1.0-10.0) Eosinophils (%) (Auto) 7.3 % (0.0-3.0) H % (0.0-3.0) Basophils (%) (Auto) 0.7 % (0.0-2.0) % (0.0-2.0) Sodium Level 138 MMOL/L (136-145) 137 MMOL/L (136-145) Potassium Level 5.2 MMOL/L (3.5-5.1) H 5.0 MMOL/L (3.5-5.1) Chloride Level 102 MMOL/L (98-107) 104 MMOL/L (98-107) Carbon Dioxide Level 28 MMOL/L (21-32) 25 MMOL/L (21-32) Anion Gap 8 mmol/L (5-15) 8 mmol/L (5-15) Blood Urea Nitrogen 25 mg/dL (7-18) H 26 mg/dL (7-18) H Creatinine 7.8 MG/DL (0.55-1.30) H 7.8 MG/DL (0.55-1.30) H Estimat Glomerular Filtration Rate 8.7 mL/min (>60) 8.7 mL/min (>60) Glucose Level 87 MG/DL (74-106) 71 MG/DL (74-106) L Calcium Level 10.1 MG/DL (8.5-10.1) 9.5 MG/DL (8.5-10.1) Total Bilirubin 0.3 MG/DL (0.2-1.0) 0.3 MG/DL (0.2-1.0) Aspartate Amino Transf (AST/SGOT) 22 U/L (15-37) 21 U/L (15-37) Alanine Aminotransferase (ALT/SGPT) 18 U/L (12-78) 23 U/L (12-78) Alkaline Phosphatase 83 U/L (46-116) 70 U/L (46-116) Total Creatine Kinase 129 U/L (26-308) Creatine Kinase MB 1.1 NG/ML (0.0-3.6) Creatine Kinase MB Relative Index 0.8 Troponin I 0.057 ng/mL (0.000-0.056) 0.050 ng/mL (0.000-0.056) Total Protein 8.9 G/DL (6.4-8.2) H 7.9 G/DL (6.4-8.2) Albumin 3.6 G/DL (3.4-5.0) 3.2 G/DL (3.4-5.0) L Globulin 5.3 g/dL 4.7 g/dL Albumin/Globulin Ratio 0.7 (1.0-2.7) L 0.7 (1.0-2.7) L Differential Total Cells Counted 100 Neutrophils % (Manual) 34 % (45-75) L Lymphocytes % (Manual) 50 % (20-45) H Monocytes % (Manual) 12 % (1-10) H Eosinophils % (Manual) 4 % (0-3) H Basophils % (Manual) 0 % (0-2) Band Neutrophils 0 % (0-8) Platelet Estimate Decreased L Platelet Morphology Normal Polychromasia 1+ Hypochromasia 1+ Anisocytosis 1+ Macrocytosis 1+ Hepatitis B Surface Antigen Pending Microbiology Date/Time Source Procedure Growth Status 06/19/19 02:54 Rectum Received Pavan Hanson MD Jun 19, 2019 21:31
--- NOTE | 2019-06-19 22:00 | NUR ---
NURSE NOTES: Held 2200 dose of hydralazine for SBP < 120.
--- NOTE | 2019-06-19 23:00 | Consultation ---
DATE OF CONSULTATION: 06/19/2019 CARDIOLOGY CONSULTATION CONSULTING PHYSICIAN: Pvaan Hanson M.D. REFERRING PHYSICIAN: Daisy Bland M.D. REASON FOR CONSULTATION: Management of chest pain. HISTORY OF PRESENT ILLNESS: The patient is a very unfortunate 58-year-old gentleman, resident of a [facility] facility, who presents to the hospital with midsternal chest pain with radiation to the neck and upper back area. The pain did not get relieved with nitroglycerin and aspirin given in route. At the time of arrival to the hospital, a 12 lead ECG was done, which showed sinus rhythm with no acute ischemic features and borderline QT prolongation likely due to electrolyte abnormalities. The patient's cardiovascular history is significant for hypertension, diabetes mellitus, end-stage renal disease, on hemodialysis, and hypercholesterolemia. According to the records, there is also a prior history of coronary artery disease, and HIV disease. PAST MEDICAL HISTORY: HIV disease, coronary artery disease, hypercholesterolemia, hypertension, asthma, diabetes mellitus, end-stage renal disease, on hemodialysis, and gastrointestinal disease. LIST OF MEDICATIONS: Amitriptyline 75 mg p.o. at bedtime, aspirin 81 mg p.o. daily, aspirin buffered 325 mg tab 1 tablet daily, Lipitor 40 mg at bedtime, clonidine 0.3 mg twice daily, Plavix 75 mg p.o. daily, Prezista 400 mg twice daily, diltiazem 300 mg p.o. daily, Benadryl 50 mg q.4 hours p.r.n. itching, furosemide 40 mg p.o. twice daily, gabapentin 100 mg p.o. 3 times daily, guaifenesin 100 mg 3 times a day, heparin 5000 units subcutaneous q.12 hours, hydralazine 50 mg t.i.d., Mil[place] 5/325 one tablet q.4 h. p.r.n. pain, insulin aspart 10 units subcutaneous t.i.d., DuoNeb 3 mL HHN as needed, isosorbide 120 mg p.o. daily, lactulose 30 mL daily, lamivudine 10 mg p.o. daily, lisinopril 10 mg p.o. daily, melatonin 3 mL 1 capsule daily, Naprosyn 500 mg twice daily, nitroglycerin stat 0.4 mg sublingual p.r.n. chest pain, fish oil 1 g p.o. 3 times a day, Zofran 4 mg q.6 hours p.r.n. nausea and vomiting, Zantac 150 mg p.o. at bedtime, ritonavir 100 mg p.o. twice daily, Crestor 5 mg p.o. at bedtime, valsartan 160 mg p.o. twice daily, zidovudine 300 mg daily. ALLERGIES: No known drug allergies. FAMILY HISTORY: No premature coronary artery disease in the first-degree relatives. SOCIAL HISTORY: Denies any tobacco, alcohol, or illicit drug use. REVIEW OF SYSTEMS: HEENT: Denies any headache, diplopia, or blurred vision. CONSTITUTIONAL: Denies any fever, chills, night sweats, or weight loss. CARDIOVASCULAR: Chest pain as mentioned above. Denies any shortness of breath, PND, orthopnea, or leg swelling. PULMONARY: Denies any cough, hemoptysis, or wheezing. GASTROINTESTINAL: Denies any nausea, vomiting, diarrhea, constipation, abdominal pain, or GI bleed. GENITOURINARY: Denies any hematuria, dysuria, and incontinence. NEUROLOGY: Denies any motor dysfunction, sensory deficit, or altered speech. PHYSICAL EXAMINATION: VITAL SIGNS: Blood pressure 160/83, pulse of 76, respiration of 16, temperature 98.2 degrees Fahrenheit, and O2 saturation 98% on room air. GENERAL APPEARANCE: The patient is well developed, no acute distress. HEENT: PERRLA, EOMI, NECK: No JVD, no carotid bruit, carotid upstroke 2+ B/L HEART: Normal S1S2, no murmurs, gallops or rubs. LUNGS: Clear to auscultation B/L. ABDOMEN: Soft, non-tender, obese, nondistended. EXTREMITIES: No edema, clubbing or cyanosis. LABORATORY AND DIAGNOSTIC DATA: WBC 4.8, hemoglobin 10.2, hematocrit 32.2, platelet 98. The patient has lymphocytosis of 50%. Sodium 137, potassium 5, chloride 104, bicarb 25, BUN is 26, creatinine 7.8, glucose 71. Chest x-ray was negative. ASSESSMENT AND PLAN: The patient is a very unfortunate 58-year-old gentleman seen in Cardiology consultation. 1. Chest pain, atypical, in view of CAD risk factors would like to rule out obstructive CAD, will schedule for myocardial perfusion study. Of note, first trop I is slightly elevated, will obtain serial trop I measurements. 12-lead electrocardiogram does not show any acute ischemic features.2D echocardiogram was reviewed and essentially shows normal LV systolic function with LVEF approximately 60%. 2. History of hypertension. 3. History of asthma. 5. History of CKD. 6. End-stage renal disease. On hemodialysis. I would like to thank, Dr. Bland, for allowing me to participate in the care of this patient. Pavan Hanson M.D. DR: AMERICO JOB#: [id number] CC: CINDI
[2019-06-20] VITALS (8 sets, daily range): BP systolic 115–136; BP diastolic 61–72
[2019-06-20] MEDS: HydrALAZINE 50mg tab ORAL SCH ×4 (05:37→21:56)
--- NOTE | 2019-06-20 07:10 | NUR ---
NURSE NOTES: Nurse report given by ERNIE Bonner. Patient's sleeping in bed but easily awaken. Denies pain, no s/s of distress or SOB. Bed low and locked, call light within reach, side rails x2, safety precaution is on. IV site is patent and asymptomatic, present with L UA AV shunt for hemodialysis only. Will continue to monitor.
[2019-06-20] MEDS: NovoLOG Insulin Flexpen SUBQ SCH ×3 (09:00→18:00)
[2019-06-20] MEDS ORDERED: dilTIAZem HCl CD 120mg cap ORAL SCH (09:00)
[2019-06-20] MEDS: Lisinopril 10mg tab ORAL SCH (09:48)
[2019-06-20] MEDS: Metoprolol Tartrate 12.5mg TAB ORAL SCH ×2 (09:48→20:23)
[2019-06-20] MEDS: dilTIAZem HCl CD 120mg cap ORAL SCH (09:48)
[2019-06-20] MEDS: Aspirin Baby 81mg ORAL SCH (09:48)
[2019-06-20] MEDS: Lactulose 20gm/30ml UDC ORAL SCH (09:49)
[2019-06-20] MEDS: dilTIAZem HCl CD 180mg cap ORAL SCH (09:49)
--- NOTE | 2019-06-20 10:03 | Nephrology Progress Note ---
Assessment/Plan Problem List: (1) ESRD (end stage renal disease) (2) Hypertensive kidney disease (3) ACS (acute coronary syndrome) (4) Diabetes mellitus Assessment Admitted with ACS On Dialysis for 13 years Has right chest permacath HTN DM HIV+ Plan today's labs pending BP meds with parameters HD 06/19 keep BS in control 2D Echo per cardiology Objective Objective Last 24 Hour Vital Signs Date Time Temp Pulse Resp B/P (MAP) Pulse Ox O2 Delivery O2 Flow Rate FiO2 06/20/19 09:49 70 126/70 06/20/19 09:48 70 126/70 06/20/19 09:48 70 126/70 06/20/19 09:48 126/70 06/20/19 08:00 97.1 70 20 126/70 (88) 95 06/20/19 05:39 127/61 06/20/19 05:34 73 127/61 (83) 06/20/19 04:00 97.8 67 19 120/66 (84) 96 06/20/19 04:00 73 06/20/19 00:00 67 06/20/19 00:00 97.9 66 17 115/62 (79) 97 06/19/19 22:04 64 119/67 (84) 06/19/19 22:00 119/67 06/19/19 21:00 Room Air 06/19/19 20:49 68 109/51 06/19/19 20:00 69 06/19/19 20:00 97.6 67 20 110/39 (62) 96 06/19/19 16:00 98.6 64 20 94/53 (67) 98 06/19/19 16:00 66 06/19/19 13:27 125/72 06/19/19 12:00 98.1 75 21 125/72 (89) 99 06/19/19 12:00 67 Intake and Output 06/19/19 06/20/19 18:59 06:59 Intake Total 300 ml Output Total 2650 ml 200 ml Balance -2350 ml -200 ml Intake Oral 300 ml Output Urine Total 150 ml 200 ml Hemodialysis UF 2500 ml # Voids 1 1 Height (Feet): 5 Height (Inches): 7.00 Weight (Pounds): 228 Toño Posada MD Jun 20, 2019 10:02
--- NOTE | 2019-06-20 11:15 | NUR ---
NURSE NOTES: Patient's brother called and said he's still out of town and he would steel pickler the HIV medication from the half-way and bring it to the hospital for the patient tomorrow.
[2019-06-20 12:29] LABS: HEMATOCRIT 36.4 % (42.0-52.0); HEMOGLOBIN 11.6 G/DL (14.2-18.0); MEAN CORPUSCULAR VOLUME 105 FL (80-99); PLATELET COUNT 94 K/UL (150-450); RED BLOOD COUNT 3.47 M/UL (4.70-6.10); RED CELL DISTRIBUTION WIDTH 17.3 % (11.6-14.8); WHITE BLOOD COUNT 3.8 K/UL (4.8-10.8)
[2019-06-20 12:50] LABS: ALANINE AMINOTRANSFERASE 20 U/L (12-78); ALBUMIN 3.5 G/DL (3.4-5.0); ALBUMIN/GLOBULIN RATIO 0.7 (1.0-2.7); ALKALINE PHOSPHATASE 84 U/L (46-116); ANION GAP 10 mmol/L (5-15); ASPARTATE AMINO TRANSFERASE 27 U/L (15-37); BILIRUBIN,TOTAL 0.4 MG/DL (0.2-1.0); BLOOD UREA NITROGEN 27 mg/dL (7-18); CALCIUM 9.5 MG/DL (8.5-10.1); CARBON DIOXIDE 27 MMOL/L (21-32); CHLORIDE 104 MMOL/L (98-107); CHOLESTEROL 113 MG/DL (< 200); CREATINE KINASE 118 U/L (26-308); CREATININE 7.6 MG/DL (0.55-1.30); FERRITIN 386 NG/ML (8-388); GAMMA GLUTAMYL TRANSPEPTIDASE 76 U/L (5-85); HDL CHOLESTEROL 46 MG/DL (40-60); PHOSPHORUS 4.8 MG/DL (2.5-4.9); POTASSIUM 4.6 MMOL/L (3.5-5.1); SODIUM 141 MMOL/L (136-145); TRIGLYCERIDES 42 MG/DL (30-150)
--- NOTE | 2019-06-20 12:53 | Infectious Diseases Prog Note ---
Assessment/Plan Assessment/Plan IMPRESSION: 1. HIV goes to [facility] for treatment 2. Chest pain, resolved 3. Diabetes mellitus. 4. Anemia. 5. Lymphocytosis. RECOMMENDATIONS: We will continue with anti-retroviral treatment with current medications of lamivudine, zidovudine, Prezista, and ritonavir. Subjective ROS Limited/Unobtainable: No Constitutional: Reports: no symptoms Respiratory: Reports: no symptoms Cardiovascular: Reports: no symptoms Gastrointestinal/Abdominal: Reports: no symptoms Genitourinary: Reports: no symptoms Allergies: Coded Allergies: No Known Allergies (Verified , 02/11/12) Objective Vital Signs Last 24 Hour Vital Signs Date Time Temp Pulse Resp B/P (MAP) Pulse Ox O2 Delivery O2 Flow Rate FiO2 06/20/19 12:00 69 06/20/19 11:59 97.6 71 20 134/72 (92) 98 06/20/19 09:49 70 126/70 06/20/19 09:48 70 126/70 06/20/19 09:48 70 126/70 06/20/19 09:48 126/70 06/20/19 09:00 Room Air 06/20/19 08:00 67 06/20/19 08:00 97.1 70 20 126/70 (88) 95 06/20/19 05:39 127/61 06/20/19 05:34 73 127/61 (83) 06/20/19 04:00 97.8 67 19 120/66 (84) 96 06/20/19 04:00 73 06/20/19 00:00 67 06/20/19 00:00 97.9 66 17 115/62 (79) 97 06/19/19 22:04 64 119/67 (84) 06/19/19 22:00 119/67 06/19/19 21:00 Room Air 06/19/19 20:49 68 109/51 06/19/19 20:00 69 06/19/19 20:00 97.6 67 20 110/39 (62) 96 06/19/19 16:00 98.6 64 20 94/53 (67) 98 06/19/19 16:00 66 06/19/19 13:27 125/72 Height (Feet): 5 Height (Inches): 7.00 Weight (Pounds): 228 General Appearance: no acute distress HEENT: mucous membranes moist Respiratory/Chest: lungs clear Cardiovascular: normal rate Abdomen: soft, non tender Extremities: no edema Neurologic/Psychiatric: alert, oriented x 3, responsive Microbiology Date/Time Source Procedure Growth Status 06/19/19 02:54 Rectum Received Laboratory Tests Test 06/20/19 11:55 White Blood Count 3.8 K/UL (4.8-10.8) L Red Blood Count 3.47 M/UL (4.70-6.10) L Hemoglobin 11.6 G/DL (14.2-18.0) L Hematocrit 36.4 % (42.0-52.0) L Mean Corpuscular Volume 105 FL (80-99) H Mean Corpuscular Hemoglobin 33.3 PG (27.0-31.0) H Mean Corpuscular Hemoglobin Concent 31.8 G/DL (32.0-36.0) L Red Cell Distribution Width 17.3 % (11.6-14.8) H Platelet Count 94 K/UL (150-450) L Mean Platelet Volume 6.9 FL (6.5-10.1) Neutrophils (%) (Auto) % (45.0-75.0) Lymphocytes (%) (Auto) % (20.0-45.0) Monocytes (%) (Auto) % (1.0-10.0) Eosinophils (%) (Auto) % (0.0-3.0) Basophils (%) (Auto) % (0.0-2.0) Neutrophils % (Manual) Pending Lymphocytes % (Manual) Pending Platelet Estimate Pending Platelet Morphology Pending Sodium Level Pending Potassium Level Pending Chloride Level Pending Carbon Dioxide Level Pending Blood Urea Nitrogen Pending Creatinine Pending Estimat Glomerular Filtration Rate Pending Glucose Level Pending Hemoglobin A1c 4.4 % (4.3-6.0) Uric Acid Pending Calcium Level Pending Phosphorus Level Pending Magnesium Level Pending Iron Level Pending Unsaturated Iron Binding Pending Ferritin Pending Total Bilirubin Pending Gamma Glutamyl Transpeptidase Pending Aspartate Amino Transf (AST/SGOT) Pending Alanine Aminotransferase (ALT/SGPT) Pending Alkaline Phosphatase Pending Total Creatine Kinase Pending Troponin I Pending C-Reactive Protein, Quantitative Pending Pro-B-Type Natriuretic Peptide Pending Total Protein Pending Albumin Pending Globulin Pending Triglycerides Level Pending Cholesterol Level Pending LDL Cholesterol Pending HDL Cholesterol Pending Cholesterol/HDL Ratio Pending Vitamin B12 Level Pending Folate Pending Thyroid Stimulating Hormone (TSH) Pending Current Medications Medications (Trade) Dose Ordered Sig/Twyla Route PRN Reason Start Time Stop Time Status Last Admin Dose Admin Acetaminophen/ Hydrocodone Bitart (Davis 5/325) 1 tab Q4H PRN ORAL For Pain 06/19/19 07:30 06/26/19 07:29 Albuterol/ Ipratropium (Albuterol/ Ipratropium) 3 ml Q4H PRN HHN Shortness of Breath 06/19/19 07:30 06/24/19 07:29 Amitriptyline HCl (Elavil) 75 mg BEDTIME ORAL 06/19/19 21:00 07/19/19 20:59 06/19/19 20:48 Aspirin (ASA) 81 mg DAILY ORAL 06/19/19 09:00 07/19/19 08:59 06/20/19 09:48 Clonidine HCl (Catapres Tab) 0.1 mg Q6H PRN ORAL For High Blood Pressure 06/19/19 10:15 07/19/19 10:14 Clopidogrel Bisulfate (Plavix) 75 mg DAILY ORAL 06/19/19 09:00 07/19/19 08:59 06/20/19 09:48 Darunavir (Prezista) 800 mg DAILY ORAL 06/20/19 09:00 07/20/19 08:59 UNV Diltiazem HCl (Cardizem CD) 120 mg DAILY ORAL 06/20/19 09:00 07/20/19 08:59 06/20/19 09:48 Diltiazem HCl (Cardizem CD) 180 mg DAILY ORAL 06/20/19 09:00 07/20/19 08:59 06/20/19 09:49 Diphenhydramine HCl (Benadryl) 25 mg Q4H PRN ORAL Itching 06/19/19 07:30 07/19/19 07:29 06/19/19 08:42 Diphenhydramine HCl (Benadryl) 50 mg PRN PRN IVP Itching with dialysis 06/19/19 13:30 07/19/19 13:29 06/19/19 13:33 Gabapentin (Neurontin) 100 mg THREE TIMES A DAY ORAL 06/19/19 09:00 07/19/19 08:59 06/20/19 09:49 Guaifenesin (Robitussin) 10 mg Q4H PRN ORAL For Cough 06/19/19 07:30 07/19/19 07:29 Hydralazine HCl (Apresoline) 50 mg Q8HR ORAL 06/19/19 14:00 07/19/19 08:59 Insulin Aspart (NovoLOG) 10 units TID SUBQ 06/19/19 09:00 07/19/19 08:59 Lactulose (Cephulac) 20 gm DAILY ORAL 06/19/19 09:00 07/19/19 08:59 06/20/19 09:49 Lamivudine (Epivir) 100 mg DAILY ORAL 06/20/19 09:00 07/20/19 08:59 UNV Lisinopril (Zestril) 10 mg DAILY ORAL 06/20/19 09:00 07/19/19 08:59 06/20/19 09:48 Metoprolol Tartrate (Lopressor) 12.5 mg Q12HR ORAL 06/19/19 21:00 07/19/19 08:59 06/20/19 09:48 Nitroglycerin (Ntg) 0.4 mg PRN PRN SL Prn Chest Pain 06/19/19 07:30 07/19/19 07:29 Ondansetron HCl (Zofran ODT) 4 mg Q6H PRN ORAL Nausea & Vomiting 06/19/19 08:00 07/19/19 07:59 Pantoprazole (Protonix) 40 mg EVERY 12 HOURS ORAL 06/19/19 21:00 07/19/19 20:59 06/20/19 09:48 Ritonavir (Norvir) 100 mg TWICE A DAY ORAL 06/19/19 18:00 07/19/19 17:59 UNV Zidovudine (Retrovir) 300 mg DAILY ORAL 06/20/19 09:00 07/20/19 08:59 Francisco Cross MD Jun 20, 2019 12:53
[2019-06-20 13:20] LABS: % IRON SATURATION 44 % (15-50); IRON 83 ug/dL (50-175); TOTAL IRON BINDING CAPACITY 187 ug/dL (250-450)
--- NOTE | 2019-06-20 17:36 | General Progress Note ---
Assessment/Plan Problem List: (1) Electrolyte imbalance ICD Codes: E87.8 - Other disorders of electrolyte and fluid balance, not elsewhere classified SNOMED: 848105994 (2) Chest pain ICD Codes: R07.9 - Chest pain, unspecified SNOMED: 76241239 (3) Renal failure ICD Codes: N19 - Unspecified kidney failure SNOMED: 52648037 (4) ACS (acute coronary syndrome) ICD Codes: I24.9 - Acute ischemic heart disease, unspecified SNOMED: 806678251 (5) Diabetes mellitus ICD Codes: E11.9 - Type 2 diabetes mellitus without complications SNOMED: 09611014 (6) Hypertensive kidney disease ICD Codes: I12.9 - Hypertensive chronic kidney disease with stage 1 through stage 4 chronic kidney disease, or unspecified chronic kidney disease SNOMED: 62573798 (7) ESRD (end stage renal disease) ICD Codes: N18.6 - End stage renal disease SNOMED: 97069488 Status: progressing Assessment/Plan: no chest pain today r/o acs esrd on hd htn niddm afebrile revewied chart and labs Subjective ROS Limited/Unobtainable: Yes Allergies: Coded Allergies: No Known Allergies (Verified , 02/11/12) Objective Last 24 Hour Vital Signs Date Time Temp Pulse Resp B/P (MAP) Pulse Ox O2 Delivery O2 Flow Rate FiO2 06/20/19 12:54 134/72 06/20/19 12:00 69 06/20/19 11:59 97.6 71 20 134/72 (92) 98 06/20/19 09:49 70 126/70 06/20/19 09:48 70 126/70 06/20/19 09:48 70 126/70 06/20/19 09:48 126/70 06/20/19 09:00 Room Air 06/20/19 08:00 67 06/20/19 08:00 97.1 70 20 126/70 (88) 95 06/20/19 05:39 127/61 06/20/19 05:34 73 127/61 (83) 06/20/19 04:00 97.8 67 19 120/66 (84) 96 06/20/19 04:00 73 06/20/19 00:00 67 06/20/19 00:00 97.9 66 17 115/62 (79) 97 06/19/19 22:04 64 119/67 (84) 06/19/19 22:00 119/67 06/19/19 21:00 Room Air 06/19/19 20:49 68 109/51 06/19/19 20:00 69 06/19/19 20:00 97.6 67 20 110/39 (62) 96 Intake and Output 06/19/19 06/20/19 19:00 07:00 Intake Total 300 ml Output Total 2650 ml 200 ml Balance -2350 ml -200 ml Intake Oral 300 ml Output Urine Total 150 ml 200 ml Hemodialysis UF 2500 ml # Voids 1 1 Laboratory Tests 06/20/19 11:55: White Blood Count 3.8L, Red Blood Count 3.47L, Hemoglobin 11.6L, Hematocrit 36.4L, Mean Corpuscular Volume 105H, Mean Corpuscular Hemoglobin 33.3H, Mean Corpuscular Hemoglobin Concent 31.8L, Red Cell Distribution Width 17.3H, Platelet Count 94L, Mean Platelet Volume 6.9, Neutrophils (%) (Auto) , Lymphocytes (%) (Auto) , Monocytes (%) (Auto) , Eosinophils (%) (Auto) , Basophils (%) (Auto) , Differential Total Cells Counted 100, Neutrophils % ( Manual) 39L, Lymphocytes % (Manual) 40, Monocytes % (Manual) 10, Eosinophils % ( Manual) 10H, Basophils % (Manual) 1, Band Neutrophils 0, Platelet Estimate DecreasedL, Platelet Morphology Normal, Anisocytosis 1+, Macrocytosis 1+, Sodium Level 141, Potassium Level 4.6, Chloride Level 104, Carbon Dioxide Level 27, Anion Gap 10, Blood Urea Nitrogen 27H, Creatinine 7.6H, Estimat Glomerular Filtration Rate 9.0, Glucose Level 88, Hemoglobin A1c 4.4, Uric Acid 4.5, Calcium Level 9.5, Phosphorus Level 4.8, Magnesium Level 2.1, Iron Level 83, Total Iron Binding Capacity 187L, Percent Iron Saturation 44, Unsaturated Iron Binding 104L, Ferritin 386, Total Bilirubin 0.4, Gamma Glutamyl Transpeptidase 76, Aspartate Amino Transf (AST/SGOT) 27, Alanine Aminotransferase (ALT/SGPT) 20 , Alkaline Phosphatase 84, Total Creatine Kinase 118, Troponin I 0.024, C- Reactive Protein, Quantitative < 0.4, Pro-B-Type Natriuretic Peptide 8176H, Total Protein 8.6H, Albumin 3.5, Globulin 5.1, Albumin/Globulin Ratio 0.7L, Triglycerides Level 42, Cholesterol Level 113, LDL Cholesterol 53, HDL Cholesterol 46, Cholesterol/HDL Ratio 2.5L, Vitamin B12 Level 515, Folate 5.4L, Thyroid Stimulating Hormone (TSH) 1.557 Height (Feet): 5 Height (Inches): 7.00 Weight (Pounds): 228 Cardiovascular: normal rate Respiratory/Chest: lungs clear Abdomen: soft Daisy Bland MD Jun 20, 2019 17:36
--- NOTE | 2019-06-20 18:25 | NUR ---
NURSE NOTES: Contacted Dr Bland regarding patient's condition. Assessed patient for bowel movement and patient stated he had not have bowel movement since Thursday 06/14. Patient's been taking lactulose since he got admitted to the hospital since yesterday 06/19 and still has not have bowel movement. patient denied pain or stomach discomfort. Assessed patient for bowel sounds. Bowel sound present in four quadrants for 2 minutes each quadrant, belly does not feel distended. Left messaged for Dr. Bland, awaiting for response.
[2019-06-20] MEDS ORDERED: Bisacodyl EC 5mg tab ORAL PRN (19:15)
[2019-06-20] MEDS ORDERED: Sennosides 8.6mg tab ORAL PRN (19:15)
--- NOTE | 2019-06-20 19:18 | NUR ---
HAND-OFF: Report given to ERNIE Bonner. Plan of care endorsed. Patient's stable.
--- NOTE | 2019-06-20 19:33 | NUR ---
HAND-OFF: Report given to ERNIE Bonner. Plan of care endorsed.
--- NOTE | 2019-06-20 19:33 | NUR ---
NURSE NOTES: Received patient from Elisa KLEIN. Patient in bed, alert and oriented x4. On room air, no signs of respiratory distress. NATI AV shunt, bruit and thrill present. Bilateral lung sounds clear. Bowel sounds active in all quadrants. No c/o pain or SOB, abdominal cramps. Attempted to give laxative for constipation, patient refused and stated "I don't feel like I need it." Patient reports no cramping and passing gas. Bed in low position, locked, call light within reach.
--- NOTE | 2019-06-20 20:04 | Cardiology Progress Note ---
Assessment/Plan Assessment/Plan 1. Chest pain, atypical, AMI is ruled out. Myocardial perfusion imaging study for Saturday am. 12-lead electrocardiogram does not show any acute ischemic features. 2D echocardiogram was reviewed and essentially shows normal LV systolic function with LVEF approximately 60%. 2. History of hypertension. 3. History of asthma. 5. History of CKD. 6. End-stage renal disease, on hemodialysis. Subjective Subjective Sinus rhythm at rate of 62. Objective Last 24 Hour Vital Signs Date Time Temp Pulse Resp B/P (MAP) Pulse Ox O2 Delivery O2 Flow Rate FiO2 06/20/19 16:00 97.6 62 20 136/70 (92) 99 06/20/19 16:00 65 06/20/19 12:54 134/72 06/20/19 12:00 69 06/20/19 11:59 97.6 71 20 134/72 (92) 98 06/20/19 09:49 70 126/70 06/20/19 09:48 70 126/70 06/20/19 09:48 70 126/70 06/20/19 09:48 126/70 06/20/19 09:00 Room Air 06/20/19 08:00 67 06/20/19 08:00 97.1 70 20 126/70 (88) 95 06/20/19 05:39 127/61 06/20/19 05:34 73 127/61 (83) 06/20/19 04:00 97.8 67 19 120/66 (84) 96 06/20/19 04:00 73 06/20/19 00:00 67 06/20/19 00:00 97.9 66 17 115/62 (79) 97 06/19/19 22:04 64 119/67 (84) 06/19/19 22:00 119/67 06/19/19 21:00 Room Air 06/19/19 20:49 68 109/51 Intake and Output 06/19/19 06/20/19 19:00 07:00 Intake Total 300 ml Output Total 2650 ml 200 ml Balance -2350 ml -200 ml Intake Oral 300 ml Output Urine Total 150 ml 200 ml Hemodialysis UF 2500 ml # Voids 1 1 2D Echo: LVEF 65%, Mod LVH, Grade I LVDD, RVSP 23 mmHg, DEYSI Laboratory Tests Test 06/20/19 11:55 White Blood Count 3.8 K/UL (4.8-10.8) L Red Blood Count 3.47 M/UL (4.70-6.10) L Hemoglobin 11.6 G/DL (14.2-18.0) L Hematocrit 36.4 % (42.0-52.0) L Mean Corpuscular Volume 105 FL (80-99) H Mean Corpuscular Hemoglobin 33.3 PG (27.0-31.0) H Mean Corpuscular Hemoglobin Concent 31.8 G/DL (32.0-36.0) L Red Cell Distribution Width 17.3 % (11.6-14.8) H Platelet Count 94 K/UL (150-450) L Mean Platelet Volume 6.9 FL (6.5-10.1) Neutrophils (%) (Auto) % (45.0-75.0) Lymphocytes (%) (Auto) % (20.0-45.0) Monocytes (%) (Auto) % (1.0-10.0) Eosinophils (%) (Auto) % (0.0-3.0) Basophils (%) (Auto) % (0.0-2.0) Differential Total Cells Counted 100 Neutrophils % (Manual) 39 % (45-75) L Lymphocytes % (Manual) 40 % (20-45) Monocytes % (Manual) 10 % (1-10) Eosinophils % (Manual) 10 % (0-3) H Basophils % (Manual) 1 % (0-2) Band Neutrophils 0 % (0-8) Platelet Estimate Decreased L Platelet Morphology Normal Anisocytosis 1+ Macrocytosis 1+ Sodium Level 141 MMOL/L (136-145) Potassium Level 4.6 MMOL/L (3.5-5.1) Chloride Level 104 MMOL/L (98-107) Carbon Dioxide Level 27 MMOL/L (21-32) Anion Gap 10 mmol/L (5-15) Blood Urea Nitrogen 27 mg/dL (7-18) H Creatinine 7.6 MG/DL (0.55-1.30) H Estimat Glomerular Filtration Rate 9.0 mL/min (>60) Glucose Level 88 MG/DL (74-106) Hemoglobin A1c 4.4 % (4.3-6.0) Uric Acid 4.5 MG/DL (2.6-7.2) Calcium Level 9.5 MG/DL (8.5-10.1) Phosphorus Level 4.8 MG/DL (2.5-4.9) Magnesium Level 2.1 MG/DL (1.8-2.4) Iron Level 83 ug/dL (50-175) Total Iron Binding Capacity 187 ug/dL (250-450) L Percent Iron Saturation 44 % (15-50) Unsaturated Iron Binding 104 ug/dL (112-346) L Ferritin 386 NG/ML (8-388) Total Bilirubin 0.4 MG/DL (0.2-1.0) Gamma Glutamyl Transpeptidase 76 U/L (5-85) Aspartate Amino Transf (AST/SGOT) 27 U/L (15-37) Alanine Aminotransferase (ALT/SGPT) 20 U/L (12-78) Alkaline Phosphatase 84 U/L (46-116) Total Creatine Kinase 118 U/L (26-308) Troponin I 0.024 ng/mL (0.000-0.056) C-Reactive Protein, Quantitative < 0.4 mg/dL (0.00-0.90) Pro-B-Type Natriuretic Peptide 8176 pg/mL (0-125) H Total Protein 8.6 G/DL (6.4-8.2) H Albumin 3.5 G/DL (3.4-5.0) Globulin 5.1 g/dL Albumin/Globulin Ratio 0.7 (1.0-2.7) L Triglycerides Level 42 MG/DL (30-150) Cholesterol Level 113 MG/DL (< 200) LDL Cholesterol 53 mg/dL (<100) HDL Cholesterol 46 MG/DL (40-60) Cholesterol/HDL Ratio 2.5 (3.3-4.4) L Vitamin B12 Level 515 PG/ML (193-986) Folate 5.4 NG/ML (8.6-58.9) L Thyroid Stimulating Hormone (TSH) 1.557 uiU/mL (0.358-3.740) Microbiology Date/Time Source Procedure Growth Status 06/19/19 02:54 Rectum Received Objective HEENT: Normocephalic, anicteric, PERRLA, EOMI NECK: No JVD, no carotid bruit, carotid upstroke 2+ B/L HEART: Normal S1S2, no murmurs, gallops or rubs, Regular rate and rhythm. LUNGS: Clear to auscultation B/L. ABDOMEN: Soft, non-tender, obese, nondistended, + BS. EXTREMITIES: No edema, clubbing or cyanosis. Pavan Hanson MD Jun 20, 2019 20:04
[2019-06-20] MEDS: Docusate 100mg cap ORAL SCH (20:22)
[2019-06-20] MEDS ORDERED: ISENTRESS400 MG ORAL (21:15)
[2019-06-20] MEDS ORDERED: NORVIR100 MG ORAL (21:15)
[2019-06-20] MEDS ORDERED: LAMIVUDINE10 MG/1 ML PO (21:17)
[2019-06-21] VITALS (7 sets, daily range): BP systolic 107–154; BP diastolic 58–81
[2019-06-21] MEDS: HydrALAZINE 50mg tab ORAL SCH ×3 (05:56→21:53)
--- NOTE | 2019-06-21 06:02 | NUR ---
NURSE NOTES: Blood sugar 67. Rechecked, 70. Patient refused orange juice. Gave apple juice 4oz.
--- NOTE | 2019-06-21 06:32 | NUR ---
NURSE NOTES: Blood sugar still 69. Gave another 4oz apple juice with sugar. Patient arousable, upset that he was awaken and refused to drink the juice at first.
--- NOTE | 2019-06-21 07:08 | NUR ---
NURSE NOTES: Attempted to recheck blood sugar. Patient was angry about being awaken so many times and refused to allow nurse to recheck blood sugar. "Please, please, let me sleep!"
--- NOTE | 2019-06-21 07:30 | NUR ---
NURSE NOTES: Received report from ERNIE Bonner. Patient in bed resting, no active s/s cardiac, respiratory distress noticed at this time. Patient AOx4, on room air. Endorsed one cup of apple juice given for BS, patient refused to recheck BS at this time. Bed in lowest position, side rails upx2, call light within reach. Will continue to monitor.
[2019-06-21] MEDS: Lisinopril 10mg tab ORAL SCH (08:51)
[2019-06-21] MEDS: Lactulose 20gm/30ml UDC ORAL SCH ×2 (08:51→09:00)
[2019-06-21] MEDS: Aspirin Baby 81mg ORAL SCH (08:51)
[2019-06-21] MEDS: dilTIAZem HCl CD 180mg cap ORAL SCH (08:51)
[2019-06-21] MEDS: Docusate 100mg cap ORAL SCH ×2 (08:51→17:56)
[2019-06-21] MEDS: dilTIAZem HCl CD 120mg cap ORAL SCH (08:52)
[2019-06-21] MEDS: Metoprolol Tartrate 12.5mg TAB ORAL SCH ×2 (08:52→21:52)
[2019-06-21] MEDS: Isentress 400mg tab ORAL SCH ×2 (08:52→21:53)
[2019-06-21] MEDS: Zidovudine 100mg cap ORAL SCH (08:52)
[2019-06-21] MEDS: Ritonavir 100mg tab ORAL SCH (08:52)
[2019-06-21] MEDS: NovoLOG Insulin Flexpen SUBQ SCH ×3 (08:58→17:22)
[2019-06-21] MEDS: EPIVIR 10 MG/ML ORAL SCH ×2 (09:00→09:27)
--- NOTE | 2019-06-21 09:13 | Diagnostic Imaging Report ---
EXAM: XR Abdomen, 1 Views CLINICAL HISTORY: CONSTIPATE TECHNIQUE: Frontal view of the abdomen pelvis . COMPARISON: Compared with abdomen x-ray report from 05 05 19, images not available. FINDINGS: Lower thorax: Mild interstitial prominence of the lungs. Streaky opacities left retrocardiac region. Gastrointestinal tract: Moderate amount of stool in the hepatic flexure and transverse colon may be constipation. No bowel obstruction. Bones joints: Unremarkable. Soft tissues: Surgical clips right upper quadrant of the abdomen. IMPRESSION: 1. Mild interstitial prominence of the lungs. Streaky opacities left retrocardiac region. 2. Moderate amount of stool in the hepatic flexure and transverse colon may be constipation. No bowel obstruction.
--- NOTE | 2019-06-21 10:08 | Infectious Diseases Prog Note ---
Assessment/Plan Assessment/Plan IMPRESSION: 1. HIV goes to [facility] for treatment 2. Chest pain, resolved 3. Diabetes mellitus. 4. Anemia. 5. thrombocytopenia RECOMMENDATIONS: We will continue with anti-retroviral treatment with current medications of lamivudine, zidovudine, Prezista, and ritonavir. Subjective ROS Limited/Unobtainable: No Respiratory: Reports: no symptoms Gastrointestinal/Abdominal: Reports: other - abdominal pain related to hernia Genitourinary: Reports: no symptoms Allergies: Coded Allergies: No Known Allergies (Verified , 02/11/12) Objective Vital Signs Last 24 Hour Vital Signs Date Time Temp Pulse Resp B/P (MAP) Pulse Ox O2 Delivery O2 Flow Rate FiO2 06/21/19 09:00 Room Air 06/21/19 08:52 67 141/81 06/21/19 08:52 67 141/81 06/21/19 08:51 67 141/81 06/21/19 08:51 141/81 06/21/19 08:00 98.2 67 18 141/81 (101) 95 06/21/19 08:00 64 06/21/19 05:56 154/76 06/21/19 05:56 66 154/76 (102) 06/21/19 04:00 67 06/21/19 04:00 97.6 67 18 141/75 (97) 97 06/21/19 00:00 97.8 66 18 132/68 (89) 100 06/21/19 00:00 65 06/20/19 21:56 122/65 06/20/19 21:53 65 122/65 (84) 06/20/19 21:05 87 18 98 Room Air 21 06/20/19 20:57 Room Air 06/20/19 20:23 64 116/63 06/20/19 20:00 97.6 64 18 116/63 (80) 100 06/20/19 20:00 70 06/20/19 16:00 97.6 62 20 136/70 (92) 99 06/20/19 16:00 65 06/20/19 12:54 134/72 06/20/19 12:00 69 06/20/19 11:59 97.6 71 20 134/72 (92) 98 Height (Feet): 5 Height (Inches): 7.00 Weight (Pounds): 228 General Appearance: no acute distress Respiratory/Chest: lungs clear Cardiovascular: normal rate Abdomen: soft, non tender Extremities: no edema Neurologic/Psychiatric: alert, oriented x 3, responsive Microbiology Date/Time Source Procedure Growth Status 06/19/19 02:54 Nasal Nares MRSA Culture - Final NO METHICILLIN RESISTANT STAPH AUREUS... Complete 06/19/19 02:54 Rectum VRE Culture - Final NO VANCOMYCIN RESISTANT ENTEROCOCCUS ... Complete Laboratory Tests Test 06/20/19 11:55 White Blood Count 3.8 K/UL (4.8-10.8) L Red Blood Count 3.47 M/UL (4.70-6.10) L Hemoglobin 11.6 G/DL (14.2-18.0) L Hematocrit 36.4 % (42.0-52.0) L Mean Corpuscular Volume 105 FL (80-99) H Mean Corpuscular Hemoglobin 33.3 PG (27.0-31.0) H Mean Corpuscular Hemoglobin Concent 31.8 G/DL (32.0-36.0) L Red Cell Distribution Width 17.3 % (11.6-14.8) H Platelet Count 94 K/UL (150-450) L Mean Platelet Volume 6.9 FL (6.5-10.1) Neutrophils (%) (Auto) % (45.0-75.0) Lymphocytes (%) (Auto) % (20.0-45.0) Monocytes (%) (Auto) % (1.0-10.0) Eosinophils (%) (Auto) % (0.0-3.0) Basophils (%) (Auto) % (0.0-2.0) Differential Total Cells Counted 100 Neutrophils % (Manual) 39 % (45-75) L Lymphocytes % (Manual) 40 % (20-45) Monocytes % (Manual) 10 % (1-10) Eosinophils % (Manual) 10 % (0-3) H Basophils % (Manual) 1 % (0-2) Band Neutrophils 0 % (0-8) Platelet Estimate Decreased L Platelet Morphology Normal Anisocytosis 1+ Macrocytosis 1+ Sodium Level 141 MMOL/L (136-145) Potassium Level 4.6 MMOL/L (3.5-5.1) Chloride Level 104 MMOL/L (98-107) Carbon Dioxide Level 27 MMOL/L (21-32) Anion Gap 10 mmol/L (5-15) Blood Urea Nitrogen 27 mg/dL (7-18) H Creatinine 7.6 MG/DL (0.55-1.30) H Estimat Glomerular Filtration Rate 9.0 mL/min (>60) Glucose Level 88 MG/DL (74-106) Hemoglobin A1c 4.4 % (4.3-6.0) Uric Acid 4.5 MG/DL (2.6-7.2) Calcium Level 9.5 MG/DL (8.5-10.1) Phosphorus Level 4.8 MG/DL (2.5-4.9) Magnesium Level 2.1 MG/DL (1.8-2.4) Iron Level 83 ug/dL (50-175) Total Iron Binding Capacity 187 ug/dL (250-450) L Percent Iron Saturation 44 % (15-50) Unsaturated Iron Binding 104 ug/dL (112-346) L Ferritin 386 NG/ML (8-388) Total Bilirubin 0.4 MG/DL (0.2-1.0) Gamma Glutamyl Transpeptidase 76 U/L (5-85) Aspartate Amino Transf (AST/SGOT) 27 U/L (15-37) Alanine Aminotransferase (ALT/SGPT) 20 U/L (12-78) Alkaline Phosphatase 84 U/L (46-116) Total Creatine Kinase 118 U/L (26-308) Troponin I 0.024 ng/mL (0.000-0.056) C-Reactive Protein, Quantitative < 0.4 mg/dL (0.00-0.90) Pro-B-Type Natriuretic Peptide 8176 pg/mL (0-125) H Total Protein 8.6 G/DL (6.4-8.2) H Albumin 3.5 G/DL (3.4-5.0) Globulin 5.1 g/dL Albumin/Globulin Ratio 0.7 (1.0-2.7) L Triglycerides Level 42 MG/DL (30-150) Cholesterol Level 113 MG/DL (< 200) LDL Cholesterol 53 mg/dL (<100) HDL Cholesterol 46 MG/DL (40-60) Cholesterol/HDL Ratio 2.5 (3.3-4.4) L Vitamin B12 Level 515 PG/ML (193-986) Folate 5.4 NG/ML (8.6-58.9) L Thyroid Stimulating Hormone (TSH) 1.557 uiU/mL (0.358-3.740) Current Medications Medications (Trade) Dose Ordered Sig/Twyla Route PRN Reason Start Time Stop Time Status Last Admin Dose Admin Acetaminophen/ Hydrocodone Bitart ([place] 5/325) 1 tab Q4H PRN ORAL For Pain 06/19/19 07:30 06/26/19 07:29 06/20/19 18:00 Albuterol/ Ipratropium (Albuterol/ Ipratropium) 3 ml Q4H PRN HHN Shortness of Breath 06/19/19 07:30 06/24/19 07:29 Amitriptyline HCl (Elavil) 75 mg BEDTIME ORAL 06/19/19 21:00 07/19/19 20:59 06/20/19 20:23 Aspirin (ASA) 81 mg DAILY ORAL 06/19/19 09:00 07/19/19 08:59 06/21/19 08:51 Bisacodyl (Dulcolax) 10 mg DAILYPRN PRN ORAL Constipation 06/20/19 19:15 07/20/19 19:14 Clonidine HCl (Catapres Tab) 0.1 mg Q6H PRN ORAL For High Blood Pressure 06/19/19 10:15 07/19/19 10:14 Clopidogrel Bisulfate (Plavix) 75 mg DAILY ORAL 06/19/19 09:00 07/19/19 08:59 06/21/19 08:51 Darunavir (Prezista) 800 mg DAILY ORAL 06/21/19 09:00 07/21/19 08:59 06/21/19 08:52 Diltiazem HCl (Cardizem CD) 120 mg DAILY ORAL 06/20/19 09:00 07/20/19 08:59 06/21/19 08:52 Diltiazem HCl (Cardizem CD) 180 mg DAILY ORAL 06/20/19 09:00 07/20/19 08:59 06/21/19 08:51 Diphenhydramine HCl (Benadryl) 25 mg Q4H PRN ORAL Itching 06/19/19 07:30 07/19/19 07:29 06/19/19 08:42 Diphenhydramine HCl (Benadryl) 50 mg PRN PRN IVP Itching with dialysis 06/19/19 13:30 07/19/19 13:29 06/19/19 13:33 Docusate Sodium (Colace) 100 mg TWICE A DAY ORAL 06/20/19 20:00 07/20/19 19:59 06/21/19 08:51 Gabapentin (Neurontin) 100 mg THREE TIMES A DAY ORAL 06/19/19 09:00 07/19/19 08:59 06/21/19 08:51 Guaifenesin (Robitussin) 10 mg Q4H PRN ORAL For Cough 06/19/19 07:30 07/19/19 07:29 Hydralazine HCl (Apresoline) 50 mg Q8HR ORAL 06/19/19 14:00 07/19/19 08:59 06/21/19 05:56 Insulin Aspart (NovoLOG) 10 units TID SUBQ 06/19/19 09:00 07/19/19 08:59 Lactulose (Cephulac) 20 gm DAILY ORAL 06/19/19 09:00 07/19/19 08:59 06/21/19 08:51 Lamivudine (Epivir) 50 mg DAILY ORAL 06/21/19 09:00 07/21/19 08:59 Lisinopril (Zestril) 10 mg DAILY ORAL 06/20/19 09:00 07/19/19 08:59 06/21/19 08:51 Metoprolol Tartrate (Lopressor) 12.5 mg Q12HR ORAL 06/19/19 21:00 07/19/19 08:59 06/21/19 08:52 Nitroglycerin (Ntg) 0.4 mg PRN PRN SL Prn Chest Pain 06/19/19 07:30 07/19/19 07:29 Ondansetron HCl (Zofran ODT) 4 mg Q6H PRN ORAL Nausea & Vomiting 06/19/19 08:00 07/19/19 07:59 Pantoprazole (Protonix) 40 mg EVERY 12 HOURS ORAL 06/19/19 21:00 07/19/19 20:59 06/21/19 08:51 Raltegravir (Isentress) 400 mg Q12HR ORAL 06/21/19 09:00 07/21/19 08:59 9/29/19 08:52 Ritonavir (Norvir) 100 mg DAILY ORAL 06/21/19 09:00 07/21/19 08:59 06/21/19 08:52 Sennosides (Senokot) 8.6 mg DAILYPRN PRN ORAL Constipation 06/20/19 19:15 07/20/19 19:14 Zidovudine (Retrovir) 300 mg DAILY ORAL 06/21/19 09:00 07/21/19 08:59 06/21/19 08:52 Francisco Salazar MD Jun 21, 2019 10:08
--- NOTE | 2019-06-21 15:18 | Nephrology Progress Note ---
Assessment/Plan Problem List: (1) ESRD (end stage renal disease) (2) Hypertensive kidney disease (3) ACS (acute coronary syndrome) (4) Diabetes mellitus Assessment Admitted with ACS On Dialysis for 13 years Has right chest permacath HTN DM HIV+ Plan BP meds with parameters HD 06/19 next 06/21 keep BS in control 2D Echo per cardiology Subjective ROS Limited/Unobtainable: No Objective Objective Last 24 Hour Vital Signs Date Time Temp Pulse Resp B/P (MAP) Pulse Ox O2 Delivery O2 Flow Rate FiO2 06/21/19 13:23 126/58 06/21/19 12:00 63 06/21/19 12:00 97.1 67 18 126/58 (80) 100 06/21/19 09:00 Room Air 06/21/19 08:52 67 141/81 06/21/19 08:52 67 141/81 06/21/19 08:51 67 141/81 06/21/19 08:51 141/81 06/21/19 08:05 69 19 96 Room Air 21 06/21/19 08:00 98.2 67 18 141/81 (101) 95 06/21/19 08:00 64 06/21/19 05:56 154/76 06/21/19 05:56 66 154/76 (102) 06/21/19 04:00 67 06/21/19 04:00 97.6 67 18 141/75 (97) 97 06/21/19 00:00 97.8 66 18 132/68 (89) 100 06/21/19 00:00 65 06/20/19 21:56 122/65 06/20/19 21:53 65 122/65 (84) 06/20/19 21:05 87 18 98 Room Air 21 06/20/19 20:57 Room Air 06/20/19 20:23 64 116/63 06/20/19 20:00 97.6 64 18 116/63 (80) 100 06/20/19 20:00 70 06/20/19 16:00 97.6 62 20 136/70 (92) 99 06/20/19 16:00 65 Intake and Output 06/20/19 06/21/19 19:00 07:00 Intake Total 620 ml 800 ml Output Total 350 ml 800 ml Balance 270 ml 0 ml Intake Oral 620 ml 800 ml Output Urine Total 350 ml 800 ml # Voids 2 1 Height (Feet): 5 Height (Inches): 7.00 Weight (Pounds): 228 General Appearance: no apparent distress Cardiovascular: normal rate Respiratory/Chest: decreased breath sounds Abdomen: soft Objective no change Toño Posada MD Jun 21, 2019 15:18
--- NOTE | 2019-06-21 15:18 | Cardiology Report ---
APPROVED REPORT EXAM: Two-dimensional and M-mode echocardiogram with Doppler and color Doppler. INDICATION Congestive Heart Failure M-Mode DIMENSIONS IVSd2.0 (0.7-1.1cm)Left Atrium (MM)3.9 (1.6-4.0cm) LVDd4.6 (3.5-5.6cm)Aortic Root3.4 (2.0-3.7cm) PWd1.7 (0.7-1.1cm)Aortic Cusp Exc.1.7 (1.5-2.0cm) LVDs3.3 (2.5-4.0cm) PWs1.5 cm Normal left ventricular chamber size, systolic function and wall motion. Left ventricular ejection fraction estimated to be 65 %. Mild left ventricular hypertrophy. No evidence of pericardial effusion. Mild bi-atrial enlargement by 2D. Right ventricular chamber sizes is within normal limits. Focal aortic valve sclerosis with adequate cusp excursion. Mildly thickened mitral valve leaflets with normal excursion. Mild mitral annulus and aortic root calcification. Pulmonic valve not well visualized. Normal tricuspid valve structure. IVC is normal in size with physiological collapse. A color flow and spectral Doppler study was performed and revealed: No aortic regurgitation. No mitral regurgitation. Mitral diastolic velocities suggest mild left ventricular diastolic dysfunction (Grade I). Trace tricuspid regurgitation. Tricuspid systolic velocities suggests peak right ventricular systolic pressure of 23 mmHg. Trace pulmonic regurgitation present.
--- NOTE | 2019-06-21 15:22 | Cardiology Report ---
APPROVED REPORT EKG Measurement Heart [id number] Normal sinus rhythm Possible Left atrial enlargement Rightward axis Incomplete right bundle branch block Borderline ECG
--- NOTE | 2019-06-21 15:22 | NUR ---
NURSE NOTES: Called [facility] nephrology tele [phone] spoke with Cath and informed patient schedule for HD today 06/21/[address] Posada.
--- NOTE | 2019-06-21 15:30 | General Progress Note ---
Assessment/Plan Problem List: (1) Electrolyte imbalance ICD Codes: E87.8 - Other disorders of electrolyte and fluid balance, not elsewhere classified SNOMED: 975979345 (2) Chest pain ICD Codes: R07.9 - Chest pain, unspecified SNOMED: 04453348 (3) Renal failure ICD Codes: N19 - Unspecified kidney failure SNOMED: 94698941 (4) ACS (acute coronary syndrome) ICD Codes: I24.9 - Acute ischemic heart disease, unspecified SNOMED: 449537977 (5) Diabetes mellitus ICD Codes: E11.9 - Type 2 diabetes mellitus without complications SNOMED: 68502229 (6) Hypertensive kidney disease ICD Codes: I12.9 - Hypertensive chronic kidney disease with stage 1 through stage 4 chronic kidney disease, or unspecified chronic kidney disease SNOMED: 86706269 (7) ESRD (end stage renal disease) ICD Codes: N18.6 - End stage renal disease SNOMED: 40648178 Status: progressing Assessment/Plan: no chest pain constipated r/o acs esrd on hd htn niddm sugar improving neg trop Subjective ROS Limited/Unobtainable: Yes Allergies: Coded Allergies: No Known Allergies (Verified , 02/11/12) Objective Last 24 Hour Vital Signs Date Time Temp Pulse Resp B/P (MAP) Pulse Ox O2 Delivery O2 Flow Rate FiO2 06/21/19 13:23 126/58 06/21/19 12:00 63 06/21/19 12:00 97.1 67 18 126/58 (80) 100 06/21/19 09:00 Room Air 06/21/19 08:52 67 141/81 06/21/19 08:52 67 141/81 06/21/19 08:51 67 141/81 06/21/19 08:51 141/81 06/21/19 08:05 69 19 96 Room Air 21 06/21/19 08:00 98.2 67 18 141/81 (101) 95 06/21/19 08:00 64 06/21/19 05:56 154/76 06/21/19 05:56 66 154/76 (102) 06/21/19 04:00 67 06/21/19 04:00 97.6 67 18 141/75 (97) 97 06/21/19 00:00 97.8 66 18 132/68 (89) 100 06/21/19 00:00 65 9/28/19 21:56 122/65 06/20/19 21:53 65 122/65 (84) 06/20/19 21:05 87 18 98 Room Air 21 06/20/19 20:57 Room Air 06/20/19 20:23 64 116/63 06/20/19 20:00 97.6 64 18 116/63 (80) 100 06/20/19 20:00 70 06/20/19 16:00 97.6 62 20 136/70 (92) 99 06/20/19 16:00 65 Intake and Output 06/20/19 06/21/19 19:00 07:00 Intake Total 620 ml 800 ml Output Total 350 ml 800 ml Balance 270 ml 0 ml Intake Oral 620 ml 800 ml Output Urine Total 350 ml 800 ml # Voids 2 1 Height (Feet): 5 Height (Inches): 7.00 Weight (Pounds): 228 Cardiovascular: normal rate Respiratory/Chest: lungs clear Abdomen: soft Daisy Bland MD Jun 21, 2019 15:30
--- NOTE | 2019-06-21 15:33 | NUR ---
NURSE NOTES: Called [facility] nephrology tele [phone] spoke with Srikanth and informed patient schedule for HD for tomorrow 06/22/[address] Posada.
--- NOTE | 2019-06-21 15:52 | NUR ---
NURSE NOTES: Per Joni Waddell myocardial perfusion study for tomorrow 06/22/19. Order noted, entered, carried out.
[2019-06-21] MEDS ORDERED: Lexiscan 0.4mg/5ml syringe IV PRN (16:00)
--- NOTE | 2019-06-21 19:20 | NUR ---
HAND-OFF: Report given to ERNIE Parikh.
--- NOTE | 2019-06-21 19:49 | NUR ---
NURSE NOTES: Received pt from ERNIE Olson. Pt asleep. Bed in lowest position. Call light within reach. Pt has No IV access. Will attempt when pt wakes up. Will continue to monitor.
--- NOTE | 2019-06-21 22:33 | Cardiology Progress Note ---
Assessment/Plan Assessment/Plan 1. Chest pain, atypical, AMI is ruled out. Myocardial perfusion imaging study for Saturday am. 12-lead electrocardiogram does not show any acute ischemic features. 2D echocardiogram was reviewed and essentially shows normal LV systolic function with LVEF approximately 60%. 2. Hypertension, well controlled. 3. History of asthma. 4. End-stage renal disease, on hemodialysis. 5. Chronic HFnlEF. Subjective Subjective Sinus rhythm at rate of 73. Objective Last 24 Hour Vital Signs Date Time Temp Pulse Resp B/P (MAP) Pulse Ox O2 Delivery O2 Flow Rate FiO2 06/21/19 21:52 73 107/78 06/21/19 20:59 73 20 7 Room Air 21 06/21/19 20:00 98.1 56 19 107/78 (88) 99 06/21/19 16:00 54 06/21/19 16:00 97.3 55 20 117/64 (81) 98 06/21/19 13:23 126/58 06/21/19 12:00 63 06/21/19 12:00 97.1 67 18 126/58 (80) 100 06/21/19 09:00 Room Air 06/21/19 08:52 67 141/81 06/21/19 08:52 67 141/81 06/21/19 08:51 67 141/81 06/21/19 08:51 141/81 06/21/19 08:05 69 19 96 Room Air 21 06/21/19 08:00 98.2 67 18 141/81 (101) 95 06/21/19 08:00 64 06/21/19 05:56 154/76 06/21/19 05:56 66 154/76 (102) 06/21/19 04:00 67 06/21/19 04:00 97.6 67 18 141/75 (97) 97 06/21/19 00:00 97.8 66 18 132/68 (89) 100 06/21/19 00:00 65 Intake and Output 06/20/19 06/21/19 18:59 06:59 Intake Total 620 ml 800 ml Output Total 350 ml 800 ml Balance 270 ml 0 ml Intake Oral 620 ml 800 ml Output Urine Total 350 ml 800 ml # Voids 2 1 2D Echo: LVEF 65%, Mod LVH, Grade I LVDD, RVSP 23 mmHg, DEYSI Microbiology Date/Time Source Procedure Growth Status 06/19/19 02:54 Nasal Nares MRSA Culture - Final NO METHICILLIN RESISTANT STAPH AUREUS... Complete 06/19/19 02:54 Rectum VRE Culture - Final NO VANCOMYCIN RESISTANT ENTEROCOCCUS ... Complete Objective HEENT: Normocephalic, anicteric, PERRLA, EOMI NECK: No JVD, no carotid bruit, carotid upstroke 2+ B/L HEART: Normal S1S2, no murmurs, gallops or rubs, Regular rate and rhythm. LUNGS: Clear to auscultation B/L. ABDOMEN: Soft, non-tender, obese, nondistended, + BS. EXTREMITIES: No edema, clubbing or cyanosis. Pavan Hanson MD Jun 21, 2019 22:33
[2019-06-22] VITALS: BP 117/58
[2019-06-22 04:00] VITALS: BP 122/66
[2019-06-22] MEDS: HydrALAZINE 50mg tab ORAL SCH ×3 (05:17→21:56)
--- NOTE | 2019-06-22 07:16 | NUR ---
NURSE NOTES: Received report from ERNIE Parikh. Patient in bed resting, no active s/s cardiac, respiratory distress noticed at this time. Patient AOx4, on room air, SB with 1st AVB with HR 54. No IV access at this time. Endorsed patient schedule for HD today 06/22/19, Stress test schedule for today. NATI AV fistula present thrill and bruit. Bed in lowest position, side rails upx3, call light within reach. Will continue to monitor.
--- NOTE | 2019-06-22 07:32 | NUR ---
HAND-OFF: Report given to ERNIE Olson. Pt stable.
--- NOTE | 2019-06-22 07:36 | NUR ---
NURSE NOTES: Called [facility] nephrology tele : [phone], spoke with Sha and informed patient schedule for HD today per Dr. Posada.
[2019-06-22 08:00] VITALS: BP 126/71
[2019-06-22] MEDS: Isentress 400mg tab ORAL SCH ×2 (08:44→21:56)
[2019-06-22] MEDS: Zidovudine 100mg cap ORAL SCH (08:44)
[2019-06-22] MEDS: Ritonavir 100mg tab ORAL SCH (08:44)
--- NOTE | 2019-06-22 08:57 | NUR ---
No IV access. Informed Wesley RN that pt will need IV access in order to have Lexiscan stress test.
[2019-06-22] MEDS: Metoprolol Tartrate 50mg tab ORAL SCH ×2 (09:00→21:50)
[2019-06-22] MEDS: Aspirin Baby 81mg ORAL SCH (09:00)
[2019-06-22] MEDS: Docusate 100mg cap ORAL SCH ×2 (09:00→17:40)
[2019-06-22] MEDS: Lactulose 20gm/30ml UDC ORAL SCH (09:00)
[2019-06-22] MEDS: Lisinopril 10mg tab ORAL SCH (09:00)
[2019-06-22] MEDS: NovoLOG Insulin Flexpen SUBQ SCH ×3 (09:00→17:38)
[2019-06-22] MEDS: EPIVIR 10 MG/ML ORAL SCH (09:00)
--- NOTE | 2019-06-22 11:15 | NUR ---
NURSE NOTES: Dr. Hanson made aware no IV obtainable with ED nurse, ICU nurse, early intervention specialist. Per Dr. Hanson, PICC line, mid line okay. Order noted, entered, carried out.
[2019-06-22] MEDS ORDERED: Heparin1,000 units/500ml Premix(Conc:2 units/ml) IV PRN (11:30)
[2019-06-22] MEDS ORDERED: Lidocaine 1% Plain 30 ml INJ PRN (11:30)
[2019-06-22 12:00] VITALS: BP 129/63
--- NOTE | 2019-06-22 12:00 | NUR ---
NURSE NOTES: Patient informed risk and disadvantages of not getting medication. Patient AOx4, refused medication.
--- NOTE | 2019-06-22 12:00 | NUR ---
NURSE NOTES: Dr. Hanson at the bedside, stated stress test will be done tomorrow.
--- NOTE | 2019-06-22 12:02 | NUR ---
*-* NO INSURANCE INFORMATION IN THE BAR UNABLE TO SEND CLINICALS OR REVIEWS *-*
--- NOTE | 2019-06-22 12:08 | NUR ---
*-* INSURANCE *-* ALL CLINICALS AND REVIEWS HAVE BEEN FAXED TO: [facility] REF# [id number] F: [phone]
--- NOTE | 2019-06-22 13:20 | Nephrology Progress Note ---
Assessment/Plan Problem List: (1) ESRD (end stage renal disease) (2) Hypertensive kidney disease (3) ACS (acute coronary syndrome) (4) Diabetes mellitus Assessment Admitted with ACS On Dialysis for 13 years Has right chest permacath HTN DM HIV+ Plan BP meds with parameters HD 06/19 next 06/22 keep BS in control 2D Echo per cardiology Subjective ROS Limited/Unobtainable: No Constitutional: Reports: malaise Objective Objective Last 24 Hour Vital Signs Date Time Temp Pulse Resp B/P (MAP) Pulse Ox O2 Delivery O2 Flow Rate FiO2 06/22/19 12:00 97.4 57 18 129/63 (85) 97 06/22/19 09:08 78 20 98 Room Air 21 06/22/19 09:00 54 126/71 06/22/19 09:00 126/71 06/22/19 09:00 Room Air 06/22/19 08:00 97.3 54 18 126/71 (89) 98 06/22/19 08:00 54 06/22/19 05:17 122/66 06/22/19 04:00 57 06/22/19 04:00 98.2 59 19 122/66 (84) 98 06/22/19 00:00 98.0 56 19 117/58 (77) 99 06/22/19 00:00 60 06/21/19 21:52 73 107/78 06/21/19 21:00 Room Air 06/21/19 20:59 73 20 7 Room Air 21 06/21/19 20:00 98.1 56 19 107/78 (88) 99 06/21/19 20:00 56 06/21/19 16:00 54 06/21/19 16:00 97.3 55 20 117/64 (81) 98 06/21/19 13:23 126/58 Intake and Output 06/21/19 06/22/19 19:00 07:00 Intake Total 270 ml Balance 270 ml Intake Oral 270 ml # Voids 1 Height (Feet): 5 Height (Inches): 7.00 Weight (Pounds): 228 General Appearance: no apparent distress Objective no change Toño Posada MD Jun 22, 2019 13:20
--- NOTE | 2019-06-22 13:28 | NUR ---
CASE MANAGEMENT: REVIEW 06/22/19 SI: ACUTE CORONARY SYNDROME, 97.3 54 18 126/71 98% RA IS: NORVIR PO QD RETROVIR PO QD ISENTRESS PO QD LOPRESSOR PO Q12H LISINOPRIL PO QD PROTONIX PO Q12 HYDRALAZINE PO Q8H GABAPENTIN PO QD NOVOLOG SQ TID LACTULOSE PO QD : TO 2E TELE UNIT DCP: RETURN TO [facility] PLAN: PICC LINE PLACEMENT [facility] HD TODAY Addendum: 06/22/19 at 1824 by Angelique Dickinson CM [employer]
--- NOTE | 2019-06-22 14:54 | NUR ---
RADIOLOGY NOTE: RIGHT UPPER EXTREMITY PICC PLACED.
[2019-06-22] MEDS: DiphenhydrAMINE 50mg/ml Inj IVP PRN (15:22)
[2019-06-22 16:00] VITALS: BP 130/68
--- NOTE | 2019-06-22 16:49 | Diagnostic Imaging Report ---
Indications: Needs long-term IV access Technique: Ultrasound confirms patent compressible right brachial vein. Total sterile technique, including sterile probe cover and sterile gel, hat, mask, sterile gown, large sterile drape, and preparation with 2% chlorhexidine utilized. Local anesthesia with 1% lidocaine. Under real-time ultrasound guidance, puncture brachial vein using 21-gauge needle, documented and archived, passage 0.018 guidewire under direct fluoroscopy, which was used to determine appropriate catheter length, exchange for 4 [place]grin peel-away sheath. 4 [place] Bard dual-lumen power PICC cut to 46 cm. It was inserted through the peel-away sheath. Peel-away sheath and guidewire removed. Catheter fixed to the skin. Both catheter ports aspirated and flushed. Patient tolerated procedure well, without immediate complication. Digital radiograph documents satisfactory catheter tip position, at the cavoatrial junction. Total fluoroscopy time 16.1 seconds. Total dose area product 0.78587 [id number] Total number of images: 1 Impression: Successful placement of right arm PICC under sonographic and fluoroscopic guidance, as described above.
--- NOTE | 2019-06-22 17:36 | NUR ---
NURSE NOTES: Patient tolerated HD well, 2.9L out.
--- NOTE | 2019-06-22 19:15 | NUR ---
HAND-OFF: Report given to ERNIE Parikh.
[2019-06-22 20:00] VITALS: BP 133/74
[2019-06-22] MEDS ORDERED: Dyna-Hex 2% Top Sol 2oz TOPIC SCH (20:00)
--- NOTE | 2019-06-22 20:09 | NUR ---
NURSE NOTES: Received pt from ERNIE Olson. Pt asleep, but easily arousable. Bed in lowest position. Call light within reach. Will continue to monitor.
--- NOTE | 2019-06-22 21:08 | General Progress Note ---
Assessment/Plan Problem List: (1) Electrolyte imbalance ICD Codes: E87.8 - Other disorders of electrolyte and fluid balance, not elsewhere classified SNOMED: 101902669 (2) Chest pain ICD Codes: R07.9 - Chest pain, unspecified SNOMED: 87295503 (3) Renal failure ICD Codes: N19 - Unspecified kidney failure SNOMED: 34491163 (4) ACS (acute coronary syndrome) ICD Codes: I24.9 - Acute ischemic heart disease, unspecified SNOMED: 942450169 (5) Diabetes mellitus ICD Codes: E11.9 - Type 2 diabetes mellitus without complications SNOMED: 59070603 (6) Hypertensive kidney disease ICD Codes: I12.9 - Hypertensive chronic kidney disease with stage 1 through stage 4 chronic kidney disease, or unspecified chronic kidney disease SNOMED: 01132256 (7) ESRD (end stage renal disease) ICD Codes: N18.6 - End stage renal disease SNOMED: 47130957 Status: progressing Assessment/Plan: no chest pain constipation got better reviewed chart and labs r/o acs esrd on hd htn niddm Subjective ROS Limited/Unobtainable: Yes Allergies: Coded Allergies: No Known Allergies (Verified , 02/11/12) Objective Last 24 Hour Vital Signs Date Time Temp Pulse Resp B/P (MAP) Pulse Ox O2 Delivery O2 Flow Rate FiO2 06/22/19 20:00 70 18 96 Room Air 21 06/22/19 16:00 97.2 65 18 130/68 (88) 98 06/22/19 16:00 67 06/22/19 14:00 129/63 06/22/19 12:00 97.4 57 18 129/63 (85) 97 06/22/19 12:00 57 06/22/19 09:08 78 20 98 Room Air 21 06/22/19 09:00 54 126/71 06/22/19 09:00 126/71 06/22/19 09:00 Room Air 06/22/19 08:00 97.3 54 18 126/71 (89) 98 06/22/19 08:00 54 06/22/19 05:17 122/66 06/22/19 04:00 57 06/22/19 04:00 98.2 59 19 122/66 (84) 98 06/22/19 00:00 98.0 56 19 117/58 (77) 99 06/22/19 00:00 60 06/21/19 21:52 73 107/78 Intake and Output 06/21/19 06/22/19 19:00 07:00 Intake Total 270 ml Balance 270 ml Intake Oral 270 ml # Voids 1 Height (Feet): 5 Height (Inches): 7.00 Weight (Pounds): 228 Neck: supple Cardiovascular: normal rate Respiratory/Chest: lungs clear Abdomen: soft Daisy Bland MD Jun 22, 2019 21:08
--- NOTE | 2019-06-22 23:18 | Cardiology Progress Note ---
Assessment/Plan Assessment/Plan 1. Chest pain, atypical, AMI is ruled out. Myocardial perfusion imaging study is delayed as we could not place a peripheral line. Order for mid line is in place. 12-lead electrocardiogram does not show any acute ischemic features. 2D echocardiogram was reviewed and essentially shows normal LV systolic function with LVEF approximately 60%. 2. Hypertension, well controlled. 3. History of asthma. 4. End-stage renal disease, on hemodialysis. 5. Chronic HFnlEF. Subjective Subjective Sinus rhythm at rate of 78. Objective Last 24 Hour Vital Signs Date Time Temp Pulse Resp B/P (MAP) Pulse Ox O2 Delivery O2 Flow Rate FiO2 06/22/19 21:56 133/74 06/22/19 21:50 78 133/74 06/22/19 20:00 70 18 96 Room Air 21 06/22/19 16:00 97.2 65 18 130/68 (88) 98 06/22/19 16:00 67 06/22/19 14:00 129/63 06/22/19 12:00 97.4 57 18 129/63 (85) 97 06/22/19 12:00 57 06/22/19 09:08 78 20 98 Room Air 21 06/22/19 09:00 54 126/71 06/22/19 09:00 126/71 06/22/19 09:00 Room Air 06/22/19 08:00 97.3 54 18 126/71 (89) 98 06/22/19 08:00 54 06/22/19 05:17 122/66 06/22/19 04:00 57 06/22/19 04:00 98.2 59 19 122/66 (84) 98 06/22/19 00:00 98.0 56 19 117/58 (77) 99 06/22/19 00:00 60 Intake and Output 06/21/19 06/22/19 19:00 07:00 Intake Total 270 ml Balance 270 ml Intake Oral 270 ml # Voids 1 2D Echo: LVEF 65%, Mod LVH, Grade I LVDD, RVSP 23 mmHg, DEYSI Objective HEENT: Normocephalic, anicteric, PERRLA, EOMI NECK: No JVD, no carotid bruit, carotid upstroke 2+ B/L HEART: Normal S1S2, no murmurs, gallops or rubs, Regular rate and rhythm. LUNGS: Clear to auscultation B/L. ABDOMEN: Soft, non-tender, obese, nondistended, + BS. EXTREMITIES: No edema, clubbing or cyanosis. Pavan Hanson MD Jun 22, 2019 23:18
[2019-06-23] VITALS: BP 134/76
[2019-06-23] MEDS: DiphenhydrAMINE 50mg/ml Inj IVP PRN (02:54)
[2019-06-23 04:00] VITALS: BP 113/68
[2019-06-23] MEDS: HydrALAZINE 50mg tab ORAL SCH ×2 (06:00→14:33)
--- NOTE | 2019-06-23 07:40 | NUR ---
NURSE NOTES: Nurse report given by ERNIE Parikh. Patient's sleeping in bed but easily awaken. AO x 4, denies pain, no s/s of distress or SOB. Denies feeling constipation, last BM was 06/14. Bed low and locked, call light within reach, side rails x 3, safety precaution is on. PICC line is on Right UA, no s/s of bleeding or infection, present with Left UA AV fistula. NPO for stress test. Will continue to monitor.
--- NOTE | 2019-06-23 07:45 | NUR ---
HAND-OFF: Report given to ERNIE Pérez. Pt stable.
[2019-06-23 08:00] VITALS: BP 119/60
[2019-06-23 08:27] LABS: HEMATOCRIT 33.4 % (42.0-52.0); HEMOGLOBIN 10.5 G/DL (14.2-18.0); MEAN CORPUSCULAR VOLUME 105 FL (80-99); PLATELET COUNT 95 K/UL (150-450); RED BLOOD COUNT 3.18 M/UL (4.70-6.10); RED CELL DISTRIBUTION WIDTH 17.4 % (11.6-14.8); WHITE BLOOD COUNT 5.5 K/UL (4.8-10.8)
[2019-06-23 08:30] LABS: ANION GAP 6 mmol/L (5-15); BLOOD UREA NITROGEN 47 mg/dL (7-18); CALCIUM 9.3 MG/DL (8.5-10.1); CARBON DIOXIDE 31 MMOL/L (21-32); CHLORIDE 103 MMOL/L (98-107); CREATININE 9.4 MG/DL (0.55-1.30); POTASSIUM 4.5 MMOL/L (3.5-5.1); SODIUM 140 MMOL/L (136-145)
--- NOTE | 2019-06-23 08:50 | NUR ---
NURSE NOTES: Patient's off the floor for stress test. Patient's in stable condition. Off tele order is acknowledged
[2019-06-23] MEDS: Metoprolol Tartrate 50mg tab ORAL SCH (09:00)
[2019-06-23] MEDS: NovoLOG Insulin Flexpen SUBQ SCH ×2 (09:00→13:00)
[2019-06-23] MEDS: Lisinopril 10mg tab ORAL SCH (09:00)
[2019-06-23] MEDS: Lactulose 20gm/30ml UDC ORAL SCH (10:00)
[2019-06-23] MEDS: Docusate 100mg cap ORAL SCH (10:00)
[2019-06-23] MEDS: Aspirin Baby 81mg ORAL SCH (10:00)
[2019-06-23] MEDS: Isentress 400mg tab ORAL SCH (10:01)
[2019-06-23] MEDS: Zidovudine 100mg cap ORAL SCH (10:01)
[2019-06-23] MEDS: EPIVIR 10 MG/ML ORAL SCH (10:01)
[2019-06-23] MEDS: Ritonavir 100mg tab ORAL SCH (10:02)
--- NOTE | 2019-06-23 10:16 | Infectious Diseases Prog Note ---
Assessment/Plan Assessment/Plan IMPRESSION: 1. HIV goes to [facility] for treatment 2. Chest pain, resolved 3. Diabetes mellitus. 4. Anemia. 5. thrombocytopenia RECOMMENDATIONS: We will continue with anti-retroviral treatment with current medications of lamivudine, zidovudine, Prezista, and ritonavir. Will have cardiac stress test today Subjective ROS Limited/Unobtainable: No Gastrointestinal/Abdominal: Reports: no symptoms Genitourinary: Reports: no symptoms Musculoskeletal: Reports: pain, other - in legs Allergies: Coded Allergies: No Known Allergies (Verified , 02/11/12) Objective Vital Signs Last 24 Hour Vital Signs Date Time Temp Pulse Resp B/P (MAP) Pulse Ox O2 Delivery O2 Flow Rate FiO2 06/23/19 09:00 119/60 06/23/19 08:00 97.7 71 17 119/60 (79) 97 06/23/19 06:00 113/68 06/23/19 04:00 97.8 69 19 113/68 (83) 92 06/23/19 04:00 68 06/23/19 00:00 98.2 76 19 134/76 (95) 100 06/23/19 00:00 69 06/22/19 21:56 133/74 06/22/19 21:50 78 133/74 06/22/19 21:00 Room Air 06/22/19 20:00 98.5 78 19 133/74 (93) 100 06/22/19 20:00 77 06/22/19 20:00 70 18 96 Room Air 21 06/22/19 16:00 97.2 65 18 130/68 (88) 98 06/22/19 16:00 67 06/22/19 14:00 129/63 06/22/19 12:00 97.4 57 18 129/63 (85) 97 06/22/19 12:00 57 Height (Feet): 5 Height (Inches): 7.00 Weight (Pounds): 228 General Appearance: no acute distress HEENT: mucous membranes moist Abdomen: soft, non tender Extremities: no edema Neurologic/Psychiatric: alert, oriented x 3, responsive Laboratory Tests Test 06/23/19 08:00 White Blood Count 5.5 K/UL (4.8-10.8) Red Blood Count 3.18 M/UL (4.70-6.10) L Hemoglobin 10.5 G/DL (14.2-18.0) L Hematocrit 33.4 % (42.0-52.0) L Mean Corpuscular Volume 105 FL (80-99) H Mean Corpuscular Hemoglobin 33.0 PG (27.0-31.0) H Mean Corpuscular Hemoglobin Concent 31.4 G/DL (32.0-36.0) L Red Cell Distribution Width 17.4 % (11.6-14.8) H Platelet Count 95 K/UL (150-450) L Mean Platelet Volume 8.1 FL (6.5-10.1) Neutrophils (%) (Auto) % (45.0-75.0) Lymphocytes (%) (Auto) % (20.0-45.0) Monocytes (%) (Auto) % (1.0-10.0) Eosinophils (%) (Auto) % (0.0-3.0) Basophils (%) (Auto) % (0.0-2.0) Differential Total Cells Counted 100 Neutrophils % (Manual) 38 % (45-75) L Lymphocytes % (Manual) 47 % (20-45) H Monocytes % (Manual) 7 % (1-10) Eosinophils % (Manual) 8 % (0-3) H Basophils % (Manual) 0 % (0-2) Band Neutrophils 0 % (0-8) Platelet Estimate Decreased L Platelet Morphology Normal Anisocytosis 1+ Sodium Level 140 MMOL/L (136-145) Potassium Level 4.5 MMOL/L (3.5-5.1) Chloride Level 103 MMOL/L (98-107) Carbon Dioxide Level 31 MMOL/L (21-32) Anion Gap 6 mmol/L (5-15) Blood Urea Nitrogen 47 mg/dL (7-18) H Creatinine 9.4 MG/DL (0.55-1.30) H Estimat Glomerular Filtration Rate 7.0 mL/min (>60) Glucose Level 78 MG/DL (74-106) Calcium Level 9.3 MG/DL (8.5-10.1) Current Medications Medications (Trade) Dose Ordered Sig/Twyla Route PRN Reason Start Time Stop Time Status Last Admin Dose Admin Acetaminophen/ Hydrocodone Bitart ([place] 5/325) 1 tab Q4H PRN ORAL For Pain 06/19/19 07:30 06/26/19 07:29 06/20/19 18:00 Albuterol/ Ipratropium (Albuterol/ Ipratropium) 3 ml Q4H PRN HHN Shortness of Breath 06/19/19 07:30 06/24/19 07:29 Amitriptyline HCl (Elavil) 75 mg BEDTIME ORAL 06/19/19 21:00 07/19/19 20:59 06/22/19 21:55 Aspirin (ASA) 81 mg DAILY ORAL 06/19/19 09:00 07/19/19 08:59 06/23/19 10:00 Bisacodyl (Dulcolax) 10 mg DAILYPRN PRN ORAL Constipation 06/20/19 19:15 07/20/19 19:14 Chlorhexidine Gluconate (Anne-Hex 2%) 1 applic DAILY@1999 TOPIC 06/22/19 20:00 07/22/19 19:59 06/22/19 23:16 Clonidine HCl (Catapres Tab) 0.1 mg Q6H PRN ORAL For High Blood Pressure 06/19/19 10:15 07/19/19 10:14 Clopidogrel Bisulfate (Plavix) 75 mg DAILY ORAL 06/19/19 09:00 07/19/19 08:59 06/22/19 09:28 Darunavir (Prezista) 800 mg DAILY ORAL 06/21/19 09:00 07/21/19 08:59 06/23/19 10:01 Diphenhydramine HCl (Benadryl) 25 mg Q4H PRN ORAL Itching 06/19/19 07:30 07/19/19 07:29 06/19/19 08:42 Diphenhydramine HCl (Benadryl) 50 mg PRN PRN IVP Itching with dialysis 06/19/19 13:30 07/19/19 13:29 06/23/19 02:54 Docusate Sodium (Colace) 100 mg TWICE A DAY ORAL 06/20/19 20:00 07/20/19 19:59 06/23/19 10:00 Gabapentin (Neurontin) 100 mg THREE TIMES A DAY ORAL 06/19/19 09:00 07/19/19 08:59 06/23/19 10:00 Guaifenesin (Robitussin) 10 mg Q4H PRN ORAL For Cough 06/19/19 07:30 07/19/19 07:29 Hydralazine HCl (Apresoline) 50 mg Q8HR ORAL 06/19/19 14:00 07/19/19 08:59 06/22/19 21:56 Insulin Aspart (NovoLOG) 10 units TID SUBQ 06/19/19 09:00 07/19/19 08:59 Lactulose (Cephulac) 20 gm DAILY ORAL 06/19/19 09:00 07/19/19 08:59 06/23/19 10:00 Lamivudine (Epivir) 50 mg DAILY ORAL 06/21/19 09:00 07/21/19 08:59 06/23/19 10:01 Lisinopril (Zestril) 10 mg DAILY ORAL 06/20/19 09:00 07/19/19 08:59 06/21/19 08:51 Metoprolol Tartrate (Lopressor) 50 mg Q12HR ORAL 06/22/19 09:00 07/22/19 08:59 06/22/19 21:50 Nitroglycerin (Ntg) 0.4 mg PRN PRN SL Prn Chest Pain 06/19/19 07:30 07/19/19 07:29 Ondansetron HCl (Zofran ODT) 4 mg Q6H PRN ORAL Nausea & Vomiting 06/19/19 08:00 07/19/19 07:59 Pantoprazole (Protonix) 40 mg EVERY 12 HOURS ORAL 06/19/19 21:00 07/19/19 20:59 06/23/19 10:00 Raltegravir (Isentress) 400 mg Q12HR ORAL 06/21/19 09:00 07/21/19 08:59 06/23/19 10:01 Regadenoson (Lexiscan) 0.4 mg ONCE PRN IV STRESS TEST 06/21/19 16:00 06/23/19 23:59 Ritonavir (Norvir) 100 mg DAILY ORAL 06/21/19 09:00 07/21/19 08:59 06/23/19 10:02 Sennosides (Senokot) 8.6 mg DAILYPRN PRN ORAL Constipation 06/20/19 19:15 07/20/19 19:14 Zidovudine (Retrovir) 300 mg DAILY ORAL 06/21/19 09:00 07/21/19 08:59 06/23/19 10:01 Francisco Salazar MD Jun 23, 2019 10:16
[2019-06-23 11:57] VITALS: BP 133/55
--- NOTE | 2019-06-23 12:37 | Nephrology Progress Note ---
Assessment/Plan Problem List: (1) ESRD (end stage renal disease) (2) Hypertensive kidney disease (3) ACS (acute coronary syndrome) (4) Diabetes mellitus Assessment Admitted with ACS On Dialysis for 13 years Has right chest permacath HTN DM HIV+ Plan BP meds with parameters HD 06/24 next keep BS in control 2D Echo Left ventricular ejection fraction estimated to be 65 %. per cardiology Subjective ROS Limited/Unobtainable: No Constitutional: Reports: malaise Objective Objective Last 24 Hour Vital Signs Date Time Temp Pulse Resp B/P (MAP) Pulse Ox O2 Delivery O2 Flow Rate FiO2 06/23/19 11:57 97.9 60 20 133/55 (81) 99 06/23/19 09:00 71 06/23/19 09:00 119/60 06/23/19 09:00 Room Air 06/23/19 08:00 97.7 71 17 119/60 (79) 97 06/23/19 06:00 113/68 06/23/19 04:00 97.8 69 19 113/68 (83) 92 06/23/19 04:00 68 06/23/19 00:00 98.2 76 19 134/76 (95) 100 06/23/19 00:00 69 06/22/19 21:56 133/74 06/22/19 21:50 78 133/74 06/22/19 21:00 Room Air 06/22/19 20:00 98.5 78 19 133/74 (93) 100 06/22/19 20:00 77 06/22/19 20:00 70 18 96 Room Air 21 06/22/19 16:00 97.2 65 18 130/68 (88) 98 06/22/19 16:00 67 06/22/19 14:00 129/63 Intake and Output 06/22/19 06/23/19 19:00 07:00 Intake Total 240 ml Output Total 2900 ml Balance -2660 ml Intake Oral 240 ml Hemodialysis UF 2900 ml Laboratory Tests 06/23/19 08:00: White Blood Count 5.5, Red Blood Count 3.18L, Hemoglobin 10.5L, Hematocrit 33.4L , Mean Corpuscular Volume 105H, Mean Corpuscular Hemoglobin 33.0H, Mean Corpuscular Hemoglobin Concent 31.4L, Red Cell Distribution Width 17.4H, Platelet Count 95L, Mean Platelet Volume 8.1, Neutrophils (%) (Auto) , Lymphocytes (%) (Auto) , Monocytes (%) (Auto) , Eosinophils (%) (Auto) , Basophils (%) (Auto) , Differential Total Cells Counted 100, Neutrophils % ( Manual) 38L, Lymphocytes % (Manual) 47H, Monocytes % (Manual) 7, Eosinophils % ( Manual) 8H, Basophils % (Manual) 0, Band Neutrophils 0, Platelet Estimate DecreasedL, Platelet Morphology Normal, Anisocytosis 1+, Sodium Level 140, Potassium Level 4.5, Chloride Level 103, Carbon Dioxide Level 31, Anion Gap 6, Blood Urea Nitrogen 47H, Creatinine 9.4H, Estimat Glomerular Filtration Rate 7.0 , Glucose Level 78, Calcium Level 9.3 Height (Feet): 5 Height (Inches): 7.00 Weight (Pounds): 228 General Appearance: no apparent distress Objective no change Toño Posada MD Jun 23, 2019 12:37
--- NOTE | 2019-06-23 13:27 | Hematology/Onc Progress Note ---
Assessment/Plan Assessment/Plan # Anemia of chronic disease due to underlying chronic medical issues, multifactorial --> Anemia workup has been ordered, rule out gi bleed --> No evidence of hemolysis is noted, peripheral smear has been reviewed. --> Hgb goal >7. Transfuse prn. --> Epogen and IRON are indicated can be started if the hgb <10 in future --> Medications have been reviewed --> low threshold for gi evaluation in case has occult + --> ferritin is 386, tibc is 287 # Hyperproteinemia -- with a elevated b2 globulin --> spep has been ordered, pending results --> in the past had a isolated elevation of b2 globulin in 2011 # Thrombocytopenia is due to hiv --> trend as needed 82k --> us of abd ordered # Admitted with ACS --> per renal r/o acs # ESRD on Dialysis for 13 years --> with a right chest permacath --> continue 3x a week # HTN --> sbp goal <150 # DM2 # HIV+ --> restarted on meds Greatly appreciate consultation. Subjective Constitutional: Denies: no symptoms, chills, fever, malaise, weakness, other HEENT: Denies: no symptoms, eye pain, blurred vision, tearing, double vision, ear pain, ear discharge, nose pain, nose congestion, throat pain, throat swelling, mouth pain, mouth swelling, other Cardiovascular: Denies: no symptoms, chest pain, edema, irregular heart rate, lightheadedness, palpitations, syncope, other Respiratory: Denies: no symptoms, cough, shortness of breath, SOB with excertion, SOB at rest, sputum, wheezing, other Gastrointestinal/Abdominal: Denies: no symptoms, abdomen distended, abdominal pain, black stools, tarry stools, blood in stool, constipated, diarrhea, difficulty swallowing, nausea, poor appetite, poor fluid intake, rectal bleeding , vomiting, other Genitourinary: Denies: no symptoms, burning, discharge, frequency, flank pain, hematuria, incontinence, pain, urgency, other Neurologic/Psychiatric: Denies: no symptoms, anxiety, depressed, emotional problems, headache, numbness, paresthesia, pre-existing deficit, seizure, tingling, tremors, weakness, other Endocrine: Denies: no symptoms, excessive sweating, flushing, intolerance to cold, intolerance to heat, increased hunger, increased thirst, increased urine, unexplained weight gain, unexplained weight loss, other Hematologic/Lymphatic: Denies: no symptoms, anemia, easy bleeding, easy bruising, adenopathy, other Allergies: Coded Allergies: No Known Allergies (Verified , 02/11/12) Subjective 06/23: no bleeding, chills, labs noted Objective Objective Current Medications Medications (Trade) Dose Ordered Sig/Twyla Route PRN Reason Start Time Stop Time Status Last Admin Dose Admin Acetaminophen/ Hydrocodone Bitart (Dovray 5/325) 1 tab Q4H PRN ORAL For Pain 06/19/19 07:30 06/26/19 07:29 06/20/19 18:00 Albuterol/ Ipratropium (Albuterol/ Ipratropium) 3 ml Q4H PRN HHN Shortness of Breath 06/19/19 07:30 06/24/19 07:29 Amitriptyline HCl (Elavil) 75 mg BEDTIME ORAL 06/19/19 21:00 07/19/19 20:59 06/22/19 21:55 Aspirin (ASA) 81 mg DAILY ORAL 06/19/19 09:00 07/19/19 08:59 06/23/19 10:00 Bisacodyl (Dulcolax) 10 mg DAILYPRN PRN ORAL Constipation 06/20/19 19:15 07/20/19 19:14 Chlorhexidine Gluconate (Anne-Hex 2%) 1 applic DAILY@2000 TOPIC 06/22/19 20:00 07/22/19 19:59 06/22/19 23:16 Clonidine HCl (Catapres Tab) 0.1 mg Q6H PRN ORAL For High Blood Pressure 06/19/19 10:15 07/19/19 10:14 Clopidogrel Bisulfate (Plavix) 75 mg DAILY ORAL 06/19/19 09:00 07/19/19 08:59 06/22/19 09:28 Darunavir (Prezista) 800 mg DAILY ORAL 06/21/19 09:00 07/21/19 08:59 06/23/19 10:01 Diphenhydramine HCl (Benadryl) 25 mg Q4H PRN ORAL Itching 06/19/19 07:30 07/19/19 07:29 06/19/19 08:42 Diphenhydramine HCl (Benadryl) 50 mg PRN PRN IVP Itching with dialysis 06/19/19 13:30 07/19/19 13:29 06/23/19 02:54 Docusate Sodium (Colace) 100 mg TWICE A DAY ORAL 06/20/19 20:00 07/20/19 19:59 06/23/19 10:00 Gabapentin (Neurontin) 100 mg THREE TIMES A DAY ORAL 06/19/19 09:00 07/19/19 08:59 06/23/19 10:00 Guaifenesin (Robitussin) 10 mg Q4H PRN ORAL For Cough 06/19/19 07:30 07/19/19 07:29 Hydralazine HCl (Apresoline) 50 mg Q8HR ORAL 06/19/19 14:00 07/19/19 08:59 06/22/19 21:56 Insulin Aspart (NovoLOG) 10 units TID SUBQ 06/19/19 09:00 07/19/19 08:59 Lactulose (Cephulac) 20 gm DAILY ORAL 06/19/19 09:00 07/19/19 08:59 06/23/19 10:00 Lamivudine (Epivir) 50 mg DAILY ORAL 06/21/19 09:00 07/21/19 08:59 06/23/19 10:01 Lisinopril (Zestril) 10 mg DAILY ORAL 06/20/19 09:00 07/19/19 08:59 06/21/19 08:51 Metoprolol Tartrate (Lopressor) 50 mg Q12HR ORAL 06/22/19 09:00 07/22/19 08:59 06/22/19 21:50 Nitroglycerin (Ntg) 0.4 mg PRN PRN SL Prn Chest Pain 06/19/19 07:30 07/19/19 07:29 Ondansetron HCl (Zofran ODT) 4 mg Q6H PRN ORAL Nausea & Vomiting 06/19/19 08:00 07/19/19 07:59 Pantoprazole (Protonix) 40 mg EVERY 12 HOURS ORAL 06/19/19 21:00 07/19/19 20:59 06/23/19 10:00 Raltegravir (Isentress) 400 mg Q12HR ORAL 06/21/19 09:00 07/21/19 08:59 06/23/19 10:01 Regadenoson (Lexiscan) 0.4 mg ONCE PRN IV STRESS TEST 06/21/19 16:00 06/23/19 23:59 Ritonavir (Norvir) 100 mg DAILY ORAL 06/21/19 09:00 07/21/19 08:59 06/23/19 10:02 Sennosides (Senokot) 8.6 mg DAILYPRN PRN ORAL Constipation 06/20/19 19:15 07/20/19 19:14 Zidovudine (Retrovir) 300 mg DAILY ORAL 06/21/19 09:00 07/21/19 08:59 06/23/19 10:01 Last 24 Hour Vital Signs Date Time Temp Pulse Resp B/P (MAP) Pulse Ox O2 Delivery O2 Flow Rate FiO2 06/23/19 11:57 97.9 60 20 133/55 (81) 99 06/23/19 09:00 71 06/23/19 09:00 119/60 06/23/19 09:00 Room Air 06/23/19 08:00 97.7 71 17 119/60 (79) 97 06/23/19 06:00 113/68 06/23/19 04:00 97.8 69 19 113/68 (83) 92 06/23/19 04:00 68 06/23/19 00:00 98.2 76 19 134/76 (95) 100 06/23/19 00:00 69 06/22/19 21:56 133/74 06/22/19 21:50 78 133/74 06/22/19 21:00 Room Air 06/22/19 20:00 98.5 78 19 133/74 (93) 100 06/22/19 20:00 77 06/22/19 20:00 70 18 96 Room Air 21 06/22/19 16:00 97.2 65 18 130/68 (88) 98 06/22/19 16:00 67 06/22/19 14:00 129/63 06/22/19 12:00 97.4 57 18 129/63 (85) 97 06/22/19 12:00 57 06/22/19 09:08 78 20 98 Room Air 21 06/22/19 09:00 54 126/71 06/22/19 09:00 126/71 06/22/19 09:00 Room Air 06/22/19 08:00 97.3 54 18 126/71 (89) 98 06/22/19 08:00 54 06/22/19 05:17 122/66 06/22/19 04:00 57 06/22/19 04:00 98.2 59 19 122/66 (84) 98 06/22/19 00:00 98.0 56 19 117/58 (77) 99 06/22/19 00:00 60 06/21/19 21:52 73 107/78 06/21/19 21:00 Room Air 06/21/19 20:59 73 20 7 Room Air 21 06/21/19 20:00 98.1 56 19 107/78 (88) 99 06/21/19 20:00 56 06/21/19 16:00 54 06/21/19 16:00 97.3 55 20 117/64 (81) 98 06/21/19 13:23 126/58 Intake and Output 06/22/19 06/23/19 19:00 07:00 Intake Total 240 ml Output Total 2900 ml Balance -2660 ml Intake Oral 240 ml Hemodialysis UF 2900 ml Labs Test 06/23/19 08:00 White Blood Count 5.5 K/UL (4.8-10.8) Red Blood Count 3.18 M/UL (4.70-6.10) Hemoglobin 10.5 G/DL (14.2-18.0) Hematocrit 33.4 % (42.0-52.0) Mean Corpuscular Volume 105 FL (80-99) Mean Corpuscular Hemoglobin 33.0 PG (27.0-31.0) Mean Corpuscular Hemoglobin Concent 31.4 G/DL (32.0-36.0) Red Cell Distribution Width 17.4 % (11.6-14.8) Platelet Count 95 K/UL (150-450) Mean Platelet Volume 8.1 FL (6.5-10.1) Neutrophils (%) (Auto) % (45.0-75.0) Lymphocytes (%) (Auto) % (20.0-45.0) Monocytes (%) (Auto) % (1.0-10.0) Eosinophils (%) (Auto) % (0.0-3.0) Basophils (%) (Auto) % (0.0-2.0) Differential Total Cells Counted 100 Neutrophils % (Manual) 38 % (45-75) Lymphocytes % (Manual) 47 % (20-45) Monocytes % (Manual) 7 % (1-10) Eosinophils % (Manual) 8 % (0-3) Basophils % (Manual) 0 % (0-2) Band Neutrophils 0 % (0-8) Platelet Estimate Decreased Platelet Morphology Normal Anisocytosis 1+ Sodium Level 140 MMOL/L (136-145) Potassium Level 4.5 MMOL/L (3.5-5.1) Chloride Level 103 MMOL/L (98-107) Carbon Dioxide Level 31 MMOL/L (21-32) Anion Gap 6 mmol/L (5-15) Blood Urea Nitrogen 47 mg/dL (7-18) Creatinine 9.4 MG/DL (0.55-1.30) Estimat Glomerular Filtration Rate 7.0 mL/min (>60) Glucose Level 78 MG/DL (74-106) Calcium Level 9.3 MG/DL (8.5-10.1) Height (Feet): 5 Height (Inches): 7.00 Weight (Pounds): 228 Objective Physical Exam: Vitals: reviewed General Appearance: NAD HEENT: normocephalic, atraumatic Neck: non-tender, normal alignment Respiratory/Chest: normal breath sounds bilaterally Cardiovascular/Chest: normal peripheral pulses, normal rate Abdomen: normal bowel sounds, soft, nontender Extremities: normal range of motion Ishaan Madera MD Jun 23, 2019 13:27
--- NOTE | 2019-06-23 15:03 | NUR ---
DISCHARGE PLANNED: NURSE DISCUSSED DISCHARGE WITH PATIENT PATIENT RETURNING TO [facility] ROOM: [address] SKILLED T: [phone] FOR NURSE TO NURSE REPORT F: [phone] [facility] HAS BEEN SET UP FOR WILL CALL
--- NOTE | 2019-06-23 15:28 | NUR ---
NM Myocardial Perfusion Scan complete.
--- NOTE | 2019-06-23 15:48 | Diagnostic Imaging Report ---
Indications: 58-year-old male with chest pain Technique: Single day single isotope protocol utilized. Initially, resting images obtained using IV administration 10.4 millicuries 99M technetium Myoview. Subsequently, patient underwent lexiscan stress testing. See cardiology report for details. During Lexiscan infusion, IV administration 32 mCi 99 M technetium Myoview. SPECT and planar images obtained. SPECT images gated to 8 phases of the cardiac cycle were also obtained, and reformatted into cine images for evaluation of ejection fraction. Comparison: 05/02/2018 Findings: Presence or absence of symptoms during infusion is not described on the cardiology report. Per cardiology report, resting EKG demonstrates normal sinus rhythm. Presence or absence of ST-T wave changes during infusion is not described on the cardiology report. Imaging demonstrates normal poststress perfusion. No fixed nor reversible post stress perfusion defects are demonstrated. Normal cardiac chamber size.. Calculated post stress ejection fraction 62%. No focal wall motion abnormality is seen on the gated images. When compared to the prior study, there is no significant interim change. Note, however, the prior exam was a limited resting only study. Impression: Nonischemic clinical response to pharmacologic stress, per cardiology report Nonischemic electrocardiographic response to pharmacologic stress, per cardiology report No imaging findings to suggest ischemia, at level of stress achieved. Calculated post stress ejection fraction 62%
--- NOTE | 2019-06-23 15:49 | NUR ---
NURSE NOTES: Spoke to ERNIE Garcia from [facility] about patient's getting discharged and going back to the half-way by [facility]. Nurse report was given by telephone.
[2019-06-23 16:00] VITALS: BP 102/62
--- NOTE | 2019-06-23 18:20 | NUR ---
NURSE NOTES: Patient's discharged per Dr. Bland's order. Discharge document is documented. Patient's belonging list and discharge paper went over with patient and signed by patient and nurse at bedside. potline monitor is removed, ID band is disposed properly, PICC line is removed per Dr Bland's order, no sign of active bleeding after removal, PICC line catheter tip is intact. Patient's stable condition, AO x 4, ambulates, no s/s of distress or SOB. Patient was schedule for 1630 pickup, and [facility] picked the patient up at 1820. Medications were picked up from the pharmacy and bring with the patient back to half-way. Patient's off the floor at 1820. Charge nurse aware.
--- NOTE | 2019-06-23 19:11 | Cardiology Progress Note ---
Assessment/Plan Assessment/Plan 1. Chest pain, atypical, AMI is ruled out. Myocardial perfusion imaging study is non-ischemic. LVEF is approximately 60%. 2. Hypertension, well controlled. Continue metoprolol, lisinopril and hydralazine. 3. History of asthma. 4. End-stage renal disease, on hemodialysis. 5. Chronic HFnlEF. Subjective Subjective Sinus rhythm at rate of 81. Objective Last 24 Hour Vital Signs Date Time Temp Pulse Resp B/P (MAP) Pulse Ox O2 Delivery O2 Flow Rate FiO2 06/23/19 16:00 81 06/23/19 16:00 97.1 66 19 102/62 (75) 97 06/23/19 14:33 133/55 06/23/19 13:22 72 18 97 Room Air 21 06/23/19 12:00 74 06/23/19 11:57 97.9 60 20 133/55 (81) 99 06/23/19 09:00 71 06/23/19 09:00 119/60 06/23/19 09:00 Room Air 06/23/19 08:00 97.7 71 17 119/60 (79) 97 06/23/19 06:00 113/68 06/23/19 04:00 97.8 69 19 113/68 (83) 92 06/23/19 04:00 68 06/23/19 00:00 98.2 76 19 134/76 (95) 100 06/23/19 00:00 69 06/22/19 21:56 133/74 06/22/19 21:50 78 133/74 06/22/19 21:00 Room Air 06/22/19 20:00 98.5 78 19 133/74 (93) 100 06/22/19 20:00 77 06/22/19 20:00 70 18 96 Room Air 21 Intake and Output 06/22/19 06/23/19 19:00 07:00 Intake Total 240 ml Output Total 2900 ml Balance -2660 ml Intake Oral 240 ml Hemodialysis UF 2900 ml 2D Echo: LVEF 65%, Mod LVH, Grade I LVDD, RVSP 23 mmHg, DEYSI Laboratory Tests Test 06/23/19 06:30 06/23/19 08:00 Total Protein (PEP) Pending Albumin (PEP) Pending Globulin (PEP) Pending Albumin/Globulin Ratio Pending [id number] Pending [id number] Pending Beta Globulins Pending Beta Gamma Globulin Pending PEP Abnormal Protein Bands Pending Protein Electrophoresis Interpret Pending White Blood Count 5.5 K/UL (4.8-10.8) Red Blood Count 3.18 M/UL (4.70-6.10) L Hemoglobin 10.5 G/DL (14.2-18.0) L Hematocrit 33.4 % (42.0-52.0) L Mean Corpuscular Volume 105 FL (80-99) H Mean Corpuscular Hemoglobin 33.0 PG (27.0-31.0) H Mean Corpuscular Hemoglobin Concent 31.4 G/DL (32.0-36.0) L Red Cell Distribution Width 17.4 % (11.6-14.8) H Platelet Count 95 K/UL (150-450) L Mean Platelet Volume 8.1 FL (6.5-10.1) Neutrophils (%) (Auto) % (45.0-75.0) Lymphocytes (%) (Auto) % (20.0-45.0) Monocytes (%) (Auto) % (1.0-10.0) Eosinophils (%) (Auto) % (0.0-3.0) Basophils (%) (Auto) % (0.0-2.0) Differential Total Cells Counted 100 Neutrophils % (Manual) 38 % (45-75) L Lymphocytes % (Manual) 47 % (20-45) H Monocytes % (Manual) 7 % (1-10) Eosinophils % (Manual) 8 % (0-3) H Basophils % (Manual) 0 % (0-2) Band Neutrophils 0 % (0-8) Platelet Estimate Decreased L Platelet Morphology Normal Anisocytosis 1+ Sodium Level 140 MMOL/L (136-145) Potassium Level 4.5 MMOL/L (3.5-5.1) Chloride Level 103 MMOL/L (98-107) Carbon Dioxide Level 31 MMOL/L (21-32) Anion Gap 6 mmol/L (5-15) Blood Urea Nitrogen 47 mg/dL (7-18) H Creatinine 9.4 MG/DL (0.55-1.30) H Estimat Glomerular Filtration Rate 7.0 mL/min (>60) Glucose Level 78 MG/DL (74-106) Calcium Level 9.3 MG/DL (8.5-10.1) Objective HEENT: Normocephalic, anicteric, PERRLA, EOMI NECK: No JVD, no carotid bruit, carotid upstroke 2+ B/L HEART: Normal S1S2, no murmurs, gallops or rubs, Regular rate and rhythm. LUNGS: Clear to auscultation B/L. ABDOMEN: Soft, non-tender, obese, nondistended, + BS. EXTREMITIES: No edema, clubbing or cyanosis. Pavan Hanson MD Jun 23, 2019 19:11
--- NOTE | 2019-06-24 06:58 | Discharge Summary ---
Discharge Summary Discharge Summary _ DATE OF ADMISSION: 06/19/2019 DATE OF DISCHARGE: 06/23/2019 DISCHARGED BY: REASON FOR ADMISSION: 58 years old male with past medical history of hypertension, asthma, end-stage renal disease, on hemodialysis, coronary artery disease, hypercholesterolemia, HIV, presented from the [facility] facility with complaint of midsternal, 5 out of 10 chest pain with radiation to neck and upper back area. Patient did not have relief from nitroglycerin and aspirin en route to the hospital. He denied vomiting or diarrhea. He denied any focal weakness. He denied any change in position or exertion. Laboratory work-up revealed no leukocytosis, hemoglobin 10.4, hematocrit 33.3. Platelet count 115. Potassium 5.2. BUN 25, creatinine 7.8, consistent with known history of end-stage renal disease. Glucose 97. Stable LFT. Troponin- 0.057. EKG revealed incomplete right bundle branch block with normal sinus rhythm, no acute ischemic changes, pro BNP 8176. Chest x-ray demonstrated no acute cardiopulmonary pathology. Hyperkalemia was treated in the emergency department. Patient subsequently admitted to telemetry floor for further management. CONSULTANTS: applications architect Dr. Valentin FAJARDO specialist Dr. Schultz cane pusher Dr. Posada wet machine operator/oncologist Dr. Madera [facility]SE: Patient admitted to monitored floor. Two consecutive troponin were negative. EKG revealed no acute ischemic changes. Patient was rule out for acute myocardial infarction. Echocardiogram demonstrated preserved ejection fraction of 65% with mild left ventricular hypertrophy. No evidence of wall motion abnormality. Nuclear stress test was nonischemic. Per cardiology, chest pain was atypical. Antiplatelet therapy continued. Blood pressure was controlled with the prior regimen of antihypertensives, including beta-maribeth, HUNTER inhibitor, and hydralazine. Lipid panel was stable. Supplemental oxygen and bronchodilator treatment were on board as needed. Pulse oximetry was stable on room air. No evidence of asthma exacerbation. Hemodialysis provided as per cane pusher recommendation via right PermCath. Patient on hemodialysis for 13 years. Volumes and cardiorenal parameters were closely monitored, electrolytes further corrected as needed. Blood sugar was managed with sliding scale of insulin. Hemoglobin A1c at goal. Infectious disease specialist followed. Patient usually follows with [facility] for ART treatment. Antiretroviral treatment with his current medication regimen was continued. Hepatitis B surface antigen was checked and was negative. Hemoglobin and hematocrit were closely monitored with goal to keep hemoglobin above 7. Anemia work-up was consistent with anemia of chronic disease. Epogen may be indicated, if hemoglobin drops below 10 in the future. Peripheral smear has been reviewed. No evidence of hemolysis noted. Patient also noted to have thrombocytopenia, which is likely due to HIV as per wet machine operator. Patient initially was on DVT prophylaxis with heparin, which stopped since platelets trended below 100. Patient noted to have hyperproteinemia with elevated beta-2 globulin in the past. Serum protein electrophoresis was noted. Results are still pending at the time of the dictation, and will be followed by wet machine operator. Patient clinically stabilized. Chest pain resolved. Patient was ready for discharge to the sn[facility] facility for continuation of care. FINAL DIAGNOSES: Atypical chest pain Hypertensive kidney disease End-stage renal disease, on hemodialysis Chronic congestive heart failure with preserved ejection fraction Diabetes mellitus HIV Hyperproteinemia Anemia of chronic disease Thrombocytopenia DISCHARGE MEDICATIONS: See Medication Reconciliation list. DISCHARGE INSTRUCTIONS: Patient was discharged to the sn[facility] facility. Follow up with medical doctor at the facility. I have been assigned to dictate discharge summary for this account. I was not involved in the patient's management. Celeste Donaldson NP Jun 24, 2019 06:58
--- NOTE | 2019-06-25 12:59 | NUR ---
*-* INSURANCE *-* DISCHARGE SUMMARY HAVE BEEN FAXED TO: [facility] REF# [id number] F: [phone]
--- NOTE | 2019-06-29 10:55 | Coder Physician Query ---
Clarification is required for compliance, coding accuracy, and to reflect severity of illness for this patient Dear Dr. PERRY Date: 06/29/19 Head Worker/CDS' Name: [facility]: Patient admitted to monitored floor. Two consecutive troponin were negative. EKG revealed no acute ischemic changes. Patient was rule out for acute myocardial infarction. Echocardiogram demonstrated preserved ejection fraction of 65% with mild left ventricular hypertrophy. No evidence of wall motion abnormality. Nuclear stress test was nonischemic. Per cardiology, chest pain was atypical. Please document the suspected etiology of Chest Pain: [] Aortic dissection [] Acute myocardial infarction [] Acute Coronary Syndrome [] Pericarditis [] Anxiety [] Cancer [] Pneumonia [] Costochondritis [] Pneumothorax [] GERD/Esophagitis [] Pulmonary embolism [] Other: [] Unable to determine WANDA PERRY M.D. Date & TIME Please also document in your Progress Notes and/or Discharge Summary and indicate if the condition was present on admission. CINDI
== END 2019-06-23 18:20 | DRG 682 ==
LOC: EDUNIT# 01:47 → EDBD 01:47 → EMR 01:56 → 2E 02:15 → EDBEDREQ 03:14
PROC: 5A1D70Z Performance of Urinary Filtration, Intermittent, Less than 6 Hours Per Day (ICD-10-PCS; principal; 2019-06-19)
DX: I12.0 Hypertensive chronic kidney disease with stage 5 chronic kidney disease or end stage renal disease (principal); N18.6 End stage renal disease; N17.9 Acute kidney failure, unspecified; B20 Human immunodeficiency virus [HIV] disease; R07.89 Other chest pain; E11.22 Type 2 diabetes mellitus with diabetic chronic kidney disease; Z99.2 Dependence on renal dialysis; I25.10 Atherosclerotic heart disease of native coronary artery without angina pectoris; E78.5 Hyperlipidemia, unspecified; E78.00 Pure hypercholesterolemia, unspecified; I45.10 Unspecified right bundle-branch block; D69.59 Other secondary thrombocytopenia; Z79.02 Long term (current) use of antithrombotics/antiplatelets; Z79.82 Long term (current) use of aspirin; Z79.4 Long term (current) use of insulin; E87.8 Other disorders of electrolyte and fluid balance, not elsewhere classified
CPT/HCPCS: 36415; 36569; 71045; 74018; 76937; 78452; 80048; 80053; 80061; 82550; 82553; 82607; 82728; 82746; 82962; 82977; 83036; 83540; 83550; 83735; 83880; 84100; 84165; 84443; 84484; 84550; 85007; 85025; 86140; 87081; 87340; 93005; 93017; 93306; 94664; 96361; 96374; 96375; 99285; J1815; J2405; J2785

== ENCOUNTER 2019-12-24 13:10 | Inpatient (IN) | payer MEDICARE, MEDICAID ==
[~2019-12-24] VITALS: Ht 167.6 cm; Wt 99.5 kg
[~2019-12-24 13:10] MED LIST changes: +GABAPENTIN100 MG ORAL; +ISENTRESS400 MG ORAL; +NORVIR100 MG ORAL
[2019-12-24] MEDS ORDERED: Nitroglycerin 2% oint pkt TOPIC ONE (13:15)
--- NOTE | 2019-12-24 13:21 | Emergency Room Report ---
History of Present Illness General Chief Complaint: General Complaint Source: Patient Present Illness HPI Disclaimer: Please note that this report is being documented using cloud.IQON technology. This can lead to erroneous entry secondary to incorrect interpretation by the dictating instrument. HPI: 59-year-old male with a history of hypertension, CAD status post multiple stents presents for evaluation of chest pain and flulike symptoms. Symptoms present approximate 3 days. He notes a chest pressure over the left side of his chest 8/10 in intensity that sometimes wraps around to the back. Denies syncope, palpitations, loss of conscious, numbness or tingling. He has been compliant with his aspirin and Plavix and took his medications this morning. He states the pressure is similar to the chest pain he had during his heart attacks many years ago. Also reports 3 days of nasal congestion, sore throat, fatigue and body aches. No known sick contacts. [facility] because of [facility] baker virus outbreak the patient is unable to see any of his clinicians stating that all the clinics are closed prompting him to seek medical attention at our facility today. Continues to smoke. PMH: Hypertension, hyperlipidemia, CAD, diabetes, ESRD on hemodialysis, HIV PSH: Multiple cardiac stents Allergies: Denies Social Hx: Active tobacco use Allergies: Coded Allergies: No Known Allergies (Verified , 02/11/12) COVID-19 Screening Contact w/high risk pt: No Recent Travel to affected area: No Experienced COVID-19 symptoms?: Yes COVID-19 symptoms experienced: Shortness of Breath, Cough, Runny Nose, Flu- Like Symptoms Nursing Documentation-PMH Hx Cardiac Problems: Yes - [place] 2014 Hx Hypertension: Yes Hx Pacemaker: No Hx Asthma: Yes Hx COPD: No Hx Diabetes: Yes Hx Cancer: No Hx Gastrointestinal Problems: Yes Hx Dialysis: Yes Hx Neurological Problems: No Hx Cerebrovascular Accident: No Hx Seizures: No Review of Systems All Other Systems: negative except mentioned in HPI Physical Exam General: Awake and alert, no acute distress HEENT: NC/AT. EOMI. sounds congested Cardiovascular: RRR. S1 and S2 normal. No murmur appreciated Resp: Normal work of breathing. No cough, wheezing or crackles appreciated Abdomen: Abdomen is soft, nondistended. Nontender Skin: Intact. No abrasions, laceration or rash over the exposed skin MSK: Normal tone and bulk. Moving all extremities. No obvious deformity. Neuro: Awake and alert. Mentating appropriately. Medical Decision Making Diagnostic Impression: Primary Impression: Chest pain Additional Impressions: ESRD (end stage renal disease) CHF (congestive heart failure) ER Course 59-year-old male presents for 3 days fatigue, myalgias, nasal congestion and chest pain with nonproductive cough. Differential includes was not limited to viral syndrome, influenza, coronavirus, angina, ACS, pneumonia, bronchitis, COPD , GERD, musculoskeletal chest pain to name a few. Given the patient's cardiac history will obtain cardiac enzymes, labs, EKG, chest x-ray. Based on the patient's presenting signs, symptoms and physical exam findings, the patient has been screened and is suspected to have COVID-19 and swab was ordered. Patient will require admission. Will put in respiratory isolation. Laboratory Tests Test 12/24/19 14:00 12/24/19 14:30 12/24/19 22:00 White Blood Count 6.9 K/UL (4.8-10.8) Red Blood Count 2.89 M/UL (4.70-6.10) L Hemoglobin 9.3 G/DL (14.2-18.0) L Hematocrit 29.0 % (42.0-52.0) L Mean Corpuscular Volume 100 FL (80-99) H Mean Corpuscular Hemoglobin 32.3 PG (27.0-31.0) H Mean Corpuscular Hemoglobin Concent 32.3 G/DL (32.0-36.0) Red Cell Distribution Width 16.8 % (11.6-14.8) H Platelet Count 104 K/UL (150-450) L Mean Platelet Volume 6.9 FL (6.5-10.1) Neutrophils (%) (Auto) 42.7 % (45.0-75.0) L Lymphocytes (%) (Auto) 34.2 % (20.0-45.0) Monocytes (%) (Auto) 14.4 % (1.0-10.0) H Eosinophils (%) (Auto) 7.4 % (0.0-3.0) H Basophils (%) (Auto) 1.3 % (0.0-2.0) Sodium Level 137 MMOL/L (136-145) Potassium Level 4.5 MMOL/L (3.5-5.1) Chloride Level 101 MMOL/L (98-107) Carbon Dioxide Level 31 MMOL/L (21-32) Anion Gap 5 mmol/L (5-15) Blood Urea Nitrogen 22 mg/dL (7-18) H Creatinine 6.4 MG/DL (0.55-1.30) H Estimated Glomerular Filtration Rate 10.9 mL/min (>60) Glucose Level 88 MG/DL (74-106) Calcium Level 10.0 MG/DL (8.5-10.1) Total Bilirubin 0.4 MG/DL (0.2-1.0) Aspartate Amino Transferase (AST) 44 U/L (15-37) H Alanine Aminotransferase (ALT) 32 U/L (12-78) Alkaline Phosphatase 76 U/L (46-116) Troponin I 0.029 ng/mL (0.000-0.056) 0.047 ng/mL (0.000-0.056) Pro-B-Type Natriuretic Peptide 66661 pg/mL (0-125) H Total Protein 8.7 G/DL (6.4-8.2) H Albumin 3.7 G/DL (3.4-5.0) Globulin 5.0 g/dL Albumin/Globulin Ratio 0.7 (1.0-2.7) L Microbiology Date/Time Source Procedure Growth Status 12/24/19 13:40 Nasal Nares - Final Complete 12/24/19 13:40 Nasal Nares - Final Complete EKG Diagnostic Results EKG Time: 13:21 Rate: normal Rhythm: NSR Other Impression Sinus rhythm, normal axis, prolonged QTC at 4 8 4 ms, no ST segment changes Rhythm Strip Diag. Results Rhythm Strip Time: 13:21 EP Interpretation: yes Rate: 80s Rhythm: NSR, no PVC's, no ectopy Chest X-Ray Diagnostic Results Chest X-Ray Diagnostic Results : Chest X-Ray Ordered: Yes # of Views/Limited/Complete: 1 View Indication: Chest Pain EP Interpretation: Yes Interpretation: no consolidation, no effusion, no pneumothorax Impression: No acute disease Electronically Signed by: Electronically signed by Dr. Albert Carlson Disposition: ADMITTED INPATIENT Condition: Serious Albert Carlson MD Dec 24, 2019 13:21
[2019-12-24 13:23] VITALS: BP 144/70
[2019-12-24 14:17] LABS: BASOPHILS % (AUTO) 1.3 % (0.0-2.0); EOSINOPHILS % (AUTO) 7.4 % (0.0-3.0); HEMOGLOBIN 9.3 G/DL (14.2-18.0); LYMPHOCYTES % (AUTO) 34.2 % (20.0-45.0); MEAN CORPUSCULAR VOLUME 100 FL (80-99); MONOCYTES % (AUTO) 14.4 % (1.0-10.0); NEUTROPHILS % (AUTO) 42.7 % (45.0-75.0); PLATELET COUNT 104 K/UL (150-450); RED BLOOD COUNT 2.89 M/UL (4.70-6.10); RED CELL DISTRIBUTION WIDTH 16.8 % (11.6-14.8); WHITE BLOOD COUNT 6.9 K/UL (4.8-10.8)
[2019-12-24 14:55] LABS: ANION GAP 5 mmol/L (5-15); BLOOD UREA NITROGEN 22 mg/dL (7-18); CARBON DIOXIDE 31 MMOL/L (21-32); CHLORIDE 101 MMOL/L (98-107); CREATININE 6.4 MG/DL (0.55-1.30); POTASSIUM 4.5 MMOL/L (3.5-5.1); SODIUM 137 MMOL/L (136-145)
[2019-12-24 15:07] LABS: ALANINE AMINOTRANSFERASE 32 U/L (12-78); ALBUMIN 3.7 G/DL (3.4-5.0); ALBUMIN/GLOBULIN RATIO 0.7 (1.0-2.7); ALKALINE PHOSPHATASE 76 U/L (46-116); ASPARTATE AMINO TRANSFERASE 44 U/L (15-37); BILIRUBIN,TOTAL 0.4 MG/DL (0.2-1.0)
[2019-12-24 15:30] VITALS: BP 153/79
--- NOTE | 2019-12-24 15:54 | Diagnostic Imaging Report ---
Indication: Dyspnea Comparison: 06/19/2019 A single view chest radiograph was obtained. Findings: Pulmonary vascular congestion is present with cardiomegaly and prominent hilar vessels, cephalized ill-defined pulmonary vessels which are prominent. Interstitial densities noted. IMPRESSION: Mild CHF
[2019-12-24 17:20] VITALS: BP 137/82
[2019-12-24 20:00] VITALS: BP 176/93
--- NOTE | 2019-12-24 20:11 | Cardiology Progress Note ---
Assessment/Plan Assessment/Plan The patient is seen and examined, full consult note will be dictated. Objective Last 24 Hour Vital Signs Date Time Temp Pulse Resp B/P (MAP) Pulse Ox O2 Delivery O2 Flow Rate FiO2 12/24/19 18:45 98.2 80 15 135/87 96 Room Air 12/24/19 17:20 98.6 78 14 137/82 99 Room Air 12/24/19 15:30 97.9 77 18 153/79 100 Room Air 12/24/19 13:48 173/97 12/24/19 13:45 79 16 Room Air 12/24/19 13:23 79 16 144/70 99 Room Air 12/24/19 13:13 85 17 176/93 (120) 96 Room Air Laboratory Tests Test 12/24/19 14:00 12/24/19 14:30 White Blood Count 6.9 K/UL (4.8-10.8) Red Blood Count 2.89 M/UL (4.70-6.10) L Hemoglobin 9.3 G/DL (14.2-18.0) L Hematocrit 29.0 % (42.0-52.0) L Mean Corpuscular Volume 100 FL (80-99) H Mean Corpuscular Hemoglobin 32.3 PG (27.0-31.0) H Mean Corpuscular Hemoglobin Concent 32.3 G/DL (32.0-36.0) Red Cell Distribution Width 16.8 % (11.6-14.8) H Platelet Count 104 K/UL (150-450) L Mean Platelet Volume 6.9 FL (6.5-10.1) Neutrophils (%) (Auto) 42.7 % (45.0-75.0) L Lymphocytes (%) (Auto) 34.2 % (20.0-45.0) Monocytes (%) (Auto) 14.4 % (1.0-10.0) H Eosinophils (%) (Auto) 7.4 % (0.0-3.0) H Basophils (%) (Auto) 1.3 % (0.0-2.0) Sodium Level 137 MMOL/L (136-145) Potassium Level 4.5 MMOL/L (3.5-5.1) Chloride Level 101 MMOL/L (98-107) Carbon Dioxide Level 31 MMOL/L (21-32) Anion Gap 5 mmol/L (5-15) Blood Urea Nitrogen 22 mg/dL (7-18) H Creatinine 6.4 MG/DL (0.55-1.30) H Estimat Glomerular Filtration Rate 10.9 mL/min (>60) Glucose Level 88 MG/DL (74-106) Calcium Level 10.0 MG/DL (8.5-10.1) Total Bilirubin 0.4 MG/DL (0.2-1.0) Aspartate Amino Transf (AST/SGOT) 44 U/L (15-37) H Alanine Aminotransferase (ALT/SGPT) 32 U/L (12-78) Alkaline Phosphatase 76 U/L (46-116) Troponin I 0.029 ng/mL (0.000-0.056) Pro-B-Type Natriuretic Peptide 43776 pg/mL (0-125) H Total Protein 8.7 G/DL (6.4-8.2) H Albumin 3.7 G/DL (3.4-5.0) Globulin 5.0 g/dL Albumin/Globulin Ratio 0.7 (1.0-2.7) L Microbiology Date/Time Source Procedure Growth Status 12/24/19 13:40 Nasal Nares - Final Complete 12/24/19 13:40 Nasal Nares - Final Complete 12/24/19 15:00 Rectum Received Pavan Hanson MD Dec 24, 2019 20:11
[2019-12-24] MEDS ORDERED: dilTIAZem HCl CD 120mg cap ORAL SCH (20:30)
[2019-12-24] MEDS: Atorvastatin 20mg tab ORAL SCH (21:17)
[2019-12-24] MEDS: Losartan 25mg tab ORAL SCH (21:18)
[2019-12-24] MEDS: Aspirin EC 81mg tab ORAL SCH (21:18)
--- NOTE | 2019-12-24 22:59 | Consultation ---
DATE OF CONSULTATION: 12/24/2019 CONSULTING PHYSICIAN: Pavan Hanson MD. REFERRING PHYSICIAN: Daisy Bland MD. REASON FOR CONSULTATION: Management of chest pain. HISTORY OF PRESENT ILLNESS: The patient is a very unfortunate 59-year-old gentleman with past medical history significant for hypertension, coronary artery disease, status post PCI, history of myocardial infarction in 2015, history of diabetes mellitus, and end-stage renal disease, who presented to the hospital with complaints of flu-like symptoms including pleuritic chest pain for about three days. Chest pain is most felt in the left pericardial area with intensity of 8/10, radiation to the back. The patient also has had 3 days of nasal congestion, sore throat, fatigue, and body aches. At the time of arrival to this facility, the patient's blood pressure was 176/93, pulse of 85, and O2 saturation 96% on room air. The patient was afebrile with temperature of 97.9 degrees Fahrenheit. He was admitted to [facility] for further evaluation and management of chest pain. Initially in the emergency department, the patient had a chest x-ray, which showed cardiomegaly with moderate pulmonary edema consistent with congestive heart failure. Laboratory data revealed anemia with hemoglobin of 9.3 as well as thrombocytopenia with platelet counts of 104,000. The patient also had elevated brain natriuretic peptide of 14,276. Troponin I level was however within normal limit at 0.029. A 12-lead electrocardiogram was significant for sinus rhythm with no acute ischemic changes and prolongation of QT interval likely due to electrolyte abnormalities with his underlying end-stage renal disease. There was no peaking or tall T-waves or other manifestation of hyperkalemia. Review of the records from previous admission to this facility in May 2019, shows a stress test, which was nonischemic with LVEF of about 62%. 2D echocardiography on June 19, 2019, showing normal LV systolic function with LVEF of approximately 65% and no evidence of pulmonary hypertension, but biatrial enlargement and mild LVH. PAST MEDICAL HISTORY: 1. HIV disease. 2. Coronary artery disease. 3. Hypercholesterolemia. 4. Hypertension. 5. Asthma. 6. Diabetes mellitus. 7. End-stage renal disease, on hemodialysis. 8. Gastrointestinal disease. ALLERGIES: No known drug allergies. MEDICATIONS: List of medications including amitriptyline, aspirin, Lipitor, clonidine, Plavix, Prezista, diltiazem, Benadryl, furosemide, gabapentin, guaifenesin, heparin, hydralazine, Doon, insulin, DuoNeb, isosorbide, lactulose, lamivudine, lisinopril, melatonin, Naprosyn, nitroglycerin, fish oil, Zofran, Zantac, ritonavir, Crestor, valsartan, and zidovudine. FAMILY HISTORY: No premature coronary artery disease in the first-degree relatives. SOCIAL HISTORY: No history of tobacco, alcohol, or illicit drug use. REVIEW OF SYSTEMS: HEENT: Denies any headache, diplopia, or blurred vision. CONSTITUTIONAL: Denies any fever or chills. Positive for generalized weakness and body aches. CARDIOVASCULAR: Positive for chest pain as mentioned above. Denies any PND, orthopnea, or leg swelling. PULMONARY: Denies any cough, hemoptysis, or wheezing. Positive for nasal congestion and sore throat. GASTROINTESTINAL: Denies any nausea, vomiting, diarrhea, constipation, abdominal pain, or GI bleed. GENITOURINARY: On hemodialysis 3 days a week. NEUROLOGY: Denies any motor dysfunction, sensory deficit, or altered speech. PHYSICAL EXAMINATION: VITAL SIGNS: Blood pressure at the time of arrival to the hospital 176/93, pulse of 85, respirations 17, O2 saturation 96% on room air, temperature was 97.9 degrees Fahrenheit. GENERAL: The patient is a very unfortunate 59-year-old gentleman, in no apparent respiratory distress. HEENT: Atraumatic and normocephalic. Anicteric. Pupils are equal, round, and reactive to light and accommodation. Extraocular muscles are intact. NECK: JVP elevated at about 10 cm. No carotid bruit. Carotid upstrokes 2+ bilaterally. CARDIOVASCULAR: Normal S1 and S2. Regular rate and rhythm. No murmurs, gallops, or rubs. PMI is at fourth intercostal space in the midclavicular line. LUNGS: Bibasilar crackles. ABDOMEN: Soft, nontender, and nondistended. No hepatosplenomegaly. Positive bowel sounds. EXTREMITIES: No evidence of edema, clubbing, or cyanosis. LABORATORY FINDINGS: WBC 6.9, hemoglobin 9.3, hematocrit 29, and platelet count is 104,000. Sodium is 137, potassium is 4.5, chloride 101, bicarbonate 31, BUN 22, creatinine 6.4. Troponin I 0.029. ProBNP was 14,276. ASSESSMENT AND PLAN: 1. Chest pain, atypical. First troponin I level is negative. The patient's 12-lead electrocardiogram does not show any evidence of ischemia. In fact, in May 2019, the patient underwent a nuclear stress imaging study which showed no evidence of myocardial wall ischemia. 2D echocardiography shows normal LV systolic and diastolic function with LVEF of approximately 60%. No further cardiac intervention is required at this time. Continue with management of flu-like symptoms, which is most likely the cause of the patient's chest pain. 2. Hypertension. We will continue with the patient's current blood pressure regimen. 3. History of coronary artery disease, status post PCI in the past. We will continue with monitoring troponin I to ultimately rule out acute myocardial infarction. Currently, there is no evidence of ischemia according to the 12-lead electrocardiogram. We will continue with dual oral antiplatelet therapy as well as statins. 4. History of diabetes mellitus. We will continue with . 5. End-stage renal disease. I would like to thank, , for the courtesy of this consultation. Pavan Hanson M.D. DR: NAVID JOB#: [id number] CC:
[2019-12-25] VITALS: BP 158/73
[2019-12-25 04:00] VITALS: BP 98/62
[2019-12-25] MEDS: DiphenhydrAMINE 50mg/ml Inj IVP PRN ×2 (04:00→17:40)
[2019-12-25 06:31] LABS: BASOPHILS % (AUTO) 0.9 % (0.0-2.0); EOSINOPHILS % (AUTO) 9.1 % (0.0-3.0); HEMATOCRIT 27.9 % (42.0-52.0); HEMOGLOBIN 8.8 G/DL (14.2-18.0); MEAN CORPUSCULAR VOLUME 101 FL (80-99); MONOCYTES % (AUTO) 13.7 % (1.0-10.0); NEUTROPHILS % (AUTO) 33.3 % (45.0-75.0); PLATELET COUNT 120 K/UL (150-450); RED BLOOD COUNT 2.76 M/UL (4.70-6.10); RED CELL DISTRIBUTION WIDTH 16.2 % (11.6-14.8)
[2019-12-25 07:02] LABS: ALANINE AMINOTRANSFERASE 30 U/L (12-78); ALBUMIN 3.5 G/DL (3.4-5.0); ALBUMIN/GLOBULIN RATIO 0.7 (1.0-2.7); ALKALINE PHOSPHATASE 74 U/L (46-116); ANION GAP 12 mmol/L (5-15); ASPARTATE AMINO TRANSFERASE 33 U/L (15-37); BILIRUBIN,TOTAL 0.3 MG/DL (0.2-1.0); BLOOD UREA NITROGEN 30 mg/dL (7-18); CALCIUM 9.7 MG/DL (8.5-10.1); CARBON DIOXIDE 25 MMOL/L (21-32); CHLORIDE 105 MMOL/L (98-107); CREATININE 7.3 MG/DL (0.55-1.30); POTASSIUM 4.8 MMOL/L (3.5-5.1); SODIUM 142 MMOL/L (136-145)
[2019-12-25] MEDS ORDERED: HYDROcodone/Acetamin 10/325 tab ORAL PRN (07:15)
[2019-12-25 08:00] VITALS: BP 131/68
[2019-12-25] MEDS: Losartan 25mg tab ORAL SCH (09:00)
[2019-12-25] MEDS: Aspirin EC 81mg tab ORAL SCH (09:27)
[2019-12-25 09:47] LABS: FERRITIN 580 NG/ML (8-388); PHOSPHORUS 4.1 MG/DL (2.5-4.9)
[2019-12-25 09:59] LABS: % IRON SATURATION 47 % (15-50); IRON 70 ug/dL (50-175); TOTAL IRON BINDING CAPACITY 149 ug/dL (250-450)
[2019-12-25 12:00] VITALS: BP 152/71
--- NOTE | 2019-12-25 12:01 | Consultation ---
Consult Note Consult Note I am asked to evaluate the patient for dialysis management. Patient is known to me from his previous admissions. Patient seen in room 237. Discussed with RN. Emergency room note: HPI: 59-year-old male with a history of hypertension, CAD status post multiple stents presents for evaluation of chest pain and flulike symptoms. Symptoms present approximate 3 days. He notes a chest pressure over the left side of his chest 8/10 in intensity that sometimes wraps around to the back. Denies syncope, palpitations, loss of conscious, numbness or tingling. He has been compliant with his aspirin and Plavix and took his medications this morning. He states the pressure is similar to the chest pain he had during his heart attacks many years ago. Also reports 3 days of nasal congestion, sore throat, fatigue and body aches. No known sick contacts. [facility] because [facility] baker virus outbreak the patient is unable to see any of his clinicians stating that all the clinics are closed prompting him to seek medical attention at our facility today. Continues to smoke. PMH: Hypertension, hyperlipidemia, CAD, diabetes, ESRD on hemodialysis, HIV PSH: Multiple cardiac stents Allergies: Denies Social Hx: Active tobacco use Food no Known Allergies (Verified , 02/11/12) COVID-19 Screening Contact w/high risk pt: No Recent Travel to affected area: No Experienced COVID-19 symptoms?: Yes COVID-19 symptoms experienced: Shortness of Breath, Cough, Runny Nose, Flu- Like Symptoms Hx Cardiac Problems: Yes - [place] 2014 Hx Hypertension: Yes Hx Pacemaker: No Hx Asthma: Yes Hx Diabetes: Yes Hx Gastrointestinal Problems: Yes Hx Dialysis: Yes Assessment/Plan ACS On Dialysis for the past 13 years Has right chest permacath HTN DM HIV+ BP meds with parameters HD today keep BS in control Continue per consultants Antibiotics per Toño Varma MD Dec 25, 2019 12:01
[2019-12-25] MEDS: Docusate 100mg cap ORAL SCH ×2 (12:46→17:40)
--- NOTE | 2019-12-25 15:23 | Consultation ---
History of Present Illness General Chief Complaint: General Complaint Present Illness Allergies: Coded Allergies: No Known Allergies (Verified , 02/11/12) Medication History Scheduled Amitriptyline HCl (Amitriptyline HCl), 75 MG ORAL BEDTIME, (Reported) Aspirin* (Aspirin*), 81 MG ORAL DAILY, (Reported) Aspirin/Calcium Carbonate/Mag (Aspirin Buffered 325 Mg Tab), 325 MG PO DAILY, ( Reported) Atorvastatin Calcium* (Lipitor*), 40 MG ORAL BEDTIME, (Reported) Clonidine Hcl (Clonidine Hcl), 0.3 MG PO TWICE A DAY, (Reported) Clopidogrel Bisulfate* (Plavix*), 75 MG ORAL DAILY, (Reported) Darunavir Ethanolate* (Prezista*), 800 MG ORAL DAILY, (Reported) Diltiazem HCl (Diltiazem HCl), 300 MG PO DAILY, (Reported) Furosemide (Furosemide), 40 MG PO TWICE A DAY, (Reported) Gabapentin* (Gabapentin*), 100 MG ORAL THREE TIMES A DAY, (Reported) Heparin Sod (Porcine) (Heparin Sodium*), 5,000 UNITS SUBQ EVERY 12 HOURS, ( Reported) Hydralazine HCl (Hydralazine HCl), 50 MG PO TID, (Reported) Insulin Aspart (Novolog Flexpen), 10 UNITS SUBQ TID, (Reported) Insulin Glargine (Lantus), 20 SUBQ QHS, (Reported) Ipratropium/Albuterol Sulfate (DuoNeb 0.5-3(2.5)mg/3ml), 3 ML HHN NEEDED, ( Reported) Isosorbide (Isosorbide), 120 MG PO DAILY, (Reported) Lactulose (Lactulose*), 30 ML ORAL DAILY, (Reported) Lamivudine (Lamivudine), 50 MG PO DAILY, (Reported) Lisinopril (Lisinopril*), 10 MG ORAL DAILY, (Reported) Melatonin/Pyridoxine HCl (B6) (Melatonin 3 mg Tablet), 1 EACH PO BEDTIME, ( Reported) Metoprolol Tartrate* (Metoprolol Tartrate*), 25 MG PO DAILY, (Reported) Naproxen* (Naproxen*), 500 MG PO TWICE A DAY, (Reported) [place]-3 Fatty Acids/Fish Oil (Fish Oil 1,000 Mg Softgel), 1 EACH PO TID, ( Reported) Raltegravir (Isentress), 400 MG ORAL EVERY 12 HOURS, (Reported) Ranitidine Hcl* (Zantac*), 150 MG PO QHS, (Reported) Ritonavir* (Norvir*), 100 MG ORAL DAILY, (Reported) Rosuvastatin Calcium* (Crestor*), 5 MG PO QHS, (Reported) Valsartan (Diovan), 160 MG PO BID, (Reported) Zidovudine (Zidovudine), 300 MG PO DAILY, (Reported) [Imdur], 0.6 MG ORAL DAILY, (Reported) [Lidocaine 4% cream], Unknown Dose TOPIC NEEDED, (Reported) Scheduled PRN Clonidine Hcl* (Catapres*), 0.1 MG ORAL EVERY 6 HOURS PRN for For High Blood Pressure, (Reported) Diphenhydramine Hcl* (Diphenhydramine Hcl*), 25 MG ORAL Q4HR PRN for Itching, ( Reported) Guaifenesin (Ivis-Tussin), 10 MG PO EVERY 4 HOURS PRN for For Cough, (Reported) Hydrocodone Bit/Acetaminophen 5-325* (Docena 5-325*), 1 TAB ORAL Q4H PRN for For Pain, (Reported) Ipratropium/Albuterol Sulfate (DuoNeb 0.5-3(2.5)mg/3ml), 3 ML HHN EVERY 4 HOURS PRN for Shortness of Breath, (Reported) Nitroglycerin (Nitrostat), 0.4 MG SL, (Reported) Ondansetron Odt* (Zofran Odt*), 4 MG ORAL Q6H PRN for Nausea & Vomiting, ( Reported) Patient History Healthcare decision maker Resuscitation status Advanced Directive on File Physical Exam Last 24 Hour Vital Signs Date Time Temp Pulse Resp B/P (MAP) Pulse Ox O2 Delivery O2 Flow Rate FiO2 12/25/19 12:00 76 12/25/19 12:00 98.0 76 18 152/71 (98) 100 12/25/19 12:00 Room Air 12/25/19 09:00 131/68 12/25/19 08:00 Room Air 12/25/19 08:00 82 12/25/19 08:00 97.7 71 16 131/68 (89) 100 12/25/19 04:33 99.7 12/25/19 04:30 99.7 12/25/19 04:00 80 12/25/19 04:00 100.0 79 16 98/62 (74) 100 12/25/19 04:00 Room Air 12/25/19 00:00 Nasal Cannula 2.0 12/25/19 00:00 99.0 87 14 158/73 (101) 98 12/25/19 00:00 89 12/24/19 21:18 135/87 12/24/19 20:30 80 135/87 12/24/19 20:29 Nasal Cannula 2.0 12/24/19 20:00 Nasal Cannula 2.0 12/24/19 20:00 76 12/24/19 20:00 97.9 85 16 176/93 (120) 96 12/24/19 19:00 81 12/24/19 18:45 98.2 80 15 135/87 96 Room Air 12/24/19 17:20 98.6 78 14 137/82 99 Room Air 12/24/19 15:30 97.9 77 18 153/79 100 Room Air Intake and Output 12/24/19 12/25/19 19:00 07:00 Intake Total 0 ml 300 ml Balance 0 ml 300 ml Intake Oral 0 ml 300 ml Laboratory Tests Test 12/24/19 22:00 12/25/19 05:54 Troponin I 0.047 ng/mL (0.000-0.056) White Blood Count 6.0 K/UL (4.8-10.8) Red Blood Count 2.76 M/UL (4.70-6.10) L Hemoglobin 8.8 G/DL (14.2-18.0) L Hematocrit 27.9 % (42.0-52.0) L Mean Corpuscular Volume 101 FL (80-99) H Mean Corpuscular Hemoglobin 32.0 PG (27.0-31.0) H Mean Corpuscular Hemoglobin Concent 31.7 G/DL (32.0-36.0) L Red Cell Distribution Width 16.2 % (11.6-14.8) H Platelet Count 120 K/UL (150-450) L Mean Platelet Volume 7.2 FL (6.5-10.1) Neutrophils (%) (Auto) 33.3 % (45.0-75.0) L Lymphocytes (%) (Auto) 43.0 % (20.0-45.0) Monocytes (%) (Auto) 13.7 % (1.0-10.0) H Eosinophils (%) (Auto) 9.1 % (0.0-3.0) H Basophils (%) (Auto) 0.9 % (0.0-2.0) Sodium Level 142 MMOL/L (136-145) Potassium Level 4.8 MMOL/L (3.5-5.1) Chloride Level 105 MMOL/L (98-107) Carbon Dioxide Level 25 MMOL/L (21-32) Anion Gap 12 mmol/L (5-15) Blood Urea Nitrogen 30 mg/dL (7-18) H Creatinine 7.3 MG/DL (0.55-1.30) H Estimat Glomerular Filtration Rate 9.3 mL/min (>60) Glucose Level 87 MG/DL (74-106) Hemoglobin A1c 4.5 % (4.3-6.0) Calcium Level 9.7 MG/DL (8.5-10.1) Phosphorus Level 4.1 MG/DL (2.5-4.9) Iron Level 70 ug/dL (50-175) Total Iron Binding Capacity 149 ug/dL (250-450) L Percent Iron Saturation 47 % (15-50) Unsaturated Iron Binding 79 ug/dL (112-346) L Ferritin 580 NG/ML (8-388) H Total Bilirubin 0.3 MG/DL (0.2-1.0) Aspartate Amino Transf (AST/SGOT) 33 U/L (15-37) Alanine Aminotransferase (ALT/SGPT) 30 U/L (12-78) Alkaline Phosphatase 74 U/L (46-116) Total Protein 8.4 G/DL (6.4-8.2) H Albumin 3.5 G/DL (3.4-5.0) Globulin 4.9 g/dL Albumin/Globulin Ratio 0.7 (1.0-2.7) L Vitamin B12 Level 398 PG/ML (193-986) Folate 7.5 NG/ML (8.6-58.9) L Height (Feet): 5 Height (Inches): 6.00 Weight (Pounds): 219 Medications Current Medications Medications (Trade) Dose Ordered Sig/Twyla Route PRN Reason Start Time Stop Time Status Last Admin Dose Admin Acetaminophen (Tylenol) 650 mg Q4H PRN ORAL Mild Pain/Temp > 100.5 12/24/19 20:30 01/23/20 20:29 12/25/19 04:00 Acetaminophen/ Hydrocodone Bitart (Docena 10/325) 2 tab Q4H PRN ORAL Severe Pain (Pain Scale 7-10) 12/25/19 07:15 01/01/20 07:14 Aspirin (Ecotrin) 81 mg DAILY ORAL 12/24/19 21:00 02/07/20 20:59 12/25/19 09:27 Atorvastatin Calcium (Lipitor) 40 mg BEDTIME ORAL 12/24/19 21:00 03/23/20 20:59 12/24/19 21:17 Clonidine HCl (Catapres Tab) 0.1 mg Q6H PRN ORAL SBP > 160mmHg 12/24/19 20:30 03/23/20 20:29 Clopidogrel Bisulfate (Plavix) 75 mg DAILY ORAL 12/24/19 21:00 01/23/20 20:59 12/25/19 09:27 Diphenhydramine HCl (Benadryl) 25 mg Q6H PRN IVP Itching 12/25/19 02:00 01/24/20 01:59 12/25/19 04:00 Docusate Sodium (Colace) 100 mg THREE TIMES A DAY ORAL 12/25/19 13:00 01/24/20 12:59 12/25/19 12:46 Folic Acid (Folate) 2 mg DAILY ORAL 12/25/19 13:00 01/24/20 12:59 12/25/19 12:46 Gabapentin (Neurontin) 100 mg THREE TIMES A DAY ORAL 12/25/19 09:00 01/24/20 08:59 12/25/19 12:46 Losartan Potassium (Cozaar) 25 mg DAILY ORAL 12/24/19 21:00 01/23/20 20:59 12/24/19 21:18 Pantoprazole (Protonix) 40 mg EVERY 12 HOURS ORAL 12/25/19 21:00 01/24/20 20:59 Sevelamer Carbonate (Renvela) 800 mg THREE TIMES A DAY ORAL 12/25/19 13:00 03/24/20 12:59 12/25/19 12:46 Assessment/Plan Assessment/Plan: Hematology Consultation REQ : Daisy Mack RFC: Low platelets and anemia, recurrent DOS: 12/25/2019 HPI: 59-year-old male well known to me with a history of hypertension, CAD status post multiple stents presents for evaluation of chest pain and flulike symptoms. Symptoms present approximate 3 days. He notes a chest pressure over the left side of his chest 8/10 in intensity that sometimes wraps around to the back. Denies syncope, palpitations, loss of conscious, numbness or tingling. He has been compliant with his aspirin and Plavix and took his medications this morning. He states the pressure is similar to the chest pain he had during his heart attacks many years ago. Also reports 3 days of nasal congestion, sore throat, fatigue and body aches. No known sick contacts. [facility] because of [facility] baker virus outbreak the patient is unable to see any of his clinicians stating that all the clinics are closed prompting him to seek medical attention at our facility today. Continues to smoke. PMH: Hypertension, hyperlipidemia, CAD, diabetes, ESRD on hemodialysis, HIV PSH: Multiple cardiac stents Allergies: Denies Social Hx: Active tobacco use Allergies: No Known Allergies (Verified , 02/11/12) COVID-19 Screening Contact w/high risk pt: No Recent Travel to affected area: No Experienced COVID-19 symptoms?: Yes COVID-19 symptoms experienced: Shortness of Breath, Cough, Runny Nose, Flu- Like Symptoms Nursing Documentation-PMH Hx Cardiac Problems: Yes - [place] 2014 Hx Hypertension: Yes Hx Pacemaker: No Hx Asthma: Yes Hx COPD: No Hx Diabetes: Yes Hx Cancer: No Hx Gastrointestinal Problems: Yes Hx Dialysis: Yes Hx Neurological Problems: No Hx Cerebrovascular Accident: No Hx Seizures: No ROS (review of systems): Constitutional: No fever, no chills, no night sweats, no fatigue Skin: No rashes, lumps, itchiness, dryness HEENT: No MAI, ear ache, visual changes, double vision, nosebleeds Breasts: No lumps, pain, discharge Pulmonary: some sob ++ Cardiovascular: No chest pain, tightness, palpitations, syncope, PND GI: No nausea, vomiting, diarrhea, melena, hematochezia, change in appetite, : No dysuria, frequency, urgency, urinary incontinence, foamy urine Musculoskeletal: No joint swelling or muscle pain, trauma, back pain Neurologic: No dizziness, fainting, seizures, changes in smell or taste Psychiatric: No nervousness, stress, or depression, anxiety, hallucinations Endocrine: No weight change, heat or cold intolerance, tremor, insomnia Physical Exam: Vitals: reviewed General: NAD HEENT: nc, at Neck: supple Chest: clear breath sounds bilaterally ++ right sided permacath Cardiovascular: RRR, no s3, s4 Abdomen: soft, nontender, nd Extremities: no cce, normal range of motion Neuro: alert and oriented Labs: noted Imaging: reviewed Assessment/Plan # Anemia of chronic disease due to underlying chronic medical issues, multifactorial --> Anemia workup has been ordered, rule out gi bleed --> No evidence of hemolysis is noted, peripheral smear has been reviewed. --> Hgb goal >7. Transfuse prn. --> Epogen and IRON are indicated can be started if the hgb <10 in future --> Medications have been reviewed --> low threshold for gi evaluation in case has occult + --> ferritin is 386-->520, tibc is 287 --> hgb trend 9.2-->8.9 # Hyperproteinemia -- with a elevated b2 globulin --> spep has been ordered, pending results==> NEGATIVE RESULTS --> in the past had a isolated elevation of b2 globulin in 2011 # Thrombocytopenia is due to hiv --> trend as needed 82k-->120k --> us of abd negative # Admitted with ACS --> per renal r/o acs --> r/o chest pain # ESRD on Dialysis for 13 years --> with a right chest permacath right side --> continue 3x a week # HTN --> sbp goal <150 # DM2 --> as per endo # HIV+ --> restarted on meds Greatly appreciate consultation.and Ishaan Wise RN, MD Dec 25, 2019 15:23
[2019-12-25 16:00] VITALS: BP 155/76
--- NOTE | 2019-12-25 17:30 | Consultation ---
DATE OF CONSULTATION: 12/25/2019 INFECTIOUS DISEASE CONSULTATION CONSULTING PHYSICIAN: Francisco Salazar MD. REASON FOR CONSULTATION: Upper respiratory infection, rule out COVID-19 and HIV. HISTORY OF PRESENT ILLNESS: This is a 59-year-old male, admitted yesterday from home complaining of chest pain, flu-like symptoms for three days including nasal congestion, sore throat, body ache, had low-grade fever of 100 in the hospital, and also has coughing. PAST MEDICAL HISTORY: Significant for HIV. The patient is on lamivudine, zidovudine, Prezista, ritonavir that obtained from [place]. He does not know the viral load and CD4 count. He had coronary artery disease with multiple stents, hypertension, hyperlipidemia, diabetes mellitus, has end-stage renal disease, on hemodialysis, and anemia. ALLERGIES: No known drug allergies. MEDICATIONS: Protonix, folic acid, Renvela, Colace, gabapentin, [place], diphenhydramine, losartan, atorvastatin, clopidogrel, aspirin, clonidine, and Tylenol. SOCIAL HISTORY: Lives at home. . Smokes two cigarettes a day. Denies alcohol or drug abuse. REVIEW OF SYSTEMS: As per history of present illness. Includes fever, generalized weakness, sore throat, runny nose, and had diarrhea that was stopped. PHYSICAL EXAMINATION: VITAL SIGNS: Temperature 97.7, pulse 71, blood pressure is 131/68. GENERAL APPEARANCE: Seems to be obese. HEAD AND NECK: [place] conjunctivae. He has slightly dry tongue. LUNGS: Clear. HEART: Normal rate. ABDOMEN: Soft, nontender. EXTREMITIES: No edema. NEUROLOGIC: He is awake, alert, oriented x3. LABORATORY AND DIAGNOSTIC DATA: WBC 6, hemoglobin 8.8, hematocrit 27.9, and platelet 120,000. Sodium 142, potassium 4.8, chloride 105, bicarbonate 25, BUN 30, creatinine 7.3, and glucose 87. Influenza A and B tests were negative. Chest x-ray showed some mild congestion. IMPRESSION: 1. Acute viral illness. We will try to rule out COVID-19. 2. HIV, unknown stage, still taking the overmedication. 3. History of diabetes mellitus. 4. End-stage renal disease, on hemodialysis. 5. Anemia. 6. Chest pain with history of coronary artery disease. According to Cardiology, this was atypical. 7. Thrombocytopenia. RECOMMENDATIONS: We will check CD4 count and HIV viral load. We will follow up the COVID-19 test. For now, avoid antibiotic. If the patient condition becomes worse, we will consider treating of the patient. At the end of my exam, I thank Dr. Bland for involving me in the care of this patient. Francisco Salazar M.D. DR: ED JOB#: [id number] CC:
[2019-12-25 20:00] VITALS: BP 140/77
--- NOTE | 2019-12-25 20:05 | Cardiology Progress Note ---
Assessment/Plan Assessment/Plan 1. Chest pain, atypical. AMI is ruled out, 12-lead electrocardiogram does not show any evidence of ischemia. Non-ischemic nuclear stress test in 2019. Normal LV systolic and diastolic function with LVEF of approximately 60%. No further cardiac intervention is required at this time. Continue with management of flu-like symptoms, which is most likely the cause of the patient's chest pain. 2. Hypertension. 3. History of coronary artery disease, status post PCI in the past, continue with dual oral antiplatelet therapy as well as statins. 4. History of diabetes mellitus. 5. End-stage renal disease. Subjective Subjective Sinus rhythm at rate of 72. Objective Last 24 Hour Vital Signs Date Time Temp Pulse Resp B/P (MAP) Pulse Ox O2 Delivery O2 Flow Rate FiO2 12/25/19 16:00 Room Air 12/25/19 16:00 97.7 72 18 155/76 (102) 100 12/25/19 16:00 74 12/25/19 12:00 76 12/25/19 12:00 98.0 76 18 152/71 (98) 100 12/25/19 12:00 Room Air 12/25/19 09:00 131/68 12/25/19 08:00 Room Air 12/25/19 08:00 82 12/25/19 08:00 97.7 71 16 131/68 (89) 100 12/25/19 04:33 99.7 12/25/19 04:30 99.7 12/25/19 04:00 80 12/25/19 04:00 100.0 79 16 98/62 (74) 100 12/25/19 04:00 Room Air 12/25/19 00:00 Nasal Cannula 2.0 12/25/19 00:00 99.0 87 14 158/73 (101) 98 12/25/19 00:00 89 12/24/19 21:18 135/87 12/24/19 20:30 80 135/87 12/24/19 20:29 Nasal Cannula 2.0 Intake and Output 12/24/19 12/25/19 19:00 07:00 Intake Total 0 ml 300 ml Balance 0 ml 300 ml Intake Oral 0 ml 300 ml 2D Echo: Echo 2019: LVEF 65%, Mod LVH, Grade I LVDD, RVSP 23 mmHg, DEYSI Laboratory Tests Test 4/2/20 22:00 12/25/19 05:54 12/25/19 17:50 Troponin I 0.047 ng/mL (0.000-0.056) White Blood Count 6.0 K/UL (4.8-10.8) Pending Red Blood Count 2.76 M/UL (4.70-6.10) L Hemoglobin 8.8 G/DL (14.2-18.0) L Hematocrit 27.9 % (42.0-52.0) L Mean Corpuscular Volume 101 FL (80-99) H Mean Corpuscular Hemoglobin 32.0 PG (27.0-31.0) H Mean Corpuscular Hemoglobin Concent 31.7 G/DL (32.0-36.0) L Red Cell Distribution Width 16.2 % (11.6-14.8) H Platelet Count 120 K/UL (150-450) L Mean Platelet Volume 7.2 FL (6.5-10.1) Neutrophils (%) (Auto) 33.3 % (45.0-75.0) L Lymphocytes (%) (Auto) 43.0 % (20.0-45.0) Monocytes (%) (Auto) 13.7 % (1.0-10.0) H Eosinophils (%) (Auto) 9.1 % (0.0-3.0) H Basophils (%) (Auto) 0.9 % (0.0-2.0) Sodium Level 142 MMOL/L (136-145) Potassium Level 4.8 MMOL/L (3.5-5.1) Chloride Level 105 MMOL/L (98-107) Carbon Dioxide Level 25 MMOL/L (21-32) Anion Gap 12 mmol/L (5-15) Blood Urea Nitrogen 30 mg/dL (7-18) H Creatinine 7.3 MG/DL (0.55-1.30) H Estimat Glomerular Filtration Rate 9.3 mL/min (>60) Glucose Level 87 MG/DL (74-106) Hemoglobin A1c 4.5 % (4.3-6.0) Calcium Level 9.7 MG/DL (8.5-10.1) Phosphorus Level 4.1 MG/DL (2.5-4.9) Iron Level 70 ug/dL (50-175) Total Iron Binding Capacity 149 ug/dL (250-450) L Percent Iron Saturation 47 % (15-50) Unsaturated Iron Binding 79 ug/dL (112-346) L Ferritin 580 NG/ML (8-388) H Total Bilirubin 0.3 MG/DL (0.2-1.0) Aspartate Amino Transf (AST/SGOT) 33 U/L (15-37) Alanine Aminotransferase (ALT/SGPT) 30 U/L (12-78) Alkaline Phosphatase 74 U/L (46-116) Total Protein 8.4 G/DL (6.4-8.2) H Albumin 3.5 G/DL (3.4-5.0) Globulin 4.9 g/dL Albumin/Globulin Ratio 0.7 (1.0-2.7) L Vitamin B12 Level 398 PG/ML (193-986) Folate 7.5 NG/ML (8.6-58.9) L Lymphocytes Pending Percent CD3 Cells Pending Absolute CD3 Count Pending Percent CD4 Cells Pending Absolute CD4 Count Pending T-Lymphocyte CD4/CD8 Ratio Pending Percent CD8 Cells Pending Absolute CD8 Count Pending Hepatitis B Surface Antigen Pending HIV-1 RNA (PCR) log10 Value Pending HIV-1 RNA Ultraquantitative (PCR) Pending Microbiology Date/Time Source Procedure Growth Status 12/24/19 13:40 Nasal Nares - Final Complete 12/24/19 13:40 Nasal Nares - Final Complete 12/24/19 15:00 Rectum Received Objective HEENT: Atraumatic and normocephalic. Anicteric. Pupils are equal, round, and reactive to light and accommodation. Extraocular muscles are intact. NECK: JVP elevated at about 10 cm. No carotid bruit. Carotid upstrokes 2+ bilaterally. CARDIOVASCULAR: Normal S1 and S2. Regular rate and rhythm. No murmurs, gallops, or rubs. PMI is at fourth intercostal space in the midclavicular line. LUNGS: Bibasilar crackles. ABDOMEN: Soft, nontender, and nondistended. No hepatosplenomegaly. Positive bowel sounds. EXTREMITIES: No evidence of edema, clubbing, or cyanosis. Pavan Hanson MD Dec 25, 2019 20:05
[2019-12-25] MEDS: Atorvastatin 20mg tab ORAL SCH (21:50)
[2019-12-26] VITALS: BP 132/64
--- NOTE | 2019-12-26 00:15 | History and Physical Report ---
DATE OF ADMISSION: 12/24/2019 HISTORY OF PRESENT ILLNESS: The patient has end-stage renal disease, on hemodialysis comes because of chest pain and cough. History of prior MN with history of stent in the past. The patient is on dialysis. Also has respiratory insufficiency. Chest x-ray shows bilateral interstitial infiltrates and mild cardiomegaly. COVID swab was sent according to the ER doctor and was admitted to [facility]. The patient also complains of flu-like symptoms. The chest pain is going on for about 3 days. It is more like a pressure that sometimes goes to the back. Denies palpitation. Denies nausea or vomiting. Denies presyncopal symptoms. Also reports couple of days of nasal congestion, fatigue, and sore throat. The patient is admitted to rule out pneumonia as well as acute coronary syndrome rule out. The patient is a dialysis patient. PAST MEDICAL HISTORY: Significant for hypertension, hyperlipidemia, CAD, end-stage renal disease on hemodialysis, immune deficiency syndrome, history of asthma, history of borderline diabetes, HIV. PAST SURGICAL HISTORY: Related to dialysis. FAMILY HISTORY: Noncontributory. SOCIAL HISTORY: Does have history of alcohol abuse. Denies history of drug abuse. REVIEW OF SYSTEMS: HEENT: Denies headaches. RESPIRATORY: Denies shortness of breath. Does have some cough, nasal congestion, and sore throat for 3 days. CARDIOVASCULAR: Reports chest pain for 3 days and radiates to the back. No orthopnea. GASTROINTESTINAL: Denies nausea, vomiting, or diarrhea. EXTREMITIES: Denies pain in lower extremities. CENTRAL NERVOUS SYSTEM: Denies change in speech pattern. MEDICATIONS: The patient takes clonidine, Lipitor, diltiazem, Lasix, gabapentin, insulin, isosorbide, lisinopril, Isentress, ranitidine, Norvir, Crestor, and losartan. ALLERGIES: No known allergies. PHYSICAL EXAMINATION: VITAL SIGNS: Temperature is 97.7, pulse is 71, blood pressure 131/68. HEENT: PERRLA. NECK: Supple. No lymphadenopathy. CHEST: Clear to auscultation. CARDIOVASCULAR: Regular rate and rhythm. No murmurs or extra sounds. GASTROINTESTINAL: Soft, nontender, nondistended. No organomegaly. EXTREMITIES: No edema. Reflexes equal on both sides. Dorsal pedis pulses are present. LABORATORY DATA: WBC of 6.9, hemoglobin 9.3, platelets of 104. Sodium 142, potassium 4.8, BUN of 30, creatinine 7.3. Troponin 0.029. No significant EKG changes. ASSESSMENT AND PLAN: Chest pain, rule out acute coronary syndrome; end-stage renal disease, on hemodialysis; rule out pneumonia; respiratory insufficiency. I have consulted Dr. Hanson, Dr. Vergara, Dr. Francisco Salazar, Dr. Posada for the pneumonia. Antibiotics per Dr. Francisco Salazar and Dr. Posada was also consulted for dialysis orders. Dr. Vergara is consulted for interstitial pneumonia management as well. Need to rule out acute coronary syndrome. The patient is at high risk. Daisy Bland M.D. DR: JOHNATHON JOB#: [id number] CC:
[2019-12-26 04:00] VITALS: BP 138/71
[2019-12-26 08:00] VITALS: BP 134/74
[2019-12-26] MEDS: Aspirin EC 81mg tab ORAL SCH (08:55)
[2019-12-26] MEDS: Docusate 100mg cap ORAL SCH ×3 (08:56→17:14)
[2019-12-26] MEDS: Losartan 25mg tab ORAL SCH (08:56)
--- NOTE | 2019-12-26 10:35 | Nephrology Progress Note ---
Assessment/Plan Problem List: (1) ESRD (end stage renal disease) (2) HIV disease (3) Hypertensive kidney disease (4) Diabetic nephropathy Assessment ACS On Dialysis for the past 13 years Has right chest permacath HTN DM HIV+ Plan Waiting for today's lab BP meds with parameters HD December 24 next dialysis December 27 keep BS in control Continue per consultants Antibiotics per ID Subjective ROS Limited/Unobtainable: No Constitutional: Reports: malaise Objective Objective Last 24 Hour Vital Signs Date Time Temp Pulse Resp B/P (MAP) Pulse Ox O2 Delivery O2 Flow Rate FiO2 12/26/19 08:56 138/71 12/26/19 08:25 Room Air 12/26/19 04:00 82 12/26/19 04:00 Room Air 12/26/19 04:00 97.8 78 18 138/71 (93) 97 12/26/19 00:00 Room Air 12/26/19 00:00 86 12/26/19 00:00 98.0 76 18 132/64 (86) 100 12/25/19 20:00 Room Air 12/25/19 20:00 97.7 79 18 140/77 (98) 100 12/25/19 20:00 93 12/25/19 16:00 Room Air 12/25/19 16:00 97.7 72 18 155/76 (102) 100 12/25/19 16:00 74 12/25/19 12:00 76 12/25/19 12:00 98.0 76 18 152/71 (98) 100 12/25/19 12:00 Room Air Intake and Output 12/25/19 12/26/19 19:00 07:00 Intake Total 550 ml 300 ml Output Total 2000 ml Balance -1450 ml 300 ml Intake Oral 550 ml 300 ml Output Hemodialysis UF 2000 ml # Voids 1 Today's lab pending laboratory Tests 12/25/19 17:50: White Blood Count [Pending], Lymphocytes [Pending], Percent CD3 Cells [Pending] , Absolute CD3 Count [Pending], Percent CD4 Cells [Pending], Absolute CD4 Count [Pending], T-Lymphocyte CD4/CD8 Ratio [Pending], Percent CD8 Cells [Pending], Absolute CD8 Count [Pending], Hepatitis B Surface Antigen [Pending], HIV-1 RNA ( PCR) log10 Value [Pending], HIV-1 RNA Ultraquantitative (PCR) [Pending] Height (Feet): 5 Height (Inches): 6.00 Weight (Pounds): 219 General Appearance: no apparent distress Respiratory/Chest: decreased breath sounds Abdomen: soft Toño Posada MD Dec 26, 2019 10:35
[2019-12-26 12:00] VITALS: BP 132/71
[2019-12-26 16:00] VITALS: BP 134/76
[2019-12-26 20:00] VITALS: BP_SYST 127; BP_SYST 129; BP_DIAS 75
--- NOTE | 2019-12-26 20:08 | General Progress Note ---
Assessment/Plan Problem List: (1) Diabetes mellitus ICD Codes: E11.9 - Type 2 diabetes mellitus without complications SNOMED: 57079591 (2) Anemia ICD Codes: D64.9 - Anemia, unspecified SNOMED: 524246193 (3) ESRD (end stage renal disease) ICD Codes: N18.6 - End stage renal disease SNOMED: 31389547 (4) CHF (congestive heart failure) ICD Codes: I50.9 - Heart failure, unspecified SNOMED: 08168258 (5) HIV disease ICD Codes: B20 - Human immunodeficiency virus [HIV] disease SNOMED: 61644549 (6) Hypertensive kidney disease ICD Codes: I12.9 - Hypertensive chronic kidney disease with stage 1 through stage 4 chronic kidney disease, or unspecified chronic kidney disease SNOMED: 86578224 (7) Diabetic nephropathy ICD Codes: E11.21 - Type 2 diabetes mellitus with diabetic nephropathy SNOMED: 46829901, 582833098 (8) Chest pain ICD Codes: R07.9 - Chest pain, unspecified SNOMED: 10206838 Assessment/Plan: cp pna resp insuff esrd on hd chck lytes afebrile Subjective ROS Limited/Unobtainable: Yes Allergies: Coded Allergies: No Known Allergies (Verified , 02/11/12) Objective Last 24 Hour Vital Signs Date Time Temp Pulse Resp B/P (MAP) Pulse Ox O2 Delivery O2 Flow Rate FiO2 12/26/19 16:00 97.9 77 20 134/76 (95) 99 12/26/19 16:00 72 12/26/19 12:00 77 12/26/19 12:00 97.8 76 16 132/71 (91) 97 12/26/19 08:56 138/71 12/26/19 08:25 Room Air 12/26/19 08:00 97.6 77 16 134/74 (94) 98 12/26/19 08:00 77 12/26/19 04:00 82 12/26/19 04:00 Room Air 12/26/19 04:00 97.8 78 18 138/71 (93) 97 12/26/19 00:00 Room Air 12/26/19 00:00 86 12/26/19 00:00 98.0 76 18 132/64 (86) 100 Intake and Output 4/3/20 4/4/20 19:00 07:00 Intake Total 550 ml 300 ml Output Total 2000 ml Balance -1450 ml 300 ml Intake Oral 550 ml 300 ml Output Hemodialysis UF 2000 ml # Voids 1 Height (Feet): 5 Height (Inches): 6.00 Weight (Pounds): 219 Cardiovascular: regular rhythm Abdomen: soft Daisy Bland MD Dec 26, 2019 20:08
[2019-12-26] MEDS: Atorvastatin 20mg tab ORAL SCH (20:40)
[2019-12-26] MEDS: HYDROcodone/Acetamin 10/325 tab ORAL PRN (20:41)
--- NOTE | 2019-12-26 22:57 | Cardiology Progress Note ---
Assessment/Plan Assessment/Plan 1. Non-cardiac chest pain, AMI is ruled out, 12-lead electrocardiogram does not show any evidence of ischemia. Non-ischemic nuclear stress test in 2019. Normal LV systolic and diastolic function with LVEF of approximately 60%. No further cardiac intervention is required at this time. Continue with management of flu-like symptoms, which is most likely the cause of the patient' s chest pain. 2. Hypertension. 3. History of coronary artery disease, status post PCI in the past, continue with dual oral antiplatelet therapy as well as statins. 4. History of diabetes mellitus. 5. End-stage renal disease. Subjective Subjective Sinus rhythm at rate of 83. Objective Last 24 Hour Vital Signs Date Time Temp Pulse Resp B/P (MAP) Pulse Ox O2 Delivery O2 Flow Rate FiO2 12/26/19 20:54 Room Air 12/26/19 20:00 97.9 83 19 129/75 (93) 94 12/26/19 20:00 84 12/26/19 16:00 97.9 77 20 134/76 (95) 99 12/26/19 16:00 72 12/26/19 12:00 77 12/26/19 12:00 97.8 76 16 132/71 (91) 97 12/26/19 08:56 138/71 12/26/19 08:25 Room Air 12/26/19 08:00 97.6 77 16 134/74 (94) 98 12/26/19 08:00 77 12/26/19 04:00 82 12/26/19 04:00 Room Air 12/26/19 04:00 97.8 78 18 138/71 (93) 97 12/26/19 00:00 Room Air 12/26/19 00:00 86 12/26/19 00:00 98.0 76 18 132/64 (86) 100 Intake and Output 12/25/19 12/26/19 19:00 07:00 Intake Total 550 ml 300 ml Output Total 2000 ml Balance -1450 ml 300 ml Intake Oral 550 ml 300 ml Output Hemodialysis UF 2000 ml # Voids 1 2D Echo: (2019): LVEF 65%, Mod LVH, Grade I LVDD, RVSP 23 mmHg, DEYSI Microbiology Date/Time Source Procedure Growth Status 12/24/19 13:40 Nasopharynx Coronavirus COVID-19 PCR ([facility]) - Final Complete 12/24/19 13:40 Nasal Nares - Final Complete 12/24/19 13:40 Nasal Nares - Final Complete 12/24/19 15:00 Rectum Received Objective HEENT: Atraumatic and normocephalic. Anicteric. Pupils are equal, round, and reactive to light and accommodation. Extraocular muscles are intact. NECK: JVP elevated at about 10 cm. No carotid bruit. Carotid upstrokes 2+ bilaterally. CARDIOVASCULAR: Normal S1 and S2. Regular rate and rhythm. No murmurs, gallops, or rubs. PMI is at fourth intercostal space in the midclavicular line. LUNGS: Bibasilar crackles. ABDOMEN: Soft, nontender, and nondistended. No hepatosplenomegaly. Positive bowel sounds. EXTREMITIES: No evidence of edema, clubbing, or cyanosis. Pavan Hanson MD Dec 26, 2019 22:56
[2019-12-26] MEDS: DiphenhydrAMINE 50mg/ml Inj IVP PRN (23:23)
[2019-12-27] VITALS: BP 133/71
[2019-12-27 04:00] VITALS: BP 123/70
[2019-12-27] MEDS: DiphenhydrAMINE 50mg/ml Inj IVP PRN ×3 (06:16→18:32)
[2019-12-27 08:00] VITALS: BP 122/75
[2019-12-27] MEDS: Losartan 25mg tab ORAL SCH (09:20)
[2019-12-27] MEDS: Docusate 100mg cap ORAL SCH ×3 (09:20→18:31)
[2019-12-27] MEDS: Aspirin EC 81mg tab ORAL SCH (09:20)
[2019-12-27] MEDS: HYDROcodone/Acetamin 10/325 tab ORAL PRN ×2 (09:35→18:32)
--- NOTE | 2019-12-27 11:03 | Nephrology Progress Note ---
Assessment/Plan Problem List: (1) ESRD (end stage renal disease) (2) HIV disease (3) Hypertensive kidney disease (4) Diabetic nephropathy Assessment ACS On Dialysis for the past 13 years Has right chest permacath HTN DM HIV+ Plan No labs available yet BP meds with parameters HD December 24 next dialysis December 27 keep BS in control Continue per consultants Antibiotics per ID Subjective ROS Limited/Unobtainable: No Objective Objective Last 24 Hour Vital Signs Date Time Temp Pulse Resp B/P (MAP) Pulse Ox O2 Delivery O2 Flow Rate FiO2 12/27/19 10:05 98.1 12/27/19 09:20 122/75 12/27/19 08:00 98.1 82 20 122/75 (91) 98 12/27/19 04:00 98.1 84 18 123/70 (87) 99 12/27/19 04:00 83 12/27/19 00:00 99 12/27/19 00:00 97.2 81 18 133/71 (91) 95 12/26/19 20:54 Room Air 12/26/19 20:00 97.9 83 19 129/75 (93) 94 12/26/19 20:00 84 12/26/19 16:00 97.9 77 20 134/76 (95) 99 12/26/19 16:00 72 12/26/19 12:00 77 12/26/19 12:00 97.8 76 16 132/71 (91) 97 Intake and Output 12/26/19 12/27/19 19:00 07:00 Intake Total 240 ml 240 ml Balance 240 ml 240 ml Intake Oral 240 ml 240 ml # Voids 1 1 # Bowel Movements 1 Height (Feet): 5 Height (Inches): 6.00 Weight (Pounds): 219 General Appearance: no apparent distress Objective No change Toño Posada MD Dec 27, 2019 11:03
[2019-12-27 12:00] VITALS: BP 141/86
--- NOTE | 2019-12-27 13:09 | Hematology/Onc Progress Note ---
Assessment/Plan Assessment/Plan Assessment/Plan # Anemia of chronic disease due to underlying chronic medical issues, multifactorial --> Anemia workup has been ordered, rule out gi bleed --> No evidence of hemolysis is noted, peripheral smear has been reviewed. --> Hgb goal >7. Transfuse prn. --> Epogen and IRON are indicated can be started if the hgb <10 in future --> Medications have been reviewed --> low threshold for gi evaluation in case has occult + --> ferritin is 386-->520, tibc is 287 --> hgb trend 9.2-->8.9 # Hyperproteinemia -- with a elevated b2 globulin --> spep has been ordered, pending results==> NEGATIVE RESULTS --> in the past had a isolated elevation of b2 globulin in 2011 # Thrombocytopenia is due to hiv --> trend as needed 82k-->120k --> us of abd negative # Admitted with ACS --> per renal r/o acs --> r/o chest pain # ESRD on Dialysis for 13 years --> with a right chest permacath right side --> continue 3x a week # HTN --> sbp goal <150 # DM2 --> as per endo # HIV+ --> restarted on meds Greatly appreciate consultation.and arabella RN Subjective Allergies: Coded Allergies: No Known Allergies (Verified , 02/11/12) Subjective 4/5 on tele, awake and alert, no acute distress Objective Objective Current Medications Medications (Trade) Dose Ordered Sig/Twyla Route PRN Reason Start Time Stop Time Status Last Admin Dose Admin Acetaminophen (Tylenol) 650 mg Q4H PRN ORAL MILD/TEMP 12/26/19 14:12 01/23/20 14:11 Acetaminophen/ Hydrocodone Bitart ([place] 10/325) 2 tab Q4H PRN ORAL Severe Pain (Pain Scale 7-10) 12/26/19 14:30 01/01/20 14:29 12/27/19 09:35 Aspirin (Ecotrin) 81 mg DAILY ORAL 12/27/19 09:00 02/07/20 20:59 12/27/19 09:20 Atorvastatin Calcium (Lipitor) 40 mg BEDTIME ORAL 12/26/19 21:00 03/23/20 20:59 12/26/19 20:40 Clonidine HCl (Catapres Tab) 0.1 mg Q6H PRN ORAL SBP > 160mmHg 12/26/19 14:30 03/23/20 20:29 Clopidogrel Bisulfate (Plavix) 75 mg DAILY ORAL 12/27/19 09:00 01/23/20 20:59 12/27/19 09:21 Diphenhydramine HCl (Benadryl) 25 mg Q6H PRN IVP Itching 12/26/19 14:30 01/24/20 14:29 12/27/19 12:27 Docusate Sodium (Colace) 100 mg THREE TIMES A DAY ORAL 12/26/19 18:00 01/24/20 12:59 12/27/19 12:26 Epoetin Ashok (Epoetin Ashok(ESRD on dialysis)) 10,000 unit SUBQ 12/28/19 21:00 03/27/20 20:59 Folic Acid (Folate) 2 mg DAILY ORAL 12/27/19 09:00 01/24/20 12:59 12/27/19 09:21 Gabapentin (Neurontin) 100 mg THREE TIMES A DAY ORAL 12/26/19 18:00 01/24/20 08:59 12/27/19 12:27 Losartan Potassium (Cozaar) 25 mg DAILY ORAL 12/27/19 09:00 01/23/20 20:59 12/27/19 09:20 Pantoprazole (Protonix) 40 mg EVERY 12 HOURS ORAL 12/26/19 21:00 01/24/20 20:59 12/27/19 09:20 Sevelamer Carbonate (Renvela) 800 mg THREE TIMES A DAY ORAL 12/26/19 18:00 03/24/20 12:59 12/27/19 12:27 Last 24 Hour Vital Signs Date Time Temp Pulse Resp B/P (MAP) Pulse Ox O2 Delivery O2 Flow Rate FiO2 12/27/19 12:00 98.0 78 20 141/86 (104) 99 12/27/19 10:05 98.1 12/27/19 09:20 122/75 12/27/19 09:00 Room Air 12/27/19 08:00 81 12/27/19 08:00 98.1 82 20 122/75 (91) 98 12/27/19 04:00 98.1 84 18 123/70 (87) 99 12/27/19 04:00 83 12/27/19 00:00 99 12/27/19 00:00 97.2 81 18 133/71 (91) 95 12/26/19 20:54 Room Air 12/26/19 20:00 97.9 83 19 129/75 (93) 94 12/26/19 20:00 84 12/26/19 16:00 97.9 77 20 134/76 (95) 99 12/26/19 16:00 72 12/26/19 12:00 77 12/26/19 12:00 97.8 76 16 132/71 (91) 97 12/26/19 08:56 138/71 12/26/19 08:25 Room Air 12/26/19 08:00 97.6 77 16 134/74 (94) 98 12/26/19 08:00 77 12/26/19 04:00 82 12/26/19 04:00 Room Air 12/26/19 04:00 97.8 78 18 138/71 (93) 97 12/26/19 00:00 Room Air 12/26/19 00:00 86 12/26/19 00:00 98.0 76 18 132/64 (86) 100 12/25/19 20:00 Room Air 12/25/19 20:00 97.7 79 18 140/77 (98) 100 12/25/19 20:00 93 12/25/19 16:00 Room Air 12/25/19 16:00 97.7 72 18 155/76 (102) 100 12/25/19 16:00 74 Intake and Output 12/26/19 12/27/19 19:00 07:00 Intake Total 240 ml 240 ml Balance 240 ml 240 ml Intake Oral 240 ml 240 ml # Voids 1 1 # Bowel Movements 1 Labs Test 12/24/19 14:00 12/24/19 14:30 12/24/19 22:00 12/25/19 05:54 White Blood Count 6.9 K/UL (4.8-10.8) 6.0 K/UL (4.8-10.8) Red Blood Count 2.89 M/UL (4.70-6.10) 2.76 M/UL (4.70-6.10) Hemoglobin 9.3 G/DL (14.2-18.0) 8.8 G/DL (14.2-18.0) Hematocrit 29.0 % (42.0-52.0) 27.9 % (42.0-52.0) Mean Corpuscular Volume 100 FL (80-99) 101 FL (80-99) Mean Corpuscular Hemoglobin 32.3 PG (27.0-31.0) 32.0 PG (27.0-31.0) Mean Corpuscular Hemoglobin Concent 32.3 G/DL (32.0-36.0) 31.7 G/DL (32.0-36.0) Red Cell Distribution Width 16.8 % (11.6-14.8) 16.2 % (11.6-14.8) Platelet Count 104 K/UL (150-450) 120 K/UL (150-450) Mean Platelet Volume 6.9 FL (6.5-10.1) 7.2 FL (6.5-10.1) Neutrophils (%) (Auto) 42.7 % (45.0-75.0) 33.3 % (45.0-75.0) Lymphocytes (%) (Auto) 34.2 % (20.0-45.0) 43.0 % (20.0-45.0) Monocytes (%) (Auto) 14.4 % (1.0-10.0) 13.7 % (1.0-10.0) Eosinophils (%) (Auto) 7.4 % (0.0-3.0) 9.1 % (0.0-3.0) Basophils (%) (Auto) 1.3 % (0.0-2.0) 0.9 % (0.0-2.0) Sodium Level 137 MMOL/L (136-145) 142 MMOL/L (136-145) Potassium Level 4.5 MMOL/L (3.5-5.1) 4.8 MMOL/L (3.5-5.1) Chloride Level 101 MMOL/L (98-107) 105 MMOL/L (98-107) Carbon Dioxide Level 31 MMOL/L (21-32) 25 MMOL/L (21-32) Anion Gap 5 mmol/L (5-15) 12 mmol/L (5-15) Blood Urea Nitrogen 22 mg/dL (7-18) 30 mg/dL (7-18) Creatinine 6.4 MG/DL (0.55-1.30) 7.3 MG/DL (0.55-1.30) Estimat Glomerular Filtration Rate 10.9 mL/min (>60) 9.3 mL/min (>60) Glucose Level 88 MG/DL (74-106) 87 MG/DL (74-106) Calcium Level 10.0 MG/DL (8.5-10.1) 9.7 MG/DL (8.5-10.1) Total Bilirubin 0.4 MG/DL (0.2-1.0) 0.3 MG/DL (0.2-1.0) Aspartate Amino Transf (AST/SGOT) 44 U/L (15-37) 33 U/L (15-37) Alanine Aminotransferase (ALT/SGPT) 32 U/L (12-78) 30 U/L (12-78) Alkaline Phosphatase 76 U/L (46-116) 74 U/L (46-116) Troponin I 0.029 ng/mL (0.000-0.056) 0.047 ng/mL (0.000-0.056) Pro-B-Type Natriuretic Peptide 71167 pg/mL (0-125) Total Protein 8.7 G/DL (6.4-8.2) 8.4 G/DL (6.4-8.2) Albumin 3.7 G/DL (3.4-5.0) 3.5 G/DL (3.4-5.0) Globulin 5.0 g/dL 4.9 g/dL Albumin/Globulin Ratio 0.7 (1.0-2.7) 0.7 (1.0-2.7) Hemoglobin A1c 4.5 % (4.3-6.0) Phosphorus Level 4.1 MG/DL (2.5-4.9) Iron Level 70 ug/dL (50-175) Total Iron Binding Capacity 149 ug/dL (250-450) Percent Iron Saturation 47 % (15-50) Unsaturated Iron Binding 79 ug/dL (112-346) Ferritin 580 NG/ML (8-388) Vitamin B12 Level 398 PG/ML (193-986) Folate 7.5 NG/ML (8.6-58.9) Test 4/3/20 17:50 White Blood Count 4.5 x10E3/uL (3.4-10.8) Lymphocytes 45 % (Not Estab.) Nucleated Red Blood Cells (.) Absolute Lymphocytes (Cell Immunity 1.8 x10E3/uL (0.7-3.1) Percent CD3 Cells 82.4 % (57.5-86.2) Absolute CD3 Count 1483 /uL (622-2402) Percent CD4 Cells 15.5 % (30.8-58.5) Absolute CD4 Count 279 /uL (359-1519) T-Lymphocyte CD4/CD8 Ratio 0.23 (0.92-3.72) Percent CD8 Cells 66.2 % (12.0-35.5) Absolute CD8 Count 1192 /uL (109-897) Height (Feet): 5 Height (Inches): 6.00 Weight (Pounds): 219 Objective ROS (review of systems): Constitutional: No fever, no chills, no night sweats, no fatigue Skin: No rashes, lumps, itchiness, dryness HEENT: No MAI, ear ache, visual changes, double vision, nosebleeds Breasts: No lumps, pain, discharge Pulmonary: some sob ++ Cardiovascular: No chest pain, tightness, palpitations, syncope, PND GI: No nausea, vomiting, diarrhea, melena, hematochezia, change in appetite, : No dysuria, frequency, urgency, urinary incontinence, foamy urine Musculoskeletal: No joint swelling or muscle pain, trauma, back pain Neurologic: No dizziness, fainting, seizures, changes in smell or taste Psychiatric: No nervousness, stress, or depression, anxiety, hallucinations Endocrine: No weight change, heat or cold intolerance, tremor, insomnia Physical Exam: Vitals: reviewed General: NAD HEENT: nc, at Neck: supple Chest: clear breath sounds bilaterally ++ right sided permacath Cardiovascular: RRR, no s3, s4 Abdomen: soft, nontender, nd Extremities: no cce, normal range of motion Neuro: alert and oriented Ishaan Madera MD Dec 27, 2019 13:09
[2019-12-27 16:00] VITALS: BP 147/84
--- NOTE | 2019-12-27 16:15 | Infectious Diseases Prog Note ---
Assessment/Plan Assessment/Plan IMPRESSION: 1. Acute viral illness. Negative COVID-19. 2. HIV, XZ1=042 3. History of diabetes mellitus. 4. End-stage renal disease, on hemodialysis. 5. Anemia. 6. Chest pain with history of coronary artery disease. According to Cardiology, this was atypical. 7. Thrombocytopenia. RECOMMENDATIONS: We will check HIV viral load. For now, avoid antibiotic Subjective ROS Limited/Unobtainable: No Respiratory: Reports: productive cough Gastrointestinal/Abdominal: Reports: no symptoms Genitourinary: Reports: no symptoms Allergies: Coded Allergies: No Known Allergies (Verified , 02/11/12) Objective Vital Signs Last 24 Hour Vital Signs Date Time Temp Pulse Resp B/P (MAP) Pulse Ox O2 Delivery O2 Flow Rate FiO2 12/27/19 12:00 77 12/27/19 12:00 98.0 78 20 141/86 (104) 99 12/27/19 10:05 98.1 12/27/19 09:20 122/75 12/27/19 09:00 Room Air 12/27/19 08:00 81 12/27/19 08:00 98.1 82 20 122/75 (91) 98 12/27/19 04:00 98.1 84 18 123/70 (87) 99 12/27/19 04:00 83 12/27/19 00:00 99 12/27/19 00:00 97.2 81 18 133/71 (91) 95 12/26/19 20:54 Room Air 12/26/19 20:00 97.9 83 19 129/75 (93) 94 12/26/19 20:00 84 Height (Feet): 5 Height (Inches): 6.00 Weight (Pounds): 219 General Appearance: no acute distress HEENT: mucous membranes moist Respiratory/Chest: lungs clear Cardiovascular: normal rate Abdomen: soft, non tender Extremities: no edema Neurologic/Psychiatric: alert, responsive Current Medications Medications (Trade) Dose Ordered Sig/Twyla Route PRN Reason Start Time Stop Time Status Last Admin Dose Admin Acetaminophen (Tylenol) 650 mg Q4H PRN ORAL MILD/TEMP 12/26/19 14:12 01/23/20 14:11 Acetaminophen/ Hydrocodone Bitart ([place] 10/325) 2 tab Q4H PRN ORAL Severe Pain (Pain Scale 7-10) 12/26/19 14:30 01/01/20 14:29 12/27/19 09:35 Aspirin (Ecotrin) 81 mg DAILY ORAL 12/27/19 09:00 02/07/20 20:59 12/27/19 09:20 Atorvastatin Calcium (Lipitor) 40 mg BEDTIME ORAL 12/26/19 21:00 03/23/20 20:59 12/26/19 20:40 Clonidine HCl (Catapres Tab) 0.1 mg Q6H PRN ORAL SBP > 160mmHg 12/26/19 14:30 03/23/20 20:29 Clopidogrel Bisulfate (Plavix) 75 mg DAILY ORAL 12/27/19 09:00 01/23/20 20:59 12/27/19 09:21 Diphenhydramine HCl (Benadryl) 25 mg Q6H PRN IVP Itching 12/26/19 14:30 01/24/20 14:29 12/27/19 12:27 Docusate Sodium (Colace) 100 mg THREE TIMES A DAY ORAL 12/26/19 18:00 01/24/20 12:59 12/27/19 12:26 Epoetin Ashok (Epoetin Ashok(ESRD on dialysis)) 10,000 unit SAT-SAT-SAT SUBQ 12/28/19 21:00 03/27/20 20:59 Folic Acid (Folate) 2 mg DAILY ORAL 12/27/19 09:00 01/24/20 12:59 12/27/19 09:21 Gabapentin (Neurontin) 100 mg THREE TIMES A DAY ORAL 12/26/19 18:00 01/24/20 08:59 12/27/19 12:27 Losartan Potassium (Cozaar) 25 mg DAILY ORAL 12/27/19 09:00 01/23/20 20:59 12/27/19 09:20 Pantoprazole (Protonix) 40 mg EVERY 12 HOURS ORAL 12/26/19 21:00 01/24/20 20:59 12/27/19 09:20 Sevelamer Carbonate (Renvela) 800 mg THREE TIMES A DAY ORAL 12/26/19 18:00 03/24/20 12:59 12/27/19 12:27 Francisco Salazar MD Dec 27, 2019 16:15
[2019-12-27 20:00] VITALS: BP 157/81
--- NOTE | 2019-12-27 20:58 | General Progress Note ---
Assessment/Plan Problem List: (1) Diabetes mellitus ICD Codes: E11.9 - Type 2 diabetes mellitus without complications SNOMED: 19852271 (2) Anemia ICD Codes: D64.9 - Anemia, unspecified SNOMED: 513838113 (3) ESRD (end stage renal disease) ICD Codes: N18.6 - End stage renal disease SNOMED: 59971851 (4) CHF (congestive heart failure) ICD Codes: I50.9 - Heart failure, unspecified SNOMED: 63981061 (5) HIV disease ICD Codes: B20 - Human immunodeficiency virus [HIV] disease SNOMED: 33982682 (6) Hypertensive kidney disease ICD Codes: I12.9 - Hypertensive chronic kidney disease with stage 1 through stage 4 chronic kidney disease, or unspecified chronic kidney disease SNOMED: 87976002 (7) Diabetic nephropathy ICD Codes: E11.21 - Type 2 diabetes mellitus with diabetic nephropathy SNOMED: 07265818, 348786620 (8) Chest pain ICD Codes: R07.9 - Chest pain, unspecified SNOMED: 91123480 Assessment/Plan: cp pna resp insuff esrd on hd hiv check lytes vitals stble htn niddm sugar is good Subjective ROS Limited/Unobtainable: Yes Allergies: Coded Allergies: No Known Allergies (Verified , 02/11/12) Objective Last 24 Hour Vital Signs Date Time Temp Pulse Resp B/P (MAP) Pulse Ox O2 Delivery O2 Flow Rate FiO2 12/27/19 19:02 98.0 12/27/19 16:00 98.0 79 20 147/84 (105) 97 12/27/19 16:00 77 12/27/19 12:00 77 12/27/19 12:00 98.0 78 20 141/86 (104) 99 12/27/19 09:20 122/75 12/27/19 09:00 Room Air 12/27/19 08:00 81 12/27/19 08:00 98.1 82 20 122/75 (91) 98 12/27/19 04:00 98.1 84 18 123/70 (87) 99 12/27/19 04:00 83 12/27/19 00:00 99 12/27/19 00:00 97.2 81 18 133/71 (91) 95 Intake and Output 12/26/19 12/27/19 19:00 07:00 Intake Total 240 ml 240 ml Balance 240 ml 240 ml Intake Oral 240 ml 240 ml # Voids 1 1 # Bowel Movements 1 Height (Feet): 5 Height (Inches): 6.00 Weight (Pounds): 219 Daisy Bland MD Dec 27, 2019 20:58
--- NOTE | 2019-12-27 21:45 | Cardiology Progress Note ---
Assessment/Plan Assessment/Plan 1. Non-cardiac chest pain, AMI is ruled out, 12-lead electrocardiogram does not show any evidence of ischemia. Non-ischemic nuclear stress test in 2019. Normal LV systolic and diastolic function with LVEF of approximately 60%. No further cardiac intervention is required at this time. 2. Hypertension. 3. History of coronary artery disease, status post PCI in the past, continue with dual oral antiplatelet therapy as well as statins. 4. History of diabetes mellitus. Subjective Subjective Sinus rhythm at rate of 89. Objective Last 24 Hour Vital Signs Date Time Temp Pulse Resp B/P (MAP) Pulse Ox O2 Delivery O2 Flow Rate FiO2 12/27/19 20:00 98.0 89 20 157/81 (106) 97 12/27/19 20:00 85 12/27/19 19:02 98.0 12/27/19 16:00 98.0 79 20 147/84 (105) 97 12/27/19 16:00 77 12/27/19 12:00 77 12/27/19 12:00 98.0 78 20 141/86 (104) 99 12/27/19 09:20 122/75 12/27/19 09:00 Room Air 12/27/19 08:00 81 12/27/19 08:00 98.1 82 20 122/75 (91) 98 12/27/19 04:00 98.1 84 18 123/70 (87) 99 12/27/19 04:00 83 12/27/19 00:00 99 12/27/19 00:00 97.2 81 18 133/71 (91) 95 Intake and Output 12/26/19 12/27/19 19:00 07:00 Intake Total 240 ml 240 ml Balance 240 ml 240 ml Intake Oral 240 ml 240 ml # Voids 1 1 # Bowel Movements 1 2D Echo: (2019): LVEF 65%, Mod LVH, Grade I LVDD, RVSP 23 mmHg, DEYSI Objective HEENT: Atraumatic and normocephalic. Anicteric. Pupils are equal, round, and reactive to light and accommodation. Extraocular muscles are intact. NECK: JVP elevated at about 10 cm. No carotid bruit. Carotid upstrokes 2+ bilaterally. CARDIOVASCULAR: Normal S1 and S2. Regular rate and rhythm. No murmurs, gallops, or rubs. PMI is at fourth intercostal space in the midclavicular line. LUNGS: Bibasilar crackles. ABDOMEN: Soft, nontender, and nondistended. No hepatosplenomegaly. Positive bowel sounds. EXTREMITIES: No evidence of edema, clubbing, or cyanosis. Pavan Hanson MD Dec 27, 2019 21:45
[2019-12-27] MEDS: Atorvastatin 20mg tab ORAL SCH (21:56)
[2019-12-28] VITALS: BP 150/83
[2019-12-28] MEDS: DiphenhydrAMINE 50mg/ml Inj IVP PRN ×2 (00:51→14:41)
[2019-12-28 04:00] VITALS: BP 145/57
[2019-12-28 08:00] VITALS: BP 140/80
--- NOTE | 2019-12-28 09:18 | Hematology/Onc Progress Note ---
Assessment/Plan Assessment/Plan Assessment/Plan # Anemia of chronic disease due to underlying chronic medical issues, multifactorial --> Anemia workup has been ordered, rule out gi bleed --> No evidence of hemolysis is noted, peripheral smear has been reviewed. --> Hgb goal >7. Transfuse prn. --> Epogen and IRON are indicated can be started if the hgb <10 in future --> Medications have been reviewed --> low threshold for gi evaluation in case has occult + --> ferritin is 386-->520, tibc is 287 --> hgb trend 9.2-->8.9 # Hyperproteinemia -- with a elevated b2 globulin --> spep has been ordered, pending results==> NEGATIVE RESULTS --> in the past had a isolated elevation of b2 globulin in 2011 # Thrombocytopenia is due to hiv --> trend as needed 82k-->120k --> us of abd negative # Admitted with ACS --> per renal r/o acs --> r/o chest pain # ESRD on Dialysis for 13 years --> with a right chest permacath right side --> continue 3x a week # HTN --> sbp goal <150 # DM2 --> as per endo # HIV+ --> restarted on meds Greatly appreciate consultation.and arabella RN Subjective Constitutional: Denies: no symptoms, chills, fever, malaise, weakness, other HEENT: Denies: no symptoms, eye pain, blurred vision, tearing, double vision, ear pain, ear discharge, nose pain, nose congestion, throat pain, throat swelling, mouth pain, mouth swelling, other Cardiovascular: Denies: no symptoms, chest pain, edema, irregular heart rate, lightheadedness, palpitations, syncope, other Respiratory: Denies: no symptoms, cough, shortness of breath, SOB with excertion, SOB at rest, sputum, wheezing, other Gastrointestinal/Abdominal: Denies: no symptoms, abdomen distended, abdominal pain, black stools, tarry stools, blood in stool, constipated, diarrhea, difficulty swallowing, nausea, poor appetite, poor fluid intake, rectal bleeding , vomiting, other Genitourinary: Denies: no symptoms, burning, discharge, frequency, flank pain, hematuria, incontinence, pain, urgency, other Endocrine: Denies: no symptoms, excessive sweating, flushing, intolerance to cold, intolerance to heat, increased hunger, increased thirst, increased urine, unexplained weight gain, unexplained weight loss, other Hematologic/Lymphatic: Denies: no symptoms, anemia, easy bleeding, easy bruising, adenopathy, other Allergies: Coded Allergies: No Known Allergies (Verified , 02/11/12) Subjective / on tele, awake and alert, no acute distress 12/27 no night sweats, labs noted, dw rn, no bleeding Objective Objective Current Medications Medications (Trade) Dose Ordered Sig/Twyla Route PRN Reason Start Time Stop Time Status Last Admin Dose Admin Acetaminophen (Tylenol) 650 mg Q4H PRN ORAL MILD/TEMP 12/26/19 14:12 01/23/20 14:11 Acetaminophen/ Hydrocodone Bitart ([place] 10/325) 2 tab Q4H PRN ORAL Severe Pain (Pain Scale 7-10) 12/26/19 14:30 01/01/20 14:29 12/27/19 18:32 Aspirin (Ecotrin) 81 mg DAILY ORAL 12/27/19 09:00 02/07/20 20:59 12/27/19 09:20 Atorvastatin Calcium (Lipitor) 40 mg BEDTIME ORAL 12/26/19 21:00 03/23/20 20:59 12/27/19 21:56 Clonidine HCl (Catapres Tab) 0.1 mg Q6H PRN ORAL SBP > 160mmHg 12/26/19 14:30 03/23/20 20:29 Clopidogrel Bisulfate (Plavix) 75 mg DAILY ORAL 12/27/19 09:00 01/23/20 20:59 12/27/19 09:21 Diphenhydramine HCl (Benadryl) 25 mg Q6H PRN IVP Itching 12/26/19 14:30 01/24/20 14:29 12/28/19 00:51 Docusate Sodium (Colace) 100 mg THREE TIMES A DAY ORAL 12/26/19 18:00 01/24/20 12:59 12/27/19 18:31 Epoetin Ashok (Epoetin Ashok(ESRD on dialysis)) 10,000 unit SAT-WED-SAT SUBQ 12/28/19 21:00 03/27/20 20:59 Folic Acid (Folate) 2 mg DAILY ORAL 12/27/19 09:00 01/24/20 12:59 12/27/19 09:21 Gabapentin (Neurontin) 100 mg THREE TIMES A DAY ORAL 12/26/19 18:00 01/24/20 08:59 12/27/19 18:31 Losartan Potassium (Cozaar) 25 mg DAILY ORAL 12/27/19 09:00 01/23/20 20:59 12/27/19 09:20 Pantoprazole (Protonix) 40 mg EVERY 12 HOURS ORAL 12/26/19 21:00 01/24/20 20:59 12/27/19 21:56 Sevelamer Carbonate (Renvela) 800 mg THREE TIMES A DAY ORAL 12/26/19 18:00 03/24/20 12:59 12/27/19 18:31 Last 24 Hour Vital Signs Date Time Temp Pulse Resp B/P (MAP) Pulse Ox O2 Delivery O2 Flow Rate FiO2 12/28/19 08:00 98.0 83 20 140/80 (100) 97 12/28/19 04:00 88 12/28/19 04:00 98.0 82 20 145/57 (86) 97 12/28/19 00:00 88 12/28/19 00:00 97.6 89 20 150/83 (105) 97 12/27/19 21:00 Room Air 12/27/19 20:00 98.0 89 20 157/81 (106) 97 12/27/19 20:00 85 12/27/19 19:02 98.0 12/27/19 16:00 98.0 79 20 147/84 (105) 97 12/27/19 16:00 77 12/27/19 12:00 77 12/27/19 12:00 98.0 78 20 141/86 (104) 99 12/27/19 09:20 122/75 12/27/19 09:00 Room Air 12/27/19 08:00 81 12/27/19 08:00 98.1 82 20 122/75 (91) 98 12/27/19 04:00 98.1 84 18 123/70 (87) 99 12/27/19 04:00 83 12/27/19 00:00 99 12/27/19 00:00 97.2 81 18 133/71 (91) 95 4/4/20 20:54 Room Air 12/26/19 20:00 97.9 83 19 129/75 (93) 94 12/26/19 20:00 84 12/26/19 16:00 97.9 77 20 134/76 (95) 99 12/26/19 16:00 72 12/26/19 12:00 77 12/26/19 12:00 97.8 76 16 132/71 (91) 97 Intake and Output 12/27/19 12/28/19 19:00 07:00 # Voids 2 Labs Test 12/25/19 17:50 White Blood Count 4.5 x10E3/uL (3.4-10.8) Lymphocytes 45 % (Not Estab.) Nucleated Red Blood Cells (.) Absolute Lymphocytes (Cell Immunity 1.8 x10E3/uL (0.7-3.1) Percent CD3 Cells 82.4 % (57.5-86.2) Absolute CD3 Count 1483 /uL (622-2402) Percent CD4 Cells 15.5 % (30.8-58.5) Absolute CD4 Count 279 /uL (359-1519) T-Lymphocyte CD4/CD8 Ratio 0.23 (0.92-3.72) Percent CD8 Cells 66.2 % (12.0-35.5) Absolute CD8 Count 1192 /uL (109-897) HIV-1 RNA (PCR) log10 Value 3.922 (.) HIV-1 RNA Ultraquantitative (PCR) 8350 copies/mL (.) Height (Feet): 5 Height (Inches): 6.00 Weight (Pounds): 219 Objective ROS (review of systems): Constitutional: No fever, no chills, no night sweats, no fatigue Skin: No rashes, lumps, itchiness, dryness HEENT: No MAI, ear ache, visual changes, double vision, nosebleeds Breasts: No lumps, pain, discharge Pulmonary: some sob ++ Cardiovascular: No chest pain, tightness, palpitations, syncope, PND GI: No nausea, vomiting, diarrhea, melena, hematochezia, change in appetite, : No dysuria, frequency, urgency, urinary incontinence, foamy urine Musculoskeletal: No joint swelling or muscle pain, trauma, back pain Neurologic: No dizziness, fainting, seizures, changes in smell or taste Psychiatric: No nervousness, stress, or depression, anxiety, hallucinations Endocrine: No weight change, heat or cold intolerance, tremor, insomnia Physical Exam: Vitals: reviewed General: NAD HEENT: nc, at Neck: supple Chest: clear breath sounds bilaterally ++ right sided permacath Cardiovascular: RRR, no s3, s4 Abdomen: soft, nontender, nd Extremities: no cce, normal range of motion Neuro: alert and oriented Ishaan Madera MD Dec 28, 2019 09:18
[2019-12-28] MEDS: Docusate 100mg cap ORAL SCH ×3 (09:22→17:15)
[2019-12-28] MEDS: Losartan 25mg tab ORAL SCH (09:23)
[2019-12-28] MEDS: Aspirin EC 81mg tab ORAL SCH (09:23)
--- NOTE | 2019-12-28 10:05 | Nephrology Progress Note ---
Assessment/Plan Problem List: (1) ESRD (end stage renal disease) (2) HIV disease (3) Hypertensive kidney disease (4) Diabetic nephropathy Assessment ACS On Dialysis for the past 13 years Has right chest permacath HTN DM HIV+ Plan No labs available yet, will be attempted on start of dialysis BP meds with parameters HD December 24 next dialysis December 27 keep BS in control Continue per consultants Antibiotics per ID Subjective ROS Limited/Unobtainable: No Constitutional: Reports: malaise Objective Objective Last 24 Hour Vital Signs Date Time Temp Pulse Resp B/P (MAP) Pulse Ox O2 Delivery O2 Flow Rate FiO2 12/28/19 09:23 140/80 12/28/19 08:00 98.0 83 20 140/80 (100) 97 12/28/19 04:00 88 12/28/19 04:00 98.0 82 20 145/57 (86) 97 12/28/19 00:00 88 12/28/19 00:00 97.6 89 20 150/83 (105) 97 12/27/19 21:00 Room Air 12/27/19 20:00 98.0 89 20 157/81 (106) 97 12/27/19 20:00 85 12/27/19 19:02 98.0 12/27/19 16:00 98.0 79 20 147/84 (105) 97 12/27/19 16:00 77 12/27/19 12:00 77 12/27/19 12:00 98.0 78 20 141/86 (104) 99 Intake and Output 12/27/19 12/28/19 19:00 07:00 # Voids 2 No blood drawn due to poor veins Height (Feet): 5 Height (Inches): 6.00 Weight (Pounds): 219 General Appearance: no apparent distress Objective No change Toño Posada MD Dec 28, 2019 10:05
[2019-12-28 12:00] VITALS: BP 132/78
[2019-12-28] MEDS ORDERED: D5NS 1000ml IV ONE (12:56)
--- NOTE | 2019-12-28 13:25 | Diagnostic Imaging Report ---
Indication: Leg pain, leg edema, prior history of deep venous thrombosis Technique: Grayscale and duplex images of the bilateral lower extremity veins Comparison: None Findings: Bilaterally, grayscale and duplex images demonstrate no evidence of intraluminal thrombus. Normal phasic Doppler waveforms, demonstrating normal augmentation response and no evidence of valvular insufficiency. Greater saphenous vein(s) and tibial veins are patent. Normal compressibility. Impression: Negative for evidence of lower extremity deep venous thrombosis bilaterally
--- NOTE | 2019-12-28 14:02 | Infectious Diseases Prog Note ---
Assessment/Plan Assessment/Plan IMPRESSION: 1. Acute viral illness. Negative COVID-19. 2. HIV, OQ8=754, HIV viral load= 8350 3. History of diabetes mellitus. 4. End-stage renal disease, on hemodialysis. 5. Anemia. 6. Chest pain with history of coronary artery disease. According to Cardiology, this was atypical. 7. Thrombocytopenia. RECOMMENDATIONS: Observe off antibiotic Subjective ROS Limited/Unobtainable: No Constitutional: Reports: no symptoms Respiratory: Reports: productive cough Cardiovascular: Reports: no symptoms Gastrointestinal/Abdominal: Reports: no symptoms Allergies: Coded Allergies: No Known Allergies (Verified , 02/11/12) Objective Vital Signs Last 24 Hour Vital Signs Date Time Temp Pulse Resp B/P (MAP) Pulse Ox O2 Delivery O2 Flow Rate FiO2 12/28/19 12:00 98.0 85 20 132/78 (96) 97 12/28/19 09:23 140/80 12/28/19 09:00 Room Air 12/28/19 08:07 79 12/28/19 08:00 98.0 83 20 140/80 (100) 97 12/28/19 04:00 88 12/28/19 04:00 98.0 82 20 145/57 (86) 97 12/28/19 00:00 88 12/28/19 00:00 97.6 89 20 150/83 (105) 97 12/27/19 21:00 Room Air 12/27/19 20:00 98.0 89 20 157/81 (106) 97 12/27/19 20:00 85 12/27/19 19:02 98.0 12/27/19 16:00 98.0 79 20 147/84 (105) 97 12/27/19 16:00 77 Height (Feet): 5 Height (Inches): 6.00 Weight (Pounds): 219 General Appearance: no acute distress HEENT: mucous membranes moist Respiratory/Chest: lungs clear Cardiovascular: normal rate Abdomen: soft, non tender Extremities: no edema Neurologic/Psychiatric: alert, oriented x 3, responsive Current Medications Medications (Trade) Dose Ordered Sig/Twyla Route PRN Reason Start Time Stop Time Status Last Admin Dose Admin Acetaminophen (Tylenol) 650 mg Q4H PRN ORAL MILD/TEMP 12/26/19 14:12 01/23/20 14:11 Acetaminophen/ Hydrocodone Bitart ([place] 10/325) 2 tab Q4H PRN ORAL Severe Pain (Pain Scale 7-10) 12/26/19 14:30 01/01/20 14:29 12/27/19 18:32 Aspirin (Ecotrin) 81 mg DAILY ORAL 12/27/19 09:00 02/07/20 20:59 12/28/19 09:23 Atorvastatin Calcium (Lipitor) 40 mg BEDTIME ORAL 12/26/19 21:00 03/23/20 20:59 12/27/19 21:56 Clonidine HCl (Catapres Tab) 0.1 mg Q6H PRN ORAL SBP > 160mmHg 12/26/19 14:30 03/23/20 20:29 Clopidogrel Bisulfate (Plavix) 75 mg DAILY ORAL 12/27/19 09:00 01/23/20 20:59 12/28/19 09:23 Diphenhydramine HCl (Benadryl) 25 mg Q6H PRN IVP Itching 12/26/19 14:30 01/24/20 14:29 12/28/19 00:51 Docusate Sodium (Colace) 100 mg THREE TIMES A DAY ORAL 12/26/19 18:00 01/24/20 12:59 12/28/19 09:22 Epoetin Ashok (Epoetin Ashok(ESRD on dialysis)) 10,000 unit SUBQ 12/28/19 21:00 03/27/20 20:59 Folic Acid (Folate) 2 mg DAILY ORAL 12/27/19 09:00 01/24/20 12:59 12/28/19 09:23 Gabapentin (Neurontin) 100 mg THREE TIMES A DAY ORAL 12/26/19 18:00 01/24/20 08:59 12/28/19 09:23 Losartan Potassium (Cozaar) 25 mg DAILY ORAL 12/27/19 09:00 01/23/20 20:59 12/28/19 09:23 Pantoprazole (Protonix) 40 mg EVERY 12 HOURS ORAL 12/26/19 21:00 01/24/20 20:59 12/28/19 09:23 Sevelamer Carbonate (Renvela) 800 mg THREE TIMES A DAY ORAL 12/26/19 18:00 03/24/20 12:59 12/28/19 09:23 Francisco Salazar MD Dec 28, 2019 14:02
[2019-12-28 15:13] LABS: BASOPHILS % (AUTO) 1.3 % (0.0-2.0); EOSINOPHILS % (AUTO) 10.1 % (0.0-3.0); HEMATOCRIT 27.8 % (42.0-52.0); HEMOGLOBIN 8.8 G/DL (14.2-18.0); LYMPHOCYTES % (AUTO) 25.2 % (20.0-45.0); MEAN CORPUSCULAR VOLUME 101 FL (80-99); MONOCYTES % (AUTO) 12.1 % (1.0-10.0); NEUTROPHILS % (AUTO) 51.2 % (45.0-75.0); PLATELET COUNT 113 K/UL (150-450); RED BLOOD COUNT 2.75 M/UL (4.70-6.10); RED CELL DISTRIBUTION WIDTH 15.8 % (11.6-14.8); WHITE BLOOD COUNT 6.1 K/UL (4.8-10.8)
[2019-12-28 15:36] LABS: ALANINE AMINOTRANSFERASE 22 U/L (12-78); ALBUMIN 3.5 G/DL (3.4-5.0); ALBUMIN/GLOBULIN RATIO 0.7 (1.0-2.7); ALKALINE PHOSPHATASE 75 U/L (46-116); ANION GAP 12 mmol/L (5-15); ASPARTATE AMINO TRANSFERASE 24 U/L (15-37); BILIRUBIN,TOTAL 0.3 MG/DL (0.2-1.0); BLOOD UREA NITROGEN 50 mg/dL (7-18); CALCIUM 9.3 MG/DL (8.5-10.1); CARBON DIOXIDE 24 MMOL/L (21-32); CHLORIDE 101 MMOL/L (98-107); CREATININE 10.2 MG/DL (0.55-1.30); PHOSPHORUS 3.9 MG/DL (2.5-4.9); POTASSIUM 4.4 MMOL/L (3.5-5.1); SODIUM 137 MMOL/L (136-145)
[2019-12-28 16:00] VITALS: BP 142/79
[2019-12-28 20:00] VITALS: BP 156/83
[2019-12-28] MEDS: Epoetin Alfa-EPBX(ESRD on dialysis)10,000 unit/ml vial SUBQ SCH (20:33)
[2019-12-28] MEDS: DiphenhydrAMINE 25mg Tab ORAL PRN (20:33)
[2019-12-28] MEDS: Atorvastatin 20mg tab ORAL SCH (20:33)
[2019-12-28] MEDS ORDERED: Epoetin Alfa-EPBX(ESRD on dialysis)10,000 unit/ml vial SUBQ SCH (21:00)
--- NOTE | 2019-12-28 21:24 | General Progress Note ---
Assessment/Plan Problem List: (1) Diabetes mellitus ICD Codes: E11.9 - Type 2 diabetes mellitus without complications SNOMED: 98939574 (2) Anemia ICD Codes: D64.9 - Anemia, unspecified SNOMED: 380026087 (3) ESRD (end stage renal disease) ICD Codes: N18.6 - End stage renal disease SNOMED: 13203657 (4) CHF (congestive heart failure) ICD Codes: I50.9 - Heart failure, unspecified SNOMED: 97500416 (5) HIV disease ICD Codes: B20 - Human immunodeficiency virus [HIV] disease SNOMED: 51995023 (6) Hypertensive kidney disease ICD Codes: I12.9 - Hypertensive chronic kidney disease with stage 1 through stage 4 chronic kidney disease, or unspecified chronic kidney disease SNOMED: 03041108 (7) Diabetic nephropathy ICD Codes: E11.21 - Type 2 diabetes mellitus with diabetic nephropathy SNOMED: 65030774, 244135884 (8) Chest pain ICD Codes: R07.9 - Chest pain, unspecified SNOMED: 94250962 Assessment/Plan: atypical cp resp insuff hiv niddm esred on hd anemia low platelet cad htn Subjective ROS Limited/Unobtainable: Yes Allergies: Coded Allergies: No Known Allergies (Verified , 02/11/12) Objective Last 24 Hour Vital Signs Date Time Temp Pulse Resp B/P (MAP) Pulse Ox O2 Delivery O2 Flow Rate FiO2 12/28/19 16:00 98.1 86 20 142/79 (100) 97 12/28/19 16:00 87 12/28/19 12:00 98.0 85 20 132/78 (96) 97 12/28/19 09:23 140/80 12/28/19 09:00 Room Air 12/28/19 08:07 79 12/28/19 08:00 98.0 83 20 140/80 (100) 97 12/28/19 04:00 88 12/28/19 04:00 98.0 82 20 145/57 (86) 97 12/28/19 00:00 88 12/28/19 00:00 97.6 89 20 150/83 (105) 97 Intake and Output 12/27/19 12/28/19 19:00 07:00 # Voids 2 Laboratory Tests 12/28/19 14:50: White Blood Count 6.1, Red Blood Count 2.75L, Hemoglobin 8.8L, Hematocrit 27.8L , Mean Corpuscular Volume 101H, Mean Corpuscular Hemoglobin 31.9H, Mean Corpuscular Hemoglobin Concent 31.4L, Red Cell Distribution Width 15.8H, Platelet Count 113L, Mean Platelet Volume 6.6, Neutrophils (%) (Auto) 51.2, Lymphocytes (%) (Auto) 25.2, Monocytes (%) (Auto) 12.1H, Eosinophils (%) (Auto) 10.1H, Basophils (%) (Auto) 1.3, Sodium Level 137, Potassium Level 4.4, Chloride Level 101, Carbon Dioxide Level 24, Anion Gap 12, Blood Urea Nitrogen 50H, Creatinine 10.2H, Estimat Glomerular Filtration Rate 6.4, Glucose Level 126H, Calcium Level 9.3, Phosphorus Level 3.9, Magnesium Level 2.2, Total Bilirubin 0.3, Aspartate Amino Transf (AST/SGOT) 24, Alanine Aminotransferase ( ALT/SGPT) 22, Alkaline Phosphatase 75, C-Reactive Protein, Quantitative 0.7, Pro -B-Type Natriuretic Peptide 7477H, Total Protein 8.4H, Albumin 3.5, Globulin 4.9 , Albumin/Globulin Ratio 0.7L Height (Feet): 5 Height (Inches): 6.00 Weight (Pounds): 219 Daisy Bland MD Dec 28, 2019 21:24
--- NOTE | 2019-12-28 22:36 | Cardiology Progress Note ---
Assessment/Plan Assessment/Plan 1. Non-cardiac chest pain, AMI is ruled out, 12-lead electrocardiogram does not show any evidence of ischemia. Non-ischemic nuclear stress test in 2019. Normal LV systolic and diastolic function with LVEF of approximately 60%. No further cardiac intervention is required at this time. 2. Hypertension. 3. History of coronary artery disease, status post PCI in the past, continue with dual oral antiplatelet therapy as well as statins. 4. History of diabetes mellitus. 5. Upper respiratory tract infection, negative COVID-19 test. Subjective Subjective Sinus rhythm at rate of 94. Objective Last 24 Hour Vital Signs Date Time Temp Pulse Resp B/P (MAP) Pulse Ox O2 Delivery O2 Flow Rate FiO2 12/28/19 21:00 Room Air 12/28/19 20:00 98.4 94 19 156/83 (107) 100 12/28/19 16:00 98.1 86 20 142/79 (100) 97 12/28/19 16:00 87 12/28/19 12:00 98.0 85 20 132/78 (96) 97 12/28/19 09:23 140/80 12/28/19 09:00 Room Air 12/28/19 08:07 79 12/28/19 08:00 98.0 83 20 140/80 (100) 97 12/28/19 04:00 88 12/28/19 04:00 98.0 82 20 145/57 (86) 97 12/28/19 00:00 88 12/28/19 00:00 97.6 89 20 150/83 (105) 97 Intake and Output 12/27/19 12/28/19 19:00 07:00 # Voids 2 2D Echo: (2019): LVEF 65%, Mod LVH, Grade I LVDD, RVSP 23 mmHg, DEYSI Laboratory Tests Test 12/28/19 14:50 White Blood Count 6.1 K/UL (4.8-10.8) Red Blood Count 2.75 M/UL (4.70-6.10) L Hemoglobin 8.8 G/DL (14.2-18.0) L Hematocrit 27.8 % (42.0-52.0) L Mean Corpuscular Volume 101 FL (80-99) H Mean Corpuscular Hemoglobin 31.9 PG (27.0-31.0) H Mean Corpuscular Hemoglobin Concent 31.4 G/DL (32.0-36.0) L Red Cell Distribution Width 15.8 % (11.6-14.8) H Platelet Count 113 K/UL (150-450) L Mean Platelet Volume 6.6 FL (6.5-10.1) Neutrophils (%) (Auto) 51.2 % (45.0-75.0) Lymphocytes (%) (Auto) 25.2 % (20.0-45.0) Monocytes (%) (Auto) 12.1 % (1.0-10.0) H Eosinophils (%) (Auto) 10.1 % (0.0-3.0) H Basophils (%) (Auto) 1.3 % (0.0-2.0) Sodium Level 137 MMOL/L (136-145) Potassium Level 4.4 MMOL/L (3.5-5.1) Chloride Level 101 MMOL/L (98-107) Carbon Dioxide Level 24 MMOL/L (21-32) Anion Gap 12 mmol/L (5-15) Blood Urea Nitrogen 50 mg/dL (7-18) H Creatinine 10.2 MG/DL (0.55-1.30) H Estimat Glomerular Filtration Rate 6.4 mL/min (>60) Glucose Level 126 MG/DL (74-106) H Calcium Level 9.3 MG/DL (8.5-10.1) Phosphorus Level 3.9 MG/DL (2.5-4.9) Magnesium Level 2.2 MG/DL (1.8-2.4) Total Bilirubin 0.3 MG/DL (0.2-1.0) Aspartate Amino Transf (AST/SGOT) 24 U/L (15-37) Alanine Aminotransferase (ALT/SGPT) 22 U/L (12-78) Alkaline Phosphatase 75 U/L (46-116) C-Reactive Protein, Quantitative 0.7 mg/dL (0.00-0.90) Pro-B-Type Natriuretic Peptide 7477 pg/mL (0-125) H Total Protein 8.4 G/DL (6.4-8.2) H Albumin 3.5 G/DL (3.4-5.0) Globulin 4.9 g/dL Albumin/Globulin Ratio 0.7 (1.0-2.7) L Objective HEENT: Atraumatic and normocephalic. Anicteric. Pupils are equal, round, and reactive to light and accommodation. Extraocular muscles are intact. NECK: JVP elevated at about 10 cm. No carotid bruit. Carotid upstrokes 2+ bilaterally. CARDIOVASCULAR: Normal S1 and S2. Regular rate and rhythm. No murmurs, gallops, or rubs. PMI is at fourth intercostal space in the midclavicular line. LUNGS: Bibasilar crackles. ABDOMEN: Soft, nontender, and nondistended. No hepatosplenomegaly. Positive bowel sounds. EXTREMITIES: No evidence of edema, clubbing, or cyanosis. Pavan Hanson MD Dec 28, 2019 22:36
[2019-12-29] VITALS: BP 153/61
[2019-12-29] MEDS: HYDROcodone/Acetamin 10/325 tab ORAL PRN ×2 (03:39→09:43)
[2019-12-29 04:00] VITALS: BP 155/65
[2019-12-29 07:25] LABS: BASOPHILS % (AUTO) 1.4 % (0.0-2.0); EOSINOPHILS % (AUTO) 11.5 % (0.0-3.0); HEMOGLOBIN 9.1 G/DL (14.2-18.0); LYMPHOCYTES % (AUTO) 31.7 % (20.0-45.0); MEAN CORPUSCULAR VOLUME 101 FL (80-99); MONOCYTES % (AUTO) 14.5 % (1.0-10.0); PLATELET COUNT 113 K/UL (150-450); RED BLOOD COUNT 2.78 M/UL (4.70-6.10); WHITE BLOOD COUNT 5.6 K/UL (4.8-10.8)
[2019-12-29 07:50] LABS: ANION GAP 11 mmol/L (5-15); BLOOD UREA NITROGEN 32 mg/dL (7-18); CALCIUM 9.7 MG/DL (8.5-10.1); CARBON DIOXIDE 29 MMOL/L (21-32); CHLORIDE 99 MMOL/L (98-107); CREATININE 8.3 MG/DL (0.55-1.30); POTASSIUM 3.8 MMOL/L (3.5-5.1); SODIUM 139 MMOL/L (136-145)
[2019-12-29 08:36] VITALS: BP 132/81
[2019-12-29] MEDS: Losartan 25mg tab ORAL SCH (09:24)
[2019-12-29] MEDS: Docusate 100mg cap ORAL SCH ×3 (09:24→18:00)
[2019-12-29] MEDS: Aspirin EC 81mg tab ORAL SCH (09:24)
--- NOTE | 2019-12-29 11:06 | Infectious Diseases Prog Note ---
Assessment/Plan Assessment/Plan IMPRESSION: 1. Acute viral illness. Negative COVID-19. 2. HIV, WJ4=653, HIV viral load= 8350 3. History of diabetes mellitus. 4. End-stage renal disease, on hemodialysis. 5. Anemia. 6. Atypical Chest pain with history of coronary artery disease. 7. Thrombocytopenia. RECOMMENDATIONS: Observe off antibiotic Subjective ROS Limited/Unobtainable: No Constitutional: Reports: no symptoms Respiratory: Reports: productive cough Cardiovascular: Reports: no symptoms Gastrointestinal/Abdominal: Reports: no symptoms Allergies: Coded Allergies: No Known Allergies (Verified , 02/11/12) Objective Vital Signs Last 24 Hour Vital Signs Date Time Temp Pulse Resp B/P (MAP) Pulse Ox O2 Delivery O2 Flow Rate FiO2 12/29/19 09:32 Room Air 12/29/19 09:24 132/81 12/29/19 08:37 89 12/29/19 08:36 99.0 95 20 132/81 (98) 98 12/29/19 04:00 98 12/29/19 04:00 98.6 95 17 155/65 (95) 98 12/29/19 00:00 98.2 97 17 153/61 (91) 98 12/28/19 23:30 94 12/28/19 21:00 Room Air 12/28/19 20:00 98.4 94 19 156/83 (107) 100 12/28/19 19:14 90 12/28/19 16:00 98.1 86 20 142/79 (100) 97 12/28/19 16:00 87 12/28/19 12:00 98.0 85 20 132/78 (96) 97 Height (Feet): 5 Height (Inches): 6.00 Weight (Pounds): 219 General Appearance: no acute distress HEENT: mucous membranes moist Respiratory/Chest: lungs clear Cardiovascular: normal rate Abdomen: soft, non tender Extremities: other - trace legs edema Neurologic/Psychiatric: alert, oriented x 3, responsive Laboratory Tests Test 12/28/19 14:50 12/29/19 06:40 White Blood Count 6.1 K/UL (4.8-10.8) 5.6 K/UL (4.8-10.8) Red Blood Count 2.75 M/UL (4.70-6.10) L 2.78 M/UL (4.70-6.10) L Hemoglobin 8.8 G/DL (14.2-18.0) L 9.1 G/DL (14.2-18.0) L Hematocrit 27.8 % (42.0-52.0) L 28.0 % (42.0-52.0) L Mean Corpuscular Volume 101 FL (80-99) H 101 FL (80-99) H Mean Corpuscular Hemoglobin 31.9 PG (27.0-31.0) H 32.6 PG (27.0-31.0) H Mean Corpuscular Hemoglobin Concent 31.4 G/DL (32.0-36.0) L 32.3 G/DL (32.0-36.0) Red Cell Distribution Width 15.8 % (11.6-14.8) H 16.0 % (11.6-14.8) H Platelet Count 113 K/UL (150-450) L 113 K/UL (150-450) L Mean Platelet Volume 6.6 FL (6.5-10.1) 7.1 FL (6.5-10.1) Neutrophils (%) (Auto) 51.2 % (45.0-75.0) 41.0 % (45.0-75.0) L Lymphocytes (%) (Auto) 25.2 % (20.0-45.0) 31.7 % (20.0-45.0) Monocytes (%) (Auto) 12.1 % (1.0-10.0) H 14.5 % (1.0-10.0) H Eosinophils (%) (Auto) 10.1 % (0.0-3.0) H 11.5 % (0.0-3.0) H Basophils (%) (Auto) 1.3 % (0.0-2.0) 1.4 % (0.0-2.0) Sodium Level 137 MMOL/L (136-145) 139 MMOL/L (136-145) Potassium Level 4.4 MMOL/L (3.5-5.1) 3.8 MMOL/L (3.5-5.1) Chloride Level 101 MMOL/L (98-107) 99 MMOL/L (98-107) Carbon Dioxide Level 24 MMOL/L (21-32) 29 MMOL/L (21-32) Anion Gap 12 mmol/L (5-15) 11 mmol/L (5-15) Blood Urea Nitrogen 50 mg/dL (7-18) H 32 mg/dL (7-18) H Creatinine 10.2 MG/DL (0.55-1.30) H 8.3 MG/DL (0.55-1.30) H Estimat Glomerular Filtration Rate 6.4 mL/min (>60) 8.1 mL/min (>60) Glucose Level 126 MG/DL (74-106) H 144 MG/DL (74-106) H Calcium Level 9.3 MG/DL (8.5-10.1) 9.7 MG/DL (8.5-10.1) Phosphorus Level 3.9 MG/DL (2.5-4.9) Magnesium Level 2.2 MG/DL (1.8-2.4) Total Bilirubin 0.3 MG/DL (0.2-1.0) Aspartate Amino Transf (AST/SGOT) 24 U/L (15-37) Alanine Aminotransferase (ALT/SGPT) 22 U/L (12-78) Alkaline Phosphatase 75 U/L (46-116) C-Reactive Protein, Quantitative 0.7 mg/dL (0.00-0.90) Pro-B-Type Natriuretic Peptide 7477 pg/mL (0-125) H Total Protein 8.4 G/DL (6.4-8.2) H Albumin 3.5 G/DL (3.4-5.0) Globulin 4.9 g/dL Albumin/Globulin Ratio 0.7 (1.0-2.7) L Current Medications Medications (Trade) Dose Ordered Sig/Twyla Route PRN Reason Start Time Stop Time Status Last Admin Dose Admin Acetaminophen (Tylenol) 650 mg Q4H PRN ORAL MILD/TEMP 12/26/19 14:12 01/23/20 14:11 Acetaminophen/ Hydrocodone Bitart ([place] 10/325) 2 tab Q4H PRN ORAL Severe Pain (Pain Scale 7-10) 12/26/19 14:30 01/01/20 14:29 12/29/19 09:43 Aspirin (Ecotrin) 81 mg DAILY ORAL 12/27/19 09:00 02/07/20 20:59 12/29/19 09:24 Atorvastatin Calcium (Lipitor) 40 mg BEDTIME ORAL 12/26/19 21:00 03/23/20 20:59 12/28/19 20:33 Clonidine HCl (Catapres Tab) 0.1 mg Q6H PRN ORAL SBP > 160mmHg 12/26/19 14:30 03/23/20 20:29 Clopidogrel Bisulfate (Plavix) 75 mg DAILY ORAL 12/27/19 09:00 01/23/20 20:59 12/29/19 09:23 Diphenhydramine HCl (Benadryl) 25 mg Q6H PRN ORAL Itching 12/28/19 20:00 01/27/20 19:59 12/28/19 20:33 Docusate Sodium (Colace) 100 mg THREE TIMES A DAY ORAL 12/26/19 18:00 01/24/20 12:59 12/29/19 09:24 Epoetin Ashok (Epoetin Ashok(ESRD on dialysis)) 10,000 unit SUBQ 12/28/19 21:00 03/27/20 20:59 12/28/19 20:33 Folic Acid (Folate) 2 mg DAILY ORAL 12/27/19 09:00 01/24/20 12:59 12/29/19 09:24 Gabapentin (Neurontin) 100 mg THREE TIMES A DAY ORAL 12/26/19 18:00 01/24/20 08:59 12/29/19 09:24 Losartan Potassium (Cozaar) 25 mg DAILY ORAL 12/27/19 09:00 01/23/20 20:59 12/29/19 09:24 Pantoprazole (Protonix) 40 mg EVERY 12 HOURS ORAL 12/26/19 21:00 01/24/20 20:59 12/29/19 09:23 Sevelamer Carbonate (Renvela) 800 mg THREE TIMES A DAY ORAL 12/26/19 18:00 03/24/20 12:59 12/29/19 09:24 Francisco Salazar MD Dec 29, 2019 11:06
[2019-12-29 12:00] VITALS: BP 137/77
--- NOTE | 2019-12-29 13:49 | Nephrology Progress Note ---
Assessment/Plan Problem List: (1) ESRD (end stage renal disease) (2) HIV disease (3) Hypertensive kidney disease (4) Diabetic nephropathy Assessment ACS On Dialysis for the past 13 years Has right chest permacath HTN DM HIV+ Plan No labs available yet, will be attempted on start of dialysis BP meds with parameters HD last December 27, next dialysis December 29 keep BS in control Continue per consultants Antibiotics per ID Subjective ROS Limited/Unobtainable: No Constitutional: Reports: malaise Objective Objective Last 24 Hour Vital Signs Date Time Temp Pulse Resp B/P (MAP) Pulse Ox O2 Delivery O2 Flow Rate FiO2 12/29/19 12:00 98.6 86 20 137/77 (97) 98 12/29/19 11:41 82 12/29/19 09:32 Room Air 12/29/19 09:24 132/81 12/29/19 08:37 89 12/29/19 08:36 99.0 95 20 132/81 (98) 98 12/29/19 04:00 98 12/29/19 04:00 98.6 95 17 155/65 (95) 98 12/29/19 00:00 98.2 97 17 153/61 (91) 98 12/28/19 23:30 94 12/28/19 21:00 Room Air 12/28/19 20:00 98.4 94 19 156/83 (107) 100 12/28/19 19:14 90 12/28/19 16:00 98.1 86 20 142/79 (100) 97 12/28/19 16:00 87 Intake and Output 12/28/19 12/29/19 19:00 07:00 Intake Total 720 ml 1000 ml Output Total 4150 ml 200 ml Balance -3430 ml 800 ml Intake Oral 720 ml 1000 ml Output Urine Total 150 ml 200 ml Hemodialysis UF 4000 ml # Voids 2 2 # Bowel Movements 3 2 Current Medications Medications (Trade) Dose Ordered Sig/Twyla Route PRN Reason Start Time Stop Time Status Last Admin Dose Admin Acetaminophen (Tylenol) 650 mg Q4H PRN ORAL MILD/TEMP 12/26/19 14:12 01/23/20 14:11 Acetaminophen/ Hydrocodone Bitart ([place] 10/325) 2 tab Q4H PRN ORAL Severe Pain (Pain Scale 7-10) 12/26/19 14:30 01/01/20 14:29 12/29/19 09:43 Aspirin (Ecotrin) 81 mg DAILY ORAL 12/27/19 09:00 02/07/20 20:59 12/29/19 09:24 Atorvastatin Calcium (Lipitor) 40 mg BEDTIME ORAL 12/26/19 21:00 03/23/20 20:59 12/28/19 20:33 Clonidine HCl (Catapres Tab) 0.1 mg Q6H PRN ORAL SBP > 160mmHg 12/26/19 14:30 03/23/20 20:29 Clopidogrel Bisulfate (Plavix) 75 mg DAILY ORAL 12/27/19 09:00 01/23/20 20:59 12/29/19 09:23 Diphenhydramine HCl (Benadryl) 25 mg Q6H PRN ORAL Itching 12/28/19 20:00 01/27/20 19:59 12/28/19 20:33 Docusate Sodium (Colace) 100 mg THREE TIMES A DAY ORAL 12/26/19 18:00 01/24/20 12:59 12/29/19 12:36 Epoetin Ashok (Epoetin Ashok(ESRD on dialysis)) 10,000 unit SAT-SAT-SAT SUBQ 12/28/19 21:00 03/27/20 20:59 12/28/19 20:33 Folic Acid (Folate) 2 mg DAILY ORAL 12/27/19 09:00 01/24/20 12:59 12/29/19 09:24 Gabapentin (Neurontin) 100 mg THREE TIMES A DAY ORAL 12/26/19 18:00 01/24/20 08:59 12/29/19 12:36 Losartan Potassium (Cozaar) 25 mg DAILY ORAL 12/27/19 09:00 01/23/20 20:59 12/29/19 09:24 Pantoprazole (Protonix) 40 mg EVERY 12 HOURS ORAL 12/26/19 21:00 01/24/20 20:59 12/29/19 09:23 Sevelamer Carbonate (Renvela) 800 mg THREE TIMES A DAY ORAL 12/26/19 18:00 03/24/20 12:59 12/29/19 12:36 Laboratory Tests 12/28/19 14:50: White Blood Count 6.1, Red Blood Count 2.75L, Hemoglobin 8.8L, Hematocrit 27.8L , Mean Corpuscular Volume 101H, Mean Corpuscular Hemoglobin 31.9H, Mean Corpuscular Hemoglobin Concent 31.4L, Red Cell Distribution Width 15.8H, Platelet Count 113L, Mean Platelet Volume 6.6, Neutrophils (%) (Auto) 51.2, Lymphocytes (%) (Auto) 25.2, Monocytes (%) (Auto) 12.1H, Eosinophils (%) (Auto) 10.1H, Basophils (%) (Auto) 1.3, Sodium Level 137, Potassium Level 4.4, Chloride Level 101, Carbon Dioxide Level 24, Anion Gap 12, Blood Urea Nitrogen 50H, Creatinine 10.2H, Estimat Glomerular Filtration Rate 6.4, Glucose Level 126H, Calcium Level 9.3, Phosphorus Level 3.9, Magnesium Level 2.2, Total Bilirubin 0.3, Aspartate Amino Transf (AST/SGOT) 24, Alanine Aminotransferase ( ALT/SGPT) 22, Alkaline Phosphatase 75, C-Reactive Protein, Quantitative 0.7, Pro -B-Type Natriuretic Peptide 7477H, Total Protein 8.4H, Albumin 3.5, Globulin 4.9 , Albumin/Globulin Ratio 0.7L 12/29/19 06:40: White Blood Count 5.6, Red Blood Count 2.78L, Hemoglobin 9.1L, Hematocrit 28.0L , Mean Corpuscular Volume 101H, Mean Corpuscular Hemoglobin 32.6H, Mean Corpuscular Hemoglobin Concent 32.3, Red Cell Distribution Width 16.0H, Platelet Count 113L, Mean Platelet Volume 7.1, Neutrophils (%) (Auto) 41.0L, Lymphocytes (%) (Auto) 31.7, Monocytes (%) (Auto) 14.5H, Eosinophils (%) (Auto) 11.5H, Basophils (%) (Auto) 1.4, Sodium Level 139, Potassium Level 3.8, Chloride Level 99, Carbon Dioxide Level 29, Anion Gap 11, Blood Urea Nitrogen 32H, Creatinine 8.3H, Estimat Glomerular Filtration Rate 8.1, Glucose Level 144H , Calcium Level 9.7 Height (Feet): 5 Height (Inches): 6.00 Weight (Pounds): 219 General Appearance: no apparent distress Cardiovascular: normal rate Respiratory/Chest: lungs clear Abdomen: soft Objective No change Toño Posada MD Dec 29, 2019 13:49
--- NOTE | 2019-12-29 13:53 | Hematology/Onc Progress Note ---
Assessment/Plan Assessment/Plan Assessment/Plan # Anemia of chronic disease due to underlying chronic medical issues, multifactorial --> Anemia workup has been reviewed --> No evidence of hemolysis is noted, peripheral smear has been reviewed. --> Hgb goal >7. Transfuse prn. --> Epogen and IRON are indicated can be started if the hgb <10 in future --> Medications have been reviewed --> low threshold for gi evaluation in case has occult + --> ferritin is 386-->520, tibc is 287 --> hgb trend 9.2-->8.9-->9.1 # Hyperproteinemia -- with a elevated b2 globulin --> spep has been ordered, pending results==> NEGATIVE RESULTS --> in the past had a isolated elevation of b2 globulin in 2011 # Thrombocytopenia is due to hiv --> trend as needed 82k-->120k-->113 --> us of abd negative --> off abx # Admitted with ACS --> per renal r/o acs --> r/o chest pain # ESRD on Dialysis for 13 years --> with a right chest permacath right side --> continue 3x a week # HTN --> sbp goal <150 # DM2 --> as per endo # HIV+ --> restarted on meds Greatly appreciate consultation.and arabella RN Subjective Allergies: Coded Allergies: No Known Allergies (Verified , 02/11/12) Subjective 4/5 on tele, awake and alert, no acute distress /6 no night sweats, labs noted, arabella rn, no bleeding 12/28 ricardo duplex negative, off abx, h/h stable, no sob Objective Objective Current Medications Medications (Trade) Dose Ordered Sig/Twyla Route PRN Reason Start Time Stop Time Status Last Admin Dose Admin Acetaminophen (Tylenol) 650 mg Q4H PRN ORAL MILD/TEMP 12/26/19 14:12 01/23/20 14:11 Acetaminophen/ Hydrocodone Bitart ([place] 10/325) 2 tab Q4H PRN ORAL Severe Pain (Pain Scale 7-10) 12/26/19 14:30 01/01/20 14:29 12/29/19 09:43 Aspirin (Ecotrin) 81 mg DAILY ORAL 12/27/19 09:00 02/07/20 20:59 12/29/19 09:24 Atorvastatin Calcium (Lipitor) 40 mg BEDTIME ORAL 12/26/19 21:00 03/23/20 20:59 12/28/19 20:33 Clonidine HCl (Catapres Tab) 0.1 mg Q6H PRN ORAL SBP > 160mmHg 12/26/19 14:30 03/23/20 20:29 Clopidogrel Bisulfate (Plavix) 75 mg DAILY ORAL 12/27/19 09:00 01/23/20 20:59 12/29/19 09:23 Diphenhydramine HCl (Benadryl) 25 mg Q6H PRN ORAL Itching 12/28/19 20:00 01/27/20 19:59 12/28/19 20:33 Docusate Sodium (Colace) 100 mg THREE TIMES A DAY ORAL 12/26/19 18:00 01/24/20 12:59 12/29/19 12:36 Epoetin Ashok (Epoetin Ashok(ESRD on dialysis)) 10,000 unit SUBQ 12/28/19 21:00 03/27/20 20:59 12/28/19 20:33 Folic Acid (Folate) 2 mg DAILY ORAL 12/27/19 09:00 01/24/20 12:59 12/29/19 09:24 Gabapentin (Neurontin) 100 mg THREE TIMES A DAY ORAL 12/26/19 18:00 01/24/20 08:59 12/29/19 12:36 Losartan Potassium (Cozaar) 25 mg DAILY ORAL 12/27/19 09:00 01/23/20 20:59 12/29/19 09:24 Pantoprazole (Protonix) 40 mg EVERY 12 HOURS ORAL 12/26/19 21:00 01/24/20 20:59 12/29/19 09:23 Sevelamer Carbonate (Renvela) 800 mg THREE TIMES A DAY ORAL 12/26/19 18:00 03/24/20 12:59 12/29/19 12:36 Last 24 Hour Vital Signs Date Time Temp Pulse Resp B/P (MAP) Pulse Ox O2 Delivery O2 Flow Rate FiO2 12/29/19 12:00 98.6 86 20 137/77 (97) 98 12/29/19 11:41 82 12/29/19 09:32 Room Air 12/29/19 09:24 132/81 12/29/19 08:37 89 12/29/19 08:36 99.0 95 20 132/81 (98) 98 12/29/19 04:00 98 12/29/19 04:00 98.6 95 17 155/65 (95) 98 12/29/19 00:00 98.2 97 17 153/61 (91) 98 12/28/19 23:30 94 12/28/19 21:00 Room Air 12/28/19 20:00 98.4 94 19 156/83 (107) 100 12/28/19 19:14 90 12/28/19 16:00 98.1 86 20 142/79 (100) 97 12/28/19 16:00 87 12/28/19 12:00 98.0 85 20 132/78 (96) 97 12/28/19 09:23 140/80 12/28/19 09:00 Room Air 12/28/19 08:07 79 12/28/19 08:00 98.0 83 20 140/80 (100) 97 12/28/19 04:00 88 12/28/19 04:00 98.0 82 20 145/57 (86) 97 12/28/19 00:00 88 12/28/19 00:00 97.6 89 20 150/83 (105) 97 12/27/19 21:00 Room Air 12/27/19 20:00 98.0 89 20 157/81 (106) 97 12/27/19 20:00 85 12/27/19 19:02 98.0 12/27/19 16:00 98.0 79 20 147/84 (105) 97 12/27/19 16:00 77 Intake and Output 12/28/19 12/29/19 19:00 07:00 Intake Total 720 ml 1000 ml Output Total 4150 ml 200 ml Balance -3430 ml 800 ml Intake Oral 720 ml 1000 ml Output Urine Total 150 ml 200 ml Hemodialysis UF 4000 ml # Voids 2 2 # Bowel Movements 3 2 Labs Test 12/28/19 14:50 12/29/19 06:40 White Blood Count 6.1 K/UL (4.8-10.8) 5.6 K/UL (4.8-10.8) Red Blood Count 2.75 M/UL (4.70-6.10) 2.78 M/UL (4.70-6.10) Hemoglobin 8.8 G/DL (14.2-18.0) 9.1 G/DL (14.2-18.0) Hematocrit 27.8 % (42.0-52.0) 28.0 % (42.0-52.0) Mean Corpuscular Volume 101 FL (80-99) 101 FL (80-99) Mean Corpuscular Hemoglobin 31.9 PG (27.0-31.0) 32.6 PG (27.0-31.0) Mean Corpuscular Hemoglobin Concent 31.4 G/DL (32.0-36.0) 32.3 G/DL (32.0-36.0) Red Cell Distribution Width 15.8 % (11.6-14.8) 16.0 % (11.6-14.8) Platelet Count 113 K/UL (150-450) 113 K/UL (150-450) Mean Platelet Volume 6.6 FL (6.5-10.1) 7.1 FL (6.5-10.1) Neutrophils (%) (Auto) 51.2 % (45.0-75.0) 41.0 % (45.0-75.0) Lymphocytes (%) (Auto) 25.2 % (20.0-45.0) 31.7 % (20.0-45.0) Monocytes (%) (Auto) 12.1 % (1.0-10.0) 14.5 % (1.0-10.0) Eosinophils (%) (Auto) 10.1 % (0.0-3.0) 11.5 % (0.0-3.0) Basophils (%) (Auto) 1.3 % (0.0-2.0) 1.4 % (0.0-2.0) Sodium Level 137 MMOL/L (136-145) 139 MMOL/L (136-145) Potassium Level 4.4 MMOL/L (3.5-5.1) 3.8 MMOL/L (3.5-5.1) Chloride Level 101 MMOL/L (98-107) 99 MMOL/L (98-107) Carbon Dioxide Level 24 MMOL/L (21-32) 29 MMOL/L (21-32) Anion Gap 12 mmol/L (5-15) 11 mmol/L (5-15) Blood Urea Nitrogen 50 mg/dL (7-18) 32 mg/dL (7-18) Creatinine 10.2 MG/DL (0.55-1.30) 8.3 MG/DL (0.55-1.30) Estimat Glomerular Filtration Rate 6.4 mL/min (>60) 8.1 mL/min (>60) Glucose Level 126 MG/DL (74-106) 144 MG/DL (74-106) Calcium Level 9.3 MG/DL (8.5-10.1) 9.7 MG/DL (8.5-10.1) Phosphorus Level 3.9 MG/DL (2.5-4.9) Magnesium Level 2.2 MG/DL (1.8-2.4) Total Bilirubin 0.3 MG/DL (0.2-1.0) Aspartate Amino Transf (AST/SGOT) 24 U/L (15-37) Alanine Aminotransferase (ALT/SGPT) 22 U/L (12-78) Alkaline Phosphatase 75 U/L (46-116) C-Reactive Protein, Quantitative 0.7 mg/dL (0.00-0.90) Pro-B-Type Natriuretic Peptide 7477 pg/mL (0-125) Total Protein 8.4 G/DL (6.4-8.2) Albumin 3.5 G/DL (3.4-5.0) Globulin 4.9 g/dL Albumin/Globulin Ratio 0.7 (1.0-2.7) Height (Feet): 5 Height (Inches): 6.00 Weight (Pounds): 219 Objective ROS (review of systems): Constitutional: No fever, no chills, no night sweats, no fatigue Skin: No rashes, lumps, itchiness, dryness HEENT: No MAI, ear ache, visual changes, double vision, nosebleeds Breasts: No lumps, pain, discharge Pulmonary: some sob ++ Cardiovascular: No chest pain, tightness, palpitations, syncope, PND GI: No nausea, vomiting, diarrhea, melena, hematochezia, change in appetite, : No dysuria, frequency, urgency, urinary incontinence, foamy urine Musculoskeletal: No joint swelling or muscle pain, trauma, back pain Neurologic: No dizziness, fainting, seizures, changes in smell or taste Psychiatric: No nervousness, stress, or depression, anxiety, hallucinations Endocrine: No weight change, heat or cold intolerance, tremor, insomnia Physical Exam: Vitals: reviewed General: NAD HEENT: nc, at Neck: supple Chest: clear breath sounds bilaterally ++ right sided permacath Cardiovascular: RRR, no s3, s4 Abdomen: soft, nontender, nd Extremities: no cce, normal range of motion Neuro: alert and oriented Ishaan Madera MD Dec 29, 2019 13:53
[2019-12-29 16:00] VITALS: BP 135/87
[2019-12-29] MEDS: DiphenhydrAMINE 25mg Tab ORAL PRN (17:12)
[2019-12-29 20:00] VITALS: BP 135/75
[2019-12-29] MEDS: Atorvastatin 20mg tab ORAL SCH (20:41)
--- NOTE | 2019-12-29 21:51 | General Progress Note ---
Assessment/Plan Problem List: (1) Diabetes mellitus ICD Codes: E11.9 - Type 2 diabetes mellitus without complications SNOMED: 04257341 (2) Anemia ICD Codes: D64.9 - Anemia, unspecified SNOMED: 913991974 (3) ESRD (end stage renal disease) ICD Codes: N18.6 - End stage renal disease SNOMED: 62243283 (4) CHF (congestive heart failure) ICD Codes: I50.9 - Heart failure, unspecified SNOMED: 62281605 (5) HIV disease ICD Codes: B20 - Human immunodeficiency virus [HIV] disease SNOMED: 99568205 (6) Hypertensive kidney disease ICD Codes: I12.9 - Hypertensive chronic kidney disease with stage 1 through stage 4 chronic kidney disease, or unspecified chronic kidney disease SNOMED: 13667677 (7) Diabetic nephropathy ICD Codes: E11.21 - Type 2 diabetes mellitus with diabetic nephropathy SNOMED: 58141604, 665786132 (8) Chest pain ICD Codes: R07.9 - Chest pain, unspecified SNOMED: 20844084 Assessment/Plan: no wheezing resp insuff hiv niddm esred on hd anemia low platelet cad htn chf hiv meds per ID dr Naranjo ROS Limited/Unobtainable: Yes Allergies: Coded Allergies: No Known Allergies (Verified , 02/11/12) Objective Last 24 Hour Vital Signs Date Time Temp Pulse Resp B/P (MAP) Pulse Ox O2 Delivery O2 Flow Rate FiO2 12/29/19 16:00 97.7 82 20 135/87 (103) 99 12/29/19 15:32 83 12/29/19 12:00 98.6 86 20 137/77 (97) 98 12/29/19 11:41 82 12/29/19 09:32 Room Air 12/29/19 09:24 132/81 12/29/19 08:37 89 12/29/19 08:36 99.0 95 20 132/81 (98) 98 12/29/19 04:00 98 12/29/19 04:00 98.6 95 17 155/65 (95) 98 12/29/19 00:00 98.2 97 17 153/61 (91) 98 12/28/19 23:30 94 Intake and Output 12/28/19 12/29/19 19:00 07:00 Intake Total 720 ml 1000 ml Output Total 4150 ml 200 ml Balance -3430 ml 800 ml Intake Oral 720 ml 1000 ml Output Urine Total 150 ml 200 ml Hemodialysis UF 4000 ml # Voids 2 2 # Bowel Movements 3 2 Laboratory Tests 12/29/19 06:40: White Blood Count 5.6, Red Blood Count 2.78L, Hemoglobin 9.1L, Hematocrit 28.0L , Mean Corpuscular Volume 101H, Mean Corpuscular Hemoglobin 32.6H, Mean Corpuscular Hemoglobin Concent 32.3, Red Cell Distribution Width 16.0H, Platelet Count 113L, Mean Platelet Volume 7.1, Neutrophils (%) (Auto) 41.0L, Lymphocytes (%) (Auto) 31.7, Monocytes (%) (Auto) 14.5H, Eosinophils (%) (Auto) 11.5H, Basophils (%) (Auto) 1.4, Sodium Level 139, Potassium Level 3.8, Chloride Level 99, Carbon Dioxide Level 29, Anion Gap 11, Blood Urea Nitrogen 32H, Creatinine 8.3H, Estimat Glomerular Filtration Rate 8.1, Glucose Level 144H , Calcium Level 9.7 Height (Feet): 5 Height (Inches): 6.00 Weight (Pounds): 219 Daisy Bland MD Dec 29, 2019 21:51
[2019-12-30] VITALS: BP 140/78
[2019-12-30] MEDS: HYDROcodone/Acetamin 10/325 tab ORAL PRN ×2 (01:33→20:44)
[2019-12-30 04:00] VITALS: BP 144/83
[2019-12-30 08:17] LABS: HEMATOCRIT 24.7 % (42.0-52.0); HEMOGLOBIN 8.3 G/DL (14.2-18.0); MEAN CORPUSCULAR VOLUME 101 FL (80-99); PLATELET COUNT 99 K/UL (150-450); RED BLOOD COUNT 2.46 M/UL (4.70-6.10); WHITE BLOOD COUNT 4.9 K/UL (4.8-10.8)
[2019-12-30 08:19] LABS: ANION GAP 10 mmol/L (5-15); BLOOD UREA NITROGEN 50 mg/dL (7-18); CALCIUM 9.8 MG/DL (8.5-10.1); CARBON DIOXIDE 28 MMOL/L (21-32); CHLORIDE 100 MMOL/L (98-107); CREATININE 10.3 MG/DL (0.55-1.30); POTASSIUM 4.3 MMOL/L (3.5-5.1); SODIUM 138 MMOL/L (136-145)
[2019-12-30 08:35] VITALS: BP 144/74
[2019-12-30] MEDS: Losartan 25mg tab ORAL SCH (09:00)
--- NOTE | 2019-12-30 09:25 | Hematology/Onc Progress Note ---
Assessment/Plan Assessment/Plan Assessment/Plan # Anemia of iron deficiency,with acd as well, due to underlying chronic medical issues, multifactorial, kidney disease --> Anemia workup has been reviewed --> No evidence of hemolysis is noted, peripheral smear has been reviewed. --> Hgb goal >7. Transfuse prn. --> Epogen and IRON HAS BEEN STARTED --> Medications have been reviewed --> low threshold for gi evaluation in case has occult + --> ferritin is 386-->520, tibc is 287 --> hgb trend 9.2-->8.9-->9.1-->8.8 # Hyperproteinemia -- with a elevated b2 globulin --> spep has been ordered, pending results==> NEGATIVE RESULTS --> in the past had a isolated elevation of b2 globulin in 2011 # Thrombocytopenia is due to hiv --> trend as needed 82k-->120k-->113->99 --> us of abd negative --> off abx # Admitted with ACS --> per renal r/o acs --> r/o chest pain # ESRD on Dialysis for 13 years --> with a right chest permacath right side --> continue 3x a week # HTN --> sbp goal <150 # DM2 --> as per endo # HIV+ --> restarted on meds Greatly appreciate consultation.and arabella RN Subjective Constitutional: Denies: no symptoms, chills, fever, malaise, weakness, other HEENT: Denies: no symptoms, eye pain, blurred vision, tearing, double vision, ear pain, ear discharge, nose pain, nose congestion, throat pain, throat swelling, mouth pain, mouth swelling, other Cardiovascular: Denies: no symptoms, chest pain, edema, irregular heart rate, lightheadedness, palpitations, syncope, other Respiratory: Denies: no symptoms, cough, shortness of breath, SOB with excertion, SOB at rest, sputum, wheezing, other Gastrointestinal/Abdominal: Denies: no symptoms, abdomen distended, abdominal pain, black stools, tarry stools, blood in stool, constipated, diarrhea, difficulty swallowing, nausea, poor appetite, poor fluid intake, rectal bleeding , vomiting, other Genitourinary: Denies: no symptoms, burning, discharge, frequency, flank pain, hematuria, incontinence, pain, urgency, other Neurologic/Psychiatric: Denies: no symptoms, anxiety, depressed, emotional problems, headache, numbness, paresthesia, pre-existing deficit, seizure, tingling, tremors, weakness, other Endocrine: Denies: no symptoms, excessive sweating, flushing, intolerance to cold, intolerance to heat, increased hunger, increased thirst, increased urine, unexplained weight gain, unexplained weight loss, other Hematologic/Lymphatic: Denies: no symptoms, anemia, easy bleeding, easy bruising, adenopathy, other Allergies: Coded Allergies: No Known Allergies (Verified , 02/11/12) Subjective 12/26 on tele, awake and alert, no acute distress 12/27 no night sweats, labs noted, dw rn, no bleeding 12/28 ricardo duplex negative, off abx, h/h stable, no sob 12/29 labs reviewed, no major bleeding, no f/c plt 88k Objective Objective Current Medications Medications (Trade) Dose Ordered Sig/Twyla Route PRN Reason Start Time Stop Time Status Last Admin Dose Admin Acetaminophen (Tylenol) 650 mg Q4H PRN ORAL MILD/TEMP 12/26/19 14:12 01/23/20 14:11 Acetaminophen/ Hydrocodone Bitart ([place] 10/325) 2 tab Q4H PRN ORAL Severe Pain (Pain Scale 7-10) 12/26/19 14:30 01/01/20 14:29 12/30/19 01:33 Aspirin (Ecotrin) 81 mg DAILY ORAL 12/27/19 09:00 02/07/20 20:59 12/29/19 09:24 Atorvastatin Calcium (Lipitor) 40 mg BEDTIME ORAL 12/26/19 21:00 03/23/20 20:59 12/29/19 20:41 Clonidine HCl (Catapres Tab) 0.1 mg Q6H PRN ORAL SBP > 160mmHg 12/26/19 14:30 03/23/20 20:29 Clopidogrel Bisulfate (Plavix) 75 mg DAILY ORAL 12/27/19 09:00 01/23/20 20:59 12/29/19 09:23 Diphenhydramine HCl (Benadryl) 25 mg Q6H PRN ORAL Itching 12/28/19 20:00 01/27/20 19:59 12/29/19 17:12 Docusate Sodium (Colace) 100 mg THREE TIMES A DAY ORAL 12/26/19 18:00 01/24/20 12:59 12/29/19 12:36 Epoetin Ashok (Epoetin Ashok(ESRD on dialysis)) 10,000 unit SUBQ 12/28/19 21:00 03/27/20 20:59 12/28/19 20:33 Folic Acid (Folate) 2 mg DAILY ORAL 12/27/19 09:00 01/24/20 12:59 12/29/19 09:24 Gabapentin (Neurontin) 100 mg THREE TIMES A DAY ORAL 12/26/19 18:00 01/24/20 08:59 12/29/19 17:11 Losartan Potassium (Cozaar) 25 mg DAILY ORAL 12/27/19 09:00 01/23/20 20:59 12/29/19 09:24 Pantoprazole (Protonix) 40 mg EVERY 12 HOURS ORAL 12/26/19 21:00 01/24/20 20:59 12/29/19 20:41 Sevelamer Carbonate (Renvela) 800 mg THREE TIMES A DAY ORAL 12/26/19 18:00 03/24/20 12:59 12/29/19 17:12 Last 24 Hour Vital Signs Date Time Temp Pulse Resp B/P (MAP) Pulse Ox O2 Delivery O2 Flow Rate FiO2 12/30/19 08:35 99.0 81 19 144/74 (97) 98 12/30/19 04:00 83 12/30/19 04:00 98.1 90 19 144/83 (103) 98 12/30/19 00:00 82 12/30/19 00:00 98.3 92 19 140/78 (98) 97 12/29/19 21:00 Room Air 12/29/19 20:00 98.1 87 20 135/75 (95) 98 12/29/19 20:00 84 12/29/19 16:00 97.7 82 20 135/87 (103) 99 12/29/19 15:32 83 12/29/19 12:00 98.6 86 20 137/77 (97) 98 12/29/19 11:41 82 12/29/19 09:32 Room Air 12/29/19 09:24 132/81 12/29/19 08:37 89 4/7/20 08:36 99.0 95 20 132/81 (98) 98 12/29/19 04:00 98 12/29/19 04:00 98.6 95 17 155/65 (95) 98 12/29/19 00:00 98.2 97 17 153/61 (91) 98 12/28/19 23:30 94 12/28/19 21:00 Room Air 12/28/19 20:00 98.4 94 19 156/83 (107) 100 12/28/19 19:14 90 12/28/19 16:00 98.1 86 20 142/79 (100) 97 12/28/19 16:00 87 12/28/19 12:00 98.0 85 20 132/78 (96) 97 Intake and Output 12/29/19 12/30/19 19:00 07:00 Intake Total 800 ml 1000 ml Output Total 450 ml Balance 800 ml 550 ml Intake Oral 800 ml 1000 ml Output Urine Total 450 ml # Voids 2 2 # Bowel Movements 2 Labs Test 12/28/19 14:50 12/29/19 06:40 12/30/19 06:40 White Blood Count 6.1 K/UL (4.8-10.8) 5.6 K/UL (4.8-10.8) 4.9 K/UL (4.8-10.8) Red Blood Count 2.75 M/UL (4.70-6.10) 2.78 M/UL (4.70-6.10) 2.46 M/UL (4.70-6.10) Hemoglobin 8.8 G/DL (14.2-18.0) 9.1 G/DL (14.2-18.0) 8.3 G/DL (14.2-18.0) Hematocrit 27.8 % (42.0-52.0) 28.0 % (42.0-52.0) 24.7 % (42.0-52.0) Mean Corpuscular Volume 101 FL (80-99) 101 FL (80-99) 101 FL (80-99) Mean Corpuscular Hemoglobin 31.9 PG (27.0-31.0) 32.6 PG (27.0-31.0) 33.7 PG (27.0-31.0) Mean Corpuscular Hemoglobin Concent 31.4 G/DL (32.0-36.0) 32.3 G/DL (32.0-36.0) 33.5 G/DL (32.0-36.0) Red Cell Distribution Width 15.8 % (11.6-14.8) 16.0 % (11.6-14.8) 16.0 % (11.6-14.8) Platelet Count 113 K/UL (150-450) 113 K/UL (150-450) 99 K/UL (150-450) Mean Platelet Volume 6.6 FL (6.5-10.1) 7.1 FL (6.5-10.1) 6.9 FL (6.5-10.1) Neutrophils (%) (Auto) 51.2 % (45.0-75.0) 41.0 % (45.0-75.0) % (45.0-75.0) Lymphocytes (%) (Auto) 25.2 % (20.0-45.0) 31.7 % (20.0-45.0) % (20.0-45.0) Monocytes (%) (Auto) 12.1 % (1.0-10.0) 14.5 % (1.0-10.0) % (1.0-10.0) Eosinophils (%) (Auto) 10.1 % (0.0-3.0) 11.5 % (0.0-3.0) % (0.0-3.0) Basophils (%) (Auto) 1.3 % (0.0-2.0) 1.4 % (0.0-2.0) % (0.0-2.0) Sodium Level 137 MMOL/L (136-145) 139 MMOL/L (136-145) 138 MMOL/L (136-145) Potassium Level 4.4 MMOL/L (3.5-5.1) 3.8 MMOL/L (3.5-5.1) 4.3 MMOL/L (3.5-5.1) Chloride Level 101 MMOL/L (98-107) 99 MMOL/L (98-107) 100 MMOL/L (98-107) Carbon Dioxide Level 24 MMOL/L (21-32) 29 MMOL/L (21-32) 28 MMOL/L (21-32) Anion Gap 12 mmol/L (5-15) 11 mmol/L (5-15) 10 mmol/L (5-15) Blood Urea Nitrogen 50 mg/dL (7-18) 32 mg/dL (7-18) 50 mg/dL (7-18) Creatinine 10.2 MG/DL (0.55-1.30) 8.3 MG/DL (0.55-1.30) 10.3 MG/DL (0.55-1.30) Estimat Glomerular Filtration Rate 6.4 mL/min (>60) 8.1 mL/min (>60) 6.3 mL/min (>60) Glucose Level 126 MG/DL (74-106) 144 MG/DL (74-106) 99 MG/DL (74-106) Calcium Level 9.3 MG/DL (8.5-10.1) 9.7 MG/DL (8.5-10.1) 9.8 MG/DL (8.5-10.1) Phosphorus Level 3.9 MG/DL (2.5-4.9) Magnesium Level 2.2 MG/DL (1.8-2.4) Total Bilirubin 0.3 MG/DL (0.2-1.0) Aspartate Amino Transf (AST/SGOT) 24 U/L (15-37) Alanine Aminotransferase (ALT/SGPT) 22 U/L (12-78) Alkaline Phosphatase 75 U/L (46-116) C-Reactive Protein, Quantitative 0.7 mg/dL (0.00-0.90) Pro-B-Type Natriuretic Peptide 7477 pg/mL (0-125) Total Protein 8.4 G/DL (6.4-8.2) Albumin 3.5 G/DL (3.4-5.0) Globulin 4.9 g/dL Albumin/Globulin Ratio 0.7 (1.0-2.7) Height (Feet): 5 Height (Inches): 6.00 Weight (Pounds): 219 Objective ROS (review of systems): Constitutional: No fever, no chills, no night sweats, no fatigue Skin: No rashes, lumps, itchiness, dryness HEENT: No MIA, ear ache, visual changes, double vision, nosebleeds Breasts: No lumps, pain, discharge Pulmonary: some sob ++ Cardiovascular: No chest pain, tightness, palpitations, syncope, PND GI: No nausea, vomiting, diarrhea, melena, hematochezia, change in appetite, : No dysuria, frequency, urgency, urinary incontinence, foamy urine Musculoskeletal: No joint swelling or muscle pain, trauma, back pain Neurologic: No dizziness, fainting, seizures, changes in smell or taste Psychiatric: No nervousness, stress, or depression, anxiety, hallucinations Endocrine: No weight change, heat or cold intolerance, tremor, insomnia Physical Exam: Vitals: reviewed General: NAD HEENT: nc, at Neck: supple Chest: clear breath sounds bilaterally ++ right sided permacath Cardiovascular: RRR, no s3, s4 Abdomen: soft, nontender, nd Extremities: no cce, normal range of motion Neuro: alert and oriented Ishaan Madera MD Dec 30, 2019 09:25
[2019-12-30] MEDS: Aspirin EC 81mg tab ORAL SCH (09:58)
[2019-12-30] MEDS: Docusate 100mg cap ORAL SCH ×3 (09:58→18:27)
[2019-12-30 12:00] VITALS: BP 165/59
--- NOTE | 2019-12-30 12:08 | Infectious Diseases Prog Note ---
Assessment/Plan Assessment/Plan IMPRESSION: 1. Acute viral illness. Negative COVID-19. 2. HIV, RP5=240, HIV viral load= 8350 3. History of diabetes mellitus. 4. End-stage renal disease, on hemodialysis. 5. Anemia. 6. Atypical Chest pain with history of coronary artery disease. 7. Thrombocytopenia. RECOMMENDATIONS: Observe off antibiotic Subjective ROS Limited/Unobtainable: Yes Allergies: Coded Allergies: No Known Allergies (Verified , 02/11/12) Objective Vital Signs Last 24 Hour Vital Signs Date Time Temp Pulse Resp B/P (MAP) Pulse Ox O2 Delivery O2 Flow Rate FiO2 12/30/19 08:35 99.0 81 19 144/74 (97) 98 12/30/19 04:00 83 12/30/19 04:00 98.1 90 19 144/83 (103) 98 12/30/19 00:00 82 12/30/19 00:00 98.3 92 19 140/78 (98) 97 12/29/19 21:00 Room Air 12/29/19 20:00 98.1 87 20 135/75 (95) 98 12/29/19 20:00 84 12/29/19 16:00 97.7 82 20 135/87 (103) 99 12/29/19 15:32 83 Height (Feet): 5 Height (Inches): 6.00 Weight (Pounds): 219 General Appearance: no acute distress HEENT: mucous membranes moist Respiratory/Chest: lungs clear Cardiovascular: normal rate Abdomen: soft, non tender Extremities: other - mild peda; edema Neurologic/Psychiatric: other - sleeping Laboratory Tests Test 12/30/19 06:40 White Blood Count 4.9 K/UL (4.8-10.8) Red Blood Count 2.46 M/UL (4.70-6.10) L Hemoglobin 8.3 G/DL (14.2-18.0) L Hematocrit 24.7 % (42.0-52.0) L Mean Corpuscular Volume 101 FL (80-99) H Mean Corpuscular Hemoglobin 33.7 PG (27.0-31.0) H Mean Corpuscular Hemoglobin Concent 33.5 G/DL (32.0-36.0) Red Cell Distribution Width 16.0 % (11.6-14.8) H Platelet Count 99 K/UL (150-450) L Mean Platelet Volume 6.9 FL (6.5-10.1) Neutrophils (%) (Auto) % (45.0-75.0) Lymphocytes (%) (Auto) % (20.0-45.0) Monocytes (%) (Auto) % (1.0-10.0) Eosinophils (%) (Auto) % (0.0-3.0) Basophils (%) (Auto) % (0.0-2.0) Neutrophils % (Manual) Pending Lymphocytes % (Manual) Pending Platelet Estimate Pending Platelet Morphology Pending Sodium Level 138 MMOL/L (136-145) Potassium Level 4.3 MMOL/L (3.5-5.1) Chloride Level 100 MMOL/L (98-107) Carbon Dioxide Level 28 MMOL/L (21-32) Anion Gap 10 mmol/L (5-15) Blood Urea Nitrogen 50 mg/dL (7-18) H Creatinine 10.3 MG/DL (0.55-1.30) H Estimat Glomerular Filtration Rate 6.3 mL/min (>60) Glucose Level 99 MG/DL (74-106) Calcium Level 9.8 MG/DL (8.5-10.1) Hepatitis A IgM Antibody Pending Hepatitis B Surface Antigen Pending Hepatitis B Core IgM Antibody Pending Hepatitis C Antibody Pending Current Medications Medications (Trade) Dose Ordered Sig/Twyla Route PRN Reason Start Time Stop Time Status Last Admin Dose Admin Acetaminophen (Tylenol) 650 mg Q4H PRN ORAL MILD/TEMP 12/26/19 14:12 01/23/20 14:11 Acetaminophen/ Hydrocodone Bitart ([place] 10/325) 2 tab Q4H PRN ORAL Severe Pain (Pain Scale 7-10) 12/26/19 14:30 01/01/20 14:29 12/30/19 01:33 Aspirin (Ecotrin) 81 mg DAILY ORAL 12/27/19 09:00 02/07/20 20:59 12/30/19 09:58 Atorvastatin Calcium (Lipitor) 40 mg BEDTIME ORAL 12/26/19 21:00 03/23/20 20:59 12/29/19 20:41 Clonidine HCl (Catapres Tab) 0.1 mg Q6H PRN ORAL SBP > 160mmHg 12/26/19 14:30 03/23/20 20:29 Clopidogrel Bisulfate (Plavix) 75 mg DAILY ORAL 12/27/19 09:00 01/23/20 20:59 12/30/19 09:58 Diphenhydramine HCl (Benadryl) 25 mg Q6H PRN ORAL Itching 12/28/19 20:00 01/27/20 19:59 12/29/19 17:12 Docusate Sodium (Colace) 100 mg THREE TIMES A DAY ORAL 12/26/19 18:00 01/24/20 12:59 12/30/19 09:58 Epoetin Ashok (Epoetin Ashok(ESRD on dialysis)) 10,000 unit SUBQ 12/28/19 21:00 03/27/20 20:59 12/28/19 20:33 Folic Acid (Folate) 2 mg DAILY ORAL 12/27/19 09:00 01/24/20 12:59 12/30/19 09:58 Gabapentin (Neurontin) 100 mg THREE TIMES A DAY ORAL 12/26/19 18:00 01/24/20 08:59 12/30/19 09:59 Iron Sucrose 100 mg/Sodium Chloride 60 ml @ 240 mls/hr BEDTIME IV 12/30/19 21:00 01/03/20 21:14 Losartan Potassium (Cozaar) 25 mg DAILY ORAL 12/27/19 09:00 01/23/20 20:59 12/29/19 09:24 Pantoprazole (Protonix) 40 mg EVERY 12 HOURS ORAL 12/26/19 21:00 01/24/20 20:59 12/30/19 09:59 Sevelamer Carbonate (Renvela) 800 mg THREE TIMES A DAY ORAL 12/26/19 18:00 03/24/20 12:59 12/30/19 09:58 Francisco Salazar MD Dec 30, 2019 12:08
--- NOTE | 2019-12-30 12:16 | Nephrology Progress Note ---
Assessment/Plan Problem List: (1) ESRD (end stage renal disease) (2) HIV disease (3) Hypertensive kidney disease (4) Diabetic nephropathy Assessment ACS On Dialysis for the past 13 years Has right chest permacath HTN DM HIV+ Plan BP meds with parameters HD last December 27, next dialysis December 29 keep BS in control Continue per consultants Antibiotics per ID Subjective ROS Limited/Unobtainable: No Constitutional: Reports: malaise Objective Objective Last 24 Hour Vital Signs Date Time Temp Pulse Resp B/P (MAP) Pulse Ox O2 Delivery O2 Flow Rate FiO2 12/30/19 08:35 99.0 81 19 144/74 (97) 98 12/30/19 04:00 83 12/30/19 04:00 98.1 90 19 144/83 (103) 98 12/30/19 00:00 82 12/30/19 00:00 98.3 92 19 140/78 (98) 97 12/29/19 21:00 Room Air 12/29/19 20:00 98.1 87 20 135/75 (95) 98 12/29/19 20:00 84 12/29/19 16:00 97.7 82 20 135/87 (103) 99 12/29/19 15:32 83 Intake and Output 12/29/19 12/30/19 19:00 07:00 Intake Total 800 ml 1000 ml Output Total 450 ml Balance 800 ml 550 ml Intake Oral 800 ml 1000 ml Output Urine Total 450 ml # Voids 2 2 # Bowel Movements 2 Laboratory Tests 12/30/19 06:40: White Blood Count 4.9, Red Blood Count 2.46L, Hemoglobin 8.3L, Hematocrit 24.7L , Mean Corpuscular Volume 101H, Mean Corpuscular Hemoglobin 33.7H, Mean Corpuscular Hemoglobin Concent 33.5, Red Cell Distribution Width 16.0H, Platelet Count 99L, Mean Platelet Volume 6.9, Neutrophils (%) (Auto) , Lymphocytes (%) (Auto) , Monocytes (%) (Auto) , Eosinophils (%) (Auto) , Basophils (%) (Auto) , Neutrophils % (Manual) [Pending], Lymphocytes % (Manual) [Pending], Platelet Estimate [Pending], Platelet Morphology [Pending], Sodium Level 138, Potassium Level 4.3, Chloride Level 100, Carbon Dioxide Level 28, Anion Gap 10, Blood Urea Nitrogen 50H, Creatinine 10.3H, Estimat Glomerular Filtration Rate 6.3, Glucose Level 99, Calcium Level 9.8, Hepatitis A IgM Antibody [Pending], Hepatitis B Surface Antigen [Pending], Hepatitis B Core IgM Antibody [Pending], Hepatitis C Antibody [Pending] Height (Feet): 5 Height (Inches): 6.00 Weight (Pounds): 219 General Appearance: no apparent distress Objective No change Toño Posada MD Dec 30, 2019 12:16
[2019-12-30] MEDS: DiphenhydrAMINE 25mg Tab ORAL PRN (14:45)
[2019-12-30 16:00] VITALS: BP 120/62
[2019-12-30 20:00] VITALS: BP 138/69
[2019-12-30] MEDS: Epoetin Alfa-EPBX(ESRD on dialysis)10,000 unit/ml vial SUBQ SCH (20:43)
[2019-12-30] MEDS: Atorvastatin 20mg tab ORAL SCH (20:43)
[2019-12-30] MEDS ORDERED: Iron Sucrose 100 MG in NS 55 ML IV SCH (21:00)
--- NOTE | 2019-12-30 21:49 | General Progress Note ---
Assessment/Plan Problem List: (1) Diabetes mellitus ICD Codes: E11.9 - Type 2 diabetes mellitus without complications SNOMED: 96589787 (2) Anemia ICD Codes: D64.9 - Anemia, unspecified SNOMED: 151836259 (3) ESRD (end stage renal disease) ICD Codes: N18.6 - End stage renal disease SNOMED: 43850290 (4) CHF (congestive heart failure) ICD Codes: I50.9 - Heart failure, unspecified SNOMED: 52549942 (5) HIV disease ICD Codes: B20 - Human immunodeficiency virus [HIV] disease SNOMED: 20614534 (6) Hypertensive kidney disease ICD Codes: I12.9 - Hypertensive chronic kidney disease with stage 1 through stage 4 chronic kidney disease, or unspecified chronic kidney disease SNOMED: 05460176 (7) Diabetic nephropathy ICD Codes: E11.21 - Type 2 diabetes mellitus with diabetic nephropathy SNOMED: 97941829, 965522339 (8) Chest pain ICD Codes: R07.9 - Chest pain, unspecified SNOMED: 25239284 Assessment/Plan: got diaylsis today .pt wants to be dc in am no bleeding afebrile dc in am reviewed chart and labs hiv niddm esred on hd anemia low platelet cad htn chf hiv m Subjective ROS Limited/Unobtainable: Yes Allergies: Coded Allergies: No Known Allergies (Verified , 02/11/12) Objective Last 24 Hour Vital Signs Date Time Temp Pulse Resp B/P (MAP) Pulse Ox O2 Delivery O2 Flow Rate FiO2 12/30/19 16:00 82 12/30/19 16:00 97.9 81 19 120/62 (81) 95 12/30/19 12:00 86 12/30/19 12:00 98.9 86 20 165/59 (94) 97 12/30/19 09:00 Room Air 12/30/19 08:35 99.0 81 19 144/74 (97) 98 12/30/19 08:00 86 12/30/19 04:00 83 12/30/19 04:00 98.1 90 19 144/83 (103) 98 12/30/19 00:00 82 12/30/19 00:00 98.3 92 19 140/78 (98) 97 Intake and Output 12/29/19 12/30/19 19:00 07:00 Intake Total 800 ml 1000 ml Output Total 450 ml Balance 800 ml 550 ml Intake Oral 800 ml 1000 ml Output Urine Total 450 ml # Voids 2 2 # Bowel Movements 2 Laboratory Tests 12/30/19 06:40: White Blood Count 4.9, Red Blood Count 2.46L, Hemoglobin 8.3L, Hematocrit 24.7L , Mean Corpuscular Volume 101H, Mean Corpuscular Hemoglobin 33.7H, Mean Corpuscular Hemoglobin Concent 33.5, Red Cell Distribution Width 16.0H, Platelet Count 99L, Mean Platelet Volume 6.9, Neutrophils (%) (Auto) , Lymphocytes (%) (Auto) , Monocytes (%) (Auto) , Eosinophils (%) (Auto) , Basophils (%) (Auto) , Differential Total Cells Counted 100, Neutrophils % ( Manual) 52, Lymphocytes % (Manual) 27, Monocytes % (Manual) 10, Eosinophils % ( Manual) 11H, Basophils % (Manual) 0, Band Neutrophils 0, Platelet Estimate DecreasedL, Platelet Morphology Normal, Anisocytosis 1+, Macrocytosis 1+, Sodium Level 138, Potassium Level 4.3, Chloride Level 100, Carbon Dioxide Level 28, Anion Gap 10, Blood Urea Nitrogen 50H, Creatinine 10.3H, Estimat Glomerular Filtration Rate 6.3, Glucose Level 99, Calcium Level 9.8, Hepatitis A IgM Antibody [Pending], Hepatitis B Surface Antigen [Pending], Hepatitis B Core IgM Antibody [Pending], Hepatitis C Antibody [Pending] Height (Feet): 5 Height (Inches): 6.00 Weight (Pounds): 219 Daisy Bland MD Dec 30, 2019 21:49
--- NOTE | 2019-12-30 22:22 | Cardiology Progress Note ---
Assessment/Plan Assessment/Plan 1. Non-cardiac chest pain, AMI is ruled out, 12-lead electrocardiogram does not show any evidence of ischemia. Non-ischemic nuclear stress test in 2019. Normal LV systolic and diastolic function with LVEF of approximately 60%. 2. Hypertension, stage II, will optimize losartan. 3. History of coronary artery disease, status post PCI in the past, continue with dual oral antiplatelet therapy as well as statins. 4. History of diabetes mellitus, continue ASA and statins. 5. Upper respiratory tract infection, negative COVID-19 test. Subjective Subjective Transferred to the telemetry unit. Sinus rhythm at rate of 84. Objective Last 24 Hour Vital Signs Date Time Temp Pulse Resp B/P (MAP) Pulse Ox O2 Delivery O2 Flow Rate FiO2 12/30/19 20:00 99.7 84 20 138/69 (92) 99 12/30/19 16:00 82 12/30/19 16:00 97.9 81 19 120/62 (81) 95 12/30/19 12:00 86 12/30/19 12:00 98.9 86 20 165/59 (94) 97 12/30/19 09:00 Room Air 12/30/19 08:35 99.0 81 19 144/74 (97) 98 12/30/19 08:00 86 12/30/19 04:00 83 12/30/19 04:00 98.1 90 19 144/83 (103) 98 12/30/19 00:00 82 12/30/19 00:00 98.3 92 19 140/78 (98) 97 Intake and Output 12/29/19 12/30/19 19:00 07:00 Intake Total 800 ml 1000 ml Output Total 450 ml Balance 800 ml 550 ml Intake Oral 800 ml 1000 ml Output Urine Total 450 ml # Voids 2 2 # Bowel Movements 2 2D Echo: (2019): LVEF 65%, Mod LVH, Grade I LVDD, RVSP 23 mmHg, DEYSI Laboratory Tests Test 12/30/19 06:40 White Blood Count 4.9 K/UL (4.8-10.8) Red Blood Count 2.46 M/UL (4.70-6.10) L Hemoglobin 8.3 G/DL (14.2-18.0) L Hematocrit 24.7 % (42.0-52.0) L Mean Corpuscular Volume 101 FL (80-99) H Mean Corpuscular Hemoglobin 33.7 PG (27.0-31.0) H Mean Corpuscular Hemoglobin Concent 33.5 G/DL (32.0-36.0) Red Cell Distribution Width 16.0 % (11.6-14.8) H Platelet Count 99 K/UL (150-450) L Mean Platelet Volume 6.9 FL (6.5-10.1) Neutrophils (%) (Auto) % (45.0-75.0) Lymphocytes (%) (Auto) % (20.0-45.0) Monocytes (%) (Auto) % (1.0-10.0) Eosinophils (%) (Auto) % (0.0-3.0) Basophils (%) (Auto) % (0.0-2.0) Differential Total Cells Counted 100 Neutrophils % (Manual) 52 % (45-75) Lymphocytes % (Manual) 27 % (20-45) Monocytes % (Manual) 10 % (1-10) Eosinophils % (Manual) 11 % (0-3) H Basophils % (Manual) 0 % (0-2) Band Neutrophils 0 % (0-8) Platelet Estimate Decreased L Platelet Morphology Normal Anisocytosis 1+ Macrocytosis 1+ Sodium Level 138 MMOL/L (136-145) Potassium Level 4.3 MMOL/L (3.5-5.1) Chloride Level 100 MMOL/L (98-107) Carbon Dioxide Level 28 MMOL/L (21-32) Anion Gap 10 mmol/L (5-15) Blood Urea Nitrogen 50 mg/dL (7-18) H Creatinine 10.3 MG/DL (0.55-1.30) H Estimat Glomerular Filtration Rate 6.3 mL/min (>60) Glucose Level 99 MG/DL (74-106) Calcium Level 9.8 MG/DL (8.5-10.1) Hepatitis A IgM Antibody Pending Hepatitis B Surface Antigen Pending Hepatitis B Core IgM Antibody Pending Hepatitis C Antibody Pending Objective HEENT: Atraumatic and normocephalic. Anicteric. Pupils are equal, round, and reactive to light and accommodation. Extraocular muscles are intact. NECK: JVP elevated at about 10 cm. No carotid bruit. Carotid upstrokes 2+ bilaterally. CARDIOVASCULAR: Normal S1 and S2. Regular rate and rhythm. No murmurs, gallops, or rubs. PMI is at fourth intercostal space in the midclavicular line. LUNGS: Bibasilar crackles. ABDOMEN: Soft, nontender, and nondistended. No hepatosplenomegaly. Positive bowel sounds. EXTREMITIES: No evidence of edema, clubbing, or cyanosis. Pavan Hanson MD Dec 30, 2019 22:22
[2019-12-31] VITALS: BP 138/72
[2019-12-31] MEDS: HYDROcodone/Acetamin 10/325 tab ORAL PRN (03:24)
[2019-12-31 04:00] VITALS: BP 149/82
[2019-12-31 07:29] LABS: HEMOGLOBIN 8.5 G/DL (14.2-18.0); MEAN CORPUSCULAR VOLUME 101 FL (80-99); PLATELET COUNT 84 K/UL (150-450); RED BLOOD COUNT 2.57 M/UL (4.70-6.10); RED CELL DISTRIBUTION WIDTH 15.7 % (11.6-14.8); WHITE BLOOD COUNT 4.1 K/UL (4.8-10.8)
[2019-12-31 07:40] LABS: ANION GAP 8 mmol/L (5-15); BLOOD UREA NITROGEN 38 mg/dL (7-18); CALCIUM 9.3 MG/DL (8.5-10.1); CARBON DIOXIDE 32 MMOL/L (21-32); CHLORIDE 99 MMOL/L (98-107); CREATININE 8.4 MG/DL (0.55-1.30); SODIUM 139 MMOL/L (136-145)
[2019-12-31 08:00] VITALS: BP 137/82
[2019-12-31 08:51] VITALS: BP 137/82
[2019-12-31] MEDS: Aspirin EC 81mg tab ORAL SCH (08:51)
[2019-12-31] MEDS: Docusate 100mg cap ORAL SCH ×2 (08:51→14:25)
[2019-12-31] MEDS ORDERED: Losartan 25mg tab ORAL SCH (09:00)
--- NOTE | 2019-12-31 09:26 | Hematology/Onc Progress Note ---
Assessment/Plan Assessment/Plan Assessment/Plan # Pancytopenia -- with Anemia of iron deficiency,with acd as well, due to underlying chronic medical issues, multifactorial, kidney disease in this case due to HIV++ --> Anemia workup has been reviewed --> No evidence of hemolysis is noted, peripheral smear has been reviewed. --> Hgb goal >7. Transfuse prn. --> Epogen and IRON HAS BEEN STARTED --> Medications have been reviewed --> low threshold for gi evaluation in case has occult + --> ferritin is 386-->520, tibc is 287 --> hgb trend 9.2-->8.9-->9.1-->8.8 # Hyperproteinemia -- with a elevated b2 globulin --> spep has been ordered, pending results==> NEGATIVE RESULTS --> in the past had a isolated elevation of b2 globulin in 2011 # Thrombocytopenia is due to hiv --> trend as needed 82k-->120k-->113->99 --> us of abd negative --> off abx # Admitted with ACS --> per renal r/o acs --> r/o chest pain # ESRD on Dialysis for 13 years --> with a right chest permacath right side --> continue 3x a week # HTN --> sbp goal <150 # DM2 --> as per endo # HIV+ --> restarted on meds per id Greatly appreciate consultation.and arabella RN Subjective HEENT: Denies: no symptoms, eye pain, blurred vision, tearing, double vision, ear pain, ear discharge, nose pain, nose congestion, throat pain, throat swelling, mouth pain, mouth swelling, other Cardiovascular: Denies: no symptoms, chest pain, edema, irregular heart rate, lightheadedness, palpitations, syncope, other Respiratory: Denies: no symptoms, cough, shortness of breath, SOB with excertion, SOB at rest, sputum, wheezing, other Gastrointestinal/Abdominal: Denies: no symptoms, abdomen distended, abdominal pain, black stools, tarry stools, blood in stool, constipated, diarrhea, difficulty swallowing, nausea, poor appetite, poor fluid intake, rectal bleeding , vomiting, other Genitourinary: Denies: no symptoms, burning, discharge, frequency, flank pain, hematuria, incontinence, pain, urgency, other Neurologic/Psychiatric: Denies: no symptoms, anxiety, depressed, emotional problems, headache, numbness, paresthesia, pre-existing deficit, seizure, tingling, tremors, weakness, other Endocrine: Denies: no symptoms, excessive sweating, flushing, intolerance to cold, intolerance to heat, increased hunger, increased thirst, increased urine, unexplained weight gain, unexplained weight loss, other Hematologic/Lymphatic: Denies: no symptoms, anemia, easy bleeding, easy bruising, adenopathy, other Allergies: Coded Allergies: No Known Allergies (Verified , 02/11/12) Subjective 12/26 on tele, awake and alert, no acute distress 12/27 no night sweats, labs noted, dw rn, no bleeding 12/28 ricardo duplex negative, off abx, h/h stable, no sob 12/29 labs reviewed, no major bleeding, no f/c plt 88k 12/30 no night sweats, no bleeding, no chills, labs reviewed Objective Objective Current Medications Medications (Trade) Dose Ordered Sig/Twyla Route PRN Reason Start Time Stop Time Status Last Admin Dose Admin Acetaminophen (Tylenol) 650 mg Q4H PRN ORAL MILD/TEMP 12/26/19 14:12 01/23/20 14:11 12/30/19 14:45 Acetaminophen/ Hydrocodone Bitart ([place] 10/325) 2 tab Q4H PRN ORAL Severe Pain (Pain Scale 7-10) 12/26/19 14:30 01/01/20 14:29 12/31/19 03:24 Aspirin (Ecotrin) 81 mg DAILY ORAL 12/27/19 09:00 02/07/20 20:59 12/31/19 08:51 Atorvastatin Calcium (Lipitor) 40 mg BEDTIME ORAL 12/26/19 21:00 03/23/20 20:59 12/30/19 20:43 Clonidine HCl (Catapres Tab) 0.1 mg Q6H PRN ORAL SBP > 160mmHg 12/26/19 14:30 03/23/20 20:29 Clopidogrel Bisulfate (Plavix) 75 mg DAILY ORAL 12/27/19 09:00 01/23/20 20:59 12/31/19 08:51 Diphenhydramine HCl (Benadryl) 25 mg Q6H PRN ORAL Itching 12/28/19 20:00 01/27/20 19:59 12/30/19 14:45 Docusate Sodium (Colace) 100 mg THREE TIMES A DAY ORAL 12/26/19 18:00 01/24/20 12:59 12/31/19 08:51 Epoetin Ashok (Epoetin Ashok(ESRD on dialysis)) 10,000 unit SAT- SUBQ 12/28/19 21:00 03/27/20 20:59 12/30/19 20:43 Folic Acid (Folate) 2 mg DAILY ORAL 12/27/19 09:00 01/24/20 12:59 12/31/19 08:52 Gabapentin (Neurontin) 100 mg THREE TIMES A DAY ORAL 12/26/19 18:00 01/24/20 08:59 12/31/19 08:51 Iron Sucrose 100 mg/Sodium Chloride 60 ml @ 240 mls/hr BEDTIME IV 12/30/19 21:00 01/03/20 21:14 12/30/19 22:22 Losartan Potassium (Cozaar) 50 mg DAILY ORAL 12/31/19 09:00 01/30/20 08:59 12/31/19 08:51 Pantoprazole (Protonix) 40 mg EVERY 12 HOURS ORAL 12/26/19 21:00 01/24/20 20:59 12/31/19 08:51 Sevelamer Carbonate (Renvela) 800 mg THREE TIMES A DAY ORAL 12/26/19 18:00 03/24/20 12:59 12/31/19 08:51 Last 24 Hour Vital Signs Date Time Temp Pulse Resp B/P (MAP) Pulse Ox O2 Delivery O2 Flow Rate FiO2 12/31/19 08:51 137/82 12/31/19 08:00 97.9 77 20 137/82 (100) 98 12/31/19 04:00 Room Air 12/31/19 04:00 98.7 83 18 149/82 (104) 98 12/31/19 04:00 80 12/31/19 00:00 99.7 84 20 138/72 (94) 98 12/31/19 00:00 84 12/31/19 00:00 Room Air 12/30/19 21:00 Room Air 12/30/19 20:00 99.7 84 20 138/69 (92) 99 12/30/19 20:00 84 12/30/19 16:00 82 12/30/19 16:00 97.9 81 19 120/62 (81) 95 12/30/19 12:00 86 12/30/19 12:00 98.9 86 20 165/59 (94) 97 12/30/19 09:00 Room Air 12/30/19 08:35 99.0 81 19 144/74 (97) 98 12/30/19 08:00 86 12/30/19 04:00 83 12/30/19 04:00 98.1 90 19 144/83 (103) 98 12/30/19 00:00 82 12/30/19 00:00 98.3 92 19 140/78 (98) 97 12/29/19 21:00 Room Air 12/29/19 20:00 98.1 87 20 135/75 (95) 98 12/29/19 20:00 84 12/29/19 16:00 97.7 82 20 135/87 (103) 99 12/29/19 15:32 83 12/29/19 12:00 98.6 86 20 137/77 (97) 98 12/29/19 11:41 82 12/29/19 09:32 Room Air Intake and Output 12/30/19 12/31/19 19:00 07:00 Intake Total 360 ml 240 ml Output Total 2000 ml 1 ml Balance -1640 ml 239 ml Intake Oral 360 ml 240 ml Output Urine Total 1 ml Hemodialysis UF 2000 ml # Bowel Movements 1 Labs Test 12/28/19 14:50 12/29/19 06:40 12/30/19 06:40 12/31/19 06:33 White Blood Count 6.1 K/UL (4.8-10.8) 5.6 K/UL (4.8-10.8) 4.9 K/UL (4.8-10.8) 4.1 K/UL (4.8-10.8) Red Blood Count 2.75 M/UL (4.70-6.10) 2.78 M/UL (4.70-6.10) 2.46 M/UL (4.70-6.10) 2.57 M/UL (4.70-6.10) Hemoglobin 8.8 G/DL (14.2-18.0) 9.1 G/DL (14.2-18.0) 8.3 G/DL (14.2-18.0) 8.5 G/DL (14.2-18.0) Hematocrit 27.8 % (42.0-52.0) 28.0 % (42.0-52.0) 24.7 % (42.0-52.0) 26.0 % (42.0-52.0) Mean Corpuscular Volume 101 FL (80-99) 101 FL (80-99) 101 FL (80-99) 101 FL ( 80-99) Mean Corpuscular Hemoglobin 31.9 PG (27.0-31.0) 32.6 PG (27.0-31.0) 33.7 PG (27.0-31.0) 33.2 PG (27.0-31.0) Mean Corpuscular Hemoglobin Concent 31.4 G/DL (32.0-36.0) 32.3 G/DL (32.0-36.0) 33.5 G/DL (32.0-36.0) 32.9 G/DL (32.0-36.0) Red Cell Distribution Width 15.8 % (11.6-14.8) 16.0 % (11.6-14.8) 16.0 % (11.6-14.8) 15.7 % (11.6-14.8) Platelet Count 113 K/UL (150-450) 113 K/UL (150-450) 99 K/UL (150-450) 84 K/UL (150-450) Mean Platelet Volume 6.6 FL (6.5-10.1) 7.1 FL (6.5-10.1) 6.9 FL (6.5-10.1) 6.9 FL (6.5-10.1) Neutrophils (%) (Auto) 51.2 % (45.0-75.0) 41.0 % (45.0-75.0) % (45.0-75.0) % (45.0-75.0) Lymphocytes (%) (Auto) 25.2 % (20.0-45.0) 31.7 % (20.0-45.0) % (20.0-45.0) % (20.0-45.0) Monocytes (%) (Auto) 12.1 % (1.0-10.0) 14.5 % (1.0-10.0) % (1.0-10.0) % (1.0-10.0) Eosinophils (%) (Auto) 10.1 % (0.0-3.0) 11.5 % (0.0-3.0) % (0.0-3.0) % (0.0-3.0) Basophils (%) (Auto) 1.3 % (0.0-2.0) 1.4 % (0.0-2.0) % (0.0-2.0) % (0.0-2.0) Sodium Level 137 MMOL/L (136-145) 139 MMOL/L (136-145) 138 MMOL/L (136-145) 139 MMOL/L (136-145) Potassium Level 4.4 MMOL/L (3.5-5.1) 3.8 MMOL/L (3.5-5.1) 4.3 MMOL/L (3.5-5.1) 4.0 MMOL/L (3.5-5.1) Chloride Level 101 MMOL/L (98-107) 99 MMOL/L (98-107) 100 MMOL/L (98-107) 99 MMOL/L (98-107) Carbon Dioxide Level 24 MMOL/L (21-32) 29 MMOL/L (21-32) 28 MMOL/L (21-32) 32 MMOL/L (21-32) Anion Gap 12 mmol/L (5-15) 11 mmol/L (5-15) 10 mmol/L (5-15) 8 mmol/L (5-15) Blood Urea Nitrogen 50 mg/dL (7-18) 32 mg/dL (7-18) 50 mg/dL (7-18) 38 mg/dL (7-18) Creatinine 10.2 MG/DL (0.55-1.30) 8.3 MG/DL (0.55-1.30) 10.3 MG/DL (0.55-1.30) 8.4 MG/DL (0.55-1.30) Estimat Glomerular Filtration Rate 6.4 mL/min (>60) 8.1 mL/min (>60) 6.3 mL/min (>60) 8.0 mL/min (>60) Glucose Level 126 MG/DL (74-106) 144 MG/DL (74-106) 99 MG/DL (74-106) 82 MG/DL (74-106) Calcium Level 9.3 MG/DL (8.5-10.1) 9.7 MG/DL (8.5-10.1) 9.8 MG/DL (8.5-10.1) 9.3 MG/DL (8.5-10.1) Phosphorus Level 3.9 MG/DL (2.5-4.9) Magnesium Level 2.2 MG/DL (1.8-2.4) Total Bilirubin 0.3 MG/DL (0.2-1.0) Aspartate Amino Transf (AST/SGOT) 24 U/L (15-37) Alanine Aminotransferase (ALT/SGPT) 22 U/L (12-78) Alkaline Phosphatase 75 U/L (46-116) C-Reactive Protein, Quantitative 0.7 mg/dL (0.00-0.90) Pro-B-Type Natriuretic Peptide 7477 pg/mL (0-125) Total Protein 8.4 G/DL (6.4-8.2) Albumin 3.5 G/DL (3.4-5.0) Globulin 4.9 g/dL Albumin/Globulin Ratio 0.7 (1.0-2.7) Differential Total Cells Counted 100 Neutrophils % (Manual) 52 % (45-75) Lymphocytes % (Manual) 27 % (20-45) Monocytes % (Manual) 10 % (1-10) Eosinophils % (Manual) 11 % (0-3) Basophils % (Manual) 0 % (0-2) Band Neutrophils 0 % (0-8) Platelet Estimate Decreased Platelet Morphology Normal Anisocytosis 1+ Macrocytosis 1+ Hepatitis A IgM Antibody Negative (Negative) Hepatitis B Surface Antigen Negative (Negative) Hepatitis B Core IgM Antibody Negative (Negative) Hepatitis C Antibody <0.1 s/co ratio Height (Feet): 5 Height (Inches): 6.00 Weight (Pounds): 219 Objective ROS (review of systems): Constitutional: No fever, no chills, no night sweats, no fatigue Skin: No rashes, lumps, itchiness, dryness HEENT: No MAI, ear ache, visual changes, double vision, nosebleeds Breasts: No lumps, pain, discharge Pulmonary: some sob ++ Cardiovascular: No chest pain, tightness, palpitations, syncope, PND GI: No nausea, vomiting, diarrhea, melena, hematochezia, change in appetite, : No dysuria, frequency, urgency, urinary incontinence, foamy urine Musculoskeletal: No joint swelling or muscle pain, trauma, back pain Neurologic: No dizziness, fainting, seizures, changes in smell or taste Psychiatric: No nervousness, stress, or depression, anxiety, hallucinations Endocrine: No weight change, heat or cold intolerance, tremor, insomnia Physical Exam: Vitals: reviewed General: NAD HEENT: nc, at Neck: supple Chest: clear breath sounds bilaterally ++ right sided permacath Cardiovascular: RRR, no s3, s4 Abdomen: soft, nontender, nd Extremities: no cce, normal range of motion Neuro: alert and oriented Ishaan Madera MD Dec 31, 2019 09:26
--- NOTE | 2019-12-31 14:25 | Nephrology Progress Note ---
Assessment/Plan Problem List: (1) ESRD (end stage renal disease) (2) HIV disease (3) Hypertensive kidney disease (4) Diabetic nephropathy Assessment ACS On Dialysis for the past 13 years Has right chest permacath HTN DM HIV+ Plan BP meds with parameters HD last December 27, next dialysis December 29 and December 31 keep BS in control Continue per consultants Antibiotics per ID Subjective ROS Limited/Unobtainable: No Constitutional: Reports: malaise Objective Objective Last 24 Hour Vital Signs Date Time Temp Pulse Resp B/P (MAP) Pulse Ox O2 Delivery O2 Flow Rate FiO2 12/31/19 08:51 137/82 12/31/19 08:00 97.9 77 20 137/82 (100) 98 12/31/19 04:00 Room Air 12/31/19 04:00 98.7 83 18 149/82 (104) 98 12/31/19 04:00 80 12/31/19 00:00 99.7 84 20 138/72 (94) 98 12/31/19 00:00 84 12/31/19 00:00 Room Air 12/30/19 21:00 Room Air 12/30/19 20:00 99.7 84 20 138/69 (92) 99 12/30/19 20:00 84 12/30/19 16:00 82 12/30/19 16:00 97.9 81 19 120/62 (81) 95 Intake and Output 12/30/19 12/31/19 19:00 07:00 Intake Total 360 ml 240 ml Output Total 2000 ml 1 ml Balance -1640 ml 239 ml Intake Oral 360 ml 240 ml Output Urine Total 1 ml Hemodialysis UF 2000 ml # Bowel Movements 1 Laboratory Tests 12/31/19 06:33: White Blood Count 4.1L, Red Blood Count 2.57L, Hemoglobin 8.5L, Hematocrit 26.0L , Mean Corpuscular Volume 101H, Mean Corpuscular Hemoglobin 33.2H, Mean Corpuscular Hemoglobin Concent 32.9, Red Cell Distribution Width 15.7H, Platelet Count 84L, Mean Platelet Volume 6.9, Neutrophils (%) (Auto) , Lymphocytes (%) (Auto) , Monocytes (%) (Auto) , Eosinophils (%) (Auto) , Basophils (%) (Auto) , Differential Total Cells Counted 100, Neutrophils % ( Manual) 35L, Lymphocytes % (Manual) 30, Monocytes % (Manual) 22H, Eosinophils % (Manual) 11H, Basophils % (Manual) 2, Band Neutrophils 0, Platelet Estimate DecreasedL, Platelet Morphology Normal, Hypochromasia 2+, Anisocytosis 1+, Macrocytosis 1+, Sodium Level 139, Potassium Level 4.0, Chloride Level 99, Carbon Dioxide Level 32, Anion Gap 8, Blood Urea Nitrogen 38H, Creatinine 8.4H, Estimat Glomerular Filtration Rate 8.0, Glucose Level 82, Calcium Level 9.3 Height (Feet): 5 Height (Inches): 6.00 Weight (Pounds): 219 General Appearance: no apparent distress Respiratory/Chest: lungs clear Abdomen: soft Objective No change Toño Posada MD Dec 31, 2019 14:25
[2019-12-31] MEDS ORDERED: NS 275ml ONE (15:16)
[2019-12-31] MEDS ORDERED: Tubing IV Secondary IV ONE (15:16)
--- NOTE | 2020-01-02 16:38 | Discharge Summary ---
Discharge Summary Discharge Summary _ DATE OF ADMISSION: 12/24/2019 DATE OF DISCHARGE: 12/31/2019 DISCHARGED BY: Dr. Bland REASON FOR ADMISSION: 69 years old male with past medical history of end-stage renal disease , on hemodialysis, coronary artery disease, status post AL and multiply stent placement, hypertension, diabetes mellitus, presented to emergency department with complaint of chest pain and flulike symptoms. Symptoms were present for 3 days. Patient reported chest pressure in the left side , occasionally radiating to the back. He denied syncope , palpitations, loss of consciousness , numbness or tingling. Patient was compliant with aspirin and Plavix and took medications earlier that morning. Patient reported 3 days of nasal congestion, sore throat, fatigue and body aches. No known sick contacts. No fevers. No shortness of breath. On evaluation patient was afebrile , blood pressure was elevated. Laboratory work-up revealed no leukocytosis , hemoglobin 9.3 ,hematocrit 29 , platelet count 104. BUN 22 , creatinine 6.4, consistent with known history of end-stage renal disease. Glucose 88. Stable electrolytes. Troponin 0.029. pro BNP 10515. Influenza screen test was negative . Patient was tested for COVID 19 . Chest x-ray revealed mild CHF. Patient subsequently admitted to telemetry floor to isolation room CONSULTANTS: jewel waxer Dr. Valentin FAJARDO specialist Dr. Salazar marketing information manager Dr. Posada front end alignment specialist/oncologist Dr. Madera [facility] COURSE: Patient admitted to isolation room on telemetry. Serial troponin were negative. EKG revealed no acute ischemic changes. Patient was ruled out for acute myocardial infarction. Per jewel waxer , patient had noncardiac chest pain. Patient had nonischemic nuclear stress test in 2019. Normal left ventricular systolic and diastolic function and preserved ejection fraction of approximately 60%. Antihypertensive regimen was optimized. Losartan dose was increased. Blood pressure stabilized. Patient continued on dual antiplatelet therapy along with statin. Hemodialysis provided as per marketing information manager recommendations with close monitoring of volumes and renal parameters. Electrolytes corrected as needed. Blood sugar was closely monitored , and remained stable. ID specialist followed. COVID2 was negative. Isolation was discontinued, Patient was kept off antibiotics. T-cell subsets revealed CD4 count of 279 and viral load 8350. Patient to continue his HAART regimen as outpatient and follow-up with his outpatient HIV provider. Hemoglobin and hematocrit were closely monitored with goal to keep hemoglobin above 7. Anemia work-up revealed evidence of anemia of chronic disease. Ferritin 580. Patient was on Epogen. Patient started on folic acid replacement due to low folate. Thrombocytopenia was likely due to HIV. Platelet count was closely monitored and prior to discharge 84. Hemoglobin hematocrit remained at baseline , prior to discharge hemoglobin 8.5 , hematocrit 26. Supportive care provided. Patient clinically stabilized and was ready for discharge home. FINAL DIAGNOSES: Noncardiac chest pain Hypertension stage II Coronary artery disease , status post PCI and AL Diabetes mellitus with diabetic nephropathy Upper respiratory infection Suspected COVID 19 infection -ruled out Hypertensive kidney disease HIV disease End-stage renal disease , on hemodialysis Anemia of chronic disease Thrombocytopenia DISCHARGE MEDICATIONS: See Medication Reconciliation list. DISCHARGE INSTRUCTIONS: Patient was discharged home with home health services. Follow up with primary care provider in one week. I have been assigned to dictate discharge summary for this account. I was not involved in the patient's management. Celeste Donaldson NP Jan 02, 2020 16:37
--- NOTE | 2020-01-05 07:18 | Coder Physician Query ---
Clarification is required for compliance, coding accuracy, and to reflect severity of illness for this patient Dear Dr. PERRY Date: 01/05/20 Supervisor [employer]/CDS' Name: JHOAN CARNES Patient reported chest pressure in the left side , occasionally radiating to the back. Serial troponin were negative. EKG revealed no acute ischemic changes. Patient was ruled out for acute myocardial infarction. Per shell shop supervisor , patient had noncardiac chest pain. On evaluation patient was afebrile , blood pressure was elevated. Laboratory work-up revealed no leukocytosis , hemoglobin 9.3 ,hematocrit 29 , platelet count 104. BUN 22 , creatinine 6.4, consistent with known history of end-stage renal disease. Glucose 88. Stable electrolytes. Troponin 0.029. pro BNP 72238. Influenza screen test was negative .COVID2 was negative. Please document the suspected etiology of Chest Pain: [] Acute Coronary Syndrome [] Pericarditis [] Anxiety [] Costochondritis [] Pneumothorax [] GERD/Esophagitis [] Pulmonary embolism [] Other: [] Unable to determine Physician signature Date Please also document in your Progress Notes and/or Discharge Summary and indicate if the condition was present on admission. CINDI
== END 2019-12-31 15:17 | disposition home health service (06) | DRG 198 ==
LOC: EMR 13:45 → 2W 13:55 → EDBEDREQ 14:04 → 2W 12-25 17:10 → 2E 12-26 14:12
PROC: 5A1D70Z Performance of Urinary Filtration, Intermittent, Less than 6 Hours Per Day (ICD-10-PCS; principal; 2019-12-31)
DX: R07.89 Other chest pain (principal); I13.2 Hypertensive heart and chronic kidney disease with heart failure and with stage 5 chronic kidney disease, or end stage renal disease; N18.6 End stage renal disease; I50.9 Heart failure, unspecified; B20 Human immunodeficiency virus [HIV] disease; J06.9 Acute upper respiratory infection, unspecified; Z99.2 Dependence on renal dialysis; Z79.4 Long term (current) use of insulin; I25.10 Atherosclerotic heart disease of native coronary artery without angina pectoris; Z95.5 Presence of coronary angioplasty implant and graft; I25.2 Old myocardial infarction; N28.9 Disorder of kidney and ureter, unspecified; D50.9 Iron deficiency anemia, unspecified
CPT/HCPCS: 36415; 71045; 80048; 80053; 82607; 82728; 82746; 83036; 83540; 83550; 83735; 83880; 84100; 84484; 85007; 85025; 86140; 86360; 86705; 86706; 86709; 86710; 86803; 87081; 87340; 87536; 87635; 93005; 93970; 99285